=== PATIENT | female | born 1945 | race Caucasian/White ===

== ENCOUNTER 2022-05-21 15:27 | Outpatient (CLI) | payer MEDICARE, BC, SELFPAY | END 2022-05-21 15:28 | disposition home or self-care (01) | LOC: NFLDUCREF 05-24 14:15 | PROVIDERS: PCP Family Medicine; Visit Provider Registered Nurse | DX: N39.0 Urinary tract infection, site not specified (principal) | CPT/HCPCS: 87086; 87186 ==

== ENCOUNTER 2022-12-25 11:23 | Outpatient (CLI) | payer MEDICARE, BC, SELFPAY | END 2022-12-25 11:24 | disposition home or self-care (01) | LOC: NFLDUCREF 11:23 | PROVIDERS: PCP Family Medicine; Visit Provider Registered Nurse | DX: R39.15 Urgency of urination (principal) | CPT/HCPCS: 87086 ==

== ENCOUNTER 2023-01-15 08:56 | Outpatient (CLI) | payer MEDICARE, BC, SELFPAY | END 2023-01-15 08:57 | disposition home or self-care (01) | LOC: NFLDREF 01-21 10:50 | PROVIDERS: PCP Family Medicine; Referring Provider Family Medicine; Visit Provider Registered Nurse | DX: R31.9 Hematuria, unspecified (principal) | CPT/HCPCS: 87086; 87186 ==

== ENCOUNTER 2023-05-15 12:40 | Outpatient (CLI) | payer MEDICARE, BC, SELFPAY | END 2023-05-15 12:41 | disposition home or self-care (01) | LOC: NFLDREF 05-18 12:14 | PROVIDERS: PCP Family Medicine; Referring Provider Family Medicine; Visit Provider Nurse Practitioner Family | DX: N30.90 Cystitis, unspecified without hematuria (principal); B96.20 Unspecified Escherichia coli [E. coli] as the cause of diseases classified elsewhere | CPT/HCPCS: 87077; 87086; 87186 ==

== ENCOUNTER 2023-05-18 12:29 | Day surgery (SDC) | payer MEDICARE, BC, SELFPAY ==
--- OUTSIDE RECORDS SUMMARY | 2023-05-18 12:32 | XMS_ITS ---
Author Name Unknown Organization [facility] Address [address] [place] [id number] Care Team Providers Care Noodle Maker Name Role Phone Unavailable Unavailable Unavailable Surgery Details Not on file Complications Check Surgery Details section. Procedure Estimated Blood Loss Check Surgery Details section. Procedure Findings Check Surgery Details section. Procedure Specimens Taken Check Surgery Details section.
--- OUTSIDE RECORDS SUMMARY | 2023-05-18 12:32 | XMS_ITS | Referral Summary ---
Author Name Unknown Organization [facility] Address [address] [place] [id number] Care Team Providers Care Foam Fabricator Name Role Phone Elsewhere, Pcp Primary Care Provider Unavailabl e Source Comments Patient records contain information from all sites at [facility]. For routine questions regarding patient records, call [phone] during business hours, M-F 8:00 AM - 5:00 PM Central Time. Record requests for emergency care only can be directed to [phone] at any time.[facility] Encounters Date Type Department Care Team Description 05/05/2023 3:15 PM MANAGER SOCIAL WORK Comprehensive Visit Department of Ophthalmology in [place] [address] [place] [phone] Zoila Hartley O.D. Refraction Disorder (Primary Dx); Insufficiency Convergence 04/20/2023 11:30 AM MANAGER SOCIAL WORK [facility] [place], [place] [address] [place] [phone] Mumtaz Tipton APRN, Samm.N.P., M.S.N. Obstructive Sleep Apnea Adult 03/10/2023 1:00 PM MANAGER SOCIAL WORK [facility] [place], [place] [address] [place] [phone] Mumtaz Tipton APRN C.N.P., M.S.N. Obstructive Sleep Apnea Adult 02/28/2023 6:38 AM CDT - 02/28/2023 11:59 PM CDT Hospital Encounter Department of Radiology, [facility], in [place], [place] [address] [place] [address] Flaquito Pierce M.D. Lung Interstitial Disease (HCC) Discharge Disposition: Home or Self Care 02/28/2023 8:30 AM CDT Diagnostic Division of Pulmonary Medicine in [place], [place] [address] [place] [address] Flaquito Pierce M.D. Lung Interstitial Disease (HCC) 02/28/2023 10:30 AM CDT Office Visit Division of Pulmonary Medicine in [place], [place] [address] [place] [address] Lisa Soni MPAS, P.A.-C. Lung Interstitial Disease (HCC) (Primary Dx) 02/25/2023 Clinical Communication Division of Pulmonary Medicine in [place], [place] [address] [place] [address] Lisa Soni MPAS, P.A.-C. 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 May tolerate very low dose, ie 10 milligrams daily for 5 days. Medications Medication Sig Dispensed Refills Start Date End Date Status acyclovir (ZOVIRAX) 400 mg tablet Take by mouth as needed. TAKE ONE TABLET BY MOUTH THREE TIMES DAILY FOR 5 DAYS. START AT SOONEST SIGN OF HERPES FLARE 0 2 Active alendronate (FOSAMAX) 70 mg tablet Take 70 mg by mouth once a week. 0 2 Active atorvastatin (LIPITOR) 10 mg tablet Take 10 mg by mouth at bedtime. 0 3 Active cholecalciferol (VITAMIN D3) 25 mcg (1,000 Unit) capsule Take 1 capsule by mouth daily as needed. 0 6 Active ciclopirox (PENLAC) 8 % external solution Apply 1 application topically daily as needed. 0 2 Active clotrimazole (LOTRIMIN) 1 % cream Apply 1 application topically 2 (two) times a day as needed. 0 2 Active cyanocobalamin (VITAMIN B12) 1,000 mcg/mL injection Inject 1,000 mcg intramuscularly every 28 (twenty-eight) days. 0 2 Active fluticasone propionate (FLONASE) 50 mcg/actuation nasal spray Administer 1 spray into each nostril daily as needed. 0 2 Active gabapentin (NEURONTIN) 400 mg capsule Take 3 capsules by mouth at bedtime. 0 3 Active ipratropium-alb uteroL (Combivent Respimat) 20-100 mcg/actuation inhaler Inhale 1 puff every 6 (six) hours as needed. 0 2 Active Synthroid 100 mcg tablet Take 1 tablet by mouth daily. 0 3 Active loratadine (CLARITIN) 10 mg tablet Take 1 tablet by mouth daily. 0 3 Active losartan (COZAAR) 100 mg tablet Take 1 tablet by mouth daily. 0 3 Active lysine 1,000 mg tablet Take 1 tablet by mouth daily as needed. 0 2 Active montelukast (SINGULAIR) 10 mg tablet Take 1 tablet by mouth at bedtime. 0 3 Active omeprazole (PriLOSEC) [address] capsule Take 1 capsule by mouth once a week. 0 3 Active venlafaxine XR (EFFEXOR-XR) 75 mg 24 hr capsule Take 1 capsule by mouth daily. 0 2 Active VITAMIN B COMPLEX ORAL Take 1 tablet by mouth daily as needed. 0 0 Active ipratropium (ATROVENT) 21 mcg (0.03 %) nasal spray Administer 2 sprays into each nostril 2 (two) times a day. 30 mL 12 3 Active DME CPAPIndications :Obstructive Sleep Apnea Adult DME Order 1 each 0 3 Active albuterol 2.5 mg /3 mL nebulizer solution Inhale. 0 0 04/20/20 23 Discontinued albuterol 90 mcg/actuation inhaler Inhale 1-2 puffs every 4 (four) hours as needed. 0 2 04/20/20 23 Discontinued Advair Diskus 500-50 mcg/act diskus inhaler Inhale 1 puff daily. 0 2 04/20/20 Discontinued pirfenidone (ESBRIET) 267 mg tablet tablet Take by mouth. Take by mouth. Days 1-7 - one capsule by mouth 3 times daily (801 mg/day) Days 8-14 - two capsules by mouth 3 times daily (1602 mg/day) Day 15 onwards- three capsules by mouth 3 times daily (2403 mg/day) 0 2 04/20/20 23 Discontinued DME CPAPIndications :Obstructive Sleep Apnea Adult DME Order 1 each 0 3 04/20/20 Discontinued(Reo rder) Active Problems Problem Noted Date Diagnosed Date Diverticulosis 12/23/2012 Polyp Colon 05/25/2010 Overview: Colonoscopy 05/2010 polyp, Colonoscopy in 3 years. Colonoscopy 06/2013 polyp repeat in 5 years Colonoscopy 07/2018 - follow up in 5 years advised Herpesviral Infection Unspecified 04/13/2010 Hyperlipidemia Mixed 02/10/2009 Bipolar Disorder 04/19/2006 Asthma 04/19/2006 Overview: Normal PFT in 2006 - no change with bronchodilator Hypertension Essential Primary 04/19/2006 Hypothyroidism 04/19/2006 Social History Tobacco Use Types Packs/Day Years Used Date Smoking Tobacco: Former Cigarettes S tarted: 10/11/1984 Tobacco Cessation:Counseling Given: Not Answered Humiliation, Afraid, Rape, and Kick questionnair e Answer Date Recorded Within the last year, have y ou been afraid of your partner or ex-partner? No 05/17/2022 Within the last year, have y ou been humiliated or emotionally abused in other ways by your partner or ex-partner? No Within the last year, have y ou been kicked, hit, slapped, or otherwise physically hurt by your partner or ex-partner? No 05/17/2022 Within the last year, have y ou been raped or forced to have any kind of sexual activity by your partner or ex-partner? No 05/17/2022 Social Connection and Isolat ion Panel [NHANES] Answer Date Recorded In a typical week, how many times do you talk on the phone with family, friends, or neighbors? More than three times a week 05/17/2022 How often do you get togethe r with friends or relatives? More than three times a week 05/17/2022 How often do you attend chur or sikhism services? More than 4 times per year 05/17/2022 Do you belong to any clubs o r organizations such as muslim groups, unions, fraternal or athletic groups, or school groups? Yes 05/17/2022 How often do you attend meet ings of the clubs or organizations you belong to? More than 4 times per year 05/17/2022 Are you , , di vorced, , never , or living with a partner? 05/17/2022 AUDIT-C Answer Date Recorded Q1: How often do you have a drink containing alc ohol? Never 05/17/2022 Average Number of Drinks Not on file 023 Frequency of Binge Drinking Not on file 05/02 Overall Financial Resource Strain (CARDIA) Answe r Date Recorded How hard is it for you to pa y for the very basics like food, housing, medical care, and heating? Not hard at all 05/17/2022 [facility] - Occupational Stress Questionnaire Answer Date Recorded Do you feel stress - tense, restless, nervous, or anxious, or unable to sleep at night because your mind is troubled all the time - these days? Only a little 05/17/2022 Exercise Vital Sign Answer Date Recorde d On average, how many days pe r week do you engage in moderate to strenuous exercise (like a brisk walk)? 4 days 05/17/2022 On average, how many minutes do you engage in exercise at this level? 50 min 05/17/2022 Hunger Vital Sign Answer Date Recorded Within the past 12 months, y ou worried that your food would run out before you got the money to buy more. Never true 05/17/19 Within the past 12 months, t he food you bought just didn't last and you didn't have money to get more. Never true 05/17/2022 PRAPARE - Transportation Answer Date Re corded In the past 12 months, has l ack of transportation kept you from medical appointments or from getting medications? No 05/02 In the past 12 months, has l ack of transportation kept you from meetings, work, or from getting things needed for daily living? No 05/17/2022 Housing Stability Vital Sign Answer Rafa e Recorded In the last 12 months, was t here a time when you were not able to pay the mortgage or rent on time? No 05/17/2022 In the last 12 months, how many places have you lived? 1 05/17/2022 In the last 12 months, was t here a time when you did not have a steady place to sleep or slept in a custodial (including now)? No 05/17/2022 Nutrition Answer Date Recorded Nutrition: EVOO Fat Source Yes 05/17 On average, how many serving s of fruits and vegetables do you eat per day (serving size is equal to 1 cup or approximately the size of a tennis ball)? 6-7 05/17/2022 Dental Answer Date Recorded Dental: Regular Dentist Yes 05/17/19 Employment Answer Date Recorded Employment status Retired 05/17/2022 Education Answer Date Recorded What is the highest level of school you have completed or the highest degree you have received? Master's degree (e.g., MA, MS, Flavia, MEd, [employer], WILLIE) 05/17/2022 Sex and Gender Information Value Date Recorded Sex Assigned at Female 05/17/2022 2:17 PM MANAGER SOCIAL WORK Gender Identity Female 05/17/2022 2:17 PM MANAGER SOCIAL WORK Sexual Orientation Straight 05/17/2022 2: 17 PM MANAGER SOCIAL WORK Last Filed Vital Signs Vital Sign Reading Time Taken Comments Blood Pressure 127/76 02/28/2023 10:23 AM CDT Pulse 82 02/28/2023 10:23 AM CDT Temperature 36.9 ??C (98.4 ??F) 02/28/2023 10:23 AM C DT Respiratory Rate - - Oxygen Saturation 96% 02/28/2023 10:23 AM CDT Inhaled Oxygen Concentration - - Weight 84.4 kg (186 lb 1.1 oz) 02/28/2023 10:23 AM CDT Height 172.5 cm (5' 7.91) 02/28/2023 10:23 AM C DT Body Mass Index 28.36 02/28/2023 10:23 AM CDT Plan of Treatment Not on file Medical Devices Implanted Type Area Molding Plasterer Device Identifier Shelf Expiration Date Model / Serial / Lot Brenden/Screws From Broken Tibia Historical Record-06/04/2019 Implanted:06/04 by Provider, Historical (Quantity not on file) Hardware e.g. pins/screws/ rods Right: Tibia Historical Record Total Left Knee Replacement Implanted:09/30 by Provider, Historical (Quantity not on file) Knee Implant Left: Knee Procedures Procedure Name Priority Date/Time Associated Diagnosis Comments OXYGEN TITRATION Routine 02/28/2023 8:18 AM CDT Lung Interstitial Disease (HCC) PULMONARY FUNCTION TESTS Routine 02/28/2023 7:27 AM CDT Lung Interstitial Disease (HCC) CT CHEST WITHOUT IV CONTRAST RAD - Routine (most inpatients and all outpatients) 02/28/2023 6:56 AM CDT Lung Interstitial Disease (HCC) from Last 3 Months Results * Oxygen Titration (02/28/2023 8:18 AM CDT) [1] Inspired Gas (L/min) Room Air MMODAL [1] Interface N/A MMODAL [1] Speed (mph) Rest MMODAL [1] Grade (%) N/A MMODAL [1] Time (min) 10.0 MMODAL [1] SpO2 (%) 96 MMODAL [1] Heart Rate 83 MMODAL [1] Ratings of Perceived Exertion (6-20) 6 MMODAL [2] Inspired Gas (L/min) Room Air MMODAL [2] Interface N/A MMODAL [2] Speed (mph) 1.0 MMODAL [2] Grade (%) 0 MMODAL [2] Time (min) 2.0 MMODAL [2] SpO2 (%) 92 MMODAL [2] Heart Rate 98 MMODAL [2] Ratings of Perceived Exertion (6-20) 7 MMODAL [3] Inspired Gas (L/min) Room Air MMODAL [3] Interface N/A MMODAL [3] Speed (mph) 1.4 MMODAL [3] Grade (%) 0 MMODAL [3] Time (min) 2.0 MMODAL [3] SpO2 (%) 94 MMODAL [3] Heart Rate 102 MMODAL [3] Ratings of Perceived Exertion (6-20) 8 MMODAL [4] Inspired Gas (L/min) Room Air MMODAL [4] Interface N/A MMODAL [4] Speed (mph) 1.6 MMODAL [4] Grade (%) 3.0 MMODAL [4] Time (min) 2.0 MMODAL [4] SpO2 (%) 95 MMODAL [4] Heart Rate 107 MMODAL [4] Ratings of Perceived Exertion (6-20) 10 MMODAL [5] Inspired Gas (L/min) Room Air MMODAL [5] Interface N/A MMODAL [5] Speed (mph) 1.8 MMODAL [5] Grade (%) 8.0 MMODAL [5] Time (min) 2.0 MMODAL [5] SpO2 (%) 93 MMODAL [5] Heart Rate 115 MMODAL [5] Ratings of Perceived Exertion (6-20) 13 MMODAL Comment Total exercise time: 8.0 minutes. MMODAL Flaquito Pierce M.D. PFT ORDERABLES MMODAL NA * Pulmonary Function Tests (02/28/2023 7:27 AM CDT) [facility] Signature FVC 2.72 L 02/28/2023 9:23 AM CDT [facility] FEV1 2.30 L 02/28/2023 9:23 AM CDT [facility] FEV1/FVC 84.71 % 02/28/2023 9:23 AM CDT [facility] URR90-84% 2.54 L/s 02/28/2023 9:23 AM CDT [facility] PEF PRE 6.87 L/s 02/28/2023 9:23 AM CDT [facility] PIF PRE 5.29 L/s 02/28/2023 9:23 AM CDT [facility] FEF 50 % FIF 50 PRE 75.44 % 02/28/2023 9:23 AM CDT [facility] FET PRE 8.26 sec 02/28/2023 9:23 AM CDT [facility] DLCO 14.04 ml/(min*mm Hg) 02/28/2023 9:23 AM CDT [facility] VA 4.07 L 02/28/2023 9:23 AM CDT [facility] TLC 4.56 L 02/28/2023 9:23 AM CDT [facility] FRCPLETH PROVBASE 2.33 L 02/28/2023 9:23 AM CDT [facility] RV 1.84 L 02/28/2023 9:23 AM CDT [facility] RV % TLC PRE 40.41 % 02/28/2023 9:23 AM CDT [facility] 02/28/2023 7:27 AM CDT Impressions [facility] - 02/28/2023 9:23 AM CDT Abnormal. The diffusing capacity is mildly reduced consistent with a pulmonary parenchymal or vascular abnormality, or anemia. Lung volumes and spirometry including inspiratory flow volume curve are normal. Since 08/24/2022 there has been no significant change. Narrative Procedure Note Piero Herrera M.D., Ph.D. - 02/28/2023 IMPRESSION: Abnormal. The diffusing capacity is mildly reduced consistent with apulmonary parenchymal or vascular abnormality, or anemia. Lung volumes andspirometry including inspiratory flow volume curve are normal. Since08/24/2022 there has been no significant change. Flaquito Pierce M.D. PFT ORDERABLES [facility] NA * CT Chest without IV Contrast (02/28/2023 6:56 AM CDT) Anatomical Region Laterality Modality Chest, Thoracic RST LOS, Tho racic ARZ LOS, Thoracic FLA LOS N/A Computed Tomography, Compute d Tomography 02/28/2023 7:09 AM CDT Impressions 02/28/2023 7:28 AM CDT 1. 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 2. No change in small lung nodules. 3. Stable mild bronchial dilatation and moderate patchy expiratory air trapping. Narrative 02/28/2023 7:28 AM CDT EXAM: CT CHEST WITHOUT IV CONTRAST COMPARISON: 08/24/2022. FINDINGS: No interval change in the nonspecific reticular and groundglass fibrotic interstitial lung disease, which is predominantly peripheral in distribution. No definite honeycombing. No new areas of involvement. No change in mild diffuse bronchial dilatation, greatest in the lower lungs. Expiratory images (series 5) again demonstrate moderate patchy air trapping with mosaic attenuation of the lung parenchyma. No change in the 4 x 2 mm lung nodule in the right upper lobe laterally (series 3, image 226) which was noted as new on the prior exam. No change in the small groundglass/sub-solid nodule adjacent to a pulmonary vein in the left upper lobe anteriorly (3/213). Scattered areas of subsegmental bronchial mucus plugging. Stable dilated mucus-impacted bronchus in the anterior basal segment of the left lower lobe (3/419-440). No new or enlarging lung nodules. No lymphadenopathy. No pleural effusions. Mild coronary artery calcification. 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 No change in dilation of the central pulmonary arteries. The main pulmonary artery measures 34 mm. Small hiatal hernia. Cholecystectomy. Severe osteoarthritic changes of the shoulders. Healed left rib fractures. Procedure Note Shawn Ríos M.D. - 02/28/2023 EXAM: CT CHEST WITHOUT IV CONTRAST COMPARISON: 08/24/2022. FINDINGS: No interval change in the nonspecific reticular and groundglass fibroticinterstitial lung disease, which is predominantly peripheral in distribution. No definitehoneycombing. No new areas of involvement. No change in mild diffuse bronchial dilatation, greatest in the lowerlungs. Expiratory images (series 5) again demonstrate moderate patchy air trapping with mosaicattenuation of the lung parenchyma. No change in the 4 x 2 mm lung nodule in the right upper lobe laterally(series 3, image 226) which was noted as new on the prior exam. No change in the small groundglass/sub-solid nodule adjacent to apulmonary vein in the left upper lobe anteriorly (3/213). Scattered areas of subsegmental bronchial mucus plugging. Stable dilatedmucus-impacted bronchus in the anterior basal segment of the left lower lobe (3/419-440). No new orenlarging lung nodules. No lymphadenopathy. No pleural effusions. Mild coronary artery calcification. 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 No change in dilation of the central pulmonary arteries. The mainpulmonary artery measures 34 mm. Small hiatal hernia. Cholecystectomy. Severe osteoarthritic changes of the shoulders. Healed left ribfractures. IMPRESSION: 1. No change in fibrotic interstitial lung disease in a patternindeterminate for UIP. 2. No change in small lung nodules. 3. Stable mild bronchial dilatation and moderate patchy expiratory airtrapping. Flaquito Pierce M.D. IMG CT PROCEDURES from Last 3 Months Advance Directives For more information, please contact: [phone] Documents on File Type Date Recorded Patient Inside Barrel Polisher Expl anation Advance Directives 04/07/2007 12:00 AM Leg acy document. See document viewer. Care Teams Foam Fabricator Relationship Specialty Start Date End Date Elsewhere, Pcp PCP - General Internal Medicine 05/14/22
--- OUTSIDE RECORDS SUMMARY | 2023-05-18 12:32 | XMS_ITS | Clinical Summary ---
Author Name Unknown Organization [facility] Address [address] [place] [address] Care Team Providers Care Benefits Officer Name Role Phone Elsewhere, Pcp Primary Care Provider Unavailabl e Source Comments Patient records contain information from all sites at [facility]. For routine questions regarding patient records, call [phone] during business hours, M-F 8:00 AM - 5:00 PM Central Time. Record requests for emergency care only can be directed to [phone] at any time.[facility] Allergies Active Allergy Reactions Criticality Noted Date Comments Amoxicillin GI intolerance 11/28/2020 Divalproex Sodium Other (see comments) 03/28/20 07 increase WBC count Fluticasone Other (see comments) 07/14/2015 Pt reports high dose fpc caused damage to her nose (taste/smell) House [...] Inhale 1 puff daily. 0 2 04/20/20 23 Discontinued pirfenidone (ESBRIET) 267 mg tablet tablet [...] DME Order 1 each 0 3 04/20/20 23 Discontinued(Reo rder) Active Problems Problem Noted Date [...] bronchodilator Hypertension Essential Primary 04/19/2006 Hypothyroidism 04/19/2006 Encounters Date Type Department Care Team Description 05/05/2023 3:15 PM FRONT LINE LEADER Comprehensive Visit Department of Ophthalmology in [place], [place] [address] [place] [phone] Zoila Hartley O.D. Refraction Disorder (Primary Dx); Insufficiency Convergence 04/20/2023 11:30 AM FRONT LINE LEADER [facility] in [place], [place] [address] [place] [address] Mumtaz Tipton APRN, C.N.P., M.S.N. Obstructive Sleep Apnea Adult 03/10/2023 1:00 PM FRONT LINE LEADER Office Visit [facility] in [place], [place] [address] [place] [phone] Mumtaz Tipton APRN, C.N.P., M.S.N. Obstructive Sleep Apnea Adult 02/28/2023 10:30 AM CDT Office Visit Division of Pulmonary Medicine in [place], [place] [address] [place] [phone] Lisa Soni MPAS, P.A.-CKarol Lung Interstitial Disease (HCC) (Primary Dx) 02/28/2023 8:30 AM CDT Diagnostic Division of Pulmonary Medicine in [address] [phone] Flaquito Pierce M.D. Lung Interstitial Disease (HCC) 02/28/2023 6:38 AM CDT - 02/28/2023 11:59 PM CDT Hospital Encounter Department of Radiology, [facility], in [place], [place] [address] [place] [phone] Flaquito Pierce M.D. Lung Interstitial Disease (HCC) Discharge Disposition: Home or Self Care 02/25/2023 Clinical Communication Division of Pulmonary Medicine in [address] [phone] Lisa Soni MPAS, P.A.-CKarol Pre-visit Intake from Last 3 Months Family History Medical History Relation Name Comments Macular degeneration Mother Glaucoma Paternal Grandmother Relation Name Status Comments Mother Paternal Grandmother Social History Tobacco Use Types Packs/Day Years [...] How often do you attend chur or mormon services? More than 4 times per year 05/17/2022 Do you belong to any clubs o r organizations such as alevism groups, unions, fraternal or athletic groups, or [...] and heating? Not hard at all 05/17/2022 [facility] Occupat ional Health - Occupational Stress [...] place to sleep or slept in a halfway (including now)? No 05/17/2022 Nutrition Answer Date [...] Master's degree (e.g., MA, MS, Flavia, MEd, FISHING GEAR MECHANIC, WILLIE) 05/17/2022 Sex and Gender Information Value Date Recorded Sex Assigned at Female 05/17/2022 2:17 PM FRONT LINE LEADER Gender Identity Female 05/17/2022 2:17 PM FRONT LINE LEADER Sexual Orientation Straight 05/17/2022 2: 17 PM FRONT LINE LEADER Last Filed Vital Signs Vital Sign Reading [...] 02/28/2023 10:23 AM CDT Plan of Treatment Health Maintenance Due Date Last Done Comments Hepatitis C Screening 1945 Depression Screening (Annual PHQ-2) 05/02/2023 Fall Risk Screen (Annual) 05/02/2023 Creatinine Level (Kidney Function Test) 05/26/2023 05/26/2022, 05/18/2022, 07/02/2021, Additional history exists Potassium Level 05/26/2023 05/26/2022, 05/02, 07/02/2021, Additional history exists Sodium Level 05/26/2023 05/26/2022, 05/02, 07/02/2021, Additional history exists Thyroid Stimulating Hormone (TSH) test for thyroid function 12/29/2023 12/28/2022, 08/13/2022, 05/26/2022, Additional history exists DTaP,Tdap,and Td Vaccines (4 - Td or Tdap) 01/23/2024 01/22/2014, 02/10/2009, 02/27/1990 Office Visit for Blood Pressure Check / Re-check 02/29/2024 02/28/2023 Pneumococcal vaccine (65+ years) Completed 12/24/2014, 09/06/2012, 02/08/2012, Additional history exists Zoster Vaccines Completed 11/30/2018, 07/01, 11/16/2011 Influenza Vaccine Completed 01/13/2023, , 01/27/2021, Additional history exists COVID-19 Vaccine Completed 01/31/2023, , 09/02/2021, Additional history exists HPV Vaccines Aged Out No longer eligi ble based on patient's age to complete this topic Medical Devices Implanted Type Area Risk Assessor Device Identifier Shelf Expiration Date Model / [...] Total exercise time: 8.0 minutes. MMODAL Flaquito Pierec M.D. PFT ORDERABLES MMODAL NA * Pulmonary Function Tests (02/28/2023 7:27 AM CDT) FVC 2.72 L 02/28/2023 9:23 AM CDT [facility] FEV1 2.30 L 02/28/2023 9:23 AM CDT [facility] FEV1/FVC 84.71 % 02/28/2023 9:23 AM CDT [facility] ESE32-86% 2.54 L/s 02/28/2023 9:23 AM CDT [facility] PEF PRE 6.87 L/s 02/28/2023 9:23 AM CDT [facility] PIF PRE 5.29 L/s 02/28/2023 9:23 AM CDT [facility] FEF 50 % FIF 50 PRE 75.44 % 02/28/2023 9:23 AM CDT [facility] FET PRE 8.26 sec 02/28/2023 9:23 AM CDT [facility] DLCO 14.04 ml/(min*mm Hg) 02/28/2023 9:23 AM CDT [facility] VA 4.07 L 02/28/2023 9:23 AM CDT [facility] TLC 4.56 L 02/28/2023 9:23 AM CDT [facility] FRCPLETH PROVBASE 2.33 L 02/28/2023 9:23 AM CDT [facility] RV 1.84 L 02/28/2023 9:23 AM CDT [facility] RV % TLC PRE 40.41 % 02/28/2023 9:23 AM CDT [facility] 02/28/2023 7:27 AM CDT Impressions [facility] - 02/28/2023 9:23 AM CDT Abnormal. The [...] significant change. Flaquito Pierce M.D. PFT ORDERABLES [facility] NA * CT Chest without IV Contrast [...] Advance Directives For more information, please contact: [phone] Documents on File Type Date Recorded Patient Python Java Developer Expl anation Advance Directives 04/07/2007 12:00 AM Leg acy document. See document viewer. Care Teams Benefits Officer Relationship Specialty Start Date End Date Elsewhere, Pcp PCP - General Internal Medicine 05/14/22
--- OUTSIDE RECORDS SUMMARY | 2023-05-18 12:32 | XMS_ITS | Encounter Summary ---
Author Name Unknown Organization [facility] Address [address] [place] [address] Care Team Providers Care Traveling Construction Superintendent Name Role Phone Elsewhere, Pcp Primary Care Provider Unavailabl e Reason for Referral * MRI/CAT/PET Scan (Routine) - Closed Specialty Diagnoses / Procedures Referred By Averyac t Referred To Contact Radiology Diagnoses Lung Interstitial Disease (HCC) Procedures CT Chest without IV Contrast Flaquito Pierce M.D. 200 [place] [address] [facility] Referral ID Status Reason Start Date Expiration Date Visits Re quested Visits Authorized [id number] Closed 08/24/2022 08/24/2023 1 1 Reason for Visit * MRI/CAT/PET Scan (Routine) - Closed Specialty Diagnoses / Procedures Referred By Contac nghia Referred To Contact Radiology Diagnoses Lung Interstitial Disease (HCC) Procedures CT Chest without IV Contrast Flaquito Pierce M.D. 200 [place] [address] [facility] Referral ID Status Reason Start Date Expiration Date Visits Re quested Visits Authorized [id number] Closed 08/24/2022 08/24/2023 1 1 Encounter Details Date Type Department Care Team (Latest Contact Info) Description 02/28/2023 6:38 AM CDT - 02/28/2023 11:59 PM CDT Hospital Encounter Department of Radiology, [facility] in [place], [place] [address] [place] [address] Flaquito Pierce M.D. 200 [place] [address] Lung Interstitial Disease (HCC) Discharge Disposition: Home or Self Care Social History Tobacco Use Types Packs/Day Years Used Date Smoking Tobacco: Former Cigarettes S tarted: 10/11/1984 Humiliation, Afraid, Rape, and Kick questionnair e [...] How often do you attend chur or orthodoxy services? More than 4 times per year 05/17/2022 Do you belong to any clubs o r organizations such as hoahaoism groups, unions, fraternal or athletic groups, or [...] and heating? Not hard at all 05/17/2022 [facility] [place] of Occupat ional Health - Occupational Stress [...] money to buy more. Never true 05/17/19 23 Within the past 12 months, t he [...] place to sleep or slept in a fci (including now)? No 05/17/2022 Nutrition Answer Date [...] Master's degree (e.g., MA, MS, Flavia, MEd, AGRICULTURAL LENDER, WILLIE) 05/17/2022 Sex and Gender Information Value Date Recorded Sex Assigned at Female 05/17/2022 2:17 PM SOCIAL AND HUMAN SERVICES ASSISTANT Gender Identity Female 05/17/2022 2:17 PM SOCIAL AND HUMAN SERVICES ASSISTANT Sexual Orientation Straight 05/17/2022 2: 17 PM SOCIAL AND HUMAN SERVICES ASSISTANT documented as of this encounter Medications at Time of Discharge Medication Sig Dispensed Refills Start Date End Date acyclovir (ZOVIRAX) 400 mg tablet Take by mouth as needed. TAKE ONE TABLET BY MOUTH THREE TIMES DAILY FOR 5 DAYS. START AT SOONEST SIGN OF HERPES FLARE 0 12/11/2021 alendronate (FOSAMAX) 70 mg tablet Take 70 mg by mouth once a week. 0 07/02/2021 atorvastatin (LIPITOR) 10 mg tablet Take 10 mg by mouth at bedtime. 0 05/10/2022 cholecalciferol (VITAMIN D3) 25 mcg (1,000 Unit) capsule Take 1 capsule by mouth daily as needed. 0 07/14/2015 ciclopirox (PENLAC) 8 % external solution Apply 1 application topically daily as needed. 0 02/03/2022 clotrimazole (LOTRIMIN) 1 % cream Apply 1 application topically 2 (two) times a day as needed. 0 02/03/2022 cyanocobalamin (VITAMIN B12) 1,000 mcg/mL injection Inject 1,000 mcg intramuscularly every 28 (twenty-eight) days. 0 04/01/2022 fluticasone propionate (FLONASE) 50 mcg/actuation nasal spray Administer 1 spray into each nostril daily as needed. 0 04/06/2022 gabapentin (NEURONTIN) 400 mg capsule Take 3 capsules by mouth at bedtime. 0 05/10/2022 ipratropium (ATROVENT) 21 mcg (0.03 %) nasal spray Administer 2 sprays into each nostril 2 (two) times a day. 30 mL 12 05/26/2022 ipratropium-albutero L (Combivent Respimat) 20-100 mcg/actuation inhaler Inhale 1 puff every 6 (six) hours as needed. 0 08/25/2021 loratadine (CLARITIN) 10 mg tablet Take 1 tablet by mouth daily. 0 05/10/2022 losartan (COZAAR) 100 mg tablet Take 1 tablet by mouth daily. 0 05/10/2022 lysine 1,000 mg tablet Take 1 tablet by mouth daily as needed. 0 12/14/2011 montelukast (SINGULAIR) 10 mg tablet Take 1 tablet by mouth at bedtime. 0 05/10/2022 omeprazole (PriLOSEC) [address] capsule Take 1 capsule by mouth once a week. 0 05/10/2022 Synthroid 100 mcg tablet Take 1 tablet by mouth daily. 0 05/10/2022 venlafaxine XR (EFFEXOR-XR) 75 mg 24 hr capsule Take 1 capsule by mouth daily. 0 07/02/2021 VITAMIN B COMPLEX ORAL Take 1 tablet by mouth daily as needed. 0 04/13/2010 Advair Diskus 500-50 mcg/act diskus inhaler Inhale 1 puff daily. 0 04/17/2022 023 albuterol 2.5 mg /3 mL nebulizer solution Inhale. 0 08/16/2019 04/20/2023 albuterol 90 mcg/actuation inhaler Inhale 1-2 puffs every 4 (four) hours as needed. 0 08/24/2021 04/20/20 23 DME CPAPIndications:Obst ructive Sleep Apnea Adult DME Order 1 each 0 06/14/2022 03/10/2023 pirfenidone (ESBRIET) 267 mg tablet tablet Take by mouth. Take by mouth. Days 1-7 - one capsule by mouth 3 times daily (801 mg/day) Days 8-14 - two capsules by mouth 3 times daily (1602 mg/day) Day 15 onwards- three capsules by mouth 3 times daily (2403 mg/day) 0 04/14/20222022 documented as of this encounter Plan of Treatment Not on file documented as of this encounter Procedures Procedure Name Priority Date/Time Associated Diagnosis Comments CT CHEST WITHOUT IV CONTRAST RAD - Routine (most inpatients and all outpatients) 02/28/2023 6:56 AM CDT Lung Interstitial Disease (HCC) documented in this encounter Results * CT Chest without IV Contrast (02/28/2023 [...] dilatation and moderate patchy expiratory airtrapping. Flaquito MARINO CT PROCEDURES documented in this encounter Visit Diagnoses Diagnosis Lung Interstitial Disease (HCC) documented in this encounter Care Teams Traveling Construction Superintendent Relationship Specialty Start Date End Date Elsewhere, Pcp PCP - General Internal Medicine 05/14/22 documented as of this encounter
--- OUTSIDE RECORDS SUMMARY | 2023-05-18 12:32 | XMS_ITS | Encounter Summary ---
Author Name Unknown Organization [facility] Address [address] [place] [address] Care Team Providers Care Cable Armorer Name Role Phone Elsewhere, Pcp Primary Care Provider Unavailabl e Encounter Details Date Type Department Care Team ([facility] st Contact Info) Description 02/28/2023 8:30 AM CDT Diagnostic Division of Pulmonary Medicine in [place], [place] [address] [place] [phone] Flaquito Pierce M.D. [address] [place] [phone] Lung Interstitial Disease (HCC) Social History Tobacco Use Types Packs/Day Years [...] 05/17/2022 How often do you attend chur ch or baptist services? More than 4 times per year 05/17/2022 Do you belong to any clubs o r organizations such as adventism groups, unions, fraternal or athletic groups, or [...] and heating? Not hard at all 05/17/2022 [facility] of Occupat ional Health - Occupational Stress [...] place to sleep or slept in a long term (including now)? No 05/17/2022 Nutrition Answer Date [...] Master's degree (e.g., MA, MS, Flavia, MEd, CIRCULATION ANALYST, WILLIE) 05/17/2022 Sex and Gender Information Value Date Recorded Sex Assigned at Female 05/17/2022 2:17 PM SHOE PLANNER Gender Identity Female 05/17/2022 2:17 PM SHOE PLANNER Sexual Orientation Straight 05/17/2022 2: 17 PM SHOE PLANNER documented as of this encounter Plan of Treatment Not on file documented as of this encounter Procedures Procedure Name Priority Date/Time Associated Diagnosis Comments OXYGEN TITRATION Routine 02/28/2023 8:18 AM CDT Lung Interstitial Disease (HCC) documented in this encounter Results * Oxygen Titration (02/28/2023 8:18 AM [...] Flaquito Pierce M.D. PFT ORDERABLES MMODAL NA documented in this encounter Visit Diagnoses Diagnosis Lung Interstitial Disease (HCC) documented in this encounter Care Teams Cable Armorer Relationship Specialty Start Date End Date Elsewhere, Pcp PCP - General Internal Medicine 05/14/22 documented as of this encounter
--- OUTSIDE RECORDS SUMMARY | 2023-05-18 12:32 | XMS_ITS | Encounter Summary ---
Author Name Unknown Organization [facility] Address [address] [place] [address] Care Team Providers Care Commercial Decorator Name Role Phone Elsewhere, Pcp Primary Care Provider Unavailabl e Reason for Visit * Reason Comments Eye Exam * Appointment Request (Routine) - Closed Specialty Diagnoses / Procedures Referred By Contac t Referred To Contact Ophthalmology Diagnoses Eye Examination Abnormal Referral ID Status Reason Start Date Expiration Date Visits Re quested Visits Authorized [id number] Closed 04/12/2023 04/11/2024 1 1 Encounter Details Date Type Department Care Team (Latest Contact Info) Description 05/05/2023 3:15 PM EMBEDDED SOFTWARE DEVELOPER Comprehensive Visit Department of Ophthalmology in [place] [address] [place] [phone] Zoila Hartley O.D. [address] [place] [phone] Refraction Disorder (Primary Dx); Insufficiency Convergence Social History Tobacco Use Types Packs/Day Years [...] and heating? Not hard at all 05/17/2022 [facility] of Occupat ional Health - Occupational [...] place to sleep or slept in a [place] [facility] [place] (including now)? No 05/17/2022 Nutrition Answer Date [...] Master's degree (e.g., MA, MS, Flavia, MEd, ARTIST RELATIONSHIP MANAGER, WILLIE) 05/17/2022 Sex and Gender Information Value Date Recorded Sex Assigned at Female 05/17/2022 2:17 PM EMBEDDED SOFTWARE DEVELOPER Gender Identity Female 05/17/2022 2:17 PM EMBEDDED SOFTWARE DEVELOPER Sexual Orientation Straight 05/17/2022 2: 17 PM EMBEDDED SOFTWARE DEVELOPER documented as of this encounter Progress Notes * Zoila Hartley O.D. 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 Please contact us with any questions, concerns, or changes. DDED SOFTWARE DEVELOPER documented in this encounter Plan of Treatment Not on file documented as of this encounter Visit Diagnoses Diagnosis Refraction Disorder- Primary Insufficiency Convergence documented in this encounter Care Teams Commercial Decorator Relationship Specialty Start Date End Date Elsewhere, Pcp PCP - General Internal Medicine 05/14/22 documented as of this encounter
--- OUTSIDE RECORDS SUMMARY | 2023-05-18 12:32 | XMS_ITS | Encounter Summary ---
Author Name Unknown Organization [facility] Address [address] [place] [id number] Care Team Providers Care Roof Plumber Name Role Phone Elsewhere, Pcp Primary Care Provider Unavailabl e Reason for Visit * Outpatient (Routine) - Closed Specialty Diagnoses / Procedures Referred By Contac t Referred To Contact Sleep Medicine Mumatz Tipton APRN, C.N.P., M.S.N. [address] [place] [phone] [facility] Referral ID Status Reason Start Date Expiration Date Visits Re quested Visits Authorized [id number] Closed 03/10/2023 03/09/2026 1 1 Encounter Details Date Type Department Care Team ([facility] st Contact Info) Description 04/20/2023 11:30 AM [facility] Telemedicine [facility] in [place], [place] [address] [place] [phone] Mumtaz Tipton APRN, C.N.P., M.S.N. [address] [place] [phone] Obstructive Sleep Apnea Adult Social History Tobacco Use Types Packs/Day Years [...] How often do you attend chur or mosque services? More than 4 times per year 05/17/2022 Do you belong to any clubs o r organizations such as faith groups, unions, fraternal or athletic groups, or [...] and heating? Not hard at all 05/17/2022 [facility] of Occupat ional Health - Occupational Stress [...] place to sleep or slept in a fpc (including now)? No 05/17/2022 Nutrition Answer Date [...] Master's degree (e.g., MA, MS, Flavia, MEd, WINTER SPORTS MANAGER, WILLIE) 05/17/2022 Sex and Gender Information Value Date Recorded Sex Assigned at Female 05/17/2022 2:17 PM GRE TUTOR Gender Identity Female 05/17/2022 2:17 PM GRE TUTOR Sexual Orientation Straight 05/17/2022 2: 17 PM GRE TUTOR documented as of this encounter Progress Notes * Mumtaz Tipton, FURNACE COMBUSTION TESTER, C.N.P., M.S.N. - 04/20/2023 11:30 AM CST SUBJECTIVE REASON FOR VIDEO VISIT: JOY follow-up, PAP compliance HISTORY OF PRESENT ILLNESS Consult conducted via real-time audio/video technology by Mumtaz Tipton APRN, C.N.Key, M.S.N. at [facility] to the patient's home. I last met with patient on 03/10/2023 at which point we reviewed device download and also discussed mask fit. Patient's mask was too large and we did trial fitting a smaller interface cushion which worked well at time of visit. Since that time patient has been using the same small size cushion and finds that this is working well for and has not noted anybothersome leakage. Patient also felt more comfortable with the smaller cushion. Per patient's request. We change pressure setting from a set CPAP pressure of 16 cm H2O to auto PAP range of 5-12 cm H2O. She understands that there will likely be some increase in residual breakthrough sleep disordered breathing at this pressure setting. However the goal at this time as just to help her acclimate then we can readjust later. Patient will p Today, ResMed AirSense 10 AutoSet download from 03/10/2023-04/13/2023 reveals PAP pressure setting of 5-12 cm H2O. Median pressure at cm H2O with 95th percentile at 11.9 and maximum average pressure at 12 cm H2O. EPR set at 3 full- time. Median air leak at 0.1 L per minute and 95th percentile air leak at 7 point L per minute utilizing size small ResMed AirTouch F20 interface. Residual AHI at 7.5 with minimal degree of central apnea and no Mario-Mayberry respirations detected by the device. Average daily use 6 hours and 44 minutes with percentage of days used greater than 4 hours at 92%. Patient denies any out right air hunger but does feel that pressure could be a bit stronger when 1st initiating therapy. It is notable that starting pressure at only 4 cm H2O with auto ramp feature on presently. Not aware of any breakthrough snoring. New mask seems to fit her more comfortably and there is significantly less leakage now. She has gone from hating CPAP to at least tolerating it at this point. She is having trouble maintaining sleep about half the days of the week. Some nights she only gets 4 hours of sleep or so and then wakes up and has trouble reinitiating sleep while the nextnights she may sleep through the night for approximately 7-8 hours. On nights she has trouble reinit iating sleep, she typically will get up and read which she enjoys. Since she is retires she has notnecessarily bothered by this significantly. She has still not napping during the day. She does feelfatigued and sleepy however especially on days where she has not getting a full night of sleep. 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 Howard . Congratulated patient on exemplary use of PAP therapy easily meeting any insurance requirements for use. Encouraged patient to continue with all night, every night use of PAP therapy. Current auto PAP settings may be somewhat suboptimal as very often Pap is reaching maximum pressure setting. Recommend increasing pressure range from 5-12 cm H2O to 5-15 cm H2O. We will also increase PAP starting pressure to 5 cm H2O and reduced ramp time to 20 minutes. Patient was amenable to this and pressure change will be made on [employer] in updated prescription be sent to [facility] in [place], [place] per patient request. Mask fit appears to be better as evidenced by very minimal mask leakage over the last 39 days of datadownloaded from the device. Patient will plan to send me a portal message in approximately 2 weeks to let me know how she is doing with aforementioned changes. Hopefully, her sleep will improve as well. The PAP device continues to meet the patient's medical need regarding treatment of sleep-related disordered breathing. The replacement of PAP accessories is medically necessary and is essential for the effective use of PAP therapy. All questions answered to the best of my ability. Patient verbalized understanding of the plan of care and is in agreement. I personally spent over half of a total of 25 minutes face to face with the patient in counseling and discussion and/or coordination of care as described above.25 TUTOR documented in this encounter Plan of Treatment Not on file documented as of this encounter Visit Diagnoses Diagnosis Obstructive Sleep Apnea Adult documented in this encounter Care Teams Roof Plumber Relationship Specialty Start Date End Date Elsewhere, Pcp PCP - General Internal Medicine 05/14/22 documented as of this encounter
--- OUTSIDE RECORDS SUMMARY | 2023-05-18 12:32 | XMS_ITS | Encounter Summary ---
Author Name Unknown Organization [facility] Address [address] [place] [id number] Care Team Providers Care Pattern Puncher Name Role Phone Elsewhere, Pcp Primary Care Provider Unavailabl e Reason for Referral * Outpatient (Routine) - Closed Specialty Diagnoses / Procedures Referred By Contac t Referred To Contact Sleep Medicine Mumtaz Tipton APRN, C.N.P., M.S.N. [address] [place] [phone] [facility] Referral ID Status Reason Start Date Expiration Date Visits Re quested Visits Authorized [id number] Closed 03/10/2023 03/09/2026 1 1 Scheduling Instructions JOY f/u, PAP compliance. Okay to f/u with nsg if luke not available. Thank you. DENTIAL GAS HEAT TECHNICIAN Reason for Visit * Outpatient (Routine) - Closed Specialty Diagnoses / Procedures Referred By Contac t Referred To Contact Sleep Medicine Mumtaz Tipton APRN, C.NHaritha, M.S.N. [address] [place] [phone] [facility] Referral ID Status Reason Start Date Expiration Date Visits Re quested Visits Authorized [id number] Closed 06/14/2022 06/13/2025 1 1 Encounter Details Date Type Department Care Team ([facility] st Contact Info) Description 03/10/2023 1:00 PM RESIDENTIAL GAS HEAT TECHNICIAN Office Visit [facility] in [place], [place] 200 [place] [phone] Mumtaz Tipton APRN, C.N.P., M.S.N. 200 [place] [phone] Obstructive Sleep Apnea Adult Social History Tobacco [...] How often do you attend chur or yazidi services? More than 4 times per year 05/17/2022 Do you belong to any clubs o r organizations such as lutheran groups, unions, fraternal or athletic groups, or [...] and heating? Not hard at all 05/17/2022 [facility] of Occupat ional Health - Occupational [...] place to sleep or slept in a care home (including now)? No 05/17/2022 Nutrition Answer Date [...] Master's degree (e.g., MA, MS, Flavia, MEd, INVENTORY ASSOCIATE AND DRIVER, WILLIE) 05/17/2022 Sex and Gender Information Value Date Recorded Sex Assigned at Female 05/17/2022 2:17 PM RESIDENTIAL GAS HEAT TECHNICIAN Gender Identity Female 05/17/2022 2:17 PM RESIDENTIAL GAS HEAT TECHNICIAN Sexual Orientation Straight 05/17/2022 2: 17 PM RESIDENTIAL GAS HEAT TECHNICIAN documented as of this encounter Progress Notes * Mumtaz Tipton, VIJAY, C.N.P., M.S.N. - 03/10/2023 1:00 PM CST SUBJECTIVE CHIEF COMPLAINT/REASON FOR VISIT JOY follow-up, PAP compliance HISTORY OF PRESENT ILLNESS Ms. Howard is a 77 y.o. female who presents for above concern. Recall patient completed PSG 06/03/2022 which revealed overall AHI of 19.9 and RDI of 20.3 events per hour; notably the sleep apnea was most significant during REM sleep regardless of body position. [facility]2022 at which time we reviewed the PSG results. Patient voiced interest in trialing PAP therapy with setting of 16 cm H2O and also voicedinterest in trialing a hybrid interface. Today, no device download was available for review as patient has not been using the device consistently. Patient states she has struggled with interface fit as well as pressure setting feeling as though it is too high. Patient recently talked with Lisa Soni PA-C with Department of pulmonology who made some excellent recommendations to the patient regarding tips on acclimated to PAP therapy. Patient had been using a ResMed AirTouch size medium interface. She found that this was leaking significantly. She has recently been provided with a size small cushion for the same interface but has not yet tried this. She is also wondering if a pressure reduction can be considered so that she may more easily acclimate to CPAP therapy. OBJECTIVE Patient Active Problem List Diagnosis Bipolar Disorder (HCC) Asthma (HCC) Hypertension Essential Primary Hyperlipidemia Mixed Diverticulosis Hypothyroidism Polyp Colon Herpesviral Infection Unspecified VITAL SIGNS Blood Pressure: 127/76 (02/28/2023 10:23 AM) Temperature: 36.9 ??C (02/28/2023 10:23 AM) Temp Source: Temporal (02/28/2023 10:23 AM) Pulse Rate: 82 (02/28/2023 10:23 AM) BMI (Calculated): 28.4 kg/m?? (02/28/2023 10:23 AM) SpO2: 96 % (02/28/2023 10:23 AM) Height: 172.5 cm (02/28/2023 10:23 AM) Weight: 84.4 kg (02/28/2023 10:23 AM) PHYSICAL EXAMINATION General: Groomed, pleasant, in no acute distress. Psychiatric: Answers questions in a timely, logical fashion. Affect broad, mood congruent. Judgmentand insight seem to be grossly intact. Musculoskeletal: Walks with a normal, nonantalgic gait with normal zoila. Neuro: No tremor noted. Respiratory: Breathing comfortably on room air without any conversational dyspnea. 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 Howard. Nevertheless, we did talk about ways to acclimate to PAP therapy. I watched her Mehrdad the ResMed AirTouch size medium interface. This interface did appear to be much too large for her face as the inferior portion of the mask came all the way to thebottom of her chin and the superior portion came all the way to the upper bridge of the nose. We then tried the small cushion in the same interface which fit her nicely. We also ran a mask pressure test and the mask maintained a good seal throughout the testing. Patient also felt more comfortable with the smaller cushion. Per patient's request. We change pressure setting from a set CPAP pressure of 16 cm H2O to auto PAP range of 5-12 cm H2O. She understands that there will likely be some increase in residual breakthrough sleep disordered breathing at this pressure setting. However the goal atthis time as just to help her acclimate then we can readjust later. Patient will plan to contact [facility] also to see if they can marcio access to the [employer] database. That way, we can make changes to the pressure settings and other settings if necessary in the interim before follow-up visit. Patient is agreeable to a follow-up visit in approximately 1 month to review device download and PAP compliance again and troubleshoot any other issues that she may be having at nahomi t time. She understands [facility] requirements for CPAP use as well. She is comfortable continuing with auto climate control settings on the device. Also for now we will continue with EPR setting of 3 and auto ramp feature. Auto ramp starting pressure at 4 cm H2O which is quite low but while she is acclimated him we can leave it there for now. Would ultimately like to see the starting pressure at least5 cm H2O and may consider reducing EPR down to 1 or 2 once she acclimates. The PAP device continues to meet the [...] spent over half of a total of 30 minutes face to face with the patient in counseling and discussion and/or coordination of care as described above. DENTIAL GAS HEAT TECHNICIAN documented in this encounter Plan of Treatment Scheduled Referrals Name Type Priority Associated Diagnoses Orde r Schedule Sleep Medicine office visit (clinic) Outpatient Referral Routine Expected: 04/09/2023 (Approximate), Expires: 06/10/2024 documented as of this encounter Visit Diagnoses Diagnosis Obstructive Sleep Apnea Adult documented in this encounter Care Teams Pattern Puncher Relationship Specialty Start Date End Date Elsewhere, Pcp PCP - General Internal Medicine 05/14/22 documented as of this encounter
--- OUTSIDE RECORDS SUMMARY | 2023-05-18 12:33 | XMS_ITS | Encounter Summary ---
Author Name Unknown Organization [facility] Address [address] [place] [id number] Care Team Providers Care Air Commodore Name Role Phone Elsewhere, Pcp Primary Care Provider Unavailabl e Reason for Referral * Outpatient (Routine) - Authorized Specialty Diagnoses / Procedures Referred By James agrawal Referred To Contact Pulmonary Medicine Lisa Soni MPAS PMike.-CKarol [address] [place] [phone] [facility] Referral ID Status Reason Start Date Expiration Date V isits Requested Visits Authorized [id number] Authorized 02/28/2023 02/27/2026 1 1 Reason for Visit * Outpatient (Routine) - Closed Specialty Diagnoses / Procedures Referred By James agrawal Referred To Contact Pulmonary Medicine Flaquito Pierce M.D. [address] [place] [phone] Referral ID Status Reason Start Date Expiration Date Visits Re quested Visits Authorized [id number] Closed 08/24/2022 08/23/2025 1 1 Encounter Details Date Type Department Care Team ([facility] st Contact Info) Description 02/28/2023 10:30 AM CDT Office Visit Division of Pulmonary Medicine in [place], [place] [address] [place] [phone] Lias Soni MPAS P.AKarol-C. [address] [place] [phone] Lung Interstitial Disease (HCC) (Primary Dx) Social History Tobacco Use Types Packs/Day Years [...] often do you attend chur ch or temple services? More than 4 times per year 05/17/2022 Do you belong to any clubs o r organizations such as bahai groups, unions, fraternal or athletic groups, or [...] and heating? Not hard at all 05/17/2022 [facility] - Occupational Stress [...] Master's degree (e.g., MA, MS, Flavia, MEd, [employer], [employer]) 05/17/2022 Sex and Gender Information Value Date Recorded Sex Assigned at Female 05/17/2022 2:17 PM SOCIAL MEDIA SR STRATEGY MANAGER Gender Identity Female 05/17/2022 2:17 PM SOCIAL MEDIA SR STRATEGY MANAGER Sexual Orientation Straight 05/17/2022 2: 17 PM SOCIAL MEDIA SR STRATEGY MANAGER documented as of this encounter Last Filed Vital Signs Vital Sign Reading [...] Mass Index 28.36 02/28/2023 10:23 AM CDT documented in this encounter Progress Notes * Lisa Soni, MO, P.A.-C. - 02/28/2023 10:30 AM CDT Images from the original note were not included. SUBJECTIVE REASON FOR VISIT Follow up evaluation of Interstitial Lung Disease HISTORY OF PRESENT ILLNESS Jeaneth Howard is a 77 y.o. female with a past medical history significant for asthma, allergies on Singulair, HTN, hypothyroidism, HLD, B12 deficiency, and bipolar disorder. Ms. Howard was initially evaluated in the Pulmonary-Interstitial Lung Disease clinic on 05/18/[address] Pierce. Prior to this, she had been evaluated locally and was advised to initiate pirfenidone antifibrotic therapy. In 09/2020, Ms. Howard sustained a fall which resulted in rib fractures. Follow up chest imaging indicated the presence of pulmonary fibrosis. She reported worsening dyspnea overthe previous 6-12 months and an associated cough which was occasionally productive. Chest CT imaging showed peripheral reticular opacities bilaterally with a basilar predominance in a probable UIP pattern as well as a 6 mm indeterminate lower left lobe nodule. Pulmonary function tests showed normal spirometry and TLC with a mildly reduced DLCO. Hypersensitivity pneumonitis panels for mold and carla as well as autoimmune serology were negative. Overnight oximetry testing on room air was abnormalwith episodes of oscillatory desaturation suggesting sleep disordered breathing. She was recommended for a sleep consultation. Oxygen titration at rest and with exertion on room air showed no need for supplemental oxygen. 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 There was also widening of the pulmonary arteries suggesting Eisenmenger's physiology and pulmonary hypertension. An echocardiogram and nuclear medicine cardiac shunt study showed no evidence of pulmonary hypertension and a cardiac shunt that was within normal limits. She was started on ipratropium nasal spray for postnasal drip in addition to the o [id number] Flonase she was already taking. She was also started on omeprazole for reflux. Antifibrotic therapy was discussed with Ms. Howard preferring to observe. 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 She was a p revious smoker, having a 15 pack-year smoking history. At one time, she had two parakeets and a love bird. She continues to live in the same house, but has not had birds for over 15 years. On 08/24/2022, she presented with some cough and postnasal drip, but had an improvement after addingthe ipratropium nasal spray. She discontinued use of all inhalers for her asthma and reported feeling better since then. Since her last evaluation, she underwent a sleep study and was shown to have moderate sleep apnea for which she was prescribed CPAP therapy which had not been started yet. Pulmonary function testing showed normal spirometry and DLCO, improved compared to last. Chest CT imaging was stable compared to last with interpretation suggesting indeterminate for UIP pattern. The 8 mm left lower lobe nodule remained unchanged since 01/2022. A new 4 mm solid nodule was seen in the right upper lobe. Due to the stable pulmonary function tests and chest CT imaging, initiation of antifibrotic therapy was deferred with recommendation for follow up in 6 months instead. Today, she reports no shortness of breath. She had COVID in 07/2022 and was able to acquire Paxlovid therapy, resulting in no significant respiratory symptoms. She has a daily cough productive of a scant amount of sputum and notices occasional wheezing. She denies fever, chills, night sweats or symptoms of reflux. She has sleep apnea but has not been able to tolerate PAP therapy. She was scheduled to follow up in the sleep disorder clinic on 03/10/2023 for alternate treatment options. The following portions of the patient's history were reviewed and updated as appropriate: allergies, current medications, family history, medical history, social history, surgical history and problemlist. REVIEW OF SYSTEMS A full review of systems was obtained. Pertinent positives and negatives are noted in the HPI; all other review of systems were negative. MEDICAL HISTORY No past medical history on file. OBJECTIVE PHYSICAL EXAM Vitals: General: Pleasant female in no acute respiratory distress and no conversational dyspnea. The patient appears well nourished and put together. Skin: No generalized rash. Lymph: No cervical, submandibular or supraclavicular lymphadenopathy. Peripheral vessels: JVP not elevated. Lungs: Essentially clear to auscultation with a faint squeak in the left apex posteriorly on inspiratory and expiratory phases and faint end inspiratory dry crackles in bilateral bases. Heart: Regular rate and rhythm, normal S1 and S2. No rubs or gallops. Faint, grade 1/6 murmur Extremities: No clubbing or cyanosis. No asymmetry, nodules, or erythema in the upper or lower extremities. No pedal edema. Neuro: Alert and oriented to time, place and person. No obvious neurological deficits noted. Psych: Normal mood and affect. DIAGNOSTICS I have reviewed the patient's current laboratory, imaging, and other diagnostic studies. Clinicallysignificant findings are as follows: CT CHEST without IV Contrast: 0 Result Notes Details Reading Physician Reading Date Result Priority Shawn Ríos M.D. [phone] [id number] 02/28/2023 RAD - Routine (most inpatients and all outpatients) Narrative & Impression EXAM: CT CHEST WITHOUT IV CONTRAST COMPARISON: [...] of subsegmental bronchial mucus plugging. Stable dilated mucus- impacted bronchus in the anterior basal segment of [...] of the shoulders. Healed left rib fractures. IMPRESSION: 1. 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 2. No change in small lung nodules. 3. Stable mild bronchial dilatation and moderate patchy expiratory air trapping. Specimen Collected: 02/28/23 07:09 CDT Last Resulted: 02/28/23 07:28 CDT Pulmonary Functions Testing Results (pre-bronchodilator): Date FVC %pred DLCO %pred TLC %pred FEV1 %pred FEV1/FVC 02/28/2023 92% 69% uncorrected 82% 103% 84.7 08/24/2022 90% 70% uncorrected 84% 97% 81.3 05/26/2022 97% 67% 83% 105% 82.2 Oxygen Titration Status: Final result Oxygen Study More data exists Stages Speed (mph) Grade (%) Time (min) Interface Inspired Gas (L/min) SpO2 (%) Heart Rate Ratings of Perceived Exertion (6-20) 02/28/2023 Rest 1.0 1.4 1.6 1.8 N/A 0 0 3.0 8.0 10.0 2.0 2.0 2.0 2.0 N/A N/A N/A N/A N/A Room Air Room Air Room Air Room Air Room Air 96 92 94 95 93 83 98 102 107 115 6 7 8 10 13 ASSESSMENT / PLAN ASSESSMENT I have personally reviewed the patient's PFT from 02/28/[address] CHEST exams from 02/28/2023 with the patient. Medical problems are as follows: 1) Fibrotic Interstitial Lung Disease, indeterminate. Query exposure versus idiopathic 2) Abnormal chest CT imaging indeterminate for UIP pattern, small lung nodules stable 3) Pulmonary function test showing normal lung volumes, spirometry, and mildly reduced DLCO 4) GERD 5) JOY intolerant of CPAP therapy It was a pleasure meeting Ms. Howard in the Pulmonary-Interstitial Lung Disease clinic today. She reports no significant change in her breathing or exercise tolerance. She continues to have a morningcough after her coffee and reading a book. Imaging in the past suggested the possibility of mucus plugs. She may benefit from use of an Aerobika device to help with expectoration. She no longer requires inhalers and it is questionable whether she actually had a diagnosis of asthma or if the treatment therapy was provided as that was standard at that time. Her pulmonary function test and chest CT remained stable. There is no indication for antifibrotic therapy at this time. We discussed how to decrease risk of aspiration with the presence of a mild hiatal hernia on imaging. We discussed elevating the head of the bed, taking omeprazole 30-40 minutes prior to breakfast, and not eating or drinking anything besides water for 3-4 hours prior to going to bed and lying supine--this includes consumption of alcohol and caffeine products. She has been advised to update her medication list through the portal as it currently lists pirfenidone, Advair, Combivent, and albuterol--none of which are being taken. She has received her fourth COVID shot as well as vaccinations for influenza and RSV. PLAN 1. Follow up in the Pulmonary-Interstitial Lung Disease clinic in 6 months with pulmonary function testing prior to the evaluation. If there is a significant change in function at that time, considerobtaining chest CT imaging then. Otherwise plan to do chest CT imaging at 1 year follow-up. 2. Utilize Aerobika device to keep the airways open and provide chest PT for more effective sputum expectoration. PATIENT EDUCATION Ready to learn, no apparent learning barriers were identified; learning preferences include listening. Reviewed pulmonary function test and CT imaging and interpretation. Explained diagnosis and treatment plan in detail to Ms. Howard with understanding verbalized. I did my best to answer all questions prior to the end of the visit today. BILLING Total time spent: 75 minutes, which included oyxx-aw-[id number] time during the encounter as well as one or more of the following: medical record review, documenting and ordering services, phone calls, family meetings, and/or communication with other healthcare professionals. Please note that this record has been created with voice recognition software. Occasional wrong-word or '[id number]-[id number]' substitutions may have occurred due to the inherent limitations of voice recognition software. Despite best efforts at reviewing & proof-reading the note, inadvertent errors may remain documented in this encounter Plan of Treatment Scheduled Orders Name Type Priority Associated Diagnoses Orde r Schedule Pulmonary Function Tests PFT Routine Lung Interstitial Disease (HCC) Expected: 08/30/2023 (Approximate), Expires: 05/31/2024 Scheduled Referrals Name Type Priority Associated Diagnoses Orde r Schedule Pulmonary Medicine office visit (clinic) Outpatient Referral Routine Expected: 08/30/2023 (Approximate), Expires: 05/31/2024 documented as of this encounter Visit Diagnoses Diagnosis Lung Interstitial Disease (HCC)- Primary documented in this encounter Care Teams Air Commodore Relationship Specialty Start Date End Date Elsewhere, Pcp PCP - General Internal Medicine 05/14/22 documented as of this encounter
--- OUTSIDE RECORDS SUMMARY | 2023-05-18 12:33 | XMS_ITS | Encounter Summary ---
Author Name Unknown Organization [facility] Address [address] [place] [id number] Care Team Providers Care Brim And Crown Presser Name Role Phone Elsewhere, Pcp Primary Care Provider Unavailabl e Reason for Referral * Outpatient (Routine) - Closed Specialty Diagnoses / Procedures Referred By Contac t Referred To Contact Diagnoses Snoring Abnormal Oximetry Lung Interstitial Disease (HCC) Hypoxia Sleep Related Sleep Related Breathing Disorder Procedures Polysomnography (PSG): Split Night (STANDARD) Mumtaz Tipton APRN, C.NHaritha, M.S.N. [address] [place] [phone] [facility] Referral ID Status Reason Start Date Expiration Date Visits Re quested Visits Authorized [id number] Closed 05/31/2022 05/31/2023 1 1 GER [employer]CHOOL Reason for Visit * Outpatient (Routine) - Closed Specialty Diagnoses / Procedures Referred By Contac t Referred To Contact Diagnoses Snoring Abnormal Oximetry Lung Interstitial Disease (HCC) Hypoxia Sleep Related Sleep Related Breathing Disorder Procedures Polysomnography (PSG): Split Night (STANDARD) Mumtaz Tipton APRN, C.NHraitha, M.S.N. [address] [place] [phone] [facility] Referral ID Status Reason Start Date Expiration Date Visits Re quested Visits Authorized [id number] Closed 05/31/2022 05/31/2023 1 1 Encounter Details Date Type Department Care Team (Latest Contact Info) Description 06/03/2022 5:48 PM MANAGER SCHOOL - 06/06/2022 11:59 PM MANAGER SCHOOL Hospital [facility] [place], [place] [address] [place] [phone] Mumtaz Tipton APRN, C.N.P., M.S.N. [address] [place] [phone] Snoring; Abnormal Oximetry; Lung Interstitial Disease (HCC); Hypoxia Sleep Related; Sleep Related Breathing Disorder Discharge Disposition: Home or Self Care Social [...] often do you attend chur ch or evangelical services? More than 4 times per year 05/17/2022 Do you belong to any clubs o r organizations such as jainism groups, unions, fraternal or athletic groups, or [...] and heating? Not hard at all 05/17/2022 [facility] - Occupational [...] place to sleep or slept in a nursing home (including now)? No 05/17/2022 Nutrition Answer [...] Master's degree (e.g., MA, MS, Flavia, MEd, SALES PROJECT ADMINISTRATOR, WILLEI) 05/17/2022 Sex and Gender Information Value Date Recorded Sex Assigned at Female 05/17/2022 2:17 PM MANAGER SCHOOL Gender Identity Female 05/17/2022 2:17 PM MANAGER SCHOOL Sexual Orientation Straight 05/17/2022 2: 17 PM MANAGER SCHOOL documented as of this encounter Medications at [...] hours as needed. 0 08/24/2021 04/20/20 23 pirfenidone (ESBRIET) 267 mg tablet tablet Take by mouth. Take by mouth. Days 1-7 - one capsule by mouth 3 times daily (801 mg/day) Days 8-14 - two capsules by mouth 3 times daily (1602 mg/day) Day 15 onwards- three capsules by mouth 3 times daily (2403 mg/day) 0 04/14/2022 12/20/ 2023 documented as of this encounter Plan of Treatment Not on file documented as of this encounter Procedures Procedure Name Priority Date/Time Associated Diagnosis Comments POLYSOMNOGRAPHY Routine 06/04/2022 12:37 AM MANAGER SCHOOL Snoring Abnormal Oximetry Lung Interstitial Disease (HCC) Hypoxia Sleep Related Sleep Related Breathing Disorder documented in this encounter Results * Polysomnography (PSG): Split Night (STANDARD) (06/04/2022 12:37 AM MANAGER SCHOOL) Narrative ONBASE - 06/14/2022 9:43 AM MANAGER SCHOOL PROCEDURE INFORMATION SUMMARY: In the first part of the night, and off positive airway pressure, the sleep study showed an apnea-hypopnea index of 19.9 events per hour, obstructive in nature, exacerbated by REM stage. An additional 0.3 respiratory effort-related arousals per hour were identified, resulting in a total respiratory disturbance index of 20.3 events per hour. REM-supine position was reached. Average oxyhemoglobin saturation was 89.9 %, with a vilma of 66 % (T<88% 76.7 min). Periodic limb movements were noted without significant related arousals. Of 13.2 arousals per hour, 3.7 events per hour were breathing-related. Sleep architecture was significant for a prolonged initial sleep latency and wake after sleep onset. Sleep efficiency was 63.5 %. During the second part of the night, and on CPAP, best pressure was reached at 16 cm H2O, while in REM-supine sleep. Patient's residual accumulative AHI was 0 events per hour. Oxygen saturation remained stable around a mean of 94.3 % while at room air. CPAP was implemented with a small size ??F&P Simplus interface and heated humidifier. ?? 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 2- Low baseline nocturnal oxygenation (SpO2 89.9% at room air while asleep, SpO2 92.8% while awake supine) 3- CPAP was successful at 16 cm of water pressure, implemented with a small size ??F&P Simplus interface and heated humidifier. 4- Stabilization of nocturnal oxygen saturation at mean 92.5% at room air while on CPAP therapy. Mumtaz Tipton APRN C.N.P., M.S.N. [facility] ORDERABLES ONBASE NA documented in this encounter Visit Diagnoses Diagnosis Snoring Abnormal Oximetry Lung Interstitial Disease (HCC) Hypoxia Sleep Related Sleep Related Breathing Disorder documented in this encounter Care Teams Brim And Crown Presser Relationship Specialty Start Date End Date Elsewhere, Pcp PCP - General Internal Medicine 05/14/22 documented as of this encounter
--- OUTSIDE RECORDS SUMMARY | 2023-05-18 12:33 | XMS_ITS | Encounter Summary ---
Author Name Unknown Organization [facility] Address [address] [place] [address] Care Team Providers Care Business Operations Director Name Role Phone Elsewhere, Pcp Primary Care Provider Unavailabl e Reason for Referral * Outpatient (Routine) - Closed Specialty Diagnoses / Procedures Referred By Contac t Referred To Contact Pulmonary Medicine Flaquito Pierce M.D. [address] [place] [phone] [facility] Referral ID Status Reason Start Date Expiration Date Visits Re quested Visits Authorized [id number] Closed 05/26/2022 05/25/2025 1 1 F AIR TACTICAL OFFICER * MRI/CAT/PET Scan (Routine) - Closed Specialty Diagnoses / Procedures Referred By Contac t Referred To Contact Radiology Diagnoses Lung Interstitial Disease (HCC) Procedures CT Chest without IV Contrast Flaquito Pierce M.D. [address] [place] [phone] [facility] Referral ID Status Reason Start Date Expiration Date Visits Re quested Visits Authorized [id number] Closed 05/26/2022 05/26/2023 1 1 F AIR TACTICAL OFFICER Reason for Visit * Outpatient (Routine) - Closed Specialty Diagnoses / Procedures Referred By Contac t Referred To Contact Flaquito Pierce M.D. [address] [place] [phone] [facility] Referral ID Status Reason Start Date Expiration Date Visits Re quested Visits Authorized [id number] Closed 05/18/2022 05/18/2023 1 1 Encounter Details Date Type Department Care Team (Latest Contact Info) Description 05/26/2022 11:30 AM STAFF AIR TACTICAL OFFICER Virtual Visit Division of Pulmonary Medicine in [place], [place] [address] [place] [phone] Flaquito Pierce M.D. [address] [place] [phone] Lung Interstitial Disease (HCC) (Primary Dx) Social [...] often do you attend chur ch or jainism services? More than 4 times per year 05/17/2022 Do you belong to any clubs o r organizations such as uatsdin groups, unions, fraternal or athletic groups, or [...] and heating? Not hard at all 05/17/2022 [facility] [place] of Occupat ional Health - Occupational Stress [...] place to sleep or slept in a long-term (including now)? No 05/17/2022 Nutrition Answer Date [...] Master's degree (e.g., MA, MS, Flavia, MEd, [employer], WILLIE) 05/17/2022 Sex and Gender Information Value Date Recorded Sex Assigned at Female 05/17/2022 2:17 PM STAFF AIR TACTICAL OFFICER Gender Identity Female 05/17/2022 2:17 PM STAFF AIR TACTICAL OFFICER Sexual Orientation Straight 05/17/2022 2: 17 PM STAFF AIR TACTICAL OFFICER documented as of this encounter Progress Notes * Flaquito Pierce M.D. - 05/26/2022 11:30 AM CST TELEPHONE REPORT SUMMARY VISIT NOTE: ASSESSMENT / PLAN 1. 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 Posterior nasal drainage - beginning ipratropium nasal spray and continuing Flonase 4. GERD on Omeprazole 5. Abnormal overnight oximetry - possible sleep disordered breathing - sleep referral 6. Indeterminate small left lower lobe nodule I had the pleasure reviewing our findings with the patient and her daughter over the phone. Her CT scan shows a pattern of usual interstitial pneumonitis. It is relatively mild. She also has a 6 mm indeterminate left lower lobe nodule that may represent mucus plug. That will require follow-up. Pulmonary function tests showed normal spirometry and normal total lung capacity. She does have mild redu ction of the diffusing capacity. Her rest and exercise oxygen titration is entirely normal. At thispoint she has really pretty mild impairment. We reviewed the blood testing. So far both the autoimmune and hypersensitivity panels are negative.However there are still chen test results that are not yet available and will be forthcoming over the next several weeks. I think it is reasonable to get those test results before we make a final decision on treatment. We did discuss the role of antifibrotic therapy including pirfenidone and nintedanib. We did reviewthe risks and goals of the procedures and the side effects of the medications. In view of her earlydisease at this point, she has concerns about the potential side effects as well as the cost associated with these agents. After our discussion she prefers to observe. I think it is reasonable to geta follow-up evaluation in about 3 months to see whether her disease is stable or progressing. We will again discuss antifibrotic at a follow-up visit as well. Her overnight oximetry did show abnormalities suggestive of sleep disorder breathing and I will puther in for a sleep consultation. Review of her prior chest imaging shows partial anomalous pulmonary venous return. There was question of whether she had enlarged pulmonary arteries in this might be causing [id number] shunting. There was no evidence of any significant pulmonary hypertension. The right ventricular systolic pressure was 35 on ECHO. In addition there was no evidence on her shunt study of any significant shunting. This is all good news. She does have posterior nasal drainage and that is probably adding to her cough. She is taking Flonase on a daily basis. However I added an ipratropium nasal spray 0.03% 2 whiffs in each nostril twice daily and sent that through to her local pharmacy. She does have GERD and I do agree that she should start on omeprazole and take 1 omeprazole tablet 30 minutes before the evening meal each day. I also talked about the goal of having 3 hours between dining and reclining for the stomach to empty out without snacking. She should only take water during that time. All questions were answered. After thoughtful discussion she wants to defer decisions for the next several months on therapy. I will set her up for follow- up in [address] scan, pulmonary function tests, and oxygen assessment and office visit. All questions answered to the best of my ability based on present information. F AIR TACTICAL OFFICER documented in this encounter Plan of Treatment Scheduled Referrals Name Type Priority Associated Diagnoses Orde r Schedule Pulmonary Medicine office visit (clinic) Outpatient Referral Routine Expected: 08/24/2022 (Approximate), Expires: 08/25/2023 documented as of this encounter Results * Pulmonary Function Tests (08/24/2022 1:18 PM CDT) PostFVC 2.52 L 08/24/2022 5:18 PM [facility]T [facility] PostFEV1 2.15 L 08/24/2022 5:[address] [facility] FEV1/FVC POST 85.10 % 08/24/2022 5:[address] [facility] FEF 25-75 % POST 3.07 L/s 08/24/2022 5:18 PM CDT [facility] PEF POST 7.19 L/s 08/24/2022 5:18 PM CDT [facility] PIF POST 4.41 L/s 08/24/2022 5:[address] [facility] FEF 50 % FIF 50 POST 90.17 % 08/24/2022 5:[address] [facility] FET POST 7.36 sec 08/24/2022 5:[address] [facility] DLCO 15.76 ml/(min*mm Hg) 08/24/2022 5:[address] [facility] VA 4.25 L 08/24/2022 5:[address] [facility] TLC 4.67 L 08/24/2022 5:[address] [facility] FRCPLETH PROVBASE 2.46 L 08/24/2022 5:[address] [facility] RV 1.90 L 08/24/2022 5:[address] [facility] RV % TLC PRE 40.58 % 08/24/2022 5:[address] [facility] FVC 2.68 L 08/24/2022 5:18 PM CDT [facility] SU[facility] FEV1 2.18 L 08/24/2022 5:[address] [facility] FEV1/FVC 81.32 % 08/24/2022 5:18 PM CDT [facility] PXB31-34% 2.39 L/s 08/24/2022 5:18 PM CDT [facility] PEF PRE 6.95 L/s 08/24/2022 5:[address] [facility] PIF PRE 4.56 L/s 08/24/2022 5:[address] [facility] FEF 50 % FIF 50 PRE 97.22 % 08/24/2022 5:[address] [facility] FET PRE 8.97 sec 08/24/2022 5:[address] [facility] SUBSTANCE POST Albuterol 08/24/2022 5:[address] [facility] 08/24/2022 1:[address] [facility] - 08/24/2022 5:18 PM CDT Normal spirometry, lung volumes, and diffusing capacity with no immediate response to bronchodilator. Compared to 05/26/2022, there is no change. Narrative Procedure Note Shaheen Grimaldo M.D. - 08/24/2022 IMPRESSION: Normal spirometry, lung volumes, and diffusing capacity with no immediateresponse to bronchodilator. Compared to 05/26/2022, there is no change. Flaquito Pierce M.D. PFT ORDERABLES [facility] NA * Oxygen Titration (08/24/2022 1:04 PM CDT) [1] Inspired Gas (L/min) Room air MMODAL [1] Interface NA MMODAL [1] Speed (mph) Rest MMODAL [1] Grade (%) NA MMODAL [1] Time (min) 10 MMODAL [1] SpO2 (%) 98 MMODAL [1] Heart Rate 74 MMODAL [1] Ratings of Perceived Exertion (6-20) 6 MMODAL [2] Inspired Gas (L/min) Room air MMODAL [2] Interface NA MMODAL [2] Speed (mph) 1.2 MMODAL [2] Grade (%) 2.0 MMODAL [2] Time (min) 2 MMODAL [2] SpO2 (%) 95 MMODAL [2] Heart Rate 96 MMODAL [2] Ratings of Perceived Exertion (6-20) 10 MMODAL [3] Inspired Gas (L/min) Room air MMODAL [3] Interface NA MMODAL [3] Speed (mph) 1.4 MMODAL [3] Grade (%) 4.0 MMODAL [3] Time (min) 2 MMODAL [3] SpO2 (%) 94 MMODAL [3] Heart Rate 102 MMODAL [3] Ratings of Perceived Exertion (6-20) 11 MMODAL [4] Inspired Gas (L/min) Room air MMODAL [4] Interface NA MMODAL [4] Speed (mph) 1.6 MMODAL [4] Grade (%) 6.0 MMODAL [4] Time (min) 2 MMODAL [4] SpO2 (%) 94 MMODAL [4] Heart Rate 97 MMODAL [4] Ratings of Perceived Exertion (6-20) 12 MMODAL [5] Inspired Gas (L/min) Room air MMODAL [5] Interface NA MMODAL [5] Speed (mph) 1.8 MMODAL [5] Grade (%) 8.0 MMODAL [5] Time (min) 2 MMODAL [5] SpO2 (%) 94 MMODAL [5] Heart Rate 110 MMODAL [5] Ratings of Perceived Exertion (6-20) 13 MMODAL Comment Total exercise time 8 minutes. MMODAL Flaquito Pierce M.D. PFT ORDERABLES MMODAL NA * CT Chest without IV Contrast (08/24/2022 12:20 PM CDT) Anatomical Region Laterality Modality Chest, Thoracic RST LOS, Tho racic ARZ LOS, Thoracic FLA LOS N/A Computed Tomography, Compute d Tomography 08/24/2022 12:2 8 PM CDT Impressions 08/24/2022 12:39 PM CDT 1. ??Unchanged fibrotic interstitial lung disease in a pattern indeterminate for UIP. Air trapping raises the possibility of hypersensitivity pneumonitis. 2. ??New 4 mm solid right upper lobe nodule. An 8 mm left upper lobe groundglass nodule is unchanged since 02/19/2022. Follow-up recommendations provided. 3. ??Partial anomalous pulmonary venous return. Narrative 08/24/2022 12:39 PM CDT EXAM: CT CHEST WITHOUT IV CONTRAST COMPARISON: 02/19/2022 FINDINGS: Similar diffuse but slightly basilar predominant fibrotic interstitial lung disease characterized by subpleural reticulation, architectural distortion, groundglass opacity, and traction bronchiectasis/bronchiolectasis. No honeycombing. Moderate air trapping. New 4 mm right upper lobe solid nodule (3/256). Unchanged 8mm groundglass nodule left upper lobe (3/215). Mild pulmonary emphysema. Scattered peripheral mucous plugs, including a similar expansile mucus plug in the basal left lower lobe peripherally (3/417). Cholecystectomy. Colonic diverticulosis. Grade 1 anterolisthesis of C7 on T1. Mild coronary calcification. Partial anomalous pulmonary venous return with the left superior pulmonary vein draining into the left brachiocephalic vein. GUIDELINES FOR FOLLOW-UP of newly detected solid nodules incidentally detected on CT in persons 35 years or older. (2017 revision) LOW-RISK PATIENT (Minimal or absent history of smoking or of other known risk factors) For single nodule, size: <6mm ??No routine follow-up required 6-8mm CT at 6-12 months; then consider CT at 18-24 months, if no change >8mm ??Consider Pulmonary Medicine consultation for management, or follow-up with CT at 3 months For multiple nodules, size of largest nodule: <6mm ??No routine follow-up required 6mm or > CT at 3-6 months, then consider CT at 18-24 months HIGH-RISK PATIENT (History of smoking or of other known risk factors) For single nodule, size: <6mm ??Optional CT at 12 months*; If unchanged, no further follow-up required 6-8mm CT at 6-12 months; then CT at 18-24 months, if no change >8mm Consider Pulmonary Medicine consultation for management, or follow-up with CT at 3 months For multiple nodules, size of largest nodule: <6mm Optional CT at 12 months*; If unchanged, no further follow-up required 6mm or > CT at 3-6 months, then at 18-24 months (Nodule size is the average of length and width.) *Nodules <6mm do not require routine follow-up, but certain patients at high risk with suspicious nodule morphology, upper lobe location, or both may warrant 12-month follow-up. ?? Guidelines do not apply to lung cancer screening, patients with immunosuppression, or patients with a known primary cancer. RECOMMENDATIONS FOR MANAGEMENT OF SUBSOLID (includes ground glass and part- solid) PULMONARY NODULES DETECTED AT CT. SOLITARY PURE GROUND GLASS NODULES (GGNs): Single nodule size (mm) *: <6mm No routine CT follow-up required* 6mm or > CT at 6-12 months. If persistent, then CT every 2 years until stable for 5 years. ??FDG PET is not recommended. PART-SOLID NODULES Single nodule size (mm) *: <6mm No routine CT follow-up required* 6mm or > ??CT at 3-6 months to confirm persistence#. ??If unchanged and solid component remains <6mm, annual CT should be performed for 5 years. ?? MULTIPLE GROUND GLASS~ OR PART-SOLID NODULES: Largest nodule size (mm)*: <6mm ??CT at 3-6 months. ??If stable, consider CT at 2 and 4 years. 6mm or > ??CT at 3-6 months. ??Subsequent management based on the most suspicious nodule. ?? *In certain suspicious nodules <6mm, consider follow-up at 2 and 4 years. ??If there is growth or solid component develops, consider resection. ?? #Persistent part-solid nodules with solid components 6mm or > should be considered highly suspicious. ~Multiple <6mm pure ground glass nodules are usually benign, but consider follow-up at 2 and 4 years in selected patients at high risk. ?? Procedure Note Shaheen Mendez M.D. - 08/24/2022 EXAM: CT CHEST WITHOUT IV CONTRAST COMPARISON: 02/19/2022 FINDINGS: Similar diffuse but slightly basilar predominant fibrotic interstitiallung disease characterized by subpleural reticulation, architectural distortion, groundglass opacity,and traction bronchiectasis/bronchiolectasis. No honeycombing. Moderate air trapping. New 4 mm right upper lobe solid nodule (3/256). Unchanged 8mm groundglassnodule left upper lobe (3/215). Mild pulmonary emphysema. Scattered peripheral mucous plugs,including a similar expansile mucus plug in the basal left lower lobe peripherally (3/417). Cholecystectomy. Colonic diverticulosis. Grade 1 anterolisthesis of C7 onT1. Mild coronary calcification. Partial anomalous pulmonary venous return with the leftsuperior pulmonary vein draining into the left brachiocephalic vein. GUIDELINES FOR FOLLOW-UP of newly detected solid nodules incidentallydetected on CT in persons 35 years or older. (2017 revision) LOW-RISK PATIENT (Minimal or absent history of smoking or of other knownrisk factors) For single nodule, size: <6mm No routine follow-up required 6-8mm CT at 6-12 months; then consider CT at 18-24 months, if no change >8mm Consider Pulmonary Medicine consultation for management, orfollow-up with CT at 3 months For multiple nodules, size of largest nodule: <6mm No routine follow-up required 6mm or > CT at 3-6 months, then consider CT at 18-24 months HIGH-RISK PATIENT (History of smoking or of other known risk factors) For single nodule, size: <6mm Optional CT at 12 months*; If unchanged, no further follow-uprequired 6-8mm CT at 6-12 months; then CT at 18-24 months, if no change >8mm Consider Pulmonary Medicine consultation for management, or follow-upwith CT at 3 months For multiple nodules, size of largest nodule: <6mm Optional CT at 12 months*; If unchanged, no further follow-uprequired 6mm or > CT at 3-6 months, then at 18-24 months (Nodule size is the average of length and width.) *Nodules <6mm do not require routine follow-up, but certain patients athigh risk with suspicious nodule morphology, upper lobe location, or both may warrant [id number]. Guidelines do not apply to lung cancer screening, patients withimmunosuppression, or patients with a known primary cancer. RECOMMENDATIONS FOR MANAGEMENT OF SUBSOLID (includes ground glass andpart-solid) PULMONARY NODULES DETECTED AT CT. SOLITARY PURE GROUND GLASS NODULES (GGNs): Single nodule size (mm) *: <6mm No routine CT follow-up required* 6mm or > CT at 6-12 months. If persistent, then CT every 2 years untilstable for 5 years. FDG PET is not recommended. PART-SOLID NODULES Single nodule size (mm) *: <6mm No routine CT follow-up required* 6mm or > CT at 3-6 months to confirm persistence#. If unchanged andsolid component remains <6mm, annual CT should be performed for 5 years. MULTIPLE GROUND GLASS~ OR PART-SOLID NODULES: Largest nodule size (mm)*: <6mm CT at 3-6 months. If stable, consider CT at 2 and 4 years. 6mm or > CT at 3-6 months. Subsequent management based on the mostsuspicious nodule. *In certain suspicious nodules <6mm, consider follow-up at 2 and 4 years.If there is growth or solid component develops, consider resection. #Persistent part-solid nodules with solid components 6mm or > should beconsidered highly suspicious. ~Multiple <6mm pure ground glass nodules are usually benign, but considerfollow- up at 2 and 4 years in selected patients at high risk. IMPRESSION: 1. Unchanged fibrotic interstitial lung disease in a patternindeterminate for UIP. Air trapping raises the possibility of hypersensitivity pneumonitis. 2. New 4 mm solid right upper lobe nodule. An 8 mm left upper lobegroundglass nodule is unchanged since 02/19/2022. Follow-up recommendations provided. 3. Partial anomalous pulmonary venous return. Flaquito MARINO CT PROCEDURES documented in this encounter Visit Diagnoses Diagnosis Lung Interstitial Disease (HCC)- Primary Lung Interstitial Disease (HCC) documented in this encounter Care Teams Business Operations Director Relationship Specialty Start Date End Date Elsewhere, Pcp PCP - General Internal Medicine 05/14/22 documented as of this encounter
--- OUTSIDE RECORDS SUMMARY | 2023-05-18 12:33 | XMS_ITS | Encounter Summary ---
Author Name Unknown Organization [facility] Address [address] [place] [address] Care Team Providers Care Contact Representative Name Role Phone Elsewhere, Pcp Primary Care Provider Unavailabl e Reason for Referral * Outpatient (Routine) - Closed Specialty Diagnoses / Procedures Referred By Contac t Referred To Contact Sleep Medicine Mumtaz Tipton APRN, C.N.P., M.S.N. [address] [place] [phone] [facility] Referral ID Status Reason Start Date Expiration Date Visits Re quested Visits Authorized [id number] Closed 06/14/2022 06/13/2025 1 1 Scheduling Instructions Patient will contact [facility] once acquiring PAP device set up follow-up appointment approximately 6 weeks after initiating therapy. Thank you. WRITER RIBBON WINDER Reason for Visit * Outpatient (Routine) - Closed Specialty Diagnoses / Procedures Referred By Contac t Referred To Contact Sleep Medicine Mumtaz Tipton APRN, C.N.P., M.S.N. [address] [place] [phone] [facility] Referral ID Status Reason Start Date Expiration Date Visits Re quested Visits Authorized [id number] Closed 05/31/2022 05/30/2025 1 1 Encounter Details Date Type Department Care Team ([facility] st Contact Info) Description 06/14/2022 11:30 AM TYPEWRITER RIBBON WINDER Office Visit [facility] in [place], [place] [address] [place] [address] Mumtaz Tipton APRN, C.N.P., M.S.N. [address] [place] [address] Obstructive Sleep Apnea Adult (Primary Dx) Social History Tobacco Use Types [...] often do you attend chur ch or sikhism services? More than 4 times per year 05/17/2022 Do you belong to any clubs o r organizations such as baptism groups, unions, fraternal or athletic groups, or [...] and heating? Not hard at all 05/17/2022 [facility] - Occupational Stress Questionnaire Answer Date Recorded [...] place to sleep or slept in a jail (including now)? No 05/17/2022 Nutrition Answer Date [...] Master's degree (e.g., MA, MS, Flavia, MEd, ROUTE AGENT, WILLIE) 05/17/2022 Sex and Gender Information Value Date Recorded Sex Assigned at Female 05/17/2022 2:17 PM TYPEWRITER RIBBON WINDER Gender Identity Female 05/17/2022 2:17 PM TYPEWRITER RIBBON WINDER Sexual Orientation Straight 05/17/2022 2: 17 PM TYPEWRITER RIBBON WINDER documented as of this encounter Progress Notes * Mumtaz Tipton, VIJAY, C.N.P., M.S.N. - 06/14/2022 11:30 AM CST SUBJECTIVE CHIEF COMPLAINT/REASON FOR VISIT Sleep study/PSG results HISTORY OF PRESENT ILLNESS Ms. Howard is a 76 y.o. female who presents for results of PSG completed on 06/03/2022. See resultsas dictated by Dr. Bojorquez below: SUMMARY: In the first part of the night, and off positive airway pressure, the sleep study showed an apnea-hypopnea index of 19.9 events per hour, obstructive in nature, exacerbated by REM stage. An additional 0.3 respiratory effort-related arousals per hour were identified, resulting in a total respiratorydisturbance index of 20.3 events per hour. REM-supine [...] CPAP was implemented with a small size F&PSimplus interface and heated humidifier. CLINICAL INTERPRETATION: 1- Moderate obstructive sleep apnea, aggravated by REM stage. 2- Low baseline nocturnal oxygenation (SpO2 89.9% at room air while asleep, SpO2 92.8% while awake supine) 3- CPAP was successful at 16 cm of water pressure, implemented with a small size F&P Simplus interface and heated humidifier. 4- Stabilization of nocturnal oxygen saturation at mean 92.5% at room air while on CPAP therapy. OBJECTIVE Patient Active Problem List Diagnosis Bipolar Disorder (HCC) Asthma (HCC) Hypertension Essential Primary Hyperlipidemia Mixed Diverticulosis Hypothyroidism Polyp Colon Herpesviral Infection Unspecified VITAL SIGNS Blood Pressure: 148/84 (05/18/2022 9:36 AM) Temperature: (!) 35.8 ??C (05/18/2022 9:36 AM) Temp Source: Tympanic (05/18/2022 9:36 AM) Pulse Rate: 97 (05/18/2022 9:36 AM) BMI (Calculated): 27.4 kg/m?? (05/18/2022 9:36 AM) SpO2: 95 % (05/18/2022 9:36 AM) Height: 171.6 cm (05/18/2022 9:36 AM) Weight: 80.8 kg (05/18/2022 9:36 AM) PHYSICAL EXAM General: Groomed, pleasant, in no acute distress. 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 Howard. CPAP was found to be device successful during the study and patient is willing to proceed with a trial of CPAP therapy with setting of 16 cm H2O. She utilized a size small Pascal and PAS-Analytikkel Simplus interface during the study. However, she is interested in trying hybrid interface such as PlayPhone F30i or possibly Kimberlyn Riskonnectar. Made recommendation on the prescription she can discuss further with DME vendor. She wishes for copy the prescription besent to [facility] pharmacy in [place], [place]. She understands there may be a delay in acquiring PAP device due to shortages presently. Nevertheless, she will plan to follow-up within 6 weeks of initiating therapy to review device download and PAP compliance. She will contact [facility] to set up the follow-up visit when she acquires her PAP device. Patient does utilize Medicare insurance and as such will require a 31-90 day followup per CMS guidelines. We discussed usage requirements per CMS criteria in detail. We discussed some strategies to acclimate to PAP use. Patient understands the health benefits associated with PAP use. Ultimately, recommend all night every night use of PAP therapy as she can tolerate. I strongly encouraged patient to call with any questions regarding PAP use/trouble shooting as we want patient to be successful with PAP therapy. Patient may also contact local DME vendor with concerns of any PAP device trouble shooting. I provided patient with educational pamphlets on PAP use as well as general maintenance. We also discussed cleaning of the interface, tubing, humidifier chamber today. Patient should notify anesthesia/procedure providers regarding sleep apnea with any future procedures involving anesthesia or sedation. All questions answered to the best of my ability. Patient verbalized understanding of the plan of care and is in agreement. I personally spent over half of a total 25 minutes face to face with the patient in counseling and discussion and/or coordination of care as described above. WRITER RIBBON WINDER documented in this encounter Plan of Treatment Scheduled Referrals Name Type Priority Associated Diagnoses Orde r Schedule Sleep Medicine office visit (clinic) Outpatient Referral Routine Expected: 06/14/2022 (Approximate), Expires: 09/12/2023 documented as of this encounter Visit Diagnoses Diagnosis Obstructive Sleep Apnea Adult- Primary documented in this encounter Care Teams Contact Representative Relationship Specialty Start Date End Date Elsewhere, Pcp PCP - General Internal Medicine 05/14/22 documented as of this encounter
--- OUTSIDE RECORDS SUMMARY | 2023-05-18 12:33 | XMS_ITS | Encounter Summary ---
Author Name Unknown Organization [facility] Address [address] [place] [address] Care Team Providers Care Hem Inspector Name Role Phone Elsewhere, Pcp Primary Care Provider Unavailabl e Reason for Referral * Outpatient (Routine) - Closed Specialty Diagnoses / Procedures Referred By Contac t Referred To Contact Diagnoses Lung Interstitial Disease (HCC) Procedures Echo Transthoracic (TTE) Flaquito Pierce M.D. 200 [place] [address] [facility] Referral ID Status Reason Start Date Expiration Date Visits Re quested Visits Authorized [id number] Closed 05/18/2022 05/18/2023 1 1 CCO FEEDER CATCHER Reason for Visit * Outpatient (Routine) - Closed Specialty Diagnoses / Procedures Referred By Contac t Referred To Contact Diagnoses Lung Interstitial Disease (HCC) Procedures Echo Transthoracic (TTE) Flaquito Pierce M.D. 200 [place] [phone] [facility] Referral ID Status Reason Start Date Expiration Date Visits Re quested Visits Authorized [id number] Closed 05/18/2022 05/18/2023 1 1 Encounter Details Date Type Department Care Team (Latest Contact Info) Description 05/21/2022 8:38 AM TOBACCO FEEDER CATCHER - 05/21/2022 11:59 PM TOBACCO FEEDER CATCHER Hospital Encounter Department of Cardiovascular Diseases in [place], [place] [address] [place] [phone] Flaquito Pierce M.D. [address] [place] [address] Lung Interstitial Disease (HCC) Discharge Disposition: Home [...] often do you attend chur ch or sabianist services? More than 4 times per year 05/17/2022 Do you belong to any clubs o r organizations such as rastafari groups, unions, fraternal or athletic groups, or [...] and heating? Not hard at all 05/17/2022 [facility] [place] of Occupat ional Health - Occupational Stress [...] place to sleep or slept in a longterm (including now)? No 05/17/2022 Nutrition Answer Date [...] Master's degree (e.g., MA, MS, Flavia, MEd, LOCKSTITCH WAISTLINE JOINER, WILLIE) 05/17/2022 Sex and Gender Information Value Date Recorded Sex Assigned at Female 05/17/2022 2:17 PM TOBACCO FEEDER CATCHER Gender Identity Female 05/17/2022 2:17 PM TOBACCO FEEDER CATCHER Sexual Orientation Straight 05/17/2022 2: 17 PM TOBACCO FEEDER CATCHER documented as of this encounter Medications at [...] capsules by mouth at bedtime. 0 05/10/2022 ipratropium-albutero L (Combivent Respimat) 20-100 mcg/actuation inhaler [...] Procedure Name Priority Date/Time Associated Diagnosis Comments (TTE) 2D ECHO DOPPLER COLOR Routine 05/21/2022 10:02 AM TOBACCO FEEDER CATCHER Lung Interstitial Disease (HCC) documented in this encounter Results * (TTE) 2D ECHO DOPPLER COLOR (05/21/2022 10:02 AM TOBACCO FEEDER CATCHER) Ejection Fraction 66 MC CV EIMS Mid-Ascending Aorta 34 MC CV EIMS LV Mass Index 47 MC CV EIMS LV End-Diastolic Diameter 34 MC CV EIMS LV End-Systolic Diameter 21 MC CV EIMS MV E Velocity 0.50 MC CV EIMS MV A Velocity 1.10 MC CV EIMS MV E/A 0.45 MC CV EIMS MV e' Velocity Medial 0.06 MC CV EIMS MV e' Velocity Lateral 0.06 MC CV EIMS MV E/e' Medial 8.30 MC CV EIMS MV E/e' Lateral 8.30 MC CV EIMS Left ventricular stroke volume index 35 MC CV EIMS Cardiac Output 5.91 MC CV EIMS Cardiac Index 3.04 MC CV EIMS LV Interventricular Septal Wall Thickness 10 MC CV EIMS LV Posterior Wall Thickness 9 MC CV EIMS LV Relative Wall Thickness 53 MC CV EIMS Tricuspid Annular S? 0.19 MC CV EIMS TR Vmax 2.73 MC CV EIMS RA Pressure 5 MC CV EIMS RV Systolic Pressure 35 MC CV EIMS AV mean gradient 5 MC CV EIMS Aortic valve area 2.40 MC CV EIMS Aortic Valve Dimensionless Index 0.69 MC CV EIMS LA Volume Index 22 MC CV EIMS Aortic Valve Systolic Peak Velocity 1.40 MC CV EIMS Anatomical Region Laterality Modality Echocardiography 05/21/2022 8:42 AM TOBACCO FEEDER CATCHER Impressions 05/21/2022 10:09 AM TOBACCO FEEDER CATCHER LEFT VENTRICLE:Small left ventricular chamber size. Abnormal left ventricular geometry with ??concentric remodeling (increased wall thickness to cavity ratio). Calculated 2-D linear left ventricular ejection fraction 66%. Left ventricular volumetric assessment not performed because of image quality. Dynamic left ventricular outflow obstruction. Left ventricular outflow tract maximal instantaneous Doppler gradient rest 14 mm Hg; Valsalva 36 mm Hg. No regional wall motion abnormalities. Grade 1/3 left ventricular diastolic dysfunction, consistent with low to normal left ventricular filling pressure. RIGHT VENTRICLE:Normal right ventricular chamber size. Normal right ventricular systolic function. Estimated right ventricular systolic pressure 35 mmHg (right atrial pressure of 5 mmHg). ATRIA:Normal left atrial size. Left atrial volume index 22 ml/m2. Normal right atrial size. CARDIAC VALVES:Trileaflet aortic valve. Normal aortic valve. No aortic valve regurgitation. Normal mitral valve. Trivial mitral valve regurgitation. Pulmonary valve not well visualized. Trivial pulmonary valve regurgitation. Normal tricuspid valve. Trivial tricuspid valve regurgitation. OTHER ECHO FINDINGS:Normal inferior vena cava size with normal inspiratory collapse (>50%). Normal mid ascending aorta diameter of 34 mm. No abdominal aortic aneurysm. Normal abdominal aorta Doppler flow pattern. No atrial level shunt by color flow imaging. No intracardiac mass or thrombus, but the left atrial appendage cannot be visualized adequately with transthoracic echo to exclude thrombus in this location. Tiny posterior pericardial effusion. For the complete report, see the Order-Level Documents. Narrative 05/21/2022 10:09 AM TOBACCO FEEDER CATCHER For the complete report, see the Order-Level Documents. Hemodynamics Heart Rate: 87 BPM Blood Pressure: 171 / 82 mmHg ECG: Sinus rhythm Final Impressions 1. Small left ventricular chamber size, no regional wall motion abnormalities, calculated 2-D linear ejection fraction 66%. 2. Normal left ventricular wall thickness. 3. Left ventricular outflow tract maximal instantaneous Doppler gradient rest 14 mm Hg; Valsalva 36 mm Hg. 4. Abnormal left ventricular geometry with ??concentric remodeling (increased wall thickness to cavity ratio), grade 1/3 diastolic dysfunction, consistent with low to normal filling pressure. 5. Normal right ventricular chamber size, normal systolic function, estimated right ventricular systolic pressure 35 mmHg (right atrial pressure of 5 mmHg). 6. No hemodynamically significant valvular heart disease. 7. Normal inferior vena cava size with normal inspiratory collapse (>50%). 8. Tiny posterior pericardial effusion. Procedure Note Irineo Wayne M.D. - 05/21/2022 For the complete report, see the Order-Level Documents. Hemodynamics Heart Rate: 87 BPM Blood Pressure: 171 / 82 mmHg ECG: Sinus rhythm Final Impressions 1. Small left ventricular chamber size, no regional wall motionabnormalities, calculated 2-D linear ejection fraction 66%. 2. Normal left ventricular wall thickness. 3. Left ventricular outflow tract maximal instantaneous Doppler gradientrest 14 mm Hg; Valsalva 36 mm Hg. 4. Abnormal left ventricular geometry with concentric remodeling(increased wall thickness to cavity ratio), grade 1/3 diastolicdysfunction, consistent with low to normal filling pressure. 5. Normal right ventricular chamber size, normal systolic function,estimated right ventricular systolic pressure 35 mmHg (right atrialpressure of 5 mmHg). 6. No hemodynamically significant valvular heart disease. 7. Normal inferior vena cava size with normal inspiratory collapse(>50%). 8. Tiny posterior pericardial effusion. Findings LEFT VENTRICLE:Small left ventricular chamber size. Abnormal leftventricular geometry with concentric remodeling (increased wall thicknessto cavity ratio). Calculated 2-D linear left ventricular ejection %. Left ventricular volumetric assessment not performed because of imagequality. Dynamic left ventricular outflow obstruction. Left ventricularoutflow tract maximal instantaneous Doppler gradient rest 14 mm Hg;Valsalva 36 mm Hg. No regional wall motion abnormalities. Grade 1/3 leftventricular diastolic dysfunction, consistent with low to normal leftventricular filling pressure. RIGHT VENTRICLE:Normal right ventricular chamber size. Normal rightventricular systolic function. Estimated right ventricular systolicpressure 35 mmHg (right atrial pressure of 5 mmHg). ATRIA:Normal left atrial size. Left atrial volume index 22 ml/m2. Normalright atrial size. CARDIAC VALVES:Trileaflet aortic valve. Normal aortic valve. No aorticvalve regurgitation. Normal mitral valve. Trivial mitral valveregurgitation. Pulmonary valve not well visualized. Trivial pulmonaryvalve regurgitation. Normal tricuspid valve. Trivial tricuspid valveregurgitation. OTHER ECHO FINDINGS:Normal inferior vena cava size with normal inspiratorycollapse (>50%). Normal mid ascending aorta diameter of 34 mm. Noabdominal aortic aneurysm. Normal abdominal aorta Doppler flow pattern. Noatrial level shunt by color flow imaging. No intracardiac mass orthrombus, but the left atrial appendage cannot be visualized adequatelywith transthoracic echo to exclude thrombus in this location. Tinyposterior pericardial effusion. For the complete report, see the Order-Level Documents. Flaquito Pierce M.D. CV ECHO PROCEDURES documented in this encounter Visit Diagnoses Diagnosis Lung Interstitial Disease (HCC) documented in this encounter Care Teams Hem Inspector Relationship Specialty Start Date End Date Elsewhere, Pcp PCP - General Internal Medicine 05/14/22 documented as of this encounter
--- OUTSIDE RECORDS SUMMARY | 2023-05-18 12:33 | XMS_ITS | Encounter Summary ---
Author Name Unknown Organization [facility] Address [address] [place] [address] Care Team Providers Care Cup Setter Lockstitch Name Role Phone Elsewhere, Pcp Primary Care Provider Unavailabl e Reason for Referral * MRI/CAT/PET Scan (Routine) - Closed Specialty Diagnoses / Procedures Referred By Contac t Referred To Contact Radiology Diagnoses Lung Interstitial Disease (HCC) Procedures CT Chest without IV Contrast Flaquito Pierce M.D. 200 [place] [address] [facility] Referral ID Status Reason Start Date Expiration Date Visits Re quested Visits Authorized [id number] Closed 05/26/2022 05/26/2023 1 1 Reason for Visit * MRI/CAT/PET Scan (Routine) - Closed Specialty Diagnoses / Procedures Referred By Contac nghia Referred To Contact Radiology Diagnoses Lung Interstitial Disease (HCC) Procedures CT Chest without IV Contrast Flaquito Pierce M.D. 200 [place] [address] [facility] Referral ID Status Reason Start Date Expiration Date Visits Re quested Visits Authorized [id number] Closed 05/26/2022 05/26/2023 1 1 Encounter Details Date Type Department Care Team (Latest Contact Info) Description 08/24/2022 11:45 AM CDT - 08/24/2022 11:59 PM CDT Hospital Encounter Department of Radiology, [facility] in [place], [place] 200 [place] [address] Flaquito Pierce M.D. 200 [place] [address] Lung Interstitial Disease (HCC) Discharge Disposition: Home [...] any clubs o r organizations such as sabianist groups, unions, fraternal or athletic groups, or [...] and heating? Not hard at all 05/17/2022 [facility] [place] of Occupat ional Health - Occupational Stress [...] place to sleep or slept in a senior care (including now)? No 05/17/2022 Nutrition Answer Date [...] Master's degree (e.g., MA, MS, Flavia, MEd, HEAD OF ETHICS AND COMPLIANCE, WILLIE) 05/17/2022 Sex and Gender Information Value Date Recorded Sex Assigned at Female 05/17/2022 2:17 PM STRATEGIC PROCUREMENT MANAGER Gender Identity Female 05/17/2022 2:17 PM STRATEGIC PROCUREMENT MANAGER Sexual Orientation Straight 05/17/2022 2: 17 PM STRATEGIC PROCUREMENT MANAGER documented as of this encounter Medications at [...] - Routine (most inpatients and all outpatients) 08/24/2022 12:20 PM CDT Lung Interstitial Disease (HCC) documented in this encounter Results * CT Chest without IV Contrast (08/24/2022 [...] upper lobe location, or both may warrant [id number]. Guidelines do not apply to lung cancer [...] (HCC) documented in this encounter Care Teams Cup Setter Lockstitch Relationship Specialty Start Date End Date Elsewhere, Pcp PCP - General Internal Medicine 05/14/22 documented as of this encounter
--- OUTSIDE RECORDS SUMMARY | 2023-05-18 12:33 | XMS_ITS | Encounter Summary ---
Author Name Unknown Organization [facility] Address [address] [place] [address] Care Team Providers Care Digital Project Manager Name Role Phone Elsewhere, Pcp Primary Care Provider Unavailabl e Reason for Visit * Reason Onset Date Comments Pre-visit Intake 02/25/2023 Encounter Details Date Type Department Care Team (Latest Contact Info) Description 02/25/2023 Clinical Communication Division of Pulmonary Medicine in [place], [place] [address] [place] [phone] Lisa Soni, MPAS, P.A.-C. [address] [place] [phone] Pre-visit Intake Social History Tobacco Use Types Packs/Day Years [...] often do you attend chur ch or taoist services? More than 4 times per year 05/17/2022 Do you belong to any clubs o r organizations such as religious groups, unions, fraternal or athletic groups, or [...] and heating? Not hard at all 05/17/2022 [facility] Occupat ional Health - Occupational [...] Master's degree (e.g., MA, MS, Flavia, MEd, ELASTIC ASSEMBLER, WILLIE) 05/17/2022 Sex and Gender Information Value Date Recorded Sex Assigned at Female 05/17/2022 2:17 PM BUILDING ATTENDANT Gender Identity Female 05/17/2022 2:17 PM BUILDING ATTENDANT Sexual Orientation Straight 05/17/2022 2: 17 PM BUILDING ATTENDANT documented as of this encounter Plan of Treatment Not on file documented as of this encounter Visit Diagnoses Not on filedocumented in this encounter Care Teams Digital Project Manager Relationship Specialty Start Date End Date Elsewhere, Pcp PCP - General Internal Medicine 05/14/22 documented as of this encounter
--- OUTSIDE RECORDS SUMMARY | 2023-05-18 12:33 | XMS_ITS | Encounter Summary ---
Author Name Unknown Organization [facility] Address [address] [place] [address] Care Team Providers Care Prepress Manager Name Role Phone Elsewhere, Pcp Primary Care Provider Unavailabl e Reason for Referral * Outpatient (Routine) - Closed Specialty Diagnoses / Procedures Referred By James t Referred To Contact Sleep Medicine Diagnoses Snoring Flaquito Pierce M.D. [address] [place] [phone] [facility] Referral ID Status Reason Start Date Expiration Date V isits Requested Visits Authorized [id number] Closed Specialty Services Required 05/20/2022 05/20/2023 1 1 NSTITCH SEWING MACHINE OPERATOR Encounter Details Date Type Department Care Team (Late st Contact Info) Description 05/20/2022 Orders Only Division of Pulmonary Medicine in [place], [place] [address] [place] [phone] Flaquito Pierce M.D. [address] [place] [phone] Snoring (Primary Dx) Social History Tobacco Use Types [...] How often do you attend chur or congregation services? More than 4 times per year 05/17/2022 Do you belong to any clubs o r organizations such as sikh groups, unions, fraternal or athletic groups, or [...] and heating? Not hard at all 05/17/2022 [facility] [place] of Occupat ional Health - Occupational Stress [...] place to sleep or slept in a group home (including now)? No 05/17/2022 Nutrition Answer [...] Master's degree (e.g., MA, MS, Flavia, MEd, LITERACY COACH, WILLIE) 05/17/2022 Sex and Gender Information Value Date Recorded Sex Assigned at Female 05/17/2022 2:17 PM CHAINSTITCH SEWING MACHINE OPERATOR Gender Identity Female 05/17/2022 2:17 PM CHAINSTITCH SEWING MACHINE OPERATOR Sexual Orientation Straight 05/17/2022 2: 17 PM CHAINSTITCH SEWING MACHINE OPERATOR documented as of this encounter Plan of Treatment Scheduled Referrals Name Type Priority Associated Diagnoses Orde r Schedule Sleep Medicine - General consult (clinic) Outpatient Referral Routine Snoring Expected: 05/20/2022 (Approximate), Expires: 08/19/2023 documented as of this encounter Visit Diagnoses Diagnosis Snoring- Primary documented in this encounter Care Teams Prepress Manager Relationship Specialty Start Date End Date Elsewhere, Pcp PCP - General Internal Medicine 05/14/22 documented as of this encounter
--- OUTSIDE RECORDS SUMMARY | 2023-05-18 12:33 | XMS_ITS | Encounter Summary ---
Author Name Unknown Organization [facility] Address [address] [place] [address] Care Team Providers Care Director Electrical Engineering Name Role Phone Elsewhere, Pcp Primary Care Provider Unavailabl e Encounter Details Date Type Department Care Team ([facility] st Contact Info) Description 08/24/2022 12:30 PM CDT Diagnostic Division of Pulmonary Medicine in [place], [place] [address] [place] [phone] Flaquito Pierce M.D. [address] [place] [phone] Lung Interstitial Disease (HCC) Social History Tobacco [...] often do you attend chur ch or yarsanism services? More than 4 times per year 05/17/2022 Do you belong to any clubs o r organizations such as gnosticism groups, unions, fraternal or athletic groups, or [...] and heating? Not hard at all 05/17/2022 [facility] Occupat ional Health - [...] place to sleep or slept in a residential (including now)? No 05/17/2022 Nutrition Answer Date [...] Master's degree (e.g., MA, MS, Flavia, MEd, SAFETY SEALER, WILLIE) 05/17/2022 Sex and Gender Information Value Date Recorded Sex Assigned at Female 05/17/2022 2:17 PM CHORE TENDER Gender Identity Female 05/17/2022 2:17 PM CHORE TENDER Sexual Orientation Straight 05/17/2022 2: 17 PM CHORE TENDER documented as of this encounter Plan of Treatment Not on file documented as of this encounter Procedures Procedure Name Priority Date/Time Associated Diagnosis Comments OXYGEN TITRATION Routine 08/24/2022 1:04 PM CDT Lung Interstitial Disease (HCC) documented in this encounter Results * Oxygen Titration (08/24/2022 1:04 PM CDT) [...] (HCC) documented in this encounter Care Teams Director Electrical Engineering Relationship Specialty Start Date End Date Elsewhere, Pcp PCP - General Internal Medicine 05/14/22 documented as of this encounter
--- OUTSIDE RECORDS SUMMARY | 2023-05-18 12:33 | XMS_ITS | Encounter Summary ---
Author Name Unknown Organization [facility] Address [address] [place] [address] Care Team Providers Care Operater Name Role Phone Elsewhere, Pcp Primary Care Provider Unavailabl e Encounter Details Date Type Department Care Team ([facility] st Contact Info) Description 05/24/2022 Orders Only Division of Pulmonary Medicine in [place], [place] [address] [place] [phone] Flaquito Pierce M.D. [address] [place] [phone] Sleep Related Hypoxemia (Primary Dx) Social History Tobacco Use Types [...] often do you attend chur ch or samaritan services? More than 4 times per year 05/17/2022 Do you belong to any clubs o r organizations such as oriental orthodox groups, unions, fraternal or athletic groups, or [...] and heating? Not hard at all 05/17/2022 [facility] of Occupat ional Health - Occupational Stress [...] place to sleep or slept in a fdc (including now)? No 05/17/2022 Nutrition Answer Date [...] Master's degree (e.g., MA, MS, Flavia, MEd, COMMERCIAL ACCOUNT EXECUTIVE, WILLIE) 05/17/2022 Sex and Gender Information Value Date Recorded Sex Assigned at Female 05/17/2022 2:17 PM AVIATION BOATSWAIN'S MATE Gender Identity Female 05/17/2022 2:17 PM AVIATION BOATSWAIN'S MATE Sexual Orientation Straight 05/17/2022 2: 17 PM AVIATION BOATSWAIN'S MATE documented as of this encounter Plan of Treatment Not on file documented as of this encounter Visit Diagnoses Diagnosis Sleep Related Hypoxemia- Primary documented in this encounter Care Teams Operater Relationship Specialty Start Date End Date Elsewhere, Pcp PCP - General Internal Medicine 05/14/22 documented as of this encounter
--- OUTSIDE RECORDS SUMMARY | 2023-05-18 12:33 | XMS_ITS | Encounter Summary ---
Author Name Unknown Organization [facility] Address [address] [place] [address] Care Team Providers Care Dwarf Tree Grower Name Role Phone Elsewhere, Pcp Primary Care Provider Unavailabl e Reason for Referral * Outpatient (Routine) - Closed Specialty Diagnoses / Procedures Referred By Contcady t Referred To Contact Sleep Medicine Mumtaz Tipton APRN, C.N.P., M.S.N. [address] [place] [phone] [facility] Referral ID Status Reason Start Date Expiration Date Visits Re quested Visits Authorized [id number] Closed 05/31/2022 05/30/2025 1 1 Scheduling Instructions Patient will call to schedule. Okay to schedule with alternate provider if Mumtaz not available to go over results of PSG. Thank you. ON PICTURE NARRATOR * Outpatient (Routine) - Closed Specialty Diagnoses / Procedures Referred By Contac t Referred To Contact Diagnoses Snoring Abnormal Oximetry Lung Interstitial Disease (HCC) Hypoxia Sleep Related Sleep Related Breathing Disorder Procedures Polysomnography (PSG): Split Night (STANDARD) uMmtaz Tipton APRN, C.N.P., M.S.N. [address] [place] [phone] [facility] Referral ID Status Reason Start Date Expiration Date Visits Re quested Visits Authorized [id number] Closed 05/31/2022 05/31/2023 1 1 ON PICTURE NARRATOR Reason for Visit * Outpatient (Routine) - Closed Specialty Diagnoses / Procedures Referred By James agrawal Referred To Contact Sleep Medicine Diagnoses Snoring Flaquito Pierce M.D. [address] [place] [phone] [facility] Referral ID Status Reason Start Date Expiration Date V isits Requested Visits Authorized [id number] Closed Specialty Services Required 05/20/2022 05/20/2023 1 1 Encounter Details Date Type Department Care Team (Latest Contact Info) Description 05/31/2022 1:30 PM MOTION PICTURE NARRATOR Comprehensive [facility] in [place], [place] [address] [place] [phone] Mumtaz Tipton APRN, C.N.P., M.S.N. [address] [place] [phone] Sleep Related Breathing Disorder (Primary Dx); Snoring; Abnormal Oximetry; Lung Interstitial Disease (HCC); Hypoxia Sleep Related Social History Tobacco Use Types Packs/Day Years [...] any clubs o r organizations such as zoroastrianism groups, unions, fraternal or athletic groups, or [...] and heating? Not hard at all 05/17/2022 [facility] of Occupat ional Health - Occupational Stress [...] Master's degree (e.g., MA, MS, Flavia, MEd, MARSHMALLOW MAKER, WILLIE) 05/17/2022 Sex and Gender Information Value Date Recorded Sex Assigned at Female 05/17/2022 2:17 PM MOTION PICTURE NARRATOR Gender Identity Female 05/17/2022 2:17 PM MOTION PICTURE NARRATOR Sexual Orientation Straight 05/17/2022 2: 17 PM MOTION PICTURE NARRATOR documented as of this encounter Progress Notes * Mumtaz Tipton, VIJAY, C.N.P., M.S.N. - 05/31/2022 1:30 PM CST SUBJECTIVE CHIEFCOMPLAINT/REASON FOR CONSULT Abnormal overnight oximetry HISTORY OF PRESENT ILLNESS Ms. Howard is a 76 y.o. female who is seen by request of Flaquito Pierce M.D. for above concern. Past medical history significant for hypertension, hyperlipidemia, elevated BMI, bipolar disorder, interstitial lung disease, hypothyroidism on replacement therapy, history of colon polyp, history of d iverticulosis. Overnight oximetry completed on 05/18/2022 revealed adjusted index of 23.2 events per hour with basal SpO2 low at 88.8%. Time spent with SpO2 less than 89% was 293.7 minutes out of 7 hours and 52 minutes of analyzed data. Baseline oxyhemoglobin saturation was low suggesting possible gas exchange abnormality and or hypoventilation component with significant intermittent clusters of severe oxyhemoglobin desaturation suggestive of severe intermittent sleep apnea possibly associated with REM sleep and or position. Maximum single episode of time with SpO2 less than 89% was 760 seconds. Oxyhemoglobin vilma was 63%. Average heart rate was 69 beats per minute. Sleep history: -Sleep aid: Usually takes 1200 mg gabapentin q.h.s. which she has been on for years and this was originally prescribed for bipolar disorder. Has used Benadryl in the past but discontinued. -Bedtime: 9:30-10 p.m.. -Sleep onset latency: 20 minutes. -Preferred sleep position: Says she sleeps almost exclusively on the back body position as she is uncomfortable sleeping on her sides due to history of cervicalgia and is status post cervical laminectomy. -Sleep interruptions: Will usually wake up once or twice nightly to urinate but generally able to get back to sleep relatively quickly though occasionally she has trouble maintaining sleep due to thinking in bed. She feels her maintenance insomnia started intermittent 40s when she started having significant depressive symptoms and was diagnosed with bipolar disorder. -Snoring: Thinks snoring is at least moderate to loud intermittently per family report. She sleeps alone. -Witnessed apnea: No, sleeps alone. -Breathing related arousals: Has had rare snort arousals but otherwise denies any gasping, choking,coughing, or shortness of breath at night. -Arise time: 5:00 a.m.. -Alarm: No. -Refreshed: Somewhat. -Dry Mouth: Yes, daily says she breathes predominantly through mouth at night. -operation shift supervisor headaches: No. -Bed covers disheveled: No. -ESS score: 3. -Daytime somnolence: No. -Nap: No. Patient denies any history of hypnagogic hallucinations, sleep paralysis, sleep walking/eating, dream enactment, cardinal symptoms of RLS, or narcolepsy. Status post tonsillectomy. States she recollects having some bruxism around the time of getting in her 30s but none since. She does not use an oral appliance. States she has been told that she talks in her sleep by family but does not seem to have any significant recollection and otherwise denies any dream enactment type behavior. Denies any history of somnambulism. 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 Still enjoys painting in her at home are studio. , sleeps alone. Denies alcohol and drug use. Walks briskly for approximately 50 minutes 4 times weekly. Previous smoker, quitting in 1984. REVIEW OF SYSTEMS Psychiatric/Behavioral: Positive for sleep disturbance. OBJECTIVE Patient Active Problem List Diagnosis (none) - all problems resolved or deleted Past Surgical History: Procedure Laterality Date OTHER CONVERTED SHX (SEE COMMENT) N/A 04/03/2007 >C3 through superior C7 cervical laminectomy. Current Outpatient Medications: acyclovir (ZOVIRAX) 400 mg tablet, Take by mouth as needed. TAKE ONE TABLET BY MOUTH THREE TIMES DAILY FOR 5 DAYS. START AT SOONEST SIGN OF HERPES FLARE, Disp: , Rfl: Advair Diskus 500-50 mcg/act diskus inhaler, Inhale 1 puff daily., Disp: , Rfl: albuterol 2.5 mg /3 mL nebulizer solution, Inhale., Disp: , Rfl: albuterol 90 mcg/actuation inhaler, Inhale 1-2 puffs every 4 (four) hours as needed., Disp: , Rfl: alendronate (FOSAMAX) 70 mg tablet, Take 70 mg by mouth once a week., Disp: , Rfl: atorvastatin (LIPITOR) 10 mg tablet, Take 10 mg by mouth at bedtime., Disp: , Rfl: cholecalciferol (VITAMIN D3) 25 mcg (1,000 Unit) capsule, Take 1 capsule by mouth daily as needed.,Disp: , Rfl: ciclopirox (PENLAC) 8 % external solution, Apply 1 application topically daily as needed., Disp: , Rfl: clotrimazole (LOTRIMIN) 1 % cream, Apply 1 application topically 2 (two) times a day as needed., Disp: , Rfl: cyanocobalamin (VITAMIN B12) 1,000 mcg/mL injection, Inject 1,000 mcg intramuscularly every 28 (twenty-eight) days., Disp: , Rfl: fluticasone propionate (FLONASE) 50 mcg/actuation nasal spray, Administer 1 spray into each nostrildaily as needed., Disp: , Rfl: gabapentin (NEURONTIN) 400 mg capsule, Take 3 capsules by mouth at bedtime., Disp: , Rfl: ipratropium (ATROVENT) 21 mcg (0.03 %) nasal spray, Administer 2 sprays into each nostril 2 (two) times a day., Disp: 30 mL, Rfl: 12 ipratropium-albuteroL (Combivent Respimat) 20-100 mcg/actuation inhaler, Inhale 1 puff every 6 (six) hours as needed., Disp: , Rfl: loratadine (CLARITIN) 10 mg tablet, Take 1 tablet by mouth daily., Disp: , Rfl: losartan (COZAAR) 100 mg tablet, Take 1 tablet by mouth daily., Disp: , Rfl: lysine 1,000 mg tablet, Take 1 tablet by mouth daily as needed., Disp: , Rfl: montelukast (SINGULAIR) 10 mg tablet, Take 1 tablet by mouth at bedtime., Disp: , Rfl: omeprazole (PriLOSEC) [address] capsule, Take 1 capsule by mouth once a week., Disp: , Rfl: pirfenidone (ESBRIET) 267 mg tablet tablet, Take by mouth. Take by mouth. Days 1-7 - one capsule bymouth 3 times daily (801 mg/day) Days 8-14 - two capsules by mouth 3 times daily (1602 mg/day) Day 15 onwards- three capsules by mouth 3 times daily (2403 mg/day), Disp: , Rfl: Synthroid 100 mcg tablet, Take 1 tablet by mouth daily., Disp: , Rfl: venlafaxine XR (EFFEXOR-XR) 75 mg 24 hr capsule, Take 1 capsule by mouth daily., Disp: , Rfl: VITAMIN B COMPLEX ORAL, Take 1 tablet by mouth daily as needed., Disp: , Rfl: Lab Results Component Value Date NA 142 05/18/2022 CREATININE 0.74 05/18/2022 EGFR 83 05/18/2022 GLUCOSE 100 05/18/2022 CALCIUM 9.8 05/18/2022 CHOL 243 (H) 07/02/2021 HDL 86 07/02/2021 TRIG 110 07/02/2021 TTLCHOLHDLRT 2.83 07/02/2021 TSH 0.43 07/02/2021 AST 24 05/18/2022 ALT 20 05/18/2022 ALKPHOS 97 05/18/2022 NTPROBNP 86 05/18/2022 BUN 16 05/18/2022 Lab Results Component Value Date WBC 5.2 05/18/2022 HGB 14.4 05/18/2022 HCT 45.4 (H) 05/18/2022 MCV 93.6 05/18/2022 PLT 262 05/18/2022 Pulmonary function test 05/26/2022: Abnormal: Diffusion capacity is mildly reduced and consistent with a pulmonary parenchymal and/or vascular disorder. Normal spirometry and low normal total lung capacity. Echocardiogram 05/21/2022: Hemodynamics Heart Rate: 87 BPM Blood Pressure: 171 / 82 mmHg ECG: Sinus rhythm Final Impressions 1. Small left ventricular chamber size, no regional wall motion abnormalities, calculated 2-D linear ejection fraction 66%. 2. Normal left ventricular wall thickness. 3. Left ventricular outflow tract maximal instantaneous Doppler gradient rest 14 mm Hg; Valsalva 36mm Hg. 4. Abnormal left ventricular geometry with concentric remodeling (increased wall thickness to cavity ratio), grade 1/3 diastolic dysfunction, consistent with low to normal filling pressure. 5. Normal right ventricular chamber size, normal systolic function, estimated right ventricular systolic pressure 35 mmHg (right atrial pressure of 5 mmHg). 6. No hemodynamically significant valvular heart disease. 7. Normal inferior vena cava size with normal inspiratory collapse (>50%). 8. Tiny posterior pericardial effusion. Findings LEFT VENTRICLE:Small left ventricular chamber size. Abnormal left ventricular geometry with concentric remodeling (increased wall thickness to cavity ratio). [...] in this location. Tiny posterior pericardial effusion. ECG 05/18/2022: Normal sinus rhythm Low voltage QRS Low anterior forces Nonspecific ST abnormality When compared with ECG of 28-MAR-2007 08:51, No significant change was found. DX Chest AP or PA and Lateral 2 Views Narrative EXAM: DX CHEST AP OR PA AND LATERAL 2 VIEWS Impression No change since the outside exam from 01/06/2022. Stable mild interstitial prominence/fibrosis in the lung periphery which was better demonstrated on the outside chest CT from 02/19/2022. Mild cardiomegaly. Calcified aorta. Surgical clips RUQ. Osteoarthritic changes of the shoulders. Chest otherwise negative. VITAL SIGNS There were no vitals filed for this visit. BP Readings from Last 3 Encounters: 05/18/22 148/84 Wt Readings from Last 3 Encounters: 05/18/22 80.8 kg Estimated body mass index is 27.44 kg/m?? as calculated from the following: Height as of 05/18/22: 171.6 cm. Weight as of 05/18/22: 80.8 kg. PHYSICAL EXAM General: Well groomed, pleasant, and in no acute distress. Head: Head normocephalic, atraumatic. Eyes: Eyes PERRL. ENT: Both nares patent. Dentition in good repair and no significant malocclusion and minimal overjet; gums normal. Oropharynx pink and moist with no lesions or exudates; ample AP and lateral diameters. Rojas grade III-IV. Neck: Neck circumference 37 cm. Lungs: Breathing comfortably on room air without any conversational dyspnea. Patient states she generally does not have significant activity intolerance and does not use any supplemental oxygen despite history of asthma/interstitial lung disease. Neuro: No tremor. Psychiatric: Answers questions in a timely, logical fashion. Cooperative with exam and follows instructions without difficulty. Makes good eye contact during exam. Speech normal rate and tone. Affectis broad and mood does not appear depressed. Patient is not fidgety or restless and does not appearanxious. Stays on topic with conversation, no flight of ideas. Judgment and insight seem to be grossly intact. Musculoskeletal: Ambulates independently with normal gait and zoila. No abnormal movements observed. 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 Howard. Based on these findings, we talked about polysomnogram in detail utilizing diagram. She would not be a good candidate for homesleep study due to sleep associated hypoxia which may require a more complex titration study and possibly supplemental oxygen along with PAP therapy. We also talked about the pathophysiology of sleepapnea utilizing diagram. Also, discussed negative health consequences associated with untreated moderate to severe sleep apnea. Ultimately, patient decided on going ahead with polysomnogram. We talked about CPAP being the gold standard for treatment today. Patient verbalized understanding of this and is willing to trial PAP therapy if necessary (like will need some form of fullface interface as she tends to breathe more so out her mouth). Further discussed that polysomnogram will be completed in a split night fashion. We discussed the potential need for sleep aid and patient plans to bring with her her normal medications which includes gabapentin that she normally takes for sleep and mood. Will plan to follow up with patient following the study. Patient will [facility] contact [facility] when she is able to review her calendar as she was not certain what day would work best to complete the study. Sleep hygiene recommendations: --Consistent bed and wake times (week and weekends) --Bedroom should be cool, dark and quiet --Regular mealtimes/snacks --Limit liquids and avoid heavy foods close to bedtime --Use bed only for sleep and sex --Don???t take problems to bed, schedule worry time earlier --Avoid napping --Avoid clock watching --Limit caffeine --Exercise regularly and finish at least 3-4 hours before bed --Avoid alcohol, tobacco & other substances that interfere with sleep --Work towards goal of at least 7 hours of sleep per night. Regarding sleep maintenance insomnia, we talked about sleep hygiene and CBTI techniques. I have advised that she get up from bed, if she is unable to fall back to sleep within 20 minutes, and go to another quiet room in the home with somewhat dim lighting and engage in minimally stimulating activities such as reading, puzzle. Once she becomes drowsy, she should try to go back to bed. If she is unable to sleep within 20 minutes she should repeat the process aforementioned until she is able to sleep in bed. Avoid watching television in bed altogether if possible. Advise avoidance of looking at phone or other electronic devices at night as the blue light/bright light in general can have an affect on melatonin release. Avoid watching the clock. Regarding stress, she may wish to set aside sometime each day to try journaling or creating lists that help her decompress stressful thoughts at night. Also, will send link via portal for the [facility] online self-directed CBTI program. If she continues to have problems with insomnia, I would advise that she consider more formal CBTI. All questions answered to the best of my ability. Provided patient with my card which includes [facility] contact information. Encourage patient to call or portal message with any questions. Patient verbalized understanding of the plan of care and is in agreement. I personally spent over half of a total 45 minutes face to face with the patient in counseling and discussion and/or coordination of care as described above. ON PICTURE NARRATOR documented in this encounter Plan of Treatment Scheduled Referrals Name Type Priority Associated Diagnoses Orde r Schedule Sleep Medicine office visit (clinic) Outpatient Referral Routine Expected: 05/31/2022 (Approximate), Expires: 08/30/2023 documented as of this encounter Results * Polysomnography (PSG): Split Night (STANDARD) (06/04/2022 12:37 AM MOTION PICTURE NARRATOR) Narrative ONBASE - 06/14/2022 9:43 AM MOTION PICTURE NARRATOR PROCEDURE INFORMATION SUMMARY: In the first part [...] documented in this encounter Visit Diagnoses Diagnosis Sleep Related Breathing Disorder- Primary Snoring Abnormal Oximetry Lung Interstitial Disease (HCC) Hypoxia Sleep Related Snoring Abnormal Oximetry Lung Interstitial Disease (HCC) Hypoxia Sleep Related Sleep Related Breathing Disorder documented in this encounter Care Teams Dwarf Tree Grower Relationship Specialty Start Date End Date Elsewhere, Pcp PCP - General Internal Medicine 05/14/22 documented as of this encounter
--- OUTSIDE RECORDS SUMMARY | 2023-05-18 12:33 | XMS_ITS | Encounter Summary ---
Author Name Unknown Organization [facility] Address [address] [place] [address] Care Team Providers Care Tools Developer Name Role Phone Elsewhere, Pcp Primary Care Provider Unavailabl e Reason for Referral * Outpatient (Routine) - Closed Specialty Diagnoses / Procedures Referred By James agrawal Referred To Contact Pulmonary Medicine Flaquito Pierce M.D. [address] [place] [phone] Referral ID Status Reason Start Date Expiration Date Visits Re quested Visits Authorized [id number] Closed 08/24/2022 08/23/2025 1 1 Scheduling Instructions In ILD clinic with staff or PA. Patient prefers not to see Dr Rivers. * MRI/CAT/PET Scan (Routine) - Closed Specialty Diagnoses / Procedures Referred By James agrawal Referred To Contact Radiology Diagnoses Lung Interstitial Disease (HCC) Procedures CT Chest without IV Contrast Flaquito Pierce M.D. [address] [place] [phone] [facility] Referral ID Status Reason Start Date Expiration Date Visits Re quested Visits Authorized [id number] Closed 08/24/2022 08/24/2023 1 1 Reason for Visit * Outpatient (Routine) - Closed Specialty Diagnoses / Procedures Referred By James agrawal Referred To Contact Pulmonary Medicine Flaquito Pierce M.D. [address] [place] [address] [facility] Referral ID Status Reason Start Date Expiration Date Visits Re quested Visits Authorized [id number] Closed 05/26/2022 05/25/2025 1 1 Encounter Details Date Type Department Care Team (Late st Contact Info) Description 08/24/2022 3:30 PM CDT Office Visit Division of Pulmonary Medicine in [place], [place] [address] [place] [address] Flaquito Pierce M.D. [address] [place] [phone] Lung Interstitial Disease (HCC) (Primary Dx) Social [...] week 05/17/2022 How often do you attend [facility] or religion services? More than 4 times per year 05/17/2022 Do you belong to any clubs o r organizations such as nondenominational groups, unions, fraternal or athletic groups, or [...] and heating? Not hard at all 05/17/2022 [facility] of Occupat ional Health - Occupational Stress [...] place to sleep or slept in a prison (including now)? No 05/17/2022 Nutrition Answer Date [...] Master's degree (e.g., MA, MS, Flavia, MEd, HOSPICE LIAISON, WILLIE) 05/17/2022 Sex and Gender Information Value Date Recorded Sex Assigned at Female 05/17/2022 2:17 PM CAD ADMINISTRATOR Gender Identity Female 05/17/2022 2:17 PM CAD ADMINISTRATOR Sexual Orientation Straight 05/17/2022 2: 17 PM CAD ADMINISTRATOR documented as of this encounter Last Filed Vital Signs Vital Sign Reading Time Taken Comments Blood Pressure 138/73 08/24/2022 3:18 PM CDT Pulse 83 08/24/2022 3:18 PM CDT Temperature 36.4 ??C (97.6 ??F) 08/24/2022 3:18 PM CD T Respiratory Rate - - Oxygen Saturation 95% 08/24/2022 3:18 PM CDT Inhaled Oxygen Concentration - - Weight 82.3 kg (181 lb 7 oz) 08/24/2022 3:18 PM CDT Height 172.5 cm (5' 7.91) 08/24/2022 3:18 PM CD T Body Mass Index 27.66 08/24/2022 3:18 PM CDT documented in this encounter Progress Notes * Flaquito Pierce M.D. - 08/24/2022 3:30 PM CDT SUBJECTIVE CHIEF COMPLAINT / REASON FOR VISIT Jeaneth Howard is a 76 y.o. female who presents for evaluation of No chief complaint on file.. HISTORY OF PRESENT ILLNESS I had the pleasure to see the patient back in clinic today. Please see my note of May 2022 withfull consultation note history and other findings. She had a interstitial lung disease in an indeterminate pattern. The pattern looks indeterminate for UIP type of pattern. She has been symptomatically very stable and overall is doing quite well without therapy. She had stopped all her inhalers which were being prescribed for what was thought to be asthma and actually feels better since she stopped the inhalers. That is good news. She continues to have some cough with the mucus and some posterior nasal drainage. However, she hasgotten some overall benefit from the Atrovent and Flonase nasal sprays. That is good news and we will continue them. At her last visit she had an abnormal overnight oximetry. We had referred her to the sleep center. She did have sleep testing which was consistent with moderate sleep apnea. She was prescribed CPAP. She has not yet started the CPAP treatment. However after I discussion today, she has agreed to givethe CPAP a trial. ASSESSMENT / PLAN 1. 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 Posterior nasal drainage - treated with ipratropium nasal spray and continuing Flonase 4. GERD on Omeprazole 5. Sleep apnea-has not yet begun CPAP 6. Left lower lobe 8 mm nodule-unchanged since January 2022-requires follow-up CT scan in 6 months 7. New 4 mm solid right upper lobe fylfyd-evhphhbqfunmk-oiulxhvh follow-up CT scan in 6 months I had the pleasure of reviewing today's date. Her oxygen titration shows excellent saturations at rest and exercise. She did have a follow-up pulmonary function testing. This shows normal spirometry.Her diffusing capacity has increased slightly in his now normal on today's testing. That is good news. There is no evidence of decline at all at this time. We did a follow-up CT scan. Reviewing the CT today is no evidence of honeycombing. The CT scan is read as indeterminate for usual interstitial pneumonitis pattern. Is certainly stable from the last reading. She did have a stable 8 mm left lower lobe nodule that is unchanged since January 2022. On scan today we do have a new indeterminate 4 mm solid right upper lobe nodule. These will require repeat CT scan in about 6 months. I went back and reviewed all of her serological testing all the rheumatologic and hypersensitivity serologies are all negative. Of note on the CT reviewed today the radiologist did think she had some element of airtrapping which might suggest a hypersensitivity type of pattern. However, as noted above all of ourobjective testing for hypersensitivity panels were all negative. We had a discussion. At this time with essentially normal pulmonary function tests and stable CT scans, as well as a pattern on the CT that is indeterminate for UIP, I do not feel compelled at this time to start antifibrotic agents at this juncture. I would instead suggest that she returns for follow-up CT scan in testing in about 6 months that will allow us to look at the fibrosis pattern, the pulmonary function testing and oxygenation, and also keep an eye on the 2 pulmonary nodules in the left lower lobe in the right upper lobe to see whether they are stable. We discussed this in detail and she is in agreement with that plan. Of course she can reach out to us in the meantime at any time if she has concerns. She does have sleep disorder breathing/sleep apnea and has been prescribed CPAP she has not startedthat yet. She had a little technical issues with getting the CPAP set up. That has been resolved. We talked about the benefits of treating sleep disorder breathing and she has agreed to give the CPAPa try. I will set her up for a follow-up in the interstitial Lung Disease Clinic with CT scan, pulmonary function testing, oxygen titration, and visit in the ILD clinic for 6 months. All questions answered to the best of my ability. documented in this encounter Plan of Treatment Scheduled Referrals Name Type Priority Associated Diagnoses Orde r Schedule Pulmonary Medicine office visit (clinic) Outpatient Referral Routine Expected: 02/23/2023 (Approximate), Expires: 11/24/2023 documented as of this encounter Results * Oxygen Titration (02/28/2023 [...] Pulmonary Function Tests (02/28/2023 7:27 AM CDT) [facility] FVC 2.72 L 02/28/2023 9:23 AM CDT [facility] FEV1 2.30 L 02/28/2023 9:23 AM CDT [facility] FEV1/FVC 84.71 % 02/28/2023 9:23 AM CDT [facility] SRV23-10% 2.54 L/s 02/28/2023 9:23 AM CDT [facility] PEF PRE 6.87 L/s 02/28/2023 9:23 AM CDT [facility] PIF PRE 5.29 L/s 02/28/2023 9:23 AM CDT [facility] FEF 50 % FIF 50 PRE 75.44 % 02/28/2023 9:23 AM CDT [facility] FET PRE 8.26 sec 02/28/2023 9:23 AM CDT [facility] DLCO 14.04 ml/(min*mm Hg) 02/28/2023 9:23 AM CDT [facility] VA 4.07 L 02/28/2023 9:23 AM CDT [facility] TLC 4.56 L 02/28/2023 9:23 AM CDT [facility] FRCPLETH PROVBASE 2.33 L 02/28/2023 9:23 AM CDT [facility] RV 1.84 L 02/28/2023 9:23 AM CDT [facility] RV % TLC PRE 40.41 % 02/28/2023 9:23 AM CDT [facility] 02/28/2023 7:27 AM CDT Impressions [facility] - 02/28/2023 9:23 AM CDT Abnormal. [...] significant change. Flaquito Pierce M.D. PFT ORDERABLES [place] SENT [address] * CT Chest without IV Contrast [...] moderate patchy expiratory airtrapping. Flaquito Pierce M.D. Matt CT PROCEDURES documented in this encounter Visit Diagnoses Diagnosis Lung Interstitial Disease (HCC)- Primary Lung Interstitial Disease (HCC) documented in this encounter Care Teams Tools Developer Relationship Specialty Start Date End Date Elsewhere, Pcp PCP - General Internal Medicine 05/14/22 documented as of this encounter
--- OUTSIDE RECORDS SUMMARY | 2023-05-18 12:34 | XMS_ITS | Encounter Summary ---
Author Name Unknown Organization [facility] Address [address] [place] [address] Care Team Providers Care Fish Warden Name Role Phone Elsewhere, Pcp Primary Care Provider Unavailabl e Reason for Referral * Outpatient (Routine) - Authorized Specialty Diagnoses / Procedures Referred By Averyac t Referred To Contact Diagnoses Lung Interstitial Disease (HCC) Procedures NM Cardiac Shunt Evaluation Flaquito Pierce M.D. [address] [place] [address] [facility] Referral ID Status Reason Start Date Expiration Date V isits Requested Visits Authorized [id number] Authorized 05/18/2022 05/18/2023 6 6 ELAIN BUILDUP ASSISTANT Reason for Visit * Outpatient (Routine) - Authorized Specialty Diagnoses / Procedures Referred By James agrawal Referred To Contact Diagnoses Lung Interstitial Disease (HCC) Procedures NM Cardiac Shunt Evaluation Flaquito Pierce M.D. [address] [place] [phone] [facility] Referral ID Status Reason Start Date Expiration Date V isits Requested Visits Authorized [id number] Authorized 05/18/2022 05/18/2023 6 6 Encounter Details Date Type Department Care Team (Latest Contact Info) Description 05/18/2022 1:02 PM PORCELAIN BUILDUP ASSISTANT - 05/18/2022 11:59 PM PORCELAIN BUILDUP ASSISTANT Hospital Encounter Department of Radiology, [facility], in [place], [place] [address] [place] [phone] Flaquito Pierce M.D. [address] [place] [address] Lung Interstitial Disease (HCC) Discharge Disposition: Home [...] often do you attend chur ch or mosque services? More than 4 times per year 05/17/2022 Do you belong to any clubs o r organizations such as adventist groups, unions, fraternal or athletic groups, or [...] and heating? Not hard at all 05/17/2022 [facility] of Occupat ional Health - [...] Master's degree (e.g., MA, MS, Flavia, MEd, FAMILY COUNSELOR, WILLIE) 05/17/2022 Sex and Gender Information Value Date Recorded Sex Assigned at Female 05/17/2022 2:17 PM PORCELAIN BUILDUP ASSISTANT Gender Identity Female 05/17/2022 2:17 PM PORCELAIN BUILDUP ASSISTANT Sexual Orientation Straight 05/17/2022 2: 17 PM PORCELAIN BUILDUP ASSISTANT documented as of this encounter Medications [...] Procedure Name Priority Date/Time Associated Diagnosis Comments NM CARDIAC SHUNT EVALUATION RAD - Routine (most inpatients and all outpatients) 05/18/2022 1:43 PM PORCELAIN BUILDUP ASSISTANT Lung Interstitial Disease (HCC) documented in this encounter Results * NM Cardiac Shunt Evaluation (05/18/2022 1:43 PM PORCELAIN BUILDUP ASSISTANT) Anatomical Region Laterality Modality Cardiac, Nuclear Medicine Ca rdiac RST LOS, Nuclear Medicine ARZ LOS, Nuclear Medicine FLA LOS, Nuclear Medicine N/A Nuclear Medicine 05/18/2022 1:50 PM PORCELAIN BUILDUP ASSISTANT Impressions 05/18/2022 2:06 PM PORCELAIN BUILDUP ASSISTANT The cardiac shunt index measures 1.8% which is within normal limits (normal value <5%). Narrative 05/18/2022 2:06 PM PORCELAIN BUILDUP ASSISTANT EXAM: ??NM CARDIAC SHUNT EVALUATION RADIOPHARMACEUTICAL/MEDS: Route: intravenous technetium Tc 99m albumin aggregated injection (Tc-99m MAA),2.2 millicurie TECHNIQUE: Anterior and posterior planar images of the lungs along with right and left lateral images of the head were obtained 0.1 hours after tracer injection. Right to left shunt index was calculated using geometric mean quantification of activity in the lungs and brain. ?? COMPARISON: ??Outside CT chest 02/19/2022 INDICATION: ??Partial anomalous pulmonary venous return Procedure Note Tom Sexton M.D. - 05/18/2022 EXAM: NM CARDIAC SHUNT EVALUATION RADIOPHARMACEUTICAL/MEDS: Route: intravenous technetium Tc 99m albumin aggregated injection (Tc-99m MAA),2.2millicurie TECHNIQUE: Anterior and posterior planar images of the lungs along withright and left lateral images of the head were obtained 0.1 hours after tracer injection. Rightto left shunt index was calculated using geometric mean quantification of activity in the lungsand brain. COMPARISON: Outside CT chest 02/19/2022 INDICATION: Partial anomalous pulmonary venous return IMPRESSION: The cardiac shunt index measures 1.8% which is within normal limits(normal value <5%). Flaquito Pierce M.D. [facility] PROCEDURES documented in this encounter Visit Diagnoses Diagnosis Lung Interstitial Disease (HCC) documented in this encounter Administered Medications Inactive Administered Medications - up to 3 most recent administrations Medication Order MAR Action Action Date Dose Rate Site technetium Tc 99m albumin aggregated injection (Tc-99m MAA) 1.8-2.2 millicurie, intravenous, Once, On Tue05/18/22 at 1330, For 1 dose, Imaging Protocol Orders Given 05/18/2022 1:21 PM PORCELAIN BUILDUP ASSISTANT 2.2 millicuries Right Antecubital documented in this encounter Care Teams Fish Warden Relationship Specialty Start Date End Date Elsewhere, Pcp PCP - General Internal Medicine 05/14/22 documented as of this encounter
--- OUTSIDE RECORDS SUMMARY | 2023-05-18 12:34 | XMS_ITS | Encounter Summary ---
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 [address] [place] [phone] [facility] Referral ID Status Reason Start Date Expiration Date Visits Re quested Visits Authorized [id number] Closed 05/18/2022 05/18/2023 1 1 GRATED CIRCUIT LAYOUT DESIGNER * Outpatient (Routine) - Closed Specialty Diagnoses / Procedures Referred By Contac t Referred To Contact Diagnoses Lung Interstitial Disease (HCC) Procedures ECG 12 Lead Flaquito Pierce M.D. [address] [place] [phone] [facility] Referral ID Status Reason Start Date Expiration Date Visits Re quested Visits Authorized [id number] Closed 05/18/2022 05/18/2023 1 1 GRATED CIRCUIT LAYOUT DESIGNER * Outpatient (Routine) - Closed Specialty Diagnoses / Procedures Referred By Contac t Referred To Contact Diagnoses Lung Interstitial Disease (HCC) Procedures Echo Transthoracic (TTE) Flaquito Pierce M.D. [address] [place] [phone] [facility] Referral ID Status Reason Start Date Expiration Date Visits Re quested Visits Authorized [id number] Closed 05/18/2022 05/18/2023 1 1 GRATED CIRCUIT LAYOUT DESIGNER * Outpatient (Routine) - Authorized Specialty Diagnoses / Procedures Referred By Contac t Referred To Contact Diagnoses Lung Interstitial Disease (HCC) Procedures NM Cardiac Shunt Evaluation Flaquito Pierce M.D. 200 [place] [address] [facility] Referral ID Status Reason Start Date Expiration Date V isits Requested Visits Authorized [id number] Authorized 05/18/2022 05/18/2023 6 6 GRATED CIRCUIT LAYOUT DESIGNER * Outpatient (Routine) - Closed Specialty Diagnoses / Procedures Referred By Contac t Referred To Contact Diagnoses Lung Interstitial Disease (HCC) Procedures DX Chest AP or PA and Lateral 2 Views Flaquito Pierce M.D. 200 [place] [phone] [facility] Referral ID Status Reason Start Date Expiration Date Visits Re quested Visits Authorized [id number] Closed 05/18/2022 05/18/2023 1 1 GRATED CIRCUIT LAYOUT DESIGNER Reason for Visit * Appointment Request (Routine) - Closed Specialty Diagnoses / Procedures Referred By Contac t Referred To Contact Pulmonary Medicine Diagnoses Fibrosis Pulmonary Interstitial (HCC) Referral ID Status Reason Start Date Expiration Date Visits Re quested Visits Authorized [id number] Closed 04/15/2022 04/15/2023 1 1 Encounter Details Date Type Department Care Team (Latest Contact Info) Description 05/18/2022 10:00 AM INTEGRATED CIRCUIT LAYOUT DESIGNER Comprehensive Visit Division of Pulmonary Medicine in [place], [place] [address] [place] [address] Flaquito Pierce M.D. [address] [place] [phone] Lung Interstitial Disease (HCC) (Primary Dx); Dyspnea Multifactorial Social History Tobacco Use Types Packs/Day Years [...] often do you attend chur ch or restoration services? More than 4 times per year [...] and heating? Not hard at all 05/17/2022 [facility] - [...] place to sleep or slept in a detention (including now)? No 05/17/2022 Nutrition Answer Date [...] Master's degree (e.g., MA, MS, Flavia, MEd, PLATFORM BEATER, WILLIE) 05/17/2022 Sex and Gender Information Value Date Recorded Sex Assigned at Female 05/17/2022 2:17 PM INTEGRATED CIRCUIT LAYOUT DESIGNER Gender Identity Female 05/17/2022 2:17 PM INTEGRATED CIRCUIT LAYOUT DESIGNER Sexual Orientation Straight 05/17/2022 2: 17 PM INTEGRATED CIRCUIT LAYOUT DESIGNER documented as of this encounter Last Filed Vital Signs Vital Sign Reading Time Taken Comments Blood Pressure 148/84 05/18/2022 9:36 AM INTEGRATED CIRCUIT LAYOUT DESIGNER Pulse 97 05/18/2022 9:36 AM INTEGRATED CIRCUIT LAYOUT DESIGNER Temperature 35.8 ??C (96.5 ??F) 05/18/2022 9:36 AM CS T Respiratory Rate - - Oxygen Saturation 95% 05/18/2022 9:36 AM INTEGRATED CIRCUIT LAYOUT DESIGNER Inhaled Oxygen Concentration - - Weight 80.8 kg (178 lb 2.1 oz) 05/18/2022 9:36 A M INTEGRATED CIRCUIT LAYOUT DESIGNER Height 171.6 cm (5' 7.56) 05/18/2022 9:36 AM CS T Body Mass Index 27.44 05/18/2022 9:36 AM INTEGRATED CIRCUIT LAYOUT DESIGNER documented in this encounter Consult Notes * Flaquito Pierce M.D. - 05/18/2022 10:00 AM CST SUBJECTIVE REASON FOR CONSULT Interstitial Lung Disease Referred by: Self-referred HISTORY OF PRESENT ILLNESS Jeaneth Howard is a 76 y.o. year old female who presents for the evaluation and treatment of Interstitial Lung Disease with fibrosis. 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 She had a variety of work exposures related to kilns, stains and dyes, metals and other things. She is a former 14 or 15 pack year smoker and quit in 1984. Interestingly she had a past diagnosis of asthma for over20 years. Her specialist in the [facility] did not believe that she had asthma. She rarely used albuterol inhaler. She had previously been on Advair but this has been discontinued without any issues. She is had significantly worse dyspnea on exertion for 6-12 months.. She had sustained a fall in September of 2020 and had broken ribs. A follow-up chest x-ray and CT scan indicated she had some elementsof lung fibrosis. She describes shortness of breath with walking. She does have some associated cough which is productive of sputum in the morning and then dry through the rest of the day. She denieshemoptysis and she denies fever chills and sweats. He does not have any exertional chest pain. However, she does feel some tightness in the chest with deep breathing when exercising. Exposures. Former 15 pack-year smoker. She is had pet dog at present. Interestingly she had pet birds of 2 parakeets in a love bird however that was 15 years ago. She still resides in the same house.No exposures to chemotherapy or radiation therapy. Exposures to art products as noted above. No exposures to spots or hot tubs no exposure to nitrofurantoin or amiodarone or other fibrotic agents. REVIEW OF SYSTEMS She does have sinus drainage and posterior nasal drainage. She uses Singulair Mucinex and Claritin no topical sprays. She has GERD treated with omeprazole. She does note some dry eyes and dry mouth. She eats at about 5:00 to 7:00 and goes to bed about 9 o'clock. We talked about the benefits of having 3 hours between dining and reclining to allow the stomach to empty out. During that time she should only take water. No family history of fibrosis. OBJECTIVE VITAL SIGNS BP 148/84 (BP Location: Right arm, Patient Position: Sitting, Cuff Size: Regular) Pulse 97 Temp(!) 35.8 ??C (Tympanic) Ht 171.6 cm Wt 80.8 kg SpO2 95% BMI 27.44 kg/m?? PHYSICAL EXAM General: Pleasant female who is not dyspneic or coughing on examination Neck: No jugular venous distention and trachea is midline no adenopathy. Lungs: Few fine end inspiratory crackles in the distal bases bilaterally. Otherwise lung zones are really quite clear with good air movement Heart: Regular rate rhythm without murmur rub or gallop Extremities: No clubbing no cyanosis no edema, some onychomycosis of the toes DIAGNOSTIC REVIEW I have reviewed the patient's current laboratory, imaging, and other diagnostic studies. Clinicallysignificant abnormal findings are as follows: PFT Results None SpO2 Readings from Last 3 Encounters: 05/18/22 95% Six Minute Walk: No data recorded Pulmonary Diagnostics: SpO2: 95 % ASSESSMENT / PLAN 1. Interstitial lung disease with fibrosis-indeterminate 2. 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 Posterior nasal drainage 4. GERD on Omeprazole 5. Dry eyes and dry mouth I reviewed the CT scan from home from January. This does show a fibrotic pattern that is probable on in a usual interstitial pattern in the bases. It is fairly mild. She also has partial anomalous pulmonary venous return from the left upper lobe. This is by nature a glns-vs-kdikd shunt. However there some widening of the pulmonary arteries which may suggest an Eisenmenger's physiology and pulmonary hypertension. Clearly this will need to be evaluated as well as the interstitial disease For the interstitial disease, I will check a chest x-ray, we will get complete rheumatologic serologies for her symptoms of dry eye and dry mouth in ILD as well as will be including MyoMarker 3 panelas well as hypersensitivity serologies to include bird and fungi. In addition, I will check rest and exercise oxygen titration and overnight oximetry. For the cardiac and pulmonary venous drainage abnormality I think we should start with an echocardiogram, an NT proBNP, and a nuclear medicine cardiac shunt study. Following those tests I will decidewhether she needs to also refer to cardiology consultation. She will probably benefit from some topical treatment of the posterior nasal drainage and review ofthe GERD treatment. Follow-up I will follow up with her by telephone after the above testing and study are complete. At that point will decide additional steps for investigation and therapy. Flaquito Pierce M.D. Answers submitted by the patient for this visit: General Review of Symptoms (Submitted on 05/17/2022) No general issues: Yes Visual problems: Yes Sinus congestion: Yes Swelling in the legs or feet: Yes Coughing up mucus (phlegm): Yes Dry cough: Yes Abdominal (belly) pain or cramping: Yes Diarrhea: Yes Muscle pain/stiffness: Yes Pain or stiffness in the joints: Yes No skin issues: Yes Weakness in arms and/or legs: Yes Feeling nervous, anxious or on edge: Yes No blood/lymph issues: Yes Difficulty urinating: Yes Incontinence (urine leakage): Yes GRATED CIRCUIT LAYOUT DESIGNER documented in this encounter Plan of Treatment Scheduled Referrals Name Type Priority Associated Diagnoses Orde r Schedule NonF2F phone visit Outpatient Referral Routine Expected: 05/18/2022 (Approximate), Expires: 08/17/2023 documented as of this encounter Results * Pulmonary Function Tests (05/26/2022 7:08 AM INTEGRATED CIRCUIT LAYOUT DESIGNER) VC MAX PRE 2.83 L 05/26/2022 1:57 PM INTEGRATED CIRCUIT LAYOUT DESIGNER [facility] SUITE FVC 2.83 L 05/26/2022 1:57 PM INTEGRATED CIRCUIT LAYOUT DESIGNER [facility] SUITE FEV1 2.32 L 05/26/2022 1:57 PM INTEGRATED CIRCUIT LAYOUT DESIGNER [facility] SUITE FEV1/FVC 82.23 % 05/26/2022 1:57 PM INTEGRATED CIRCUIT LAYOUT DESIGNER [facility] SUITE NJH80-07% 2.94 L/s 05/26/2022 1:57 PM INTEGRATED CIRCUIT LAYOUT DESIGNER [facility] SU[address] PEF PRE 6.61 L/s 05/26/2022 1:57 PM INTEGRATED CIRCUIT LAYOUT DESIGNER [facility] SUITE FET PRE 11.34 sec 05/26/2022 1:57 PM INTEGRATED CIRCUIT LAYOUT DESIGNER [facility] SUITE DLCO 13.83 ml/(min*mm Hg) 05/26/2022 1:57 PM INTEGRATED CIRCUIT LAYOUT DESIGNER [facility] SUITE DLCOc 13.43 ml/(min*mm Hg) 05/26/2022 1:57 PM INTEGRATED CIRCUIT LAYOUT DESIGNER [facility] SUITE HB 14.40 g(Hb)/dL 05/26/2022 1:57 PM INTEGRATED CIRCUIT LAYOUT DESIGNER [facility] SUITE VA 3.88 L 05/26/2022 1:57 PM INTEGRATED CIRCUIT LAYOUT DESIGNER [facility] SUITE TLC 4.53 L 05/26/2022 1:57 PM INTEGRATED CIRCUIT LAYOUT DESIGNER [facility] SUITE VC PRE 2.82 L 05/26/2022 1:57 PM INTEGRATED CIRCUIT LAYOUT DESIGNER [facility] SUITE FRCPLETH PROVBASE 2.24 L 05/26/2022 1:57 PM INTEGRATED CIRCUIT LAYOUT DESIGNER [facility] SUITE RV 1.71 L 05/26/2022 1:57 PM INTEGRATED CIRCUIT LAYOUT DESIGNER [facility] SUITE RV % TLC PRE 37.79 % 05/26/2022 1:57 PM INTEGRATED CIRCUIT LAYOUT DESIGNER [facility] SU[address] TLC% 83 % % 05/26/2022 1:57 PM INTEGRATED CIRCUIT LAYOUT DESIGNER [facility] SUITE % PRED RV 72 % % 05/26/2022 1:57 PM INTEGRATED CIRCUIT LAYOUT DESIGNER [facility] SUITE % PRED VC MAX 97 % % 05/26/2022 1:57 PM INTEGRATED CIRCUIT LAYOUT DESIGNER [facility] SU[address] FVC% 97 % % 05/26/2022 1:57 PM INTEGRATED CIRCUIT LAYOUT DESIGNER [facility] SU[address] FEV1% 105 % % 05/26/2022 1:57 PM INTEGRATED CIRCUIT LAYOUT DESIGNER [facility] SUITE % PRED FEV1/FVC 107 % % 1:57 PM INTEGRATED CIRCUIT LAYOUT DESIGNER [facility] SUITE % PRED FEF 25-75% 170 % % 05/26/2022 1:57 PM INTEGRATED CIRCUIT LAYOUT DESIGNER [facility] SUITE % PRED PEF 116 % % 05/26/2022 1:57 PM INTEGRATED CIRCUIT LAYOUT DESIGNER [facility] SUITE DLCO% 69 % % 05/26/2022 1:57 PM INTEGRATED CIRCUIT LAYOUT DESIGNER [facility] SUITE DLCOc% 67 % % 05/26/2022 1:57 PM INTEGRATED CIRCUIT LAYOUT DESIGNER [facility] SU[address] PRED TLC 5.45 05/26/2022 1:57 PM INTEGRATED CIRCUIT LAYOUT DESIGNER [facility] SU[address] PRED RV 2.38 05/26/2022 1:57 PM INTEGRATED CIRCUIT LAYOUT DESIGNER [facility] SU[address] PRED VC MAX 2.92 05/26/2022 1:57 PM INTEGRATED CIRCUIT LAYOUT DESIGNER [facility] SU[address] PRED FVC 2.92 05/26/2022 1:57 PM INTEGRATED CIRCUIT LAYOUT DESIGNER [facility] SU[address] PRED FEV 1 2.21 05/26/2022 1:57 PM [facility] SENTRY SUITE PRED FEV1/FVC 76.8 05/26/2022 1:57 PM INTEGRATED CIRCUIT LAYOUT DESIGNER [facility] SU[address] PRED FEF 25-75% 1.74 1:57 PM INTEGRATED CIRCUIT LAYOUT DESIGNER [facility] SU[address] PRED PEF 5.7 05/26/2022 1:57 PM [facility] PRED DLCO 20.0 05/26/2022 1:57 PM INTEGRATED CIRCUIT LAYOUT DESIGNER [facility] SUITE PRED DLCOc 20.0 05/26/2022 1:57 PM [facility] 05/26/2022 7:08 AM INTEGRATED CIRCUIT LAYOUT DESIGNER Impressions [facility] - 05/26/2022 1:57 PM INTEGRATED CIRCUIT LAYOUT DESIGNER Abnormal: Diffusion capacity is mildly reduced and consistent with a pulmonary parenchymal and/or vascular disorder. Normal spirometry and low normal total lung capacity. Narrative Procedure Note Cory Parra M.D., Ph.D. - 05/26/2022 IMPRESSION: Abnormal: Diffusion capacity is mildly reduced and consistent with apulmonary parenchymal and/or vascular disorder. Normal spirometry and lownormal total lung capacity. Flaquito Pierce M.D. PFT ORDERABLES [facility] SUITE NA * (TTE) 2D ECHO DOPPLER COLOR (05/21/2022 10:02 AM INTEGRATED CIRCUIT LAYOUT DESIGNER) Ejection Fraction 66 MC CV EIMS Mid-Ascending [...] Region Laterality Modality Echocardiography 05/21/2022 8:42 AM INTEGRATED CIRCUIT LAYOUT DESIGNER Impressions 05/21/2022 10:09 AM INTEGRATED CIRCUIT LAYOUT DESIGNER LEFT VENTRICLE:Small left ventricular chamber size. Abnormal [...] the Order-Level Documents. Narrative 05/21/2022 10:09 AM INTEGRATED CIRCUIT LAYOUT DESIGNER For the complete report, see the Order-Level [...] ratio). Calculated 2-D linear left ventricular ejection [id number] Left ventricular volumetric assessment not performed because [...] the complete report, see the Order-Level Documents. Flaquiot Pierce M.D. CV ECHO PROCEDURES * Oxygen Titration (05/18/2022 3:18 PM INTEGRATED CIRCUIT LAYOUT DESIGNER) [1] Inspired Gas (L/min) Room Air MMODAL [1] Interface N/A MMODAL [1] Speed (mph) Rest MMODAL [1] Grade (%) N/A MMODAL [1] Time (min) 20 MMODAL [1] SpO2 (%) 96 MMODAL [1] Heart Rate 96 MMODAL [1] Ratings of Perceived Exertion (6-20) 8 MMODAL [2] Inspired Gas (L/min) Room Air MMODAL [2] Interface N/A MMODAL [2] Speed (mph) 1.5 MMODAL [2] Grade (%) 0.0 MMODAL [2] Time (min) 3 MMODAL [2] SpO2 (%) 92 MMODAL [2] Heart Rate 115 MMODAL [2] Ratings of Perceived Exertion (6-20) 11 MMODAL [3] Inspired Gas (L/min) Room Air MMODAL [3] Interface N/A MMODAL [3] Speed (mph) 1.8 MMODAL [3] Grade (%) 2.0 MMODAL [3] Time (min) 3 MMODAL [3] SpO2 (%) 93 MMODAL [3] Heart Rate 114 MMODAL [3] Ratings of Perceived Exertion (6-20) 11 MMODAL [4] Inspired Gas (L/min) Room Air MMODAL [4] Interface N/A MMODAL [4] Speed (mph) 2.1 MMODAL [4] Grade (%) 4.0 MMODAL [4] Time (min) 5 MMODAL [4] SpO2 (%) 93 MMODAL [4] Heart Rate 125 MMODAL [4] Ratings of Perceived Exertion (6-20) 14 MMODAL [5] Inspired Gas (L/min) Room Air MMODAL [5] Interface N/A MMODAL [5] Speed (mph) 2.1 MMODAL [5] Grade (%) 6.0 MMODAL [5] Time (min) 3 MMODAL [5] SpO2 (%) 93 MMODAL [5] Heart Rate 127 MMODAL [5] Ratings of Perceived Exertion (6-20) 15 MMODAL Comment Total exercise time: 14 minutes. Additional time spent on education. All questions answered. MMODAL Flaquito Pierce M.D. PFT ORDERABLES MMODAL NA * NM Cardiac Shunt Evaluation (05/18/2022 1:43 PM INTEGRATED CIRCUIT LAYOUT DESIGNER) Anatomical Region Laterality Modality Cardiac, Nuclear Medicine Ca rdiac RST LOS, Nuclear Medicine ARZ LOS, Nuclear Medicine FLA LOS, Nuclear Medicine N/A Nuclear Medicine 05/18/2022 1:50 PM INTEGRATED CIRCUIT LAYOUT DESIGNER Impressions 05/18/2022 2:06 PM INTEGRATED CIRCUIT LAYOUT DESIGNER The cardiac shunt index measures 1.8% which is within normal limits (normal value <5%). Narrative 05/18/2022 2:06 PM INTEGRATED CIRCUIT LAYOUT DESIGNER EXAM: ??NM CARDIAC SHUNT EVALUATION RADIOPHARMACEUTICAL/MEDS: Route: [...] normal limits(normal value <5%). Flaquito Pierce M.D. [facility] PROCEDURES * ECG 12 Lead (05/18/2022 12:47 PM INTEGRATED CIRCUIT LAYOUT DESIGNER) Ventricular Rate ECG/Min 85 BPM MUSE NH Interval 164 ms MUSE QRSD Interval 80 ms MUSE QT Interval 370 ms MUSE QTC Interval 440 ms MUSE P [place] 26 degrees MUSE R [place] 49 degrees MUSE T Wave [place] 42 degrees MUSE 05/18/2022 12:4 7 PM INTEGRATED CIRCUIT LAYOUT DESIGNER 05/18/2022 12:55 PM INTEGRATED CIRCUIT LAYOUT DESIGNER Impressions MUSE - 05/18/2022 12:55 PM INTEGRATED CIRCUIT LAYOUT DESIGNER Normal sinus rhythm Low voltage QRS Low anterior forces Nonspecific ST abnormality When compared with ECG of 28-MAR-2007 08:51, No significant change was found Reviewed by GERRY Conklin Narrative Procedure Note Jose Roberto Nj M.D. - 05/18/2022 IMPRESSION: Normal sinus rhythm Low voltage QRS Low anterior forces Nonspecific ST abnormality When compared with ECG of 28-MAR-2007 08:51, No significant change was found Reviewed by GERRY Conklin Flaquito Pierce M.D. ECG ORDERABLES MUSE NA * DX Chest AP or PA and Lateral 2 Views (05/18/2022 11:25 AM INTEGRATED CIRCUIT LAYOUT DESIGNER) Anatomical Region Laterality Modality Chest, Thoracic RST LOS, Tho racic ARZ LOS, Thoracic FLA LOS N/A Digital Radiography 05/18/2022 11:2 8 AM INTEGRATED CIRCUIT LAYOUT DESIGNER Impressions 05/18/2022 11:30 AM INTEGRATED CIRCUIT LAYOUT DESIGNER No change since the outside exam from 01/06/2022. Stable mild interstitial prominence/fibrosis in the lung periphery which was better demonstrated on the outside chest CT from 02/19/2022. Mild cardiomegaly. Calcified aorta. Surgical clips RUQ. Osteoarthritic changes of the shoulders. Chest otherwise negative. Narrative 05/18/2022 11:30 AM INTEGRATED CIRCUIT LAYOUT DESIGNER EXAM: ??DX CHEST AP OR PA AND LATERAL 2 VIEWS Procedure Note Shawn Ríos M.D. - 05/18/2022 EXAM: DX CHEST AP OR PA AND LATERAL 2 VIEWS IMPRESSION: No change since the outside exam from 01/06/2022. Stable mildinterstitial prominence/fibrosis in the lung periphery which was better demonstrated onthe outside chest CT from 02/19/2022. Mild cardiomegaly. Calcified aorta. Surgical clips RUQ.Osteoarthritic changes of the shoulders. Chest otherwise negative. Flaquito Pierce M.D. IMG DIAGNOSTIC IMAG ING PROCEDURES * NT-Pro B-Type Natriuretic Peptide (BNP) (05/18/2022 11:09 AM INTEGRATED CIRCUIT LAYOUT DESIGNER) NT-Pro BNP 86 <=540 pg/mL 05/18/2022 12:24 PM INTEGRATED CIRCUIT LAYOUT DESIGNER DTL Comment: NT-proBNP values less than 300 pg/mL have a 99% negative predictive value for excluding acute congestive heart failure. A cutoff of 1200 pg/mL for patients with an eGFR<60 yields a diagnostic sensitivity and specificity of 89% and 72% for acute congestive heart failure. A diagnostic NT-proBNP cutoff of 1800 pg/mL has been suggested in adults over 75 years of age in the absence of renal failure. Blood (Blood, Venous) 05/18/2022 11:09 AM INTEGRATED CIRCUIT LAYOUT DESIGNER 05/18/2022 11:48 AM INTEGRATED CIRCUIT LAYOUT DESIGNER Flaquito Pierce M.D. LAB BLOOD ADD-ON [place] [address] [place] [address], [facility] [address] * Hypersensitivity Pneumonitis Panel - Sent Out Lab (05/18/2022 11:09 AM INTEGRATED CIRCUIT LAYOUT DESIGNER) Pathologist [facility] Alternaria tenuis/alternata, IgG 2.2 <12.0 mcg/mL 05/20/2022 10:43 AM INTEGRATED CIRCUIT LAYOUT DESIGNER [facility] Aspergillus fumigatus IgG 21.6 <46.0 mcg/mL 05/20/2022 10:43 AM INTEGRATED CIRCUIT LAYOUT DESIGNER [facility] Aureobasidium pullulans, IgG 2.6 <18.0 mcg/mL 05/20/2022 10:43 AM INTEGRATED CIRCUIT LAYOUT DESIGNER [facility] Laceyella sacchari IgG 5.1 <25.0 mcg/mL 05/20/2022 10:43 AM INTEGRATED CIRCUIT LAYOUT DESIGNER [facility] Micropolyspora faeni, IgG <2.0 <5.0 mcg/mL 05/20/2022 10:43 AM INTEGRATED CIRCUIT LAYOUT DESIGNER [facility] Penicillium Chrysogenum, IgG 17.5 <22.0 mcg/mL 05/20/2022 10:43 AM INTEGRATED CIRCUIT LAYOUT DESIGNER [facility] Phoma betae, IgG <2.0 <8.0 mcg/mL 05/20/2022 10:43 AM INTEGRATED CIRCUIT LAYOUT DESIGNER [facility] Trichoderma viride, IgG <2.0 <10.0 mcg/mL 05/20/2022 10:43 AM INTEGRATED CIRCUIT LAYOUT DESIGNER [facility] Comment: Antibody levels greater than the reference range indicate that the patient has been immunologically sensitized to the antigen. The significance of elevated IgG depends on the nature of the antigen and the patient's clinical history. The test method was the [employer] ImmunoCAP. *This test was developed and its performance characteristics determined by [employer]. It has not been cleared or approved by the U.S. Food and Drug Administration. Blood (Blood, Venous) 05/18/2022 11:09 AM INTEGRATED CIRCUIT LAYOUT DESIGNER 05/18/2022 2:11 PM INTEGRATED CIRCUIT LAYOUT DESIGNER Flaquito Pierce M.D. LAB BLOOD NON ADD-O N Performing Organization Address [facility] de Phone Number [employer], INTERFACE [address] [place] [address], [facility] [employer] [place] [address] [place] [address] * Hypersensitivity Pneumonitis Renato Panel - Sent Out Lab (05/18/2022 11:09 AM INTEGRATED CIRCUIT LAYOUT DESIGNER) [facility] Signature [place] Sera Negative 06/03/2022 9:24 AM INTEGRATED CIRCUIT LAYOUT DESIGNER [facility] [place] DE Negative 06/03/2022 9:24 AM INTEGRATED CIRCUIT LAYOUT DESIGNER [facility] Cockatiel Negative 06/03/2022 9:24 AM INTEGRATED CIRCUIT LAYOUT DESIGNER [facility] Parakeet Negative 06/03/2022 9:24 AM INTEGRATED CIRCUIT LAYOUT DESIGNER [facility] Parrot Negative 06/03/2022 9:24 AM INTEGRATED CIRCUIT LAYOUT DESIGNER [facility] Comment: ----ADDITIONAL INFORMATION---- This result must be correlated with patients clinical response and should not solely be considered in the diagnosis. Blood (Blood, Venous) 05/18/2022 11:09 AM INTEGRATED CIRCUIT LAYOUT DESIGNER 05/18/2022 2:10 PM INTEGRATED CIRCUIT LAYOUT DESIGNER Flaquito Pierce M.D. LAB BLOOD ADD-ON [facility] [address] [place] [address] [id number] [place] [address], [address] [place] [address] * MyoMarker 3 Plus Profile-Sent Out Lab (05/18/2022 11:09 AM INTEGRATED CIRCUIT LAYOUT DESIGNER) Anti-Lise-1 Ab <20 <20 Units 06/01/2022 7:07 PM INTEGRATED CIRCUIT LAYOUT DESIGNER [facility] Anti-PL-7 Ab Negative Negative 06/01/2022 7:07 PM INTEGRATED CIRCUIT LAYOUT DESIGNER [facility] Comment: This test was developed and its performance characteristics determined by [facility]. It has not been cleared or approved by the Food and Drug Administration. Anti-PL-12 Ab Negative Negative 06/01/2022 7:07 PM INTEGRATED CIRCUIT LAYOUT DESIGNER [facility] Comment: This test was developed and its performance characteristics determined by [facility]. It has not been cleared or approved by the Food and Drug Administration. Anti-EJ Ab Negative Negative 06/01/2022 7:07 PM INTEGRATED CIRCUIT LAYOUT DESIGNER ENDI Comment: This test was developed and its performance characteristics determined by [facility]. It has not been cleared or approved by the Food and Drug Administration. Anti-OJ Ab Negative Negative 06/01/2022 7:07 PM INTEGRATED CIRCUIT LAYOUT DESIGNER ENDI Comment: This test was developed and its performance characteristics determined by [facility]. It has not been cleared or approved by the Food and Drug Administration. Anti-SRP Ab Negative Negative 06/01/2022 7:07 PM INTEGRATED CIRCUIT LAYOUT DESIGNER ENDI Comment: This test was developed and its performance characteristics determined by [facility]. It has not been cleared or approved by the Food and Drug Administration. Rzha-Mt-9-Ab Negative Negative 06/01/2022 7:07 PM INTEGRATED CIRCUIT LAYOUT DESIGNER ENDI Comment: This test was developed and its performance characteristics determined by [facility]. It has not been cleared or approved by the Food and Drug Administration. Pale-[id number]-[id number] Ab <20 <20 Units 2022 7:07 PM INTEGRATED CIRCUIT LAYOUT DESIGNER ENDI Comment: This test was developed and its performance characteristics determined by [facility]. It has not been cleared or approved by the Food and Drug Administration. Anti-MDA-5 Ab (CADM-140) <20 <20 Units 06/01/2022 7:07 PM INTEGRATED CIRCUIT LAYOUT DESIGNER ENDI Comment: This test was developed and its performance characteristics determined by [facility]. It has not been cleared or approved by the Food and Drug Administration. Anti-NXP-2 (P140) Ab <20 <20 Units 06/01/2022 7:07 PM INTEGRATED CIRCUIT LAYOUT DESIGNER ENDI Comment: This test was developed and its performance characteristics determined by [facility]. It has not been cleared or approved by the Food and Drug Administration. Anti-SAE1 Ab, IgG <20 <20 Units 023 7:07 PM INTEGRATED CIRCUIT LAYOUT DESIGNER ENDI Comment: This test was developed and its performance characteristics determined by [facility]. It has not been cleared or approved by the Food and Drug Administration. Anti-PM/Scl-100 Ab <20 <20 Units 2022 7:07 PM INTEGRATED CIRCUIT LAYOUT DESIGNER ENDI Comment: This test was developed and its performance characteristics determined by [facility]. It has not been cleared or approved by the Food and Drug Administration. Anti-Ku Ab Negative Negative 06/01/2022 7:07 PM INTEGRATED CIRCUIT LAYOUT DESIGNER ENDI Comment: This test was developed and its performance characteristics determined by [facility]. It has not been cleared or approved by the Food and Drug Administration. Anti-SS-A 52kD Ab, IgG <20 <20 Units 06/01/2022 7:07 PM INTEGRATED CIRCUIT LAYOUT DESIGNER ENDI Comment: This test was developed and its performance characteristics determined by [facility]. It has not been cleared or approved by the Food and Drug Administration. Anti-U1 MILIEU MANAGER Ab <20 <20 Units 06/01/2022 7:07 PM INTEGRATED CIRCUIT LAYOUT DESIGNER ENDI Anti-U2 MILIEU MANAGER Ab Negative Negative 06/01/2022 7:07 PM INTEGRATED CIRCUIT LAYOUT DESIGNER ENDI Comment: This test was developed and its performance characteristics determined by [facility]. It has not been cleared or approved by the Food and Drug Administration. Anti-U3 MILIEU MANAGER (Fibrillarin) Negative Negative 06/01/2022 7:07 PM INTEGRATED CIRCUIT LAYOUT DESIGNER ENDI Comment: This test was developed and its performance characteristics determined by [facility]. It has not been cleared or approved by the Food and Drug Administration. ?Interpretation for Anti-Lise-1, [id number], ?Anti-MDA-5, Anti-NXP-2, Anti-SAE1, Anti-PM/Scl-100, ?Anti-SS-A 52 kD, Anti-U1 MILIEU MANAGER: ?Negative: ?<20 ?Weak Positive: ? 20 - 39 ?Moderate Positive: ? 40 - 80 ?Strong Positive: ? >80 ?. Blood (Blood, Venous) 05/18/2022 11:09 AM INTEGRATED CIRCUIT LAYOUT DESIGNER 05/18/2022 3:18 PM INTEGRATED CIRCUIT LAYOUT DESIGNER Flaquito Pierce M.D. LAB BLOOD NON ADD-O N Performing Organization Address City/[facility] de Phone Number [facility] [address] [place] [address], [facility] ENDI [facility] [address] [place] [address] * Aldolase (05/18/2022 11:09 AM INTEGRATED CIRCUIT LAYOUT DESIGNER) Aldolase, S 4.2 <7.7 U/L 05/18/2022 1: 19 PM INTEGRATED CIRCUIT LAYOUT DESIGNER DTL Blood (Blood, Venous) 05/18/2022 11:09 AM INTEGRATED CIRCUIT LAYOUT DESIGNER 05/18/2022 12:37 PM INTEGRATED CIRCUIT LAYOUT DESIGNER Flaquito Pierce M.D. LAB BLOOD NON ADD-O N [facility] [address] [place] [address], [facility] DTL [facility] [address] [place] [address] * CK (Creatine Kinase) (05/18/2022 11:09 AM INTEGRATED CIRCUIT LAYOUT DESIGNER) Creatine Kinase (CK), S 62 26 - 192 U/L 05/18/2022 12:24 PM INTEGRATED CIRCUIT LAYOUT DESIGNER [facility] Blood (Blood, Venous) 05/18/2022 11:09 AM INTEGRATED CIRCUIT LAYOUT DESIGNER 05/18/2022 11:48 AM INTEGRATED CIRCUIT LAYOUT DESIGNER Flaquito Pierce M.D. LAB BLOOD ADD-ON Performing Organization Address City/[facility]/ZIP Co de Phone Number [facility] [address] [place] [address], [facility]3] [address] [place] [address] * Cyclic Citrullinated Peptide Antibodies, IgG (05/18/2022 11:09 AM INTEGRATED CIRCUIT LAYOUT DESIGNER) Pathologist [facility] Cyclic Citrullinated Peptide Ab, S <15.6 <20.0 (Negative) U 05/18/2022 9:58 PM INTEGRATED CIRCUIT LAYOUT DESIGNER [facility] Blood (Blood, Venous) 05/18/2022 11:09 AM INTEGRATED CIRCUIT LAYOUT DESIGNER 05/18/2022 2:21 PM INTEGRATED CIRCUIT LAYOUT DESIGNER Flaquito Pierce M.D. LAB BLOOD ADD-ON [facility] [address] [place] [address] [facility] [address] [place] [address] * Antibody to Extractable Nuclear Antigen Evaluation (05/18/2022 11:09 AM INTEGRATED CIRCUIT LAYOUT DESIGNER) SS-A/Ro Ab, IgG, S <0.2 <1.0 (Negative) U 05/18/2022 3:07 PM INTEGRATED CIRCUIT LAYOUT DESIGNER [facility] SS-B/La Ab, IgG, S <0.2 <1.0 (Negative) U 05/18/2022 3:07 PM INTEGRATED CIRCUIT LAYOUT DESIGNER [facility] Sm Ab, IgG, S <0.2 <1.0 (Negative) U 05/18/2022 3:07 PM INTEGRATED CIRCUIT LAYOUT DESIGNER [facility] MILIEU MANAGER Ab, IgG, S <0.2 <1.0 (Negative) U 05/18/2022 3:07 PM INTEGRATED CIRCUIT LAYOUT DESIGNER [facility] Scl 70 Ab, IgG, S 0.6 <1.0 (Negative) U 05/18/2022 3:07 PM INTEGRATED CIRCUIT LAYOUT DESIGNER [facility] Lise 1 Ab, IgG, S <0.2 <1.0 (Negative) U 05/18/2022 3:07 PM INTEGRATED CIRCUIT LAYOUT DESIGNER [facility] Blood (Blood, Venous) 05/18/2022 11:09 AM INTEGRATED CIRCUIT LAYOUT DESIGNER 05/18/2022 2:21 PM INTEGRATED CIRCUIT LAYOUT DESIGNER Flaquito Pierce M.D. LAB BLOOD ADD-ON Performing Organization Address [facility] Co de Phone Number [facility] [address] [place] [phone] [facility] [address] [place] [address] * CINDY (Antinuclear Antibodies) (05/18/2022 11:09 AM INTEGRATED CIRCUIT LAYOUT DESIGNER) Pathologist [facility] Antinuclear Ab, S 0.2 <=1.0 (Negative) U 05/18/2022 8:37 PM INTEGRATED CIRCUIT LAYOUT DESIGNER [facility] Comment: ----ADDITIONAL INFORMATION---- Method: Enzyme-linked immunoassay using HEp-2 nuclear extract supplemented with purified antigens. Blood (Blood, Venous) 05/18/2022 11:09 AM INTEGRATED CIRCUIT LAYOUT DESIGNER 05/18/2022 2:21 PM INTEGRATED CIRCUIT LAYOUT DESIGNER Flaquito Pierce M.D. LAB BLOOD ADD-ON Performing Organization Address [facility] Co de Phone Number [facility] [address] [place] [phone] [facility] [address] [place] [phone] * (ABNORMAL) CBC with Differential, Blood (05/18/2022 11:09 AM INTEGRATED CIRCUIT LAYOUT DESIGNER) Pathologist [facility] Hemoglobin 14.4 11.6 - 15.0 g/dL 05/18/2022 11:52 AM INTEGRATED CIRCUIT LAYOUT DESIGNER DTL Hematocrit 45.4(H) 35.5 - 44.9 % 05/18/2022 11:52 AM INTEGRATED CIRCUIT LAYOUT DESIGNER DTL Erythrocytes 4.85 3.92 - 5.13 x10(12)/L 05/18/2022 11:52 AM INTEGRATED CIRCUIT LAYOUT DESIGNER DTL MCV 93.6 78.2 - 97.9 fL 05/18/2022 11:52 AM INTEGRATED CIRCUIT LAYOUT DESIGNER DTL RBC Distrib Width 13.4 12.2 - 16.1 % 05/18/2022 11:52 AM INTEGRATED CIRCUIT LAYOUT DESIGNER DTL Platelet Count 262 157 - 371 x10(9)/L 05/18/2022 11:52 AM INTEGRATED CIRCUIT LAYOUT DESIGNER DTL Leukocytes 5.2 3.4 - 9.6 x10(9)/L 05/18/2022 11:52 AM INTEGRATED CIRCUIT LAYOUT DESIGNER DTL Neutrophils 3.10 1.56 - 6.45 x10(9)/L 05/18/2022 11:52 AM INTEGRATED CIRCUIT LAYOUT DESIGNER DTL Lymphocytes 1.43 0.95 - 3.07 x10(9)/L 05/18/2022 11:52 AM INTEGRATED CIRCUIT LAYOUT DESIGNER DTL Monocytes 0.43 0.26 - 0.81 x10(9)/L 05/18/2022 11:52 AM INTEGRATED CIRCUIT LAYOUT DESIGNER DTL Eosinophils 0.14 0.03 - 0.48 x10(9)/L 05/18/2022 11:52 AM INTEGRATED CIRCUIT LAYOUT DESIGNER DTL Basophils 0.05 0.01 - 0.08 x10(9)/L 05/18/2022 11:52 AM INTEGRATED CIRCUIT LAYOUT DESIGNER DTL Blood (Blood, Venous) 05/18/2022 11:09 AM INTEGRATED CIRCUIT LAYOUT DESIGNER 05/18/2022 11:38 AM INTEGRATED CIRCUIT LAYOUT DESIGNER Flaquito Pierce M.D. LAB BLOOD ADD-ON [facility] [address] [place] [address], [facility] [address] [place] [address] * CRP (C-Reactive Protein) (05/18/2022 11:08 AM INTEGRATED CIRCUIT LAYOUT DESIGNER) C-Reactive Protein (CRP), S <3.0 <=8.0 mg/L 05/18/2022 12:09 PM INTEGRATED CIRCUIT LAYOUT DESIGNER DTL Blood (Blood, Venous) 05/18/2022 11:08 AM INTEGRATED CIRCUIT LAYOUT DESIGNER 05/18/2022 11:47 AM INTEGRATED CIRCUIT LAYOUT DESIGNER Flaquito Pierce M.D. LAB BLOOD ADD-ON [facility] [address] [place] [address], [facility] DTL [facility] [address] [place] [address] * Comprehensive Metabolic Panel (05/18/2022 11:08 AM INTEGRATED CIRCUIT LAYOUT DESIGNER) [facility] Potassium, S 5.1 3.6 - 5.2 mmol/L 05/18/2022 12:09 PM INTEGRATED CIRCUIT LAYOUT DESIGNER DTL Sodium, S 142 135 - 145 mmol/L 05/18/2022 12:09 PM INTEGRATED CIRCUIT LAYOUT DESIGNER DTL Chloride, S 105 98 - 107 mmol/L 05/18/2022 12:09 PM INTEGRATED CIRCUIT LAYOUT DESIGNER DTL Bicarbonate, S 28 22 - 29 mmol/L 05/18/2022 12:09 PM INTEGRATED CIRCUIT LAYOUT DESIGNER DTL Anion Gap 9 7 - 15 05/18/2022 12:09 PM INTEGRATED CIRCUIT LAYOUT DESIGNER DTL BUN (Blood Urea Nitrogen), S 16 6 - 21 mg/dL 05/18/2022 12:09 PM INTEGRATED CIRCUIT LAYOUT DESIGNER DTL Creatinine 0.74 0.59 - 1.04 mg/dL 05/18/2022 12:09 PM INTEGRATED CIRCUIT LAYOUT DESIGNER DTL Estimated GFR (eGFR) 83 >=60 mL/min/BS A 05/18/2022 12:09 PM INTEGRATED CIRCUIT LAYOUT DESIGNER DTL Comment: Estimated GFR calculated using the 2020 CKD_EPI creatinine equation. Calcium, Total, S 9.8 8.8 - 10.2 mg/dL 05/18/2022 12:09 PM INTEGRATED CIRCUIT LAYOUT DESIGNER DTL Glucose, S 100 70 - 140 mg/dL 05/18/2022 12:09 PM INTEGRATED CIRCUIT LAYOUT DESIGNER DTL Protein, Total, S 6.7 6.3 - 7.9 g/dL 05/18/2022 12:09 PM INTEGRATED CIRCUIT LAYOUT DESIGNER DTL Albumin, S 4.5 3.5 - 5.0 g/dL 05/18/2022 12:09 PM INTEGRATED CIRCUIT LAYOUT DESIGNER DTL Aspartate Aminotransferase (AST), S 24 8 - 43 U/L 05/18/2022 12:09 PM INTEGRATED CIRCUIT LAYOUT DESIGNER DTL Alkaline Phosphatase, S 97 35 - 104 U/L 05/18/2022 12:09 PM INTEGRATED CIRCUIT LAYOUT DESIGNER DTL Alanine Aminotransferase (ALT), S 20 7 - 45 U/L 05/18/2022 12:09 PM INTEGRATED CIRCUIT LAYOUT DESIGNER DTL Bilirubin, Total, S 0.6 <=1.2 mg/dL 05/18/2022 12:09 PM INTEGRATED CIRCUIT LAYOUT DESIGNER DTL Blood (Blood, Venous) 05/18/2022 11:08 AM INTEGRATED CIRCUIT LAYOUT DESIGNER 05/18/2022 11:47 AM INTEGRATED CIRCUIT LAYOUT DESIGNER Flaquito Pierce M.D. LAB BLOOD ADD-ON [facility] [address] [place] [address], [place] DTL [facility] [address] [place] [address] * Home Overnight Oximetry (05/18/2022) 05/18/2022 Impressions CASTANA NVISION EAP - 05/20/2022 8:41 AM INTEGRATED CIRCUIT LAYOUT DESIGNER Overnight oximetry was performed on room air. ??The patient denied alcohol but did consume sedative medication on the night of the study, and stated quality of sleep the same as usual. ??Wheaton Sleepiness Scale was 3. ??Baseline oxygen saturation was 93%, with mean overnight saturation ranging between 87 and 92%. ??There were multiple episodes of oscillatory desaturation consistent with sleep disordered breathing. ??Given the variation in mean oxygen saturation, a superimposed mild positional gas exchange abnormality cannot be excluded. ??Please note that oxygen saturation was less than 80% for 293.7 minutes overnight. Impression: ??Abnormal. ??Episodes of oscillatory desaturation consistent with sleep disordered breathing. ??A superimposed mild positional gas exchange abnormality cannot be excluded. Physician: Shaheen Grimaldo M.D. [id number] Narrative Procedure Note Shaheen Grimaldo M.D. - 05/20/2022 IMPRESSION: Overnight oximetry was performed on room air. The patient denied alcoholbut did consume sedative medication on the night of the study, and statedquality of sleep the same as usual. Wheaton Sleepiness Scale was 3.Baseline oxygen saturation was 93%, with mean overnight saturation ranging between 87 and 92%. Therewere multiple episodes of oscillatory desaturation consistent with sleepdisordered breathing. Given the variation in mean oxygen saturation, asuperimposed mild positional gas exchange abnormality cannot be excluded. Please note that oxygensaturation was less than 80% for 293.7 minutes overnight. Impression: Abnormal. Episodes of oscillatory desaturation consistentwith sleep disordered breathing. A superimposed mild positional gasexchange abnormality cannot be excluded. Physician: Shaheen Grimaldo M.D. [id number] Flaquito Pierce M.D. PFT ORDERABLES CASTANA NVISION EAP documented in this encounter Visit Diagnoses Diagnosis Lung Interstitial Disease (HCC)- Primary Dyspnea Multifactorial Lung Interstitial Disease (HCC) Lung Interstitial Disease (HCC) Lung Interstitial Disease (HCC) Lung Interstitial Disease (HCC) documented in this encounter Care Teams Maintenance Mechanic Engine Relationship Specialty Start Date End Date Elsewhere, Pcp PCP - General Internal Medicine 05/14/22 documented as of this encounter
--- OUTSIDE RECORDS SUMMARY | 2023-05-18 12:34 | XMS_ITS | Encounter Summary ---
Author Name Unknown Organization [facility] Address [address] [place] [address] Care Team Providers Care Per Diem Interpreter Name Role Phone Elsewhere, Pcp Primary Care Provider Unavailabl e Encounter Details Date Type Department Care Team (Latest Contact Info) Description 05/18/2022 10:51 AM [facility] - 05/18/2022 11:13 AM [facility] Hospital Encounter Department of Laboratory Medicine and Pathology, [facility] in [place], [place] [address] [place] [phone] Flaquito Pierce M.D. [address] [place] [phone] Lung Interstitial Disease (HCC); Dyspnea Multifactorial Discharge Disposition: Home or Self Care Social [...] often do you attend chur ch or anabaptism services? More than 4 times per year 05/17/2022 Do you belong to any clubs o r organizations such as advent groups, unions, fraternal or athletic groups, or [...] and heating? Not hard at all 05/17/2022 [facility] of Occupat ional Health - Occupational Stress [...] place to sleep or slept in a intermediate (including now)? No 05/17/2022 Nutrition Answer Date [...] Master's degree (e.g., MA, MS, Flavia, MEd, PUMP OPERATOR, WILLIE) 05/17/2022 Sex and Gender Information Value Date Recorded Sex Assigned at Female 05/17/2022 2:17 PM POSITION CLASSIFICATION SPECIALIST Gender Identity Female 05/17/2022 2:17 PM POSITION CLASSIFICATION SPECIALIST Sexual Orientation Straight 05/17/2022 2: 17 PM POSITION CLASSIFICATION SPECIALIST documented as of this encounter Medications at [...] (four) hours as needed. 0 08/24/2021 04/20/20 pirfenidone (ESBRIET) 267 mg tablet tablet Take [...] Procedure Name Priority Date/Time Associated Diagnosis Comments HYPERSENSITIVITY PNEUMONITIS PANEL Routine 05/18/2022 11:09 AM POSITION CLASSIFICATION SPECIALIST Lung Interstitial Disease (HCC) MYOMARKER 3 PLUS PROFILE Routine 05/18/2022 11:09 AM POSITION CLASSIFICATION SPECIALIST Lung Interstitial Disease (HCC) TX REF IMMUNODIFFUSION QUAL EA AB/AG Routine 05/18/2022 11:09 AM POSITION CLASSIFICATION SPECIALIST Lung Interstitial Disease (HCC) AB TO EXTRACTABLE NUCLEAR AG EVAL, S Routine 05/18/2022 11:09 AM POSITION CLASSIFICATION SPECIALIST Lung Interstitial Disease (HCC) NT-PRO B-TYPE NATRIURETIC PEPTIDE (BNP), S Routine 05/18/2022 11:09 AM POSITION CLASSIFICATION SPECIALIST Dyspnea Multifactorial CYCLIC CITRULLINATED PEPTIDE ABS, IGG, S Routine 05/18/2022 11:09 AM POSITION CLASSIFICATION SPECIALIST Lung Interstitial Disease (HCC) ALDOLASE, S Routine 05/18/2022 11:09 AM POSITION CLASSIFICATION SPECIALIST Lung Interstitial Disease (HCC) CBC WITH DIFFERENTIAL, B Routine 05/18/2022 11:09 AM POSITION CLASSIFICATION SPECIALIST Lung Interstitial Disease (HCC) ANTINUCLEAR ABS (CINDY), S Routine 05/18/2022 11:09 AM POSITION CLASSIFICATION SPECIALIST Lung Interstitial Disease (HCC) CREATINE KINASE (CK), S Routine 05/18/19 11:09 AM POSITION CLASSIFICATION SPECIALIST Lung Interstitial Disease (HCC) C-REACTIVE PROTEIN (CRP), S/P Routine 05/18/2022 11:08 AM POSITION CLASSIFICATION SPECIALIST Lung Interstitial Disease (HCC) COMPREHENSIVE METABOLIC PANEL, S/P Routine 05/18/2022 11:08 AM POSITION CLASSIFICATION SPECIALIST Lung Interstitial Disease (HCC) documented in this encounter Results * NT-Pro B-Type Natriuretic Peptide (BNP) (05/18/2022 11:09 AM POSITION CLASSIFICATION SPECIALIST) NT-Pro BNP 86 <=540 pg/mL 05/18/2022 12:24 PM POSITION CLASSIFICATION SPECIALIST DTL Comment: NT-proBNP values less than 300 [...] failure. Blood (Blood, Venous) 05/18/2022 11:09 AM POSITION CLASSIFICATION SPECIALIST 05/18/2022 11:48 AM POSITION CLASSIFICATION SPECIALIST Flaquito Pierce M.D. LAB BLOOD ADD-ON [facility] [address] [place] [address], [facility] [address] [place] [address] * Hypersensitivity Pneumonitis Panel - Sent Out Lab (05/18/2022 11:09 AM POSITION CLASSIFICATION SPECIALIST) Alternaria tenuis/alternata, IgG 2.2 <12.0 mcg/mL 05/20/2022 10:43 AM POSITION CLASSIFICATION SPECIALIST I[facility]I Aspergillus fumigatus IgG 21.6 <46.0 mcg/mL 05/20/2022 10:43 AM POSITION CLASSIFICATION SPECIALIST [facility] Aureobasidium pullulans, IgG 2.6 <18.0 mcg/mL 05/20/2022 10:43 AM POSITION CLASSIFICATION SPECIALIST [facility] Laceyella sacchari IgG 5.1 <25.0 mcg/mL 05/20/2022 10:43 AM POSITION CLASSIFICATION SPECIALIST [facility] Micropolyspora faeni, IgG <2.0 <5.0 mcg/mL 05/20/2022 10:43 AM POSITION CLASSIFICATION SPECIALIST [facility] Penicillium Chrysogenum, IgG 17.5 <22.0 mcg/mL 05/20/2022 10:43 AM POSITION CLASSIFICATION SPECIALIST [facility] Phoma betae, IgG <2.0 <8.0 mcg/mL 05/20/2022 10:43 AM POSITION CLASSIFICATION SPECIALIST [facility] Trichoderma viride, IgG <2.0 <10.0 mcg/mL 05/20/2022 10:43 AM POSITION CLASSIFICATION SPECIALIST [facility]I Comment: Antibody levels greater than the reference range indicate that the patient has been immunologically sensitized to the antigen. The significance of elevated IgG depends on the nature of the antigen and the patient's clinical history. The test method was the [employer] ImmunoCAP. *This test was developed and its performance characteristics determined by [facility]. It has not been cleared or approved by the U.S. Food and Drug Administration. Blood (Blood, Venous) 05/18/2022 11:09 AM POSITION CLASSIFICATION SPECIALIST 05/18/2022 2:11 PM POSITION CLASSIFICATION SPECIALIST Flaquito Pierce M.D. LAB BLOOD NON ADD-O N Performing Organization Address City/State/[facility] Co de Phone Number [employer], INTERFACE [address] [place] [address], [facility] IBTI [employer] [address] [place] [address] * Hypersensitivity Pneumonitis Renato Panel - Sent Out Lab (05/18/2022 11:09 AM POSITION CLASSIFICATION SPECIALIST) [place] Sera Negative 06/03/2022 9:24 AM POSITION CLASSIFICATION SPECIALIST [facility] [place] Negative 06/03/2022 9:24 AM POSITION CLASSIFICATION SPECIALIST [facility] Cockatiel Negative 06/03/2022 9:24 AM POSITION CLASSIFICATION SPECIALIST [facility] Parakeet Negative 06/03/2022 9:24 AM POSITION CLASSIFICATION SPECIALIST [facility] Parrot Negative 06/03/2022 9:24 AM POSITION CLASSIFICATION SPECIALIST [facility] Comment: ----ADDITIONAL INFORMATION---- This result must be correlated with patients clinical response and should not solely be considered in the diagnosis. Blood (Blood, Venous) 05/18/2022 11:09 AM POSITION CLASSIFICATION SPECIALIST 05/18/2022 2:10 PM POSITION CLASSIFICATION SPECIALIST Flaquito Pierce M.D. LAB BLOOD ADD-ON [facility] [address] [place] [address] [id number] [place] [address], [place] [address] * MyoMarker 3 Plus Profile-Sent Out Lab (05/18/2022 11:09 AM POSITION CLASSIFICATION SPECIALIST) Anti-Lise-1 Ab <20 <20 Units 06/01/2022 7:07 PM POSITION CLASSIFICATION SPECIALIST ENDI Anti-PL-7 Ab Negative Negative 06/01/2022 7:07 PM POSITION CLASSIFICATION SPECIALIST ENDI Comment: This test was developed and its performance characteristics determined by [facility]. It has not been cleared or approved by the Food and Drug Administration. Anti-PL-12 Ab Negative Negative 06/01/2022 7:07 PM POSITION CLASSIFICATION SPECIALIST ENDI Comment: This test was developed and its performance characteristics determined by [facility]. It has not been cleared or approved by the Food and Drug Administration. Anti-EJ Ab Negative Negative 06/01/2022 7:07 PM POSITION CLASSIFICATION SPECIALIST ENDI Comment: This test was developed and its performance characteristics determined by [facility]. It has not been cleared or approved by the Food and Drug Administration. Anti-OJ Ab Negative Negative 06/01/2022 7:07 PM POSITION CLASSIFICATION SPECIALIST ENDI Comment: This test was developed and its performance characteristics determined by [facility]. It has not been cleared or approved by the Food and Drug Administration. Anti-SRP Ab Negative Negative 06/01/2022 7:07 PM POSITION CLASSIFICATION SPECIALIST ENDI Comment: This test was developed and its performance characteristics determined by [facility]. It has not been cleared or approved by the Food and Drug Administration. Qjjc-Cl-9-Ab Negative Negative 06/01/2022 7:07 PM POSITION CLASSIFICATION SPECIALIST ENDI Comment: This test was developed and its performance characteristics determined by [facility]. It has not been cleared or approved by the Food and Drug Administration. Inzp-[id number] Ab <20 <20 Units 2022 7:07 PM POSITION CLASSIFICATION SPECIALIST ENDI Comment: This test was developed and its performance characteristics determined by [facility]. It has not been cleared or approved by the Food and Drug Administration. Anti-MDA-5 Ab (CADM-140) <20 <20 Units 06/01/2022 7:07 PM POSITION CLASSIFICATION SPECIALIST ENDI Comment: This test was developed and its performance characteristics determined by [facility]. It has not been cleared or approved by the Food and Drug Administration. Anti-NXP-2 (P140) Ab <20 <20 Units 06/01/2022 7:07 PM POSITION CLASSIFICATION SPECIALIST ENDI Comment: This test was developed and its performance characteristics determined by [facility]. It has not been cleared or approved by the Food and Drug Administration. Anti-SAE1 Ab, IgG <20 <20 Units 023 7:07 PM POSITION CLASSIFICATION SPECIALIST ENDI Comment: This test was developed and its performance characteristics determined by [facility]. It has not been cleared or approved by the Food and Drug Administration. Anti-PM/Scl-100 Ab <20 <20 Units 2022 7:07 PM POSITION CLASSIFICATION SPECIALIST ENDI Comment: This test was developed and its performance characteristics determined by [facility]. It has not been cleared or approved by the Food and Drug Administration. Anti-Ku Ab Negative Negative 06/01/2022 7:07 PM POSITION CLASSIFICATION SPECIALIST ENDI Comment: This test was developed and its performance characteristics determined by [facility]. It has not been cleared or approved by the Food and Drug Administration. Anti-SS-A 52kD Ab, IgG <20 <20 Units 06/01/2022 7:07 PM POSITION CLASSIFICATION SPECIALIST ENDI Comment: This test was developed and its performance characteristics determined by [facility]. It has not been cleared or approved by the Food and Drug Administration. Anti-U1 SENIOR GAME DEVELOPER Ab <20 <20 Units 06/01/2022 7:07 PM POSITION CLASSIFICATION SPECIALIST ENDI Anti-U2 SENIOR GAME DEVELOPER Ab Negative Negative 06/01/2022 7:07 PM POSITION CLASSIFICATION SPECIALIST ENDI Comment: This test was developed and its performance characteristics determined by [facility]. It has not been cleared or approved by the Food and Drug Administration. Anti-U3 SENIOR GAME DEVELOPER (Fibrillarin) Negative Negative 06/01/2022 7:07 PM POSITION CLASSIFICATION SPECIALIST ENDI Comment: This test was developed and its performance characteristics determined by [facility]. It has not been cleared or approved by the Food and Drug Administration. ?Interpretation for Anti-Lise-1, [id number], ?Anti-MDA-5, Anti-NXP-2, Anti-SAE1, Anti-PM/Scl-100, ?Anti-SS-A 52 kD, Anti-U1 SENIOR GAME DEVELOPER: ?Negative: ?<20 ?Weak Positive: ? 20 - 39 ?Moderate Positive: ? 40 - 80 ?Strong Positive: ? >80 ?. Blood (Blood, Venous) 05/18/2022 11:09 AM POSITION CLASSIFICATION SPECIALIST 05/18/2022 3:18 PM POSITION CLASSIFICATION SPECIALIST Flaquito Pierce M.D. LAB BLOOD NON ADD-O N Performing Organization Address City/State/[facility] Co de Phone Number [facility] [address] [place] [address], [facility] ENDI [facility] [address] [place] [address] * Aldolase (05/18/2022 11:09 AM POSITION CLASSIFICATION SPECIALIST) Aldolase, S 4.2 <7.7 U/L 05/18/2022 1: 19 PM POSITION CLASSIFICATION SPECIALIST DTL Blood (Blood, Venous) 05/18/2022 11:09 AM POSITION CLASSIFICATION SPECIALIST 05/18/2022 12:37 PM POSITION CLASSIFICATION SPECIALIST Flaquito Pierce M.D. LAB BLOOD NON ADD-O N Performing Organization Address City/[facility]/ZIP Co de Phone Number [facility] [address] [place] [address] * CK (Creatine Kinase) (05/18/2022 11:09 AM POSITION CLASSIFICATION SPECIALIST) Creatine Kinase (CK), S 62 26 - 192 U/L 05/18/2022 12:24 PM POSITION CLASSIFICATION SPECIALIST [facility] Blood (Blood, Venous) 05/18/2022 11:09 AM POSITION CLASSIFICATION SPECIALIST 05/18/2022 11:48 AM POSITION CLASSIFICATION SPECIALIST Flaquito Pierce M.D. LAB BLOOD ADD-ON Performing Organization Address [facility] Co de Phone Number [facility] [address] [address] * Cyclic Citrullinated Peptide Antibodies, IgG (05/18/2022 11:09 AM POSITION CLASSIFICATION SPECIALIST) Cyclic Citrullinated Peptide Ab, S <15.6 <20.0 (Negative) U 05/18/2022 9:58 PM POSITION CLASSIFICATION SPECIALIST [facility] Blood (Blood, Venous) 05/18/2022 11:09 AM POSITION CLASSIFICATION SPECIALIST 05/18/2022 2:21 PM POSITION CLASSIFICATION SPECIALIST Flaquito Pierce M.D. LAB BLOOD ADD-ON Performing Organization Address City/[facility]/ZIP Co de Phone Number [facility] [address] [place] [address] [facility] [address] [place] [address] * Antibody to Extractable Nuclear Antigen Evaluation (05/18/2022 11:09 AM POSITION CLASSIFICATION SPECIALIST) SS-A/Ro Ab, IgG, S <0.2 <1.0 (Negative) U 05/18/2022 3:07 PM POSITION CLASSIFICATION SPECIALIST [facility] SS-B/La Ab, IgG, S <0.2 <1.0 (Negative) U 05/18/2022 3:07 PM POSITION CLASSIFICATION SPECIALIST SDSC Sm Ab, IgG, S <0.2 <1.0 (Negative) U 05/18/2022 3:07 PM POSITION CLASSIFICATION SPECIALIST [facility]SC SENIOR GAME DEVELOPER Ab, IgG, S <0.2 <1.0 (Negative) U 05/18/2022 3:07 PM POSITION CLASSIFICATION SPECIALIST [facility] Scl 70 Ab, IgG, S 0.6 <1.0 (Negative) U 05/18/2022 3:07 PM POSITION CLASSIFICATION SPECIALIST [facility]SC Lise 1 Ab, IgG, S <0.2 <1.0 (Negative) U 05/18/2022 3:07 PM POSITION CLASSIFICATION SPECIALIST [facility] Blood (Blood, Venous) 05/18/2022 11:09 AM POSITION CLASSIFICATION SPECIALIST 05/18/2022 2:21 PM POSITION CLASSIFICATION SPECIALIST Flaquito Pierce M.D. LAB BLOOD ADD-ON Performing Organization Address [facility] Co de Phone Number [facility] [address] [place] [address] [facility] [address] [place] [address] [place] [address] * CINDY (Antinuclear Antibodies) (05/18/2022 11:09 AM POSITION CLASSIFICATION SPECIALIST) Pathologist [facility] Antinuclear Ab, S 0.2 <=1.0 (Negative) U 05/18/2022 8:37 PM POSITION CLASSIFICATION SPECIALIST [facility] Comment: ----ADDITIONAL INFORMATION---- Method: Enzyme-linked immunoassay using HEp-2 nuclear extract supplemented with purified antigens. Blood (Blood, Venous) 05/18/2022 11:09 AM POSITION CLASSIFICATION SPECIALIST 05/18/2022 2:21 PM POSITION CLASSIFICATION SPECIALIST Flaquito Pierce M.D. LAB BLOOD ADD-ON Performing Organization Address City/[facility]/ZIP Co de Phone Number [facility] [address] [place] [address] [facility] [address] [place] [address] * (ABNORMAL) CBC with Differential, Blood (05/18/2022 11:09 AM POSITION CLASSIFICATION SPECIALIST) Hemoglobin 14.4 11.6 - 15.0 g/dL 05/18/2022 11:52 AM POSITION CLASSIFICATION SPECIALIST DTL Hematocrit 45.4(H) 35.5 - 44.9 % 05/18/2022 11:52 AM POSITION CLASSIFICATION SPECIALIST DTL Erythrocytes 4.85 3.92 - 5.13 x10(12)/L 05/18/2022 11:52 AM POSITION CLASSIFICATION SPECIALIST DTL MCV 93.6 78.2 - 97.9 fL 05/18/2022 11:52 AM POSITION CLASSIFICATION SPECIALIST DTL RBC Distrib Width 13.4 12.2 - 16.1 % 05/18/2022 11:52 AM POSITION CLASSIFICATION SPECIALIST DTL Platelet Count 262 157 - 371 x10(9)/L 05/18/2022 11:52 AM POSITION CLASSIFICATION SPECIALIST DTL Leukocytes 5.2 3.4 - 9.6 x10(9)/L 05/18/2022 11:52 AM POSITION CLASSIFICATION SPECIALIST DTL Neutrophils 3.10 1.56 - 6.45 x10(9)/L 05/18/2022 11:52 AM POSITION CLASSIFICATION SPECIALIST DTL Lymphocytes 1.43 0.95 - 3.07 x10(9)/L 05/18/2022 11:52 AM POSITION CLASSIFICATION SPECIALIST DTL Monocytes 0.43 0.26 - 0.81 x10(9)/L 05/18/2022 11:52 AM POSITION CLASSIFICATION SPECIALIST DTL Eosinophils 0.14 0.03 - 0.48 x10(9)/L 05/18/2022 11:52 AM POSITION CLASSIFICATION SPECIALIST DTL Basophils 0.05 0.01 - 0.08 x10(9)/L 05/18/2022 11:52 AM POSITION CLASSIFICATION SPECIALIST DTL Blood (Blood, Venous) 05/18/2022 11:09 AM POSITION CLASSIFICATION SPECIALIST 05/18/2022 11:38 AM POSITION CLASSIFICATION SPECIALIST Flaquito Pierce M.D. LAB BLOOD ADD-ON [facility] [address] [place] [address], [facility] [address] [place] [address] * CRP (C-Reactive Protein) (05/18/2022 11:08 AM POSITION CLASSIFICATION SPECIALIST) [facility] C-Reactive Protein (CRP), S <3.0 <=8.0 mg/L 05/18/2022 12:09 PM POSITION CLASSIFICATION SPECIALIST DTL Blood (Blood, Venous) 05/18/2022 11:08 AM POSITION CLASSIFICATION SPECIALIST 05/18/2022 11:47 AM POSITION CLASSIFICATION SPECIALIST Flaquito Pierce M.D. LAB BLOOD ADD-ON [facility] [address] [place] [address], [facility] DTL [facility] [address] [place] [address] * Comprehensive Metabolic Panel (05/18/2022 11:08 AM POSITION CLASSIFICATION SPECIALIST) Pathologist [facility] Potassium, S 5.1 3.6 - 5.2 mmol/L 05/18/2022 12:09 PM POSITION CLASSIFICATION SPECIALIST DTL Sodium, S 142 135 - 145 mmol/L 05/18/2022 12:09 PM POSITION CLASSIFICATION SPECIALIST DTL Chloride, S 105 98 - 107 mmol/L 05/18/2022 12:09 PM POSITION CLASSIFICATION SPECIALIST DTL Bicarbonate, S 28 22 - 29 mmol/L 05/18/2022 12:09 PM POSITION CLASSIFICATION SPECIALIST DTL Anion Gap 9 7 - 15 05/18/2022 12:09 PM POSITION CLASSIFICATION SPECIALIST DTL BUN (Blood Urea Nitrogen), S 16 6 - 21 mg/dL 05/18/2022 12:09 PM POSITION CLASSIFICATION SPECIALIST DTL Creatinine 0.74 0.59 - 1.04 mg/dL 05/18/2022 12:09 PM POSITION CLASSIFICATION SPECIALIST DTL Estimated GFR (eGFR) 83 >=60 mL/min/BS A 05/18/2022 12:09 PM POSITION CLASSIFICATION SPECIALIST DTL Comment: Estimated GFR calculated using the 2020 CKD_EPI creatinine equation. Calcium, Total, S 9.8 8.8 - 10.2 mg/dL 05/18/2022 12:09 PM POSITION CLASSIFICATION SPECIALIST DTL Glucose, S 100 70 - 140 mg/dL 05/18/2022 12:09 PM POSITION CLASSIFICATION SPECIALIST DTL Protein, Total, S 6.7 6.3 - 7.9 g/dL 05/18/2022 12:09 PM POSITION CLASSIFICATION SPECIALIST DTL Albumin, S 4.5 3.5 - 5.0 g/dL 05/18/2022 12:09 PM POSITION CLASSIFICATION SPECIALIST DTL Aspartate Aminotransferase (AST), S 24 8 - 43 U/L 05/18/2022 12:09 PM POSITION CLASSIFICATION SPECIALIST DTL Alkaline Phosphatase, S 97 35 - 104 U/L 05/18/2022 12:09 PM POSITION CLASSIFICATION SPECIALIST DTL Alanine Aminotransferase (ALT), S 20 7 - 45 U/L 05/18/2022 12:09 PM POSITION CLASSIFICATION SPECIALIST DTL Bilirubin, Total, S 0.6 <=1.2 mg/dL 05/18/2022 12:09 PM POSITION CLASSIFICATION SPECIALIST DTL Blood (Blood, Venous) 05/18/2022 11:08 AM POSITION CLASSIFICATION SPECIALIST 05/18/2022 11:47 AM POSITION CLASSIFICATION SPECIALIST Flaquito Pierce M.D. LAB BLOOD ADD-ON [address] [address], [facility] DTL [facility] [address] [place] [address] documented in this encounter Visit Diagnoses Diagnosis Lung Interstitial Disease (HCC) Dyspnea Multifactorial documented in this encounter Care Teams Per Diem Interpreter Relationship Specialty Start Date End Date Elsewhere, Pcp PCP - General Internal Medicine 05/14/22 documented as of this encounter
--- OUTSIDE RECORDS SUMMARY | 2023-05-18 12:34 | XMS_ITS | Encounter Summary ---
Author Name Unknown Organization [facility] Address [address] [place] [address] Care Team Providers Care Brake [address] Freight Name Role Phone Elsewhere, Pcp Primary Care Provider Unavailabl e Reason for Referral * Outpatient (Routine) - Closed Specialty Diagnoses / Procedures Referred By Contac t Referred To Contact Diagnoses Lung Interstitial Disease (HCC) Procedures DX Chest AP or PA and Lateral 2 Views Flaquito Pierce M.D. [address] [place] [phone] [facility] Referral ID Status Reason Start Date Expiration Date Visits Re quested Visits Authorized [id number] Closed 05/18/2022 05/18/2023 1 1 T FINISHER Reason for Visit * Outpatient (Routine) - Closed Specialty Diagnoses / Procedures Referred By Contac t Referred To Contact Diagnoses Lung Interstitial Disease (HCC) Procedures DX Chest AP or PA and Lateral 2 Views Flaquito Pierce M.D. [address] [place] [phone] [facility] Referral ID Status Reason Start Date Expiration Date Visits Re quested Visits Authorized [id number] Closed 05/18/2022 05/18/2023 1 1 Encounter Details Date Type Department Care Team (Latest Contact Info) Description 05/18/2022 11:14 AM SHEET FINISHER - 05/18/2022 1:01 PM SHEET FINISHER Hospital Encounter Department of Radiology, [facility], in [place], [place] [address] [place] [phone] Flaquito Pierce M.D. [address] [place] [address] Lung Interstitial Disease (HCC) Discharge Disposition: Home [...] How often do you attend chur or gnosticist services? More than 4 times per year 05/17/2022 Do you belong to any clubs o r organizations such as yazdanism groups, unions, fraternal or athletic groups, or [...] and heating? Not hard at all 05/17/2022 [facility] [place] of Occupat ional Health - Occupational Stress [...] Master's degree (e.g., MA, MS, Flavia, MEd, REHAB SPEC, WILLIE) 05/17/2022 Sex and Gender Information Value Date Recorded Sex Assigned at Female 05/17/2022 2:17 PM SHEET FINISHER Gender Identity Female 05/17/2022 2:17 PM SHEET FINISHER Sexual Orientation Straight 05/17/2022 2: 17 PM SHEET FINISHER documented as of this encounter Medications at [...] Procedure Name Priority Date/Time Associated Diagnosis Comments DX CHEST AP OR PA AND LATERAL 2 VIEWS RAD - Routine (most inpatients and all outpatients) 05/18/2022 11:25 AM SHEET FINISHER Lung Interstitial Disease (HCC) documented in this encounter Results * DX Chest AP or PA and Lateral 2 Views (05/18/2022 11:25 AM SHEET FINISHER) Anatomical Region Laterality Modality Chest, Thoracic RST LOS, Tho racic ARZ LOS, Thoracic FLA LOS N/A Digital Radiography 05/18/2022 11:2 8 AM SHEET FINISHER Impressions 05/18/2022 11:30 AM SHEET FINISHER No change since the outside exam from 01/06/2022. Stable mild interstitial prominence/fibrosis in the lung periphery which was better demonstrated on the outside chest CT from 02/19/2022. Mild cardiomegaly. Calcified aorta. Surgical clips RUQ. Osteoarthritic changes of the shoulders. Chest otherwise negative. Narrative 05/18/2022 11:30 AM SHEET FINISHER EXAM: ??DX CHEST AP OR PA AND [...] of the shoulders. Chest otherwise negative. Flaquito MARINO DIAGNOSTIC IMAG ING PROCEDURES documented in this encounter Visit Diagnoses Diagnosis Lung Interstitial Disease (HCC) documented in this encounter Care Teams [address] Freight Relationship Specialty Start Date End Date Elsewhere, Pcp PCP - General Internal Medicine 05/14/22 documented as of this encounter
--- OUTSIDE RECORDS SUMMARY | 2023-05-18 12:34 | XMS_ITS | Encounter Summary ---
Author Name Unknown Organization [facility] Address [address] [place] [address] Care Team Providers Care Automobile Carpets Molder Name Role Phone Elsewhere, Pcp Primary Care Provider Unavailabl e Encounter Details Date Type Department Care Team ([facility] st Contact Info) Description 05/18/2022 1:30 PM SUPERANNUATION FUNDS MANAGER Diagnostic Division of Pulmonary Medicine in [place], [place] [address] [place] [phone] Flaquito Pierce M.D. [address] [place] [phone] Lung Interstitial Disease (HCC) Social History Tobacco [...] often do you attend chur ch or episcopal services? More than 4 times per year 05/17/2022 Do you belong to any clubs o r organizations such as confucianism groups, unions, fraternal or athletic groups, or [...] and heating? Not hard at all 05/17/2022 [facility] - [...] place to sleep or slept in a correction (including now)? No 05/17/2022 Nutrition Answer Date [...] Master's degree (e.g., MA, MS, Flavia, MEd, TAVERN OPERATOR, WILLIE) 05/17/2022 Sex and Gender Information Value Date Recorded Sex Assigned at Female 05/17/2022 2:17 PM SUPERANNUATION FUNDS MANAGER Gender Identity Female 05/17/2022 2:17 PM SUPERANNUATION FUNDS MANAGER Sexual Orientation Straight 05/17/2022 2: 17 PM SUPERANNUATION FUNDS MANAGER documented as of this encounter Plan of Treatment Not on file documented as of this encounter Procedures Procedure Name Priority Date/Time Associated Diagnosis Comments PUL HOME OVERNIGHT OXIMETRY Routine 05/18/2022 Lung Interstitial Disease (HCC) documented in this encounter Results * Home Overnight Oximetry (05/18/2022) 05/18/2022 Moizs YULIYA BRIAN - 05/20/2022 8:41 AM SUPERANNUATION FUNDS MANAGER Overnight oximetry was performed on room air. ??The patient denied alcohol but did consume sedative medication on the night of the study, and stated quality of sleep the same as usual. ??[place] Sleepiness Scale was 3. ??Baseline oxygen saturation [...] cannot be excluded. Physician: Shaheen Grimaldo M.D. [id number] Narrative Procedure Note Shaheen Grimaldo M.D. - 05/20/2022 IMPRESSION: Overnight oximetry was performed on room air. The patient denied alcoholbut did consume sedative medication on the night of the study, and statedquality of sleep the same as usual. [place] Sleepiness Scale was 3.Baseline oxygen saturation was [...] cannot be excluded. Physician: Shaheen Grimaldo M.D. [id number] Flaquito Pierce M.D. PFT ORDERABLES Performing Organization Address City/State/[facility] Co de Phone Number SCIO NVISION EAP documented in this encounter Visit Diagnoses Diagnosis Lung Interstitial Disease (HCC) documented in this encounter Care Teams Automobile Carpets Molder Relationship Specialty Start Date End Date Elsewhere, Pcp PCP - General Internal Medicine 05/14/22 documented as of this encounter
--- OUTSIDE RECORDS SUMMARY | 2023-05-18 12:34 | XMS_ITS | Clinical Summary ---
Author Name Unknown Organization [facility] Address [place], [place] [address] Care Team Providers Care Dock Manager Name Role Phone Jacklyn Campbell DO Primary Care Provider [phone] Allergies Active Allergy Reactions Criticality Noted Date Comments Amoxicillin GI Upset 11/28/2020 Divalproex Sodium Other - Describe In Comment Field 03/28/2007 increase WBC count House Dust 04/19/2006 Fluticasone Taste, Changes 07/14/2015 Mold Extracts 04/19/2006 Prednisone Behavioral Disturbances 12/14/2011 Has significant Psychiatry side effects, feels out of it. May tolerate very low dose, ie 10 milligrams daily for 5 days. Medications Medication Sig Dispensed Refills Start Date End Date Status PHOTOTHERAPY LIGHT BOXIndications:Bip olar disorder, unspecified (HC) For home use 1 0 9 Active cholecalciferol (VITAMIN D3) 1,000 unit capsule Take 1 capsule by mouth once daily. 0 6 Active Blood Pressure MonitorIndications :HTN (hypertension) Check blood pressure several times a week 1 Device 0 8 Active ciclopirox solution (Penlac) 8 % solutionIndication s:Dermatophytosis of nail Apply topically to affected area(s) at bedtime. Remove build up once weekly. 6.6 mL 2 2 Active clotrimazole (LOTRIMIN) 1 % creamIndications:T inea pedis of both feet Apply topically to affected area(s) two times daily. 45 g 0 2 Active ammonium lactate 12% topical (LACHYDRIN) 12 % lotionIndications: Dry skin Apply topically to affected area(s) two times daily. 396 g 5 2 Active alendronate (FOSAMAX) 70 mg tabletIndications: Osteoporosis, unspecified osteoporosis type, unspecified pathological fracture presence Take 1 Tablet (70 mg) by mouth once a week in the morning. Take on empty stomach with full glass of water, stay upright 30 minutes after taking 13 Tablet 3 3 Active atorvastatin (LIPITOR) 10 mg tabletIndications: Mixed hyperlipidemia Take 1 Tablet (10 mg) by mouth at bedtime. 90 Tablet 3 3 Active loratadine (CLARITIN) 10 mg tabletIndications: Environmental allergies Take 1 Tablet (10 mg) by mouth once daily. 90 Tablet 3 3 Active losartan (COZAAR) 100 mg tabletIndications: HTN (hypertension) Take 1 Tablet (100 mg) by mouth once daily. 90 Tablet 3 3 Active venlafaxine (EFFEXOR XR) 75 mg cp24 Extended-Release capsuleIndications :Bipolar 1 disorder (HC) Take 1 Capsule (75 mg) by mouth once daily with a meal. 90 Capsule 3 3 Active CPAP DME Order 0 3 Active gabapentin (NEURONTIN) 400 mg capsuleIndications :Bipolar 1 disorder (HC) Take 4 Capsules (1,600 mg) by mouth at bedtime. 360 Capsule 3 3 Active acyclovir (ZOVIRAX) 400 mg tabletIndications: Herpes TAKE ONE TABLET BY MOUTH THREE TIMES DAILY FOR 5 DAYS. START AT SOONEST SIGN OF HERPES FLARE 15 Tablet 2 3 Active omeprazole (PRILOSEC) 20 mg Delayed-Release capsuleIndications :Hiatal hernia,Allergic rhinitis due to pollen, unspecified seasonality TAKE 1 CAPSULE (20 MG) BY MOUTH ONCE DAILY BEFORE A MEAL. 90 Capsule 6 3 Active estradioL (ESTRACE) 0.01% (0.1 mg/g) vaginal creamIndications:R ecurrent UTI,Mixed stress and urge urinary incontinence Use 2 g in the vagina nightly for 2 weeks and then use 2 g in the vagina twice weekly 42.5 g 3 3 Active Synthroid 88 mcg tabletIndications: Hypothyroidism, unspecified type TAKE 1 TABLET (88 MCG) BY MOUTH BEFORE BREAKFAST. 90 Tablet 1 4 Active fluticasone (50 mcg per actuation) nasal solution (FLONASE)Indicatio ns:Allergic rhinitis due to pollen, unspecified seasonality Inhale 1 [place] into affected nostril(s) once daily. 16 g 6 4 Active ipratropium (ATROVENT NASAL) 21 mcg (0.03 %) nasal sprayIndications:A llergic rhinitis due to pollen, unspecified seasonality Inhale 2 Sprays into affected nostril(s) two times daily. 30 mL 3 4 Active fluticasone (50 mcg per actuation) nasal solution (FLONASE)Indicatio ns:Allergic rhinitis due to pollen, unspecified seasonality Inhale 1 [place] into affected nostril(s) once daily. 16 g 6 2 05/06/19 24 Discontinued(Reo rder (E-cancel not sent)) ipratropium (ATROVENT NASAL) 21 mcg (0.03 %) nasal spray Inhale 2 Sprays into affected nostril(s). 0 3 05/06/19 24 Discontinued(Reo rder (E-cancel not sent)) Synthroid 88 mcg tabletIndications: Hypothyroidism, unspecified type Take 1 Tablet (88 mcg) by mouth before breakfast. 90 Tablet 0 3 05/06/19 24 Discontinued cefadroxil (DURICEF) 1 gram tabletIndications: Acute cystitis without hematuria Take 1 g by mouth two times daily for 7 days. 14 Tablet 0 4 05/13/19 24 Hospital, Clinic, or Other Facility Administered Medication Ordered Dose Route Frequency Start Date End Date Status cyanocobalamin (VITAMIN B12) 1,000 mcg/mL injection 1,000 mcgIndications:B12 deficiency 1000 mcg IM Q 4 WEEKS (28 DAYS) 04/01/2022 Active Active Problems Problem Noted Date Diagnosed Date IPF (idiopathic pulmonary fibrosis) 03/08/2023 Obstructive sleep apnea 12/28/2022 Arthritis of right glenohumeral joint 08/07/2022 Overview: July 2022: ultrasound guided right Shoulder cortisone injection. Osteoporosis 05/30/2022 Pulmonary fibrosis 05/30/2022 Overview: Arroyo: interstitial lung disease in an indeterminate pattern. The pattern looks indeterminate for UIP type of pattern. She has been symptomatically very stable and overall is doing quite well without therapy. She had stopped all her inhalers which were being prescribed for what was thought to be asthma and actually feels better since she stopped the inhalers. Environmental allergies 05/30/2022 HTN (hypertension) 05/30/2022 Primary osteoarthritis of left knee 03/28/2019 Overview: Mar 2019: Did cortisone injection left knee by Dr. Bravo . Significant pain relief down to 05/11. August [address] Mario Garcia did cortisone injection to left knee, worked great. Jan 2020: Repeat cortisone injection by Dr. Bravo for left knee. B12 deficiency 03/14/2019 Overview: Elevated MMA see neuroconsult 03/2016 Diverticulosis 12/23/2012 Colon polyp 05/25/2010 Overview: Colonoscopy 05/2010 polyp, Colonoscopy in 3 years. 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 Unspecified essential hypertension 04/19/2006 Unspecified hypothyroidism 04/19/2006 Unspecified asthma(493.90) 04/19/2006 Overview: Normal PFT in 2006 - no change with bronchodilator Bipolar disorder, unspecified 04/19/2006 Resolved Problems Problem Noted Date Diagnosed Date Resolved Date Skin lesion 04/13/2010 09/06/2012 Vitamin D deficiency 02/10/2009 013 Encounters Date Type Department Care Team Description 05/17/2023 Lab Requisition [facility] [phone] Unknown, Doctor 05/14/2023 Nurse Triage [facility] [address] [place] [address] Jacklyn Campbell Shamika, DO Cough 05/06/2023 7:00 AM VP ANALYTICS Preop Visit [facility] [address] [place] [address] Snow Edwards PA Preoperative Exam (05/18/23/Upper Eyelid Blepharoplasty/[facility]/ ) 05/06/2023 Travel 05/04/2023 Refill [facility] [address] [place] [phone] Saumya Whitehead MD Refill Request (Gabapentin) 05/04/2023 Refill [facility] [address] [place] [phone] Shaqra Jacklyn Shamika, DO Refill Request (Synthroid) 04/28/2023 Refill [facility] [address] [facility] [address] [place] [phone] Ranjitqra Jacklyn Shamika, DO Refill Request (Fluticasone (50 Mcg Per Actuation) Nasal) 04/22/2023 2:45 PM VP ANALYTICS Nurse/Clinic Staff Only [facility] [address] [place] [phone] 04/22/2023 Travel 04/19/2023 Telephone [facility] [address] [place] [address] Shannan Jacklyn Shamika, DO Follow Up; Urinary Problem 04/14/2023 Refill [facility] [address] [facility] [address] [place] [phone] Althea Sampson MBBS Refill Request (Fluticasone (50 Mcg Per Actuation) Nasal) 03/21/2023 11:15 AM VP ANALYTICS Nurse/Clinic Staff Only [facility] [address] [place] [address] Immunization/Injecti on (VITAMIN B-12 INJECTION ) 03/21/2023 Travel 03/07/2023 12:55 PM VP ANALYTICS Office Visit [facility] [address] [place] [address] Shannan Jacklyn Shamika, DO Urinary Problem (2 UTI's in the last month - was evaluated in urgent care ); Follow Up (No progression with interstitial lung disease, nodules have not increased in size); Allergies (Pt reports having phlegm that she coughs up, started using Montelukast and feels this is beneficial - along with mucinex - should she use nasal spray daily? ) 03/07/2023 Travel 02/21/2023 12:45 PM CDT Nurse/Clinic Staff Only [facility] [address] [place] [address] Immunization/Injecti on (VITAMIN B-12 INJECTION ) 02/21/2023 Travel from Last 3 Months Immunizations Name Administration Dates Next Due COVID-19 vaccine ([employer] NTech 30mcg/0.3mL) 12YO+ YUDI-SUCROSE PF, MDV 09/02/2021 COVID-19 vaccine ([employer] NTech 30mcg/0.3mL) PF, MDV 01/27/2021,07/08/2020,06/17/2020 DT (Age < 7 years) 02/27/1990 Influenza A (H1N1), Inactiva neelam (Age >=3 Years) 05/19/2009 Influenza, High-dose Inactivated 01/27/2018,01/01 Influenza, High-dose Quadriv alent Inactivated 01/21/2022 Influenza, IIV3 (Age >=3 years) 04/08/2008,02/10,02/01/2006 Influenza, IIV4 01/23/2014 Influenza, Inactivated AIIV4 (Age 65+ Years) Preserv Free 01/13/2023,01/27/2021,12/24/2019 Influenza, Inactivated IIV3 (Age 65+ Years) Preserv Free 01/16/2019,01/24/2017 Pneumococcal Poly,23-Valent (Pneumovax) 09/07/19 13,02/08/2012,02/07/2004 Pneumococcal conj 13-Valent (Prevnar 13) 015 Td (Age >=7 Years) 05/02/1998 Tdap 01/22/2014,02/10/2009 Zoster (Shingrix-RZV, recombinant) 11/30/2018, Zoster (Zostavax-ZVL, live) 11/16/2011 Family History Medical History Relation Name Comments Good Health Brother Hypertension Brother Hyperlipidemia Father Hypertension Father Other Father cataracts Psychiatric illness Father antidepr essant, antianxiety med Other Mother macular degener ation Cancer-breast No Family History Cancer-colon No Family History Cancer-ovarian No Family History Relation Name Status Comments Brother Alive Father Alive Mother Social History Tobacco Use Types Packs/Day Years Used Date Smoking Tobacco: Former Cigarettes 0.8 25 0 05/02/1959 - 05/02/1984 Smokeless Tobacco: Never Tobacco Cessation:Counseling Given: Yes Alcohol Use Standard Drinks/Week Comments Not Currently 0 (1 standard drink = 0.6 oz pur e alcohol) PHQ-2 Answer Date Recorded PHQ-2 TOTAL SCORE 0 12/28/2022 Social Connections Answer Date Recorded Frequency of Communication with Friends and Fami ly 0 07/29/2022 Financial Resource Strain Answer Date R ecorded Difficulty of Paying Living Expenses 3 07/29/2022 Difficulty of Paying Living Expenses Not on file 07/29/2022 Food Insecurity Answer Date Recorded Worried About Running Out of Food in the Last Ye ar 1 07/29/2022 Transportation Needs Answer Date Record ed Lack of Transportation (Medical) 1 07/29/2022 Housing Stability Answer Date Recorded Unable to Pay for Housing in the Last Year 1 07/29/2022 Sex and Gender Information Value Date Recorded Sex Assigned at Not on file Gender Identity Not on file Sexual Orientation Not on file Obstetrics History Para Term AB IAB SAB Ectopic Multiple Livin g Live Births 3 3 3 3 Date Outcome GA Total Labor Labor/2nd/3rd Weight Sex Delivery Anes PTL Shamika A1 A5 Name Cl in 01/30 Term 4h 00m 3.01 kg (6 lb 10 oz) F VAGINAL FORC Jeaneth 03/01 Term 4h 00m 3.46 kg (7 lb 10 oz) M Vag Livan 01/17 Term 2h 00m 3.63 kg (8 lb) M Vag Huey Last Filed Vital Signs Vital Sign Reading Time Taken Comments Blood Pressure 133/81 05/06/2023 7:04 AM VP ANALYTICS Pulse 75 05/06/2023 7:04 AM VP ANALYTICS Temperature 36.6 ??C (97.9 ??F) 05/06/2023 7:04 AM CS T Respiratory Rate 18 05/06/2023 7:04 AM VP ANALYTICS Oxygen Saturation 98% 05/06/2023 7:04 AM VP ANALYTICS Inhaled Oxygen Concentration - - Weight 83.5 kg (184 lb) 05/06/2023 7:04 AM VP ANALYTICS Height 170.1 cm (5' 6.97) 05/06/2023 7:04 AM CS T Body Mass Index 28.85 05/06/2023 7:04 AM VP ANALYTICS Plan of Treatment Health Maintenance Due Date Last Done Comments Hepatitis C screening for ag e 18-79 1963 Medicare Wellness for age 65+ 12/28/2023, 07/02/2021, 10/17/2019, Additional history exists Depression screening for age 12+ 12/29/2023 12/28/2022, 11/30/2022, 11/26/2022, Additional history exists Tetanus booster 01/23/2024 01/22/2014, 01/30, 05/02/1998 BMI (ht and wt on same day) for age 18+ 05/06/2024 05/06/2023, 12/28/2022, 11/26/2022, Additional history exists Tdap Completed 01/22/2014, 02/10/2009 Pneumococcal series for age 65+ Completed 12/24/2014, 09/06/2012, 02/08/2012, Additional history exists Zoster (shingles) series for age 50+ Completed 11/30/2018, 07/21/2018, 11/16/2011 DEXA/DXA scan for age 65+ Completed 2022, 01/23/2020, 04/16/2010 Influenza for age 65+ Completed 01/13/2023 , 01/21/2022, 01/27/2021, Additional history exists COVID-19 vaccine series Completed 02/01/20, 01/21/2022, 09/02/2021, Additional history exists Procedures Procedure Name Priority Date/Time Associated Diagnosis Comments REFERRAL SUSCEPTIBILITY Routine 05/15/2023 12:00 PM VP ANALYTICS URINALYSIS MICROSCOPIC Routine 7:49 AM VP ANALYTICS Dysuria URINE CULTURE Routine 05/06/2023 7:49 AM VP ANALYTICS Dysuria UA W/ SEDIMENT EXAM REFLEXED PER CRITERIA Routine 05/06/2023 7:49 AM VP ANALYTICS Dysuria POTASSIUM,ISTAT Routine 05/06/2023 7:48 AM VP ANALYTICS Preop examination from Last 3 Months Results * (ABNORMAL) URINALYSIS MICROSCOPIC (05/06/2023 7:49 AM VP ANALYTICS) RBC 6-10(A) 0-2, None Seen /HPF 05/06/2023 8:05 AM VP ANALYTICS [facility] WBC 26-50(A) 0-2, 3-5, None Seen /HPF 05/06/2023 8:05 AM VP ANALYTICS [facility] BACTERIA Moderate(A ) None Seen, Rare, Few Bacteria/ HPF 05/06/2023 8:05 AM VP ANALYTICS [facility] EPITHELIAL CELLS Few None Seen, Few Epi/HPF 05/06/2023 8:05 AM VP ANALYTICS [facility] WHITE CELL CLUMPS Present(A) (none) 05/06/2023 8:05 AM VP ANALYTICS [facility] Urine URINE SPECIMEN / Unknown Non-Blood / Unknown 05/06/2023 7:49 AM VP ANALYTICS 05/06/2023 7:49 AM VP ANALYTICS Snow DILLARD URINE Performing Organization Address [facility]/State/[facility] Co de Phone Number [facility] [address] [place] [address], * (ABNORMAL) URINE CULTURE (05/06/2023 7:49 AM VP ANALYTICS) CULTURE RESULT(A) 05/08/2023 6:50 AM VP ANALYTICS [facility] CULTURE 50,000-100,000 CFU/mL Escherichia coli 05/08/2023 6:50 AM VP ANALYTICS [facility] Urine URINE SPECIMEN / Unknown Non-Blood / Unknown 05/06/2023 7:49 AM VP ANALYTICS 05/06/2023 7:49 AM VP ANALYTICS Narrative Organism Antibiotic Method Susceptibility Escherichia coli TRIMETHOPRIM/SULF <=05/20: S Escherichia coli AMPICILLIN <=2: S Escherichia coli CEFAZOLIN-UC <=4: S Comment:Cefazolin-UC interpretations are for therapy of uncomplicated UTIs due to E.coli, K.pneumoniae, or P.mirablis. Cefazolin breakpoint is used as a surrogate to predict results for the oral agents - cefdinir, cefuroxime, and cephalexin, when used for therapy of uncomplicated UTIs due to E coli, K, pneumoniae, and P. mirabilis. The FDA recommends cefadroxil susceptibility can be deduced from cefazolin. Escherichia coli GENTAMICIN <=1: S Escherichia coli CEFTRIAXONE <=1: S Escherichia coli CEFTAZIDIME <=1: S Escherichia coli LEVOFLOXACIN <=0.12: S Escherichia coli CIPROFLOXACIN <=0.25: S Escherichia coli PIPERACILLIN/TAZO <=4: S Escherichia coli AMPICILLIN/SULBACTAM <=2: S Escherichia coli CEFEPIME <=1: S Escherichia coli TOBRAMYCIN <=1: S Escherichia coli MEROPENEM <=0.25: S Escherichia coli NITROFURANTOIN <=16: S Snow DILLARD MICROBIOLOGY [facility] [address] [place] [id number], * (ABNORMAL) UA W/ SEDIMENT EXAM REFLEXED PER CRITERIA (05/06/2023 7:49 AM VP ANALYTICS) COLOR Yellow Yellow Color 05/06/2023 8:05 AM VP ANALYTICS [facility] CLARITY Clear Clear Clarity 05/06/2023 8:05 AM VP ANALYTICS [facility] SPECIFIC GRAVITY,URINE 1.025 1.010, 1.015, 1.020, 1.025 05/06/2023 8:05 AM [facility] PH,URINE 6.0 6.0, 7.0, 8.0, 5.5, 6.5, 7.5, 8.5 05/06/2023 8:05 AM VP ANALYTICS [facility] UROBILINOGEN, QUALITATIVE Normal Normal EU/dl 05/06/2023 8:05 AM [facility] PROTEIN, URINE Negative Negative mg/dL 05/06/2023 8:05 AM VP ANALYTICS [facility] GLUCOSE, URINE Negative Negative mg/dL 05/06/2023 8:05 AM VP ANALYTICS [facility] KETONES,URINE Negative Negative mg/dL 05/06/2023 8:05 AM VP ANALYTICS [facility] BILIRUBIN,URI NE Negative Negative 05/06/2023 8:05 AM VP ANALYTICS [facility] OCCULT BLOOD,URINE Negative Negative 05/06/2023 8:05 AM VP ANALYTICS [facility] NITRITE Negative Negative 05/06/2023 8:05 AM VP ANALYTICS [facility] LEUKOCYTE ESTERASE Moderate(A) Negative 05/06/2023 8:05 AM VP ANALYTICS [facility] Urine URINE SPECIMEN / Unknown Non-Blood / Unknown 05/06/2023 7:49 AM VP ANALYTICS 05/06/2023 7:49 AM VP ANALYTICS Snow DILLARD URINE Performing Organization Address City/[facility]/ZIP Co de Phone Number [facility] [address] [place] [address], [place] [phone] * POTASSIUM,ISTAT (05/06/2023 7:48 AM VP ANALYTICS) Pathologist [facility] POTASSIUM, POCT 4.5 3.5 - 5.0 mmol/L 05/06/2023 7:51 AM VP ANALYTICS [facility] Blood BLOOD SPECIMEN / Unknown 05/06/2023 7:48 AM VP ANALYTICS 05/06/2023 7:51 AM VP ANALYTICS Snow DILLARD CHEMISTRY Performing Organization Address City/[facility]/ZIP Co de Phone Number [facility] [address] [place] [address], [place] [phone] from Last 3 Months Additional Health Concerns Infection Onset Date Last Indicated Rule-Out C.diff 01/16/2019 01/16/2019 Advance Directives Documents on File Type Date Recorded Patient Genetic Physician Expl anation Healthcare Directive 08/18/2020 021 Care Teams Dock Manager Relationship Specialty Start Date End Date Jacklyn Campbell DO [address] [place] [address] PCP - General Family Practice 05/06/23
[2023-05-18] MEDS: LACTATED RINGERS 1000 ML 1,000 ML 100 ML IV (12:40)
[2023-05-18 12:47] VITALS: BMI 29.7
[2023-05-18 12:50] VITALS: BP 155/81; PULSE 79; RESP 20; TEMP 35.9; O2SAT 96
[2023-05-18] MEDS: SODIUM CHLORIDE 0.9 % (FLUSH) 10 ML SYRINGE IVF (13:07)
--- NOTE | 2023-05-18 13:55 | W.ANESCHARGE ---
Anesthesia Charges Start Date/Time Anesthesia Start Date: 05/18/23 Anesthesia Start Time: 14:06 Stop Date/Time Anesthesia Stop Date: 05/18/23 Anesthesia Stop Time: 15:16 Summary Extremes of Age - Over 70 or under 1: LATHE OPERATOR CONTACT LENS
[2023-05-18] MEDS: BUPIVACAINE 0.5 %/EPI 1:200K 30 ML INJECTION (14:09)
--- NOTE | 2023-05-18 15:13 | P.OPTPRC_ITS ---
Procedure Note Date of procedure: 05/18/23 Will [facility] bill your pro fee for this procedure?: Yes Procedure Description: SURGEON: Marichuy Pavon MD PREOPERATIVE DIAGNOSIS: Dermatochalasis, bilateral upper eyelids. POSTOPERATIVE DIAGNOSIS: Dermatochalasis, bilateral upper eyelids. NAME OF OPERATION: Bilateral upper eyelid blepharoplasty. ANESTHESIA: Local monitored anesthesia care. ESTIMATED BLOOD LOSS: Less than 2 cc. COMPLICATIONS: None. IMPLANTS: None. INDICATIONS: The patient is seen today for bilateral upper eyelid blepharoplasty. The patient complains of upper eyelids interfering with vision. I reviewed the visual garrett and facial photographs. Surgery was indicated for functional improvement of vision. The risks, benefits and alternatives were discussed pre-operatively. The risks included pain, infection, bleeding, poor cosmetic result, scarring, asymmetry, need for further treatment including surgery, inability to close lids, dry eyes, decreased vision, loss of vision and loss of eye. The benefits included improvement of symptoms. The alternative was observation and no surgery. All questions were answered to the patient's satisfaction, and the patient elected to proceed with the bilateral upper eyelid blepharoplasty. Informed consent was obtained. PROCEDURE: In a sitting position, the upper eyelid crease was marked with a marking pen, and the pinch technique was used to determine the amount of upper eyelid skin to be excised. A calipers was used to measure for symmetry and to confirm an appropriate amount of remaining skin. The patient was taken to the operating room. 4 cc of anesthetic was injected subcutaneously along the full extent of each upper eyelid. This anesthetic was made with 1:1 of 2% lidocaine with epinephrine and 0.5% bupivacaine. Both eyes were prepped and draped in the usual sterile ophthalmic fashion. The following was performed on both the right and left upper eyelid: A #15 blade was used to incise the skin. Bishops and Eliz scissors were used to excise the skin and orbicularis muscle. Handheld cautery was used to achieve hemostasis. The eyelids were examined for symmetry. The skin was closed with a running 6-0 nylon suture. Erythromycin ointment was applied to the wounds. The patient tolerated the procedure well. DISPOSITION: The patient was sent to the recovery room and discharged to home in stable condition. The patient was given my postoperative instructions handout. The patient was told to ice as directed. The patient will apply erythromycin ophthalmic ointment to the eyelids three times a day until the sutures are removed, then for another three days. The patient will follow up in one week for suture removal or sooner as needed. The patient was instructed to call me or go to the emergency department with any sudden change, including dramatic loss of vision, excessive bleeding, redness or discharge from the incisions, or severe pain in the eye.
[2023-05-18 15:16] VITALS: BP 124/85; PULSE 68; RESP 16; TEMP 37.1; O2SAT 96
[2023-05-18 15:30] VITALS: BP 136/74; PULSE 72; RESP 16; O2SAT 96
--- NOTE | 2023-05-18 16:05 | W.ANESCHARGE ---
Anesthesia Charges Start Date/Time Anesthesia Start Date: 05/18/23 Anesthesia Start Time: 14:06 Stop Date/Time Anesthesia Stop Date: 05/18/23 Anesthesia Stop Time: 15:16 Summary Extremes of Age - Over 70 or under 1: MDA
== END 2023-05-18 16:10 | disposition home or self-care (01) ==
LOC: OR 12:30
PROVIDERS: PCP Family Medicine; Visit Provider Ophthalmology
PROC: (CPT 15823; principal; 2023-05-18 12:30)
DX: H02.831 Dermatochalasis of right upper eyelid (principal); H02.834 Dermatochalasis of left upper eyelid; H53.8 Other visual disturbances
CPT/HCPCS: 15823; 00103; 99100; J2704; J3490; J7120

== ENCOUNTER 2023-07-09 11:15 | Outpatient (CLI) | payer MEDICARE, BC, SELFPAY | END 2023-07-09 11:16 | disposition home or self-care (01) | LOC: NFLDREF 07-11 05:53 | PROVIDERS: PCP Family Medicine; Referring Provider Family Medicine; Visit Provider Nurse Practitioner Family | DX: N30.00 Acute cystitis without hematuria (principal) | CPT/HCPCS: 87086; 87186 ==

== ENCOUNTER 2023-07-30 11:29 | Outpatient (CLI) | payer MEDICARE, BC, SELFPAY | END 2023-07-30 11:30 | disposition home or self-care (01) | LOC: NFLDREF 08-01 10:40 | PROVIDERS: PCP Family Medicine; Referring Provider Family Medicine; Visit Provider Physician Assistant | DX: N39.0 Urinary tract infection, site not specified (principal); B96.20 Unspecified Escherichia coli [E. coli] as the cause of diseases classified elsewhere | CPT/HCPCS: 87086; 87186 ==

== ENCOUNTER 2023-08-18 16:24 | Outpatient (CLI) | payer MEDICARE, BC, SELFPAY ==
--- OUTSIDE RECORDS SUMMARY | 2023-08-19 07:02 | XMS_ITS | Encounter Summary ---
Author Name Unknown Organization [facility] Address [address] [place] [address] Care Team Providers Care Manager Of Care Name Role Phone Alexa Álvarez M.D. Primary Care Provider [phone]- [phone] Reason for Referral * Outpatient (Routine) - Authorized Specialty Diagnoses / Procedures Referred By James agrawal Referred To Contact Diagnoses Abnormal Ultrasound Endometrium Procedures Hysteroscopy diagnostic Lauren Leon APRN, C.N.P. [address] [place] [phone] [facility] Region Referral ID Status Reason Start Date Expiration Date V isits Requested Visits Authorized [id number] Authorized 08/10/2023 08/09/2024 1 1 Reason for Visit * Reason Comments Consult Encounter Details Date Type Department Care Team (Latest Contact Info) Description 08/10/2023 10:30 AM CDT Comprehensive Visit Department of Obstetrics and Gynecology in [address] [phone] Lauren Leon APRN, C.N.P. [address] [place] [phone] Incontinence Urinary Stress And Urge (Primary Dx); Cystitis Recurrent; Incontinence Fecal; Abnormal Ultrasound Endometrium Discharge Disposition: Home or Self Care Social History Tobacco Use Types Packs/Day Years Used Date Smoking Tobacco: Former Cigarettes 1 - 02/09/1985 Smokeless Tobacco: Never Alcohol Use Standard Drinks/Week Comments Not Currently 0 (1 standard drink = 0.6 oz pur e alcohol) [facility] Utilities Answer Date Recorded In the past 12 months has e electric, gas, oil, or water company threatened to shut off services in your home? No 06/09/2023 Humiliation, Afraid, Rape, and Kick questionnair e [...] How often do you attend chur or spiritism services? More than 4 times per year 05/17/2022 Do you belong to any clubs o r organizations such as shinto groups, unions, fraternal or athletic groups, or [...] and heating? Not hard at all 05/17/2022 PHQ-2 Answer Date Recorded PHQ-2 Score 0 06/09/2023 [facility] of Occupat ional [facility] - Occupational Stress Questionnaire Answer Date [...] to strenuous exercise (like a brisk walk)? 2 days 06/09/2023 On average, how many minutes do you engage in exercise at this level? 30 min 06/09/2023 Hunger Vital Sign Answer Date Recorded Within the past 12 months, y ou worried that your food would run out before you got the money to buy more. Never true 06/09/19 24 Within the past 12 months, t he food you bought just didn't last and you didn't have money to get more. Never true 06/09/2023 PRAPARE - Transportation Answer Date Re corded In the past 12 months, has l ack of transportation kept you from medical appointments or from getting medications? No 12/2023 In the past 12 months, has l ack of transportation kept you from meetings, work, or from getting things needed for daily living? No 06/09/2023 Nutrition Answer Date Recorded Nutrition: EVOO Fat Source Yes 06/09 On average, how many serving s of fruits and vegetables do you eat per day (serving size is equal to 1 cup or approximately the size of a tennis ball)? 3-5 06/09/2023 Dental Answer Date Recorded Dental: Regular Dentist Yes 05/17/19 23 Employment Answer Date Recorded Employment status Retired 06/09/2023 Housing Stability Answer Date Recorded What is your living situation today? I have a [facility] place to live 06/09/2023 Education Answer Date Recorded What is the highest level of school you have completed or the highest degree you have received? 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 Gender Identity Female 05/17/2022 2:17 PM HOUSE CLEANER SUPERVISOR Sexual Orientation Straight 05/17/2022 2: 17 PM HOUSE CLEANER SUPERVISOR documented as of this encounter Last Filed Vital Signs Vital Sign Reading Time Taken Comments Blood Pressure 120/74 08/10/2023 10:15 AM CDT Pulse 86 08/10/2023 10:15 AM CDT Temperature - - Respiratory Rate - - Oxygen Saturation - - Inhaled Oxygen Concentration - - Weight 83.6 kg (184 lb 4.9 oz) 08/10/2023 10:15 AM CDT Height - - Body Mass Index 28.26 07/01/2023 11:24 AM HOUSE CLEANER SUPERVISOR documented in this encounter Progress Notes * Lauren Leon APRN, C.N.P. - 08/10/2023 10:30 AM CDT SUBJECTIVE Chief Complaint Patient presents with Consult HISTORY OF PRESENT ILLNESS Jeaneth is a 77 y.o. (Vdx3) female who became menopausal around the age of 46. No LMP recorded. Patient is postmenopausal. She does have history of tubal ligation for permanent sterilization.She did utilize Premarin for 10 years between ages [age]. She does not recall using any progestin for endometrial protection. She denies any postmenopausal bleeding. She presents with concerns surrounding Consult. She does have multiple concerns. She has been working with Urology at the [facility] in [place] for concerns surrounding recurrent urinary tract infections, hematuria, and urinary incontinence. She notes that historically she has gotten 1-2 urinary tract infections per year, but since May, she has experienced a nonstop infection that does not seem to be responding to treatment. Reyes had positive urine cultures which grew E coli each time, on 07/01/2023, 06/13/2023, and 06/03/2023. She underwent a cystoscopy on 07/04/2023 which came back normal. She also completed a CT urogram on 07/04/2023 which noted findings negative for upper urinary tract problems , and diffuse wall thi ckening of the urinary bladder with mild mucosal enhancement in the bladder base which likely favorinflammatory change. Lab work completed 07/01/2023 indicated a normal creatinine and estimated GFR. She also admits to concerns surrounding urinary incontinence. She does admit to the presence of leak with cough that is quite problematic. She does wear a pad every day and has done so for a few years now. She was diagnosed with COVID recently and notes that her cough has been much worse since thisdiagnosis. She also has history of fibrosis and interstitial lung disease. 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 She does feel as if her stress incontinence has gradually worsened over time. She also admits to urinary urgency and urge incontinence. She has implemented timed voiding every 2 hours and has found that helpful. She has noticed that triggers for her urgency and urge incontinence include writing in the car, drinking coffee, drinking tea, and standing up. She does feel she empties her bladder adequately. She was given a prescription for trospium and instructed to take it twice daily with meals. She notes that she took it 1 time and did not note improvement so she stopped. We reviewed recommendations surrounding trospium, and discuss the fact that she will need to take it for several weeks before she notices significant improvement. She is agreeable to do so. She does have history of bowel dysfunction and fecal incontinence. She saw Gastroenterology last week at [facility]. She was diagnosed with fecal incontinence with decreased resting tone. She hasimplemented Metamucil on a daily basis and has found that has significantly improved her fecal incon tinence. She is also implemented behavioral modification suggestions with deep breathing exercises and taking her time on the toilet, which she has found to be helpful as well. Plan is to proceed with colonoscopy and anal rectal manometry to further assess her pelvic floor function. Finally, there were some abnormal gynecological findings on her CT scan which prompted ultrasound to be performed. Her pelvic ultrasound noted fluid within endometrial canal, which accounted for the apparent thickening on the comparison CT. At the distal aspect of the fluid there is a more hypoechoic region measuring up to 0.7 cm, which is nonspecific but could represent debris versus a small polyp. She was instructed to follow up with Gynecology to complete workup for these findings. We discussed options for further evaluating her considering the ultrasound findings. She was most interested in proceeding with in office hysteroscopic evaluation, rather than endometrial biopsy in clinic today, or operative hysteroscopic evaluation. We did review risks, benefits and expectations with procedure. REVIEW OF SYSTEMS Respiratory: Positive for dry cough. Gastrointestinal: Positive for diarrhea. Genitourinary: Positive for incontinence, urgency and frequent urination. The following systems were negative: Constitutional, Skin, Eyes, ENT, Cardiovascular, Hematologic, Musculoskeletal, Neurological, Psychiatric The patient's allergies, current medications, problem list, social history and family history were reviewed and updated as appropriate. OBJECTIVE BP 120/74 Pulse 86 Wt 83.6 kg BMI 28.26 kg/m?? PREVENTATIVE HEALTH Last Pap Result Date: Patient denies any history of any abnormal Pap smears. Pap smear recommendations were reviewed with patient and she is comfortable ceasing pap smears at this time. PHYSICAL EXAM General: She is a well-appearing female, in no acute distress. ASSESSMENT / PLAN #1 Incontinence Urinary Stress And Urge Overview: For Urge Incontinence: Timed voiding every 2 hours during the day. Initiate vaginal estrogen cream 0.5 g 3 nights per week. Trospium (Sanctura) 20 mg twice daily. Also discussed treatment options for Stress Incontinence and will proceed with estrogen cream for now, until she has completed her GI and MANAGER TALENT MANAGEMENT work-up. #2 Cystitis Recurrent Overview: She does have recent history of culture proven recurrent urinary tract infections caused by E coli.She has been working with Milena Huffman APRN, CNP in urology in [place] and has undergone a thorough work-up for hematuria. She had a negative cystoscopy 07/04/2023. CT Urogram on 07/04/2023 indicatednegative upper urinary tracts and diffuse wall thickening of the urinary bladder with mild mucosal enhancement in the urinary bladder base (inflammatory change). She is interested in preventative treatment. We discussed proceeding with Hiprex with Vitamin C or possibly proceeding with gentamicin instillations. I did send a message to her urology provider to get her opinion on these recommendations. When I hear back from her, I will send Jeaneth a portal message with our cumulative recommendations. #3 Incontinence Fecal Overview: She is noting significant improvement in her fecal incontinence with implementation of Metamucil. She is also implemented relaxed bowel movements and breathing techniques to be sure that she completely eliminates her stool with bowel movements. Currently this is going well for her. She is scheduledfor colonoscopy and anorectal manometry common plans to complete her workup. #4 Abnormal Ultrasound Endometrium Overview: Pelvic US indicates fluid within endometrial canal. At the distal aspect of the fluid there is a more hypoechoic region measuring up to 0.7 cm, which is nonspecific but could represent debris versus a small polyp. Discussed with Dr. Ortega and he is agreeable to proceeding with diagnostic hysteroscopy. Message sent to Catarina is scheduling and she will contact patient to get this scheduled. Orders: - Hysteroscopy diagnostic; Future; Expected date: 08/10/2023 All questions have been answered and those present are in agreement with this plan. Lauren Leon APRN, C.N.P. Patient Education Ready to learn, no apparent learning barriers were identified; learning preferences include listening. Explained diagnosis and treatment plan; patient expressed understanding of the content. Billin minutes of time was spent with patient today. documented in this encounter Plan of Treatment Upcoming Encounters Date Type Department Care Team (Latest Contact Info) Description 08/26/2023 9:30 AM CDT Procedure visit Department of Obstetrics and Gynecology in [place], [place] [address] [place] [phone] Milena Huffman APRN, C.N.P. [address] [place] [phone] Snow Cox APRN, C.N.P. [address] [place] [phone] Rajni Hooker M.D. [address] [place] [phone] Discharge Disposition: Home or Self Care 10/07/2023 7:30 AM CDT Clinical Communication Virtual Review in [place], [place] [address] [place] [phone] 10/11/2023 8:40 AM CDT Comprehensive Visit Division of Gastroenterology in [address] [place] [address] [phone] Iker Bruce M.D. [address] [place] [phone] 10/26/2023 8:30 AM CDT Clinical Communication Virtual Review in [place], [place] [address] [place] [address] 10/26/2023 10:30 AM CDT Appointment Department of Radiology, [facility], in [place], [place] [address] [place] [phone] Lisa Soni MPAS P.A.-CKarol [address] [place] [phone] 10/27/2023 12:30 PM CDT Diagnostic Division of Pulmonary Medicine in [address] [place] [address] [phone] Lisa Soni MPAS, P.A.-CKarol [address] [place] [phone] 10/27/2023 1:30 PM CDT Office Visit Division of Pulmonary Medicine in [address] [place] [address] [phone] Lisa Soni MPAS P.A.-CKarol [address] [place] [phone] Scheduled Orders Name Type Priority Associated Diagnoses Orde r Schedule Hysteroscopy diagnostic OB Routine Abnormal Ultrasound Endometrium Expected: 08/10/2023, Expires: 11/08/2024 documented as of this encounter Visit Diagnoses Diagnosis Incontinence Urinary Stress And Urge- Primary Cystitis Recurrent Incontinence Fecal Abnormal Ultrasound Endometrium documented in this encounter Care Teams Manager Of Care Relationship Specialty Start Date End Date Alexa Álvarez M.D. [id number] [place] [phone] PCP - General Family Medicine 06/02/23 documented as of this encounter
--- OUTSIDE RECORDS SUMMARY | 2023-08-19 07:02 | XMS_ITS | Encounter Summary ---
Author Name Unknown Organization [facility] Address [address] [place] [address] Care Team Providers Care Oncology Radiation Physician Name Role Phone Alexa Álvarez M.D. Primary Care Provider [phone]- [phone] Encounter Details Date Type Department Care Team (Latest Contact Info) Description 08/03/2023 11:00 AM CDT Education Division of Gastroenterology in [place], [place] [address] [place] [phone] Edis Gupta M.B.B.S. [address] [place] [phone] Jeaneth Walls, RRenae [address] [place] [phone] Education Need (Primary Dx); Incontinence Fecal Social History Tobacco Use Types Packs/Day Years Used Date Smoking Tobacco: Former Cigarettes 1 - 02/09/1985 Smokeless Tobacco: Never Alcohol Use Standard Drinks/Week Comments Not Currently 0 (1 standard drink = 0.6 oz pur e alcohol) [facility] Utilities Answer Date Recorded In the past 12 months has e electric, gas, oil, or water [employer] threatened to shut off services in your [...] often do you attend chur ch or orthodox services? More than 4 times per year 05/17/2022 Do you belong to any clubs o r organizations such as mosque groups, unions, fraternal or athletic groups, or [...] Answer Date Recorded PHQ-2 Score 0 06/09/2023 [facility] Occupat ional Health - Occupational Stress [...] your living situation today? I have a [facility] place to live 06/09/2023 Education Answer Date Recorded What is the highest level of school you have completed or the highest degree you have received? Master's degree (e.g., MA, MS, Flavia, MEd, POULTRY HELPER, WILLIE) 05/17/2022 Sex and Gender Information Value Date Recorded Sex Assigned at Female 05/17/2022 2:17 PM FREELANCE DATA ENTRY Gender Identity Female 05/17/2022 2:17 PM FREELANCE DATA ENTRY Sexual Orientation Straight 05/17/2022 2: 17 PM FREELANCE DATA ENTRY documented as of this encounter Progress Notes * Jeaneth Walls, R.N. - 08/03/2023 11:00 AM CDT REQUESTING PROVIDER Doroteo Varner. CHIEF COMPLAINT/REASON FOR VISIT The patient is referred for education regarding management of fecal incontinence. SUBJECTIVE Jeaneth is a 77-year-old female seen per Dr. Gupta for fecal incontinence. She is scheduled for X-ray this morning and will be scheduled for ARM study and colonoscopy in future per communication withthe DOS. We discussed recommendations for use of psyllium fiber supplement to modify stool consistency. Discussed a gradual upward titration and rationale for same. Discussed appropriate adjustments. Discussed use of the bowel diary to document patterns prior to and after initiating the fiber supplement. Denies any skin breakdown with fecal incontinence. In discussing her pattern of passive loss of stool without awareness of same, she acknowledged losswhich can occur shortly after passing what she considered a satisfying BM. We discussed toileting strategies which may be of benefit to improve her emptying. Reinforced a relaxed sitting position, use of diaphragmatic breathing. Briefly introduced the latter as she is admittedly not accustomed to this pattern of breathing. Questions answered. ASSESSMENT / PLAN Patient able to teach back management using fiber supplement for stool consistency modification andstrategies to consider during toileting which may improve emptying. She was provided with contact information and is agreeable to communicate with us if questions arise. documented in this encounter Plan of Treatment Upcoming Encounters Date Type Department Care Team (Latest Contact Info) Description 08/26/2023 9:30 AM CDT Procedure visit Department of Obstetrics and Gynecology in [place], [place] [address] [place] [phone] Milena Huffman APRN, C.N.P. [address] [place] [phone] Snow Cox APRN, C.N.P. [address] [place] [phone] Rajni Hooker M.D. [address] [place] [phone] Discharge Disposition: Home or Self Care 10/07/2023 7:30 AM CDT Clinical Communication Virtual Review in [place], [place] 200 [place] [phone] 10/11/2023 8:40 AM CDT Comprehensive Visit Division of Gastroenterology in [place], [place] [address] [place] [phone] Iker Bruce M.D. [address] [place] [phone] 10/26/2023 8:30 AM CDT Clinical Communication Virtual Review in [address] [phone] 10/26/2023 10:30 AM CDT Appointment Department of Radiology, [facility], in [address] [phone] Lisa Soni MPAS, P.A.-C. [address] [place] [phone] 10/27/2023 12:30 PM CDT Diagnostic Division of Pulmonary Medicine in [place], [place] [address] [place] [phone] Lisa Soni MPAS, P.A.-C. [address] [place] [phone] 10/27/2023 1:30 PM CDT Office Visit Division of Pulmonary Medicine in [address] [phone] Lisa Soni MPAS, P.A.-C. [address] [place] [phone] documented as of this encounter Visit Diagnoses Diagnosis Education Need- Primary Incontinence Fecal documented in this encounter Care Teams Oncology Radiation Physician Relationship Specialty Start Date End Date Alexa Álvarez M.D. [address] [place] [phone] PCP - General Family Medicine 06/02/23 documented as of this encounter
--- OUTSIDE RECORDS SUMMARY | 2023-08-19 07:02 | XMS_ITS ---
Author Name Unknown Organization [facility] Address [address] [place] [address] Care Team Providers Care Piano Bench Assembler Name Role Phone Unavailable Unavailable Unavailable Surgery Details Not on file Complications Check Surgery Details section. Procedure Estimated Blood Loss Check Surgery Details section. Procedure Findings Check Surgery Details section. Procedure Specimens Taken Check Surgery Details section.
--- OUTSIDE RECORDS SUMMARY | 2023-08-19 07:02 | XMS_ITS | Encounter Summary ---
Author Name Unknown Organization [facility] Address [address] [place] [address] Care Team Providers Care Software Configuration Manager Name Role Phone Alexa Álvarez M.D. Primary Care Provider +1- [phone] Reason for Referral * Outpatient (Routine) - Closed Specialty Diagnoses / Procedures Referred By James agrawal Referred To Contact Diagnoses Polyp Colon Adenomatous Personal History Procedures Colonoscopy restricted Edis Gupta M.B.B.S. 200 [place] [address] [facility] Referral ID Status Reason Start Date Expiration Date Visits Re quested Visits Authorized [id number] Closed 08/03/2023 08/02/2024 1 1 Reason for Visit * Outpatient (Routine) - Closed Specialty Diagnoses / Procedures Referred By James agrawal Referred To Contact Diagnoses Polyp Colon Adenomatous Personal History Procedures Colonoscopy restricted Edis Gupta M.B.B.S. [address] [place] [phone] [facility] Referral ID Status Reason Start Date Expiration Date Visits Re quested Visits Authorized [id number] Closed 08/03/2023 08/02/2024 1 1 Encounter Details Date Type Department Care Team (Latest Contact Info) Description 08/17/2023 1:37 PM CDT - 08/17/2023 11:59 PM CDT Hospital Encounter Division of Gastroenterology in [place], [place] [address] [place] [address] Edis Gupta M.B.B.S. [address] [place] [address] Polyp Colon Adenomatous Personal History Discharge Disposition: Home or Self Care Social History Tobacco Use Types Packs/Day Years Used Date Smoking Tobacco: Former Cigarettes 1 - 02/09/1985 Smokeless Tobacco: Never Tobacco Cessation:Counseling Given: Not Answered Alcohol Use Standard Drinks/Week Comments Not Currently 0 (1 standard drink = 0.6 oz pur e alcohol) [facility] [employer] Answer Date Recorded In the past 12 months has e [employer], gas, oil, or water [employer] threatened to shut off services in your [...] often do you attend chur ch or caodaism services? More than 4 times per year 05/17/2022 Do you belong to any clubs o r organizations such as scientology groups, unions, fraternal or athletic groups, or [...] Answer Date Recorded PHQ-2 Score 0 06/09/2023 [facility] of Occupat ional Health - Occupational Stress [...] Master's degree (e.g., MA, MS, Flavia, MEd, MANAGER [employer], WILLIE) 05/17/2022 Sex and Gender Information Value Date Recorded Sex Assigned at Female 05/17/2022 2:17 PM BARREL HANDLER Gender Identity Female 05/17/2022 2:17 PM BARREL HANDLER Sexual Orientation Straight 05/17/2022 2: 17 PM BARREL HANDLER documented as of this encounter Last Filed Vital Signs Vital Sign Reading Time Taken Comments Blood Pressure 134/69 08/17/2023 4:00 PM CDT Pulse 79 08/17/2023 4:00 PM CDT Temperature 36.4 ??C (97.5 ??F) 08/17/2023 3:39 PM CD T Respiratory Rate 22 08/17/2023 4:00 PM CDT Oxygen Saturation 88% 08/17/2023 4:00 PM CDT Inhaled Oxygen Concentration - - Weight 82.6 kg (182 lb) 08/17/2023 2:02 PM CDT Height 170.2 cm (5' 7) 08/17/2023 2:02 PM CDT Body Mass Index 28.51 08/17/2023 2:02 PM CDT documented in this encounter Medications at Time of Discharge Medication Sig Dispensed Refills Start Date End Date alendronate (FOSAMAX) 70 mg tablet Take 70 mg by mouth once a week. 07/02/2021 atorvastatin (LIPITOR) 10 mg tablet Take 10 mg by mouth at bedtime. 05/10/2022 cyanocobalamin (VITAMIN B12) 1,000 mcg/mL injection Inject 1,000 mcg intramuscularly every 28 (twenty-eight) days. 04/01/2022 DME CPAPIndications:Obs tructive Sleep Apnea Adult DME Order 1 each 04/20/2023 fluticasone propionate (FLONASE) 50 mcg/actuation nasal spray Administer 1 spray into each nostril daily as needed. 04/06/2022 gabapentin (NEURONTIN) 400 mg capsule Take 4 capsules by mouth at bedtime. 05/10/2022 ipratropium (ATROVENT) 21 mcg (0.03 %) nasal spray Administer 2 sprays into each nostril 2 (two) times a day. 30 mL 12 05/26/2022 ipratropium-albuter oL (Combivent Respimat) 20-100 mcg/actuation inhaler Inhale 1 puff every 6 (six) hours as needed. 08/25/2021 loratadine (CLARITIN) 10 mg tablet Take 1 tablet by mouth daily. 05/10/2022 losartan (COZAAR) 100 mg tablet Take 1 tablet by mouth daily. 05/10/2022 lysine 1,000 mg tablet Take 1 tablet by mouth daily as needed. 12/14/2011 methenamine (HIPREX) 1 gram tablet Take 1 tablet (1 g total) by mouth 2 (two) times a day. Take with 1000 mg Vitamin C 180 tablet 3 08/11/2023 08/10/2024 montelukast (SINGULAIR) 10 mg tablet Take 1 tablet by mouth at bedtime. 05/10/2022 omeprazole (PriLOSEC) [address] capsule Take 1 capsule by mouth as needed. 05/10/2022 Synthroid 100 mcg tablet Take 1 tablet by mouth daily. 05/10/2022 trospium (SANCTURA) 20 mg tablet Take 1 tablet (20 mg total) by mouth 2 (two) times a day before breakfast and dinner. 60 tablet 11 06/20/2023 06/19/2024 valACYclovir (VALTREX) 500 mg tablet Take 1 tab (500 mg) by mouth 2 times a day for 3 days. 6 tablet 5 07/01/2023 venlafaxine XR (EFFEXOR-XR) 75 mg 24 hr capsule Take 1 capsule by mouth daily. 07/02/2021 VITAMIN B COMPLEX ORAL Take 1 tablet by mouth daily as needed. 04/13/2010 documented as of this encounter H&P Notes * Oc Hansen M.D. - 08/17/2023 2:45 PM CDT ASSESSMENT / PLAN Patient Name: Jeaneth Howard Colonoscopy Procedure Department : DIVISION OF GASTROENTEROLOGY IN [place], [place] SUBJECTIVE Past Medical History: Diagnosis Date Cataract Chronic Obstructive Pulmonary Disease (HCC) Depressive Disorder Fibrosis Pulmonary (HCC) Gallbladder Disorder Hyperlipidemia Hypertension NOS Hypothyroidism Migraine Headache Osteoporosis Other Injury Of Unspecified Body Region Pneumonia Polyp Colon Skin Cancer (Primary) NOS Sleep Apnea Stone Kidney 06/13/2023 Past Surgical History: Procedure Laterality Date CATARACT EXTRACTION Bilateral 2020 GALLBLADDER SURGERY JOINT REPLACEMENT OTHER CONVERTED SHX (SEE COMMENT) N/A 04/03/2007 >C3 through superior C7 cervical laminectomy. SPINE SURGERY TONSILLECTOMY TUBAL LIGATION Social History Socioeconomic History Marital status: Single Highest education level: Master's degree (e.g., MA, MS, Flavia, MEd, MANAGER LIFE, WILLIE) Tobacco Use Smoking status: Former Current packs/day: 0.00 Types: Cigarettes Start date: 02/09/1967 Quit date: 02/09/1985 Years since quittin.5 Smokeless tobacco: Never Vaping Use Vaping status: never used Substance and Sexual Activity Alcohol use: Not Currently Drug use: Never Sexual activity: Not Currently Partners: Male control/protection: Condom, Pill, Spermicide, Tubal ligation (tubes tied) Social History Narrative She is single (). She has 3 children, 2 sons and one daughter. 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 Smoked cigarettes in the distant past. OBJECTIVE Weight: 82.6 kg Pain Score: 0 - No pain Consents Obtained: written The benefits, risks and alternatives of sedation or anesthesia, as well as the names, roles, and responsibilities of the healthcare team members, were discussed with the patient and/or decision maker: yes Procedure / Reason for visit: Surveillance colonoscopy diarrhea biopsies (verified with the patientand/or decision maker) The following portions of the patient's history were reviewed and updated as appropriate: allergies, current medications, family history, medical history, surgical history, social history and problemlist. yes Review of systems: pertinent ROS negative Mallampati: II - soft palate, uvula, fauces visible Heart: normal Lung: normal General / Constitutional: normal ASA physical exam: Class 2 - patient with mild systemic disease Patient seen, evaluated and approved for sedation Sedation plan: moderate sedation Baseline Behavior: Psychosocial (WDL): Within Defined Limits Abdominal Exam: Abdomen Inspection: Soft, Nondistended documented in this encounter Plan of Treatment Upcoming Encounters Date Type Department Care Team (Latest Contact Info) Description 08/26/2023 9:30 AM CDT Procedure visit Department of Obstetrics and Gynecology in [place], [place] [address] [place] [phone] Milena Huffman APRN, C.N.P. [address] [place] [phone] Snow Cox APRN, C.N.P. [address] [place] [phone] Rajni Hooker M.D. [address] [place] [phone] Discharge Disposition: Home or Self Care 10/07/2023 7:30 AM CDT Clinical Communication Virtual Review in [address] [phone] 10/11/2023 8:40 AM CDT Comprehensive Visit Division of Gastroenterology in [place], [place] [address] [place] [phone] Iker Bruce M.D. [address] [place] [phone] 10/26/2023 8:30 AM CDT Clinical Communication Virtual Review in [address] [phone] 10/26/2023 10:30 AM CDT Appointment Department of Radiology, [facility], in [place], [place] [address] [place] [phone] Lisa Soni, MPAS, P.A.-C. [address] [place] [phone] 10/27/2023 12:30 PM CDT Diagnostic Division of Pulmonary Medicine in [place], [place] [address] [place] [address] Lisa Soni MPAS, P.A.-CKarol [address] [place] [phone] 10/27/2023 1:30 PM CDT Office Visit Division of Pulmonary Medicine in [place], [place] [address] [place] [phone] Lisa Soni MPAS, P.A.-C. [address] [place] [phone] documented as of this encounter Procedures Procedure Name Priority Date/Time Associated Diagnosis Comments SURGICAL PATHOLOGY Routine 08/17/2023 3: 12 PM CDT COLONOSCOPY RESTRICTED Routine 08/17/2023 2:18 PM CDT Polyp Colon Adenomatous Personal History COLONOSCOPY Routine 08/17/2023 2:18 PM CDT Polyp Colon Adenomatous Personal History documented in this encounter Results * Surgical Pathology (08/17/2023 3:12 PM CDT) 08/18/2023 1:22 PM CDT DTL Report electronically signed by Francisco Turcios M.D. I verify that I have examined all relevant slides/material s for the specimen(s) and rendered or confirmed the diagnosis. 08/18/2023 1:22 PM CDT DTL Gross Description A: Received in formalin labeled with the patient's name, medical record number, and colon, ascending colon are four pale vail-pinkirregul ar soft tissues admixed with a moderate amount of probable debris, the tissues ranging from 0.3-0.9 cm in greatest dimension. Thespecimens are trisected and submitted entirely in cassettes A1-A2. Grossed by IVANIA. B: Received in formalin labeled with the patient's name, medical record number, and colon, random sites (colon) are nine pale vail-pinkirregul ar soft tissues, 0.2-0.7 cm in greatest dimension. Specimens are submitted en toto in cassette B1. ??Grossed by IVANIA. 08/18/2023 1:22 PM CDT DTL Interpretation FINAL DIAGNOSIS A. Colon, Ascending, polyps, endoscopic biopsy: Fragments of tubular adenoma, low-grade dysplasia. B. Colon, Random Sites, endoscopic biopsy: Colonic mucosa without diagnostic abnormality. No evidence of collagenous or lymphocytic colitis. Digital imaging was used in the diagnostic assessment of this case. 08/18/2023 1:22 PM CDT DTL Polyp (Colon) 08/17/2023 3:1 2 PM CDT Biopsy (Colon) 08/17/2023 3: 18 PM CDT Oc Hansen M.D. LAB SURG P ATH ORDERABLES [facility] [address] [place] [address], [facility] DTL [address] [place] [address] * Colonoscopy (08/17/2023 2:18 PM CDT) 08/17/2023 2:18 PM CDT Impressions [facility] - 08/17/2023 3:40 PM CDT Post-op Diagnoses: ? - Two 4 to 6 mm polyps in the ascending colon and in the cecum, removed ? with a cold snare. Resected and retrieved. ? - Diverticulosis in the sigmoid colon, in the descending colon and in ? the transverse colon. ? - The examination was otherwise normal on direct and retroflexion views. ? - Biopsies were taken with a cold forceps from the entire colon for ? evaluation of microscopic colitis. Narrative [facility] - 08/17/2023 3:40 PM CDT Gonda 9 GI GI Patient Name: Jeaneth Howard Date of : 1945 Age: 77 Procedure Date: 08/17/2023 Procedure: ? Colonoscopy Providers: ? Oc Hansen MD, Nahum Copeland MD ? (Fellow) Referring Provider: ?Edis Gupta MD Pre-op Diagnoses: ?Chronic diarrhea Recommendation: ? - Discharge patient to home (ambulatory). ? - Await pathology results. ? - Return to referring physician at the next available appointment. ? - Follow up recommendations for patients with polyps identified during ? colonoscopy are impacted by several factors including polyp ? characteristics (size, number and histology), adequacy of colonic ? preparation and pertinent family history. For [facility] providers, ? detailed recommendations are available as an AskMayoExpert Care Process ? Model: <[email or web address] ? There may be some circumstances, specifically those patients with a ? personal or family history of significant colorectal neoplasms where ? these guidelines may not apply. Consider consultation in ? Gastroenterology for all other polyp findings or for patients who are ? not at average risk. Findings: ? The perianal and digital rectal examinations were normal. ? Two sessile polyps were found in the ascending colon and cecum. The ? polyps were 4 to 6 mm in size. These polyps were removed with a cold ? snare. Resection and retrieval were complete. Estimated blood loss was ? minimal. ? Many small-mouthed diverticula were found in the sigmoid colon, ? descending colon and transverse colon. ? Biopsies for histology were taken with a cold forceps from the entire ? colon for evaluation of microscopic colitis. Estimated blood loss was ? minimal. ? The exam was otherwise without abnormality on direct and retroflexion ? views. Procedural Details: ? The patient was seen, evaluated, history reviewed, airway and heart-lung ? exams were performed by licensed provider and were satisfactory for ? planned level of sedation care. ? The risks, benefits and alternatives for the procedure and sedation were ? discussed and informed consent was obtained. A procedural pause was ? conducted in the presence of assisting personnel to verify the correct ? patient identity and procedure to be performed. Throughout the ? procedure, the patient's blood pressure, pulse, and oxygen saturations ? were monitored continuously. The Pediatric Colonoscope was introduced ? under direct vision through the anus and advanced to the cecum, ? identified by appendiceal orifice and ileocecal valve. The colonoscopy ? was technically difficult and complex due to a redundant colon. ? Successful completion of the procedure was aided by changing the patient ? to a supine position and applying abdominal pressure. The patient ? tolerated the procedure well. The quality of the bowel preparation was ? evaluated using the BBPS ([place] Bowel Preparation Scale) with scores ? of: Right Colon = 3, Transverse Colon = 3 and Left Colon = 3 (entire ? mucosa seen well with no residual staining, small fragments of stool or ? opaque liquid). The total BBPS score equals 9. The ileocecal valve, ? appendiceal orifice, and rectum were photographed. Estimated Blood Loss: ?Estimated blood loss was minimal. Complications: ? No immediate complications. Sedation: ? Moderate (conscious) sedation was administered by the nurse and ? supervised by the endoscopist. The following parameters were monitored: ? oxygen saturation, heart rate, blood pressure, and response to care. ? Total physician intraservice time was 41 minutes. Attending Participation: I was present and participated during the entire ? procedure, including non-chen portions. Oc Hansen MD 08/17/2023 3:40:11 PM This report has been signed electronically. Number of Addenda: 0 Edis Rao GI PROCEDURE OR DERABLES Performing Organization Address City/State/[facility] Co de Phone Number YULIYA VELEZ documented in this encounter Visit Diagnoses Diagnosis Polyp Colon Adenomatous Personal History documented in this encounter Administered Medications Inactive Administered Medications - up to 3 most recent administrations Medication Order MAR Action Action Date Dose Rate Site fentaNYL injection (SUBLIMAZE) intravenous, As needed, Starting on Tue08/17/23 at 1448, Intra-Op Given 08/17/2023 2:48 PM CDT 50 mcg fentaNYL injection (SUBLIMAZE) intravenous, As needed, Starting on Tue08/17/23 at 1456, Intra-Op Given 08/17/2023 2:56 PM CDT 25 mcg Lactated Ringer's Continuous Infusion: Per Instructions PRN, Starting on Tue08/17/23 at 1440, Intra-Op New Bag 08/17/2023 2:40 PM CDT 50 mL/hr 5 0 mL/hr midazolam (PF) injection (VERSED) As needed, Starting on Tue08/17/23 at 1448, Intra-Op Given 08/17/2023 2:48 PM CDT 2 mg midazolam (PF) injection (VERSED) As needed, Starting on Tue08/17/23 at 1456, Intra-Op Given 08/17/2023 2:56 PM CDT 1 mg sodium chloride 0.9 % injection As needed, Starting on Tue08/17/23 at 1448, Intra-Op Given 08/17/2023 2:48 PM CDT 3 mL sodium chloride 0.9 % injection As needed, Starting on Tue08/17/23 at 1456, Intra-Op Given 08/17/2023 2:56 PM CDT 3 mL documented in this encounter Care Teams Software Configuration Manager Relationship Specialty Start Date End Date Alexa Álvarez M.D. [address] [place] [phone] PCP - General Family Medicine 06/02/23 documented as of this encounter
--- OUTSIDE RECORDS SUMMARY | 2023-08-19 07:02 | XMS_ITS | Encounter Summary ---
Author Name Unknown Organization [facility] Address [address] [place] [address] Care Team Providers Care Acid Wash Operator Name Role Phone Alexa Álvarez M.D. Primary Care Provider +1- [phone] Reason for Referral * Outpatient (Routine) - Closed Specialty Diagnoses / Procedures Referred By James agrawal Referred To Contact Diagnoses Incontinence Fecal Procedures Anorectal Manometry Edis Gupta M.B.B.S. [address] [place] [phone] [facility] Referral ID Status Reason Start Date Expiration Date Visits Re quested Visits Authorized [id number] Closed 08/03/2023 08/02/2024 1 1 Reason for Visit * Outpatient (Routine) - Closed Specialty Diagnoses / Procedures Referred By James agrawal Referred To Contact Diagnoses Incontinence Fecal Procedures Anorectal Manometry Edis Gupta M.B.B.S. [address] [place] [phone] [facility] Referral ID Status Reason Start Date Expiration Date Visits Re quested Visits Authorized [id number] Closed 08/03/2023 08/02/2024 1 1 Encounter Details Date Type Department Care Team (Latest Contact Info) Description 08/17/2023 12:28 PM CDT - 08/17/2023 1:36 PM CDT Hospital Encounter Division of Gastroenterology in [place], [place] [address] [place] [address] Edis Gupta M.B.B.S. [address] [place] [address] Incontinence Fecal Discharge Disposition: Home or Self Care Social History Tobacco Use Types Packs/Day Years Used Date Smoking Tobacco: Former Cigarettes 1 - 02/09/1985 Smokeless Tobacco: Never Alcohol Use Standard Drinks/Week Comments Not Currently 0 (1 standard drink = 0.6 oz pur e alcohol) [facility] Utilities Answer Date Recorded In the past 12 months has e [employer], gas, oil, or water company threatened to [...] Answer Date Recorded PHQ-2 Score 0 06/09/2023 [facility] of Occupat ional Health - Occupational [...] Answer Date Recorded Dental: Regular Dentist Yes 01/16/20 23 Employment Answer Date Recorded Employment status Retired 06/09/2023 Housing Stability Answer Date Recorded What is your living situation today? I have a [facility] place to live 06/09/2023 Education Answer Date Recorded What is the highest level of school you have completed or the highest degree you have received? Master's degree (e.g., MA, MS, Flavia, MEd, [employer], [employer]IE) 05/17/2022 Sex and Gender Information Value Date Recorded Sex Assigned at Female 05/17/2022 2:17 PM KENNEL HAND Gender Identity Female 05/17/2022 2:17 PM KENNEL HAND Sexual Orientation Straight 05/17/2022 2: 17 PM KENNEL HAND documented as of this encounter Medications at [...] needed. 04/13/2010 documented as of this encounter Plan of Treatment Upcoming Encounters Date Type Department Care Team (Latest Contact Info) Description 08/26/2023 9:30 AM CDT Procedure visit Department of Obstetrics and Gynecology in [place], [place] [address] [place] [phone] Milena Huffman APRN, C.N.P. [address] [place] [phone] Snow Cox APRN, C.N.P. [address] [place] [phone] Rajni Hooker M.D. [address] [place] [phone] Discharge Disposition: Home or Self Care 10/07/2023 7:30 AM CDT Clinical Communication Virtual Review in [place], [place] [address] [place] [phone] 10/11/2023 8:40 AM CDT Comprehensive Visit Division of Gastroenterology in [place], [place] [address] [place] [phone] Iker Bruce M.D. [address] [place] [phone] 10/26/2023 8:30 AM CDT Clinical Communication Virtual Review in [place], [place] [address] [place] [phone] 10/26/2023 10:30 AM CDT Appointment Department of Radiology, [facility], in [place], [place] [address] [place] [phone] Lisa Soni MPAS, P.A.-C. [address] [place] [phone] 10/27/2023 12:30 PM CDT Diagnostic Division of Pulmonary Medicine in [place], [place] [address] [place] [phone] Lisa Soni MPAS, P.A.-C. [address] [place] [phone] 10/27/2023 1:30 PM CDT Office Visit Division of Pulmonary Medicine in [place], [place] [address] [place] [phone] Lisa Soni MPAS, P.A.-C. [address] [place] [phone] documented as of this encounter Procedures Procedure Name Priority Date/Time Associated Diagnosis Comments ANORECTAL MANOMETRY Routine 08/17/2023 5:06 PM CD T Incontinence Fecal documented in this encounter Results * Anorectal Manometry (08/17/2023 5:06 PM CDT) Edis Rao GI PROCEDURE OR DERABLES MMODAL NA documented in this encounter Visit Diagnoses Diagnosis Incontinence Fecal documented in this encounter Care Teams Acid Wash Operator Relationship Specialty Start Date End Date Alexa Álvarez M.D. [address] [phone] PCP - General Family Medicine 06/02/23 documented as of this encounter
--- OUTSIDE RECORDS SUMMARY | 2023-08-19 07:02 | XMS_ITS | Clinical Summary ---
Author Name Unknown Organization [facility] Address [address] [place] [id number] Care Team Providers Care Medical Orderly Name Role Phone Alexa Álvarez M.D. Primary Care Provider [phone] Source Comments Patient records contain information from all sites at [facility]. For routine questions regarding patient records, call [phone] during business hours, M-F 8:00 AM - 5:00 PM Central Time. 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 May tolerate very low dose, ie 10 milligrams daily for 5 days. Medications Medication Sig Dispensed Refills Start Date End Date Status alendronate (FOSAMAX) 70 mg tablet Take 70 mg by mouth once a week. 07/02/2021 Active atorvastatin (LIPITOR) 10 mg tablet Take 10 mg by mouth at bedtime. 05/10/2022 Active cyanocobalamin (VITAMIN B12) 1,000 mcg/mL injection Inject 1,000 mcg intramuscularly every 28 (twenty-eight) days. 04/01/2022 Active fluticasone propionate (FLONASE) 50 mcg/actuation nasal spray Administer 1 spray into each nostril daily as needed. 04/06/2022 Active gabapentin (NEURONTIN) 400 mg capsule Take 4 capsules by mouth at bedtime. 05/10/2022 Active ipratropium-alb uteroL (Combivent Respimat) 20-100 mcg/actuation inhaler Inhale 1 puff every 6 (six) hours as needed. 08/25/2021 Active Synthroid 100 mcg tablet Take 1 tablet by mouth daily. 05/10/2022 Active loratadine (CLARITIN) 10 mg tablet Take 1 tablet by mouth daily. 05/10/2022 Active losartan (COZAAR) 100 mg tablet Take 1 tablet by mouth daily. 05/10/2022 Active lysine 1,000 mg tablet Take 1 tablet by mouth daily as needed. 12/14/2011 Active montelukast (SINGULAIR) 10 mg tablet Take 1 tablet by mouth at bedtime. 05/10/2022 Active omeprazole (PriLOSEC) [address] capsule Take 1 capsule by mouth as needed. 05/10/2022 Active venlafaxine XR (EFFEXOR-XR) 75 mg 24 hr capsule Take 1 capsule by mouth daily. 07/02/2021 Active VITAMIN B COMPLEX ORAL Take 1 tablet by mouth daily as needed. 04/13/2010 Active ipratropium (ATROVENT) 21 mcg (0.03 %) nasal spray Administer 2 sprays into each nostril 2 (two) times a day. 30 mL 12 05/26/2022 Active DME CPAPIndications :Obstructive Sleep Apnea Adult DME Order 1 each 04/20/2023 Active Additional Information Patient not taking.Reported on 08/10/2023 trospium (SANCTURA) 20 mg tablet Take 1 tablet (20 mg total) by mouth 2 (two) times a day before breakfast and dinner. 60 tablet 11 06/20/2023 5 Active valACYclovir (VALTREX) 500 mg tablet Take 1 tab (500 mg) by mouth 2 times a day for 3 days. 6 tablet 5 07/01/2023 Active methenamine (HIPREX) 1 gram tablet Take 1 tablet (1 g total) by mouth 2 (two) times a day. Take with 1000 mg Vitamin C 180 tablet 3 08/11/2023 5 Active cephalexin (KEFLEX) 500 mg capsule Take 1 capsule (500 mg total) by mouth 2 (two) times a day. 14 capsule 07/01/2023 4 Discontinu ed(Therapy completed) doxycycline hyclate (VIBRA-TABS) 100 mg tablet Take 1 tablet by mouth 2 (two) times a day. 07/09/2023 4 Discontinu ed(Therapy completed) polyethylene glycol-electrol ytes (GoLYTELY) 236-22.74-6.74 -5.86 gram solution Drink 1st portion of prep at 6 PM the evening before. 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 She has been working with Milena Huffman APRN, CNP in urology in [place] and has undergone a thorough work-up for hematuria. She had a negative cystoscopy 07/04/2023. CT Urogram on 07/04/2023 indicated negative upper urinary tracts and diffuse wall thickening [...] a portal message with our cumulative recommendations. Incontinence Fecal 08/10/2023 Overview: She is noting significant improvement in her fecal incontinence with implementation of Metamucil. She is also implemented relaxed bowel movements and breathing techniques to be sure that she completely eliminates her stool with bowel movements. Currently this is going well for her. She is scheduled for colonoscopy and anorectal manometry common plans to complete her workup. Abnormal Ultrasound Endometrium 08/10/2023 Overview: Pelvic US indicates fluid within endometrial [...] will contact patient to get this scheduled. 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 Initiate vaginal estrogen cream 0.5 g 3 nights per week. Trospium (Sanctura) 20 mg twice daily. Also discussed treatment options for Stress Incontinence and will proceed with estrogen cream for now, until she has completed her GI and OPENSTACK CLOUD CONSULTING ARCHITECT work-up. Murmur Systolic 06/13/2023 Overview: Echocardiogram 05/2022 did not show significant valvular disease. Fibrosis Idiopathic Pulmonary 03/08/2023 Apnea Sleep Obstructive 12/28/2022 Osteoporosis 05/30/2022 Diverticulosis 12/23/2012 Polyp Colon Personal History 05/25/2010 Overview: Colonoscopy 05/2010 polyp, Colonoscopy in 3 years. Colonoscopy 06/2013 polyp repeat in 5 years Colonoscopy 07/2018 - follow up in 5 years advised Herpes Simplex Labialis 04/13/2010 Hyperlipidemia Mixed 02/10/2009 Bipolar Disorder 04/19/2006 Hypertension Essential Primary 04/19/2006 Hypothyroidism 04/19/2006 Resolved Problems Problem Noted Date Diagnosed Date Resolved Date Stone Kidney 06/13/2023 06/13/2023 Encounters Date Type Department Care Team Description 08/17/2023 2:20 PM CDT Ancillary Procedure Department of Gastroenterology Arrived 08/17/2023 1:37 PM CDT - 08/17/2023 11:59 PM CDT Hospital Encounter Division of Gastroenterology in [place], [place] [address] [place] [phone] Edis Gupta M.B.B.S. Polyp Colon Adenomatous Personal History Discharge Disposition: Home or Self Care 08/17/2023 12:28 PM CDT - 08/17/2023 1:36 PM CDT Hospital Encounter Division of Gastroenterology in [place], [place] [address] [place] [address] Edis Gupta M.B.B.S. Incontinence Fecal Discharge Disposition: Home or Self Care 08/16/2023 10:51 AM CDT - 08/16/2023 11:59 PM CDT Hospital Encounter Department of Laboratory Medicine in [address] [phone] Alexa Álvarez M.D. Monitoring For Therapeutic Drug Therapy Discharge Disposition: Home or Self Care 08/10/2023 10:30 AM CDT Comprehensive Visit Department of Obstetrics and Gynecology in [address] [phone] Lauren Leon APRN, C.N.P. Incontinence Urinary Stress And Urge (Primary Dx); Cystitis Recurrent; Incontinence Fecal; Abnormal Ultrasound Endometrium Discharge Disposition: Home or Self Care 08/03/2023 11:00 AM CDT Education Division of Gastroenterology in [place], [place] [address] [place] [phone] Edis Gupta M.B.B.S. Jeaneth Walls, RKarolN. Education Need (Primary Dx); Incontinence Fecal 08/03/2023 10:07 AM CDT - 08/03/2023 11:59 PM CDT Hospital Encounter Department of Radiology, [facility], in [place], [place] [address] [place] [address] Edis Gupta M.B.B.S. Incontinence Fecal Discharge Disposition: Home or Self Care 08/03/2023 8:00 AM CDT Comprehensive Visit Division of Gastroenterology in [place], [place] [address] [place] [address] Milena Huffman APRN, C.N.PEdis Subramanian M.B.B.S. Polyp Colon Adenomatous Personal History (Primary Dx); Incontinence Fecal 08/02/2023 Orders Only [facility] Alexa Álvarez M.D. Monitoring For Therapeutic Drug Therapy 07/28/2023 10:30 AM CDT Office Visit Division of Pulmonary Medicine in [place], [place] [address] [place] [phone] Lisa Soni MPAS, P.A.-C. Lung Interstitial Disease (HCC) (Primary Dx) 07/27/2023 1:00 PM CDT Clinical Communication Virtual Review in [place], [place] [address] [place] [address] Pre-visit Intake 07/14/2023 11:30 AM CDT Comprehensive Visit Department of Obstetrics and Gynecology in [address] [phone] Snow Malik APRN, C.N.P. Incontinence Urinary (Primary Dx); Infection Urinary Tract Personal History Discharge Disposition: Home or Self Care 07/12/2023 3:13 PM CDT - 07/12/2023 11:59 PM CDT Hospital Encounter Department of Radiology, [place], [place] [address] [place] [phone] Milena Huffman APRN, C.N.P. Hyperplasia Simple Endometrial Without Atypia Discharge Disposition: Home or Self Care 07/11/2023 11:00 AM CDT Office Visit Department of Urology in [address] [phone] Milena Huffman APRN, C.N.P. Lesion Appendix (Primary Dx); Hematuria; Hyperplasia Simple Endometrial Without Atypia 07/04/2023 1:00 PM TUCKING MACHINE OPERATOR Procedure visit Department of Urology in [place], [place] [address] [place] [phone] Milena Huffman APRN, C.N.P. Ben Barbour M.B., B.Ch. Hematuria 07/04/2023 11:30 AM TUCKING MACHINE OPERATOR - 07/04/2023 11:59 PM TUCKING MACHINE OPERATOR Hospital Encounter Department of Laboratory Medicine and Pathology, [facility] in [place], [place] [address] [place] [phone] Iker Pimentel M.D. Clinical Research Exam Discharge Disposition: Home or Self Care 07/04/2023 11:30 AM TUCKING MACHINE OPERATOR Clinical Support - [facility] Division of Gastroenterology in [place], [place] [address] [place] [address] Kelly Baker 07/04/2023 7:10 AM TUCKING MACHINE OPERATOR - 07/04/2023 11:29 AM TUCKING MACHINE OPERATOR Hospital Encounter Department of Radiology, [facility], in [place], [place] [address] [place] [address] Milena Huffman APRN, C.N.P. Hematuria Discharge Disposition: Home or Self Care 07/04/2023 Orders Only Division of Gastroenterology in [place], [place] [address] [place] [address] Kelly Baker Clinical Research Exam (Primary Dx) 07/01/2023 12:00 PM TUCKING MACHINE OPERATOR Office Visit Department of Family Medicine, [facility], in [address] [phone] Alexa Álvarez M.D. Matthies, Rebekah M, R.NKarol Annual Medicare Examination Return (Primary Dx) Discharge Disposition: Home or Self Care 07/01/2023 11:30 AM TUCKING MACHINE OPERATOR Comprehensive Visit Department of Family Medicine, [facility], in [address] [phone] Alexa Álvarez M.D. Annual Medicare Examination Return (Primary Dx); Acute Cystitis Without Hematuria; Chronic Cough; Bipolar Disorder (HCC); Herpes Simplex Genital Recurrent Discharge Disposition: Home or Self Care 07/01/2023 9:50 AM TUCKING MACHINE OPERATOR - 07/01/2023 11:59 PM TUCKING MACHINE OPERATOR Hospital Encounter Department of Laboratory Medicine in [address] [phone] Alexa Álvarez M.D. Dysuria Discharge Disposition: Home or Self Care 07/01/2023 9:45 AM TUCKING MACHINE OPERATOR - 07/01/2023 9:49 AM TUCKING MACHINE OPERATOR Hospital Encounter Department of Laboratory Medicine in [address] [phone] Milena Huffman APRN, C.N.P. Hematuria Discharge Disposition: Home or Self Care 06/30/2023 Orders Only Department of Family Medicine, [facility], in [address] [phone] Jerilyn Britton, RRenae 06/20/2023 8:45 AM TUCKING MACHINE OPERATOR Comprehensive Visit Department of Urology in [address] [phone] Milena Huffman APRN, C.N.P. Hematuria (Primary Dx); Cystitis Recurrent; Incontinence Urinary; Incontinence Fecal 06/17/2023 3:30 PM TUCKING MACHINE OPERATOR Procedure visit Department of Urology in [address] [phone] Alexa Álvarez M.D. O Brien, Beth A Incontinence Urinary Stress And Urge 06/13/2023 10:30 AM TUCKING MACHINE OPERATOR Office Visit Department of [facility] Medicine, [facility], [address] [phone] Alexa Álvarez M.D. Infection Urinary Tract Personal History (Primary Dx); Incontinence Urinary Stress And Urge; Personal History Of Infectious And Parasitic Disease (COVID-19); Lung Interstitial Disease (HCC); Fibrosis Idiopathic Pulmonary (HCC); Murmur Systolic Discharge Disposition: Home or Self Care 06/13/2023 9:55 AM TUCKING MACHINE OPERATOR - 06/13/2023 11:59 PM TUCKING MACHINE OPERATOR Hospital Encounter Department of Laboratory Medicine in [address] [phone] Jeaneth Sofia APRN, C.N.P. Hematuria (Primary Dx); Infection Escherichia Coli; Cystitis Unspecified With Hematuria Discharge Disposition: Home or Self Care 06/06/2023 Clinical Communication Department of [facility], [facility], in [address] [phone] Jeaneth Sofia APRN, C.N.P. Results 06/03/2023 3:59 PM TUCKING MACHINE OPERATOR - 06/03/2023 11:59 PM TUCKING MACHINE OPERATOR Hospital Encounter Department of Laboratory Medicine in [place] [address] [facility] [address] Jeaneth Sofia APRN, C.NHaritha Dysuria Discharge Disposition: Home or Self Care 06/02/2023 3:00 PM TUCKING MACHINE OPERATOR Office Visit Department of Family Medicine, [facility], in [address] [phone] Jeaneth Sofia APRN, C.N.PKarol Dysuria (Primary Dx) Discharge Disposition: Home or Self Care 06/02/2023 Nurse Triage Department of [facility], [facility], [address] [phone] Alix Plascencia R.N. Urinary Problem from Last 3 Months Immunizations Name Administration Dates Next Due DT, Pediatric 02/27/1990 H1N1 All Forms 05/19/2009 H1N1 Inj 05/19/2009 HZV (ZOSTAVAX) 11/16/2011 Influenza (IM) Preservative Free 01/19/2010 Influenza TIV (IM) 01/16/2019, 7,04/08/2008,2006,02/01/2006 Influenza high dose QV(65 ye ars or older) (PF) 01/21/2022,12/24/2019 Influenza, Quadrivalent, Adj uvanted, Preservative Free 01/13/2023,01/27/2021,12/24/2019 Influenza, Seasonal, Injectable 01/26/20 11,04/08/2008,02/10/2007,2004,02/07/2004,02/27/2003 PCV13 12/24/2014 PPSV23(Discontinued) 09/06/2012,02/08/2012,02/06 RSV: respiratory syncytial v irus (AREXVY) recombinant vaccine 01/31/2023 RZV (SHINGRIX) 11/30/2018,07/21/2018 Tdap 01/22/2014,02/10/2009 influenza high dose (65 year s or older) (PF) 02/13/2018,01/27/2018,01/29/2016,2014,02/08/2012 influenza vaccine quad (FLUZONE/FLUARIX) (6 months and older)(PF) 01/13/2023,01/27/2021,01/16/2019,2017,01/27/2018,01/24/2017,01/29/2016,1 ,01/22/2014,02/08/2012, 011,01/19/2010,05/19/2009,04/08/2008,,02/17/2005,02/07/2004,02/28/20 03 Family History Medical History Relation Name Comments Colon polyps Brother Iker Sunshine Rectal cancer Brother Iker Sunshine Thyroid disease Brother Iker Sunshine Clotting disorder Father Piero Sunshine Depression Father Piero Sunshine Hyperlipidemia Father Piero Sunshine Hypertension Father Piero Sunshine Kidney disease Father Piero Sunshine Skin cancer Father Piero Sunshine Arthritis Mother Sofia Jong Depression Mother Sofia Jong Macular degeneration Mother Sofia Jong Osteoporosis Mother Sofia Jong Glaucoma Paternal Grandmother Depression Son 3 Huey Oiseth Depression Son 4 Livan Howard Anxiety and dep ression Relation Name Status Comments Brother Iker Sunshine Daughter Alive Father Piero Sunshine Mother Sofia Jong Paternal Grandmother Son 1 Alive Son 2 Alive Son 3 Huey Oiseth Son 4 Livan Lee Social History Tobacco Use Types Packs/Day Years Used Date Smoking Tobacco: Former Cigarettes 1 - 02/09/1985 Smokeless Tobacco: Never Tobacco Cessation:Counseling Given: Not Answered Alcohol Use Standard Drinks/Week Comments Not Currently 0 (1 standard drink = 0.6 oz pur e alcohol) [facility] Utilities Answer Date Recorded In the past 12 months has e [employer], gas, oil, or water [employer] threatened to shut off services in your [...] How often do you attend chur or protestant services? More than 4 times per year [...] Answer Date Recorded PHQ-2 Score 0 06/09/2023 [facility] of Occupat ional Health - Occupational Stress [...] your living situation today? [facility] 06/09/2023 Education Answer Date Recorded What is the highest level of school you have completed or the highest degree you have received? 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, WILLIE) 05/17/2022 Sex and Gender Information Value Date Recorded Sex Assigned at Female 05/17/2022 2:17 PM TUCKING MACHINE OPERATOR Gender Identity Female 05/17/2022 2:17 PM TUCKING MACHINE OPERATOR Sexual Orientation Straight 05/17/2022 2: 17 PM TUCKING MACHINE OPERATOR Last Filed Vital Signs Vital Sign Reading [...] Mass Index 28.51 08/17/2023 2:02 PM CDT Plan of Treatment Upcoming Encounters Date Type Department Care Team (Latest Contact Info) Description 08/26/2023 9:30 AM CDT Procedure visit Department of Obstetrics and Gynecology in [place], [place] [address] [place] [phone] Milena Huffman APRN, C.N.P. [address] [place] [phone] Snow Cox APRN, C.N.P. [address] [place] [phone] Rajni Hooker M.D. [address] [place] [phone] Discharge Disposition: Home or Self Care 10/07/2023 7:30 AM CDT Clinical Communication Virtual Review in [place], [place] [address] [place] [address] 10/11/2023 8:40 AM CDT Comprehensive Visit Division of Gastroenterology in [place], [place] [address] [place] [phone] Iker Bruce M.D. [address] [place] [phone] 10/26/2023 8:30 AM CDT Clinical Communication Virtual Review in [place], [place] [address] [place] [address] 10/26/2023 10:30 AM CDT Appointment Department of Radiology, [facility], in [place], [place] [address] [place] [phone] [place], [place] Joseph P.A.-CKarol [address] [place] [phone] 10/27/2023 12:30 PM CDT Diagnostic Division of Pulmonary Medicine in [place], [place] [address] [place] [phone] Lisa Soni MPAS, P.A.-CKarol [address] [place] [phone] 10/27/2023 1:30 PM CDT Office Visit Division of Pulmonary Medicine in [place], [place] [address] [place] [phone] Lisa Soni MPAS, P.A.-C. [address] [place] [phone] Health Maintenance Due Date Last Done Comments Hepatitis C Screening 1945 Visit: Chronic Disease, age 18+ 1945 COVID-19 Vaccine (2022- season) 2023 01/31/2023, 01/21/2022, 09/02/2021, Additional history exists Thyroid Stimulating Hormone (TSH) test for thyroid function 12/29/2023 12/28/2022, 08/13/2022, 05/26/2022, Additional history exists DTaP,Tdap,and Td Vaccines (4 - Td or Tdap) 01/23/2024 01/22/2014, 02/10/2009, 02/27/1990 Visit: Medicare Annual Wellness 07/01/2024 07/01/2023, 07/01/2023 Office Visit for Blood Pressure Check / Re-check 08/09/2024 08/10/2023 Creatinine Level (Kidney Function Test) 08/15/2024 08/16/2023, 07/01/2023, 05/26/2022, Additional history exists Potassium Level 08/15/2024 08/16/2023, 08/2023, 05/26/2022, Additional history exists Sodium Level 08/15/2024 08/16/2023, 05/03, 05/18/2022, Additional history exists Pneumococcal vaccine (65+ years) Completed 12/24/2014, 09/06/2012, 02/08/2012, Additional history exists Zoster Vaccines Completed 11/30/2018, 07/01, 11/16/2011 Influenza Vaccine Completed 01/13/2023, , 01/21/2022, Additional history exists RSV vaccine - (32-36 weeks) or 60+ years Completed 01/31/2023 Depression Screening (Annual PHQ-2) Completed 06/13/2023, 06/09/2023 Fall Risk Screen (Annual) Completed 08/17/2023 HPV Vaccines Aged Out No longer eligi ble based on patient's age to complete this topic Medical Devices Implanted Type Area Podiatric Foot And Ankle Specialist Device Identifier Shelf Expiration Date Model / Serial / Lot Brenden/Screws From [employer] Historical Record-06/04/2019 Implanted:06/04 by Provider, Historical (Quantity not on file) Hardware e.g. pins/screws/ rods Right: Tibia Historical Record Total Left Knee Replacement Implanted:09/30 by Provider, Historical (Quantity not on file) Knee Implant Left: Knee Procedures Procedure Name Priority Date/Time Associated Diagnosis Comments ANORECTAL MANOMETRY Routine 08/17/2023 5:06 PM CDT Incontinence Fecal SURGICAL PATHOLOGY Routine 08/17/2023 3:12 PM CDT GASTROENTEROLOGY IMAGE EXAM Routine 08/17/2023 2:20 PM CDT COLONOSCOPY Routine 08/17/2023 2:18 PM CDT Polyp Colon Adenomatous Personal History COLONOSCOPY RESTRICTED Routine 2:18 PM CDT Polyp Colon Adenomatous Personal History BASIC METABOLIC PANEL, S/P Routine 08/16/2023 10:56 AM CDT Monitoring For Therapeutic Drug Therapy DX ABDOMEN 1 VIEW RAD - Routine (most inpatients and all outpatients) 08/03/2023 10:28 AM CDT Incontinence Fecal PULMONARY FUNCTION TESTS Routine 07/28/2023 9:40 AM CDT Lung Interstitial Disease (HCC) US PELVIS TRANSVAGINAL AND TRANSABDOMINAL RAD - Routine (most inpatients and all outpatients) 07/12/2023 4:03 PM CDT Hyperplasia Simple Endometrial Without Atypia RI CYSTOURETHROSCOPY Routine 07/04/2023 1:00 PM TUCKING MACHINE OPERATOR Hematuria MISC RESEARCH ORDER, B Routine 12:06 PM TUCKING MACHINE OPERATOR Clinical Research Exam CT UROGRAM WITHOUT AND WITH IV CONTRAST RAD - Routine (most inpatients and all outpatients) 07/04/2023 8:21 AM TUCKING MACHINE OPERATOR Hematuria HC URINALYSIS AUTO W MICRO Routine 07/01/2023 10:28 AM TUCKING MACHINE OPERATOR URINALYSIS WITH MICROSCOPIC IF INDICATED, U Routine 07/01/2023 10:28 AM TUCKING MACHINE OPERATOR Dysuria BACTERIAL CULTURE, AEROBIC + SUSC, URINE Routine 07/01/2023 10:28 AM TUCKING MACHINE OPERATOR Dysuria CREATININE WITH EGFR, S/P Routine 07/01/2023 10:20 AM TUCKING MACHINE OPERATOR Hematuria BACTERIAL CULTURE, AEROBIC + SUSC, URINE Routine 06/13/2023 11:41 AM TUCKING MACHINE OPERATOR Infection Escherichia Coli Cystitis Unspecified With Hematuria HC URINALYSIS AUTO W MICRO Routine 06/13/2023 11:37 AM TUCKING MACHINE OPERATOR URINALYSIS WITH MICROSCOPIC IF INDICATED, U Routine 06/13/2023 11:37 AM TUCKING MACHINE OPERATOR Infection Escherichia Coli BACTERIAL CULTURE, AEROBIC + SUSC, URINE Routine 06/03/2023 4:03 PM TUCKING MACHINE OPERATOR Dysuria HC URINALYSIS AUTO W MICRO Routine 06/02/2023 3:45 PM TUCKING MACHINE OPERATOR URINALYSIS WITH MICROSCOPIC IF INDICATED, U Routine 06/02/2023 3:45 PM TUCKING MACHINE OPERATOR Dysuria EXTI THYROID-STIMULATING HORMONE-SENSITIVE (S-TSH), S Routine 12/28/2022 11:09 AM CDT from Last 3 Months or Most Recently Relevant to Health Maintenance Results * Anorectal Manometry (08/17/2023 5:06 PM CDT) Edis Rao GI PROCEDURE OR DERABLES MMODAL NA * Surgical Pathology (08/17/2023 3:12 PM CDT) [...] Hansen M.D. LAB SURG P ATH ORDERABLES Performing Organization Address City/[facility] Co de Phone Number [facility] [address] [place] [address], [facility] [address] [place] [address] * Colon, Transverse colon Colonoscopy-Gastroenterology Image Exam (08/17/2023 2:20 PM CDT) 08/17/2023 2:18 PM CDT Narrative [facility] - 08/17/2023 3:51 PM CDT This order has been created and auto-finalized to support the import of images acquired without order. The clinical documentation to support these images can be found on the encounter that produced images. Provider Not In System IMG NON RAD IMAGI NG PROCEDURES Performing Organization Address [facility] de Phone Number [facility] NA * Colonoscopy (08/17/2023 2:18 PM CDT) 08/17/2023 2:18 PM CDT Impressions [facility] - 08/17/2023 3:40 PM CDT Post-op Diagnoses: [...] for ? evaluation of microscopic colitis. Narrative [facility] - 08/17/2023 3:40 PM CDT Gonda 9 [...] ? preparation and pertinent family history. For [facility] providers, ? detailed recommendations are available as an AskMayoExpert Care Process ? Model: <[email or web address] ? There may be some circumstances, specifically [...] preparation was ? evaluated using the BBPS ([place] Bowel Preparation Scale) with scores ? of: [...] been signed electronically. Number of Addenda: 0 Edsi Rao GI PROCEDURE OR DERABLES Performing Organization Address City/State/[facility] Co pa Phone Number YULIYA POND NA * Basic Metabolic Panel (08/16/2023 10:56 AM CDT) Potassium, P 4.4 3.6 - 5.2 mmol/L 08/16/2023 11:29 AM CDT CNFL Sodium, P 140 135 - 145 mmol/L 08/16/2023 11:29 AM CDT CNFL Chloride, P 103 98 - 107 mmol/L 08/16/2023 11:29 AM CDT CNFL Bicarbonate, P 25 22 - 29 mmol/L 08/16/2023 11:29 AM CDT CNFL Anion Gap, P 12 7 - 15 08/16/2023 11:29 AM CDT CNFL BUN (Blood Urea Nitrogen), P 15 6 - 21 mg/dL 08/16/2023 11:29 AM CDT CNFL Creatinine 0.66 0.59 - 1.04 mg/dL 08/16/2023 11:29 AM CDT CNFL Estimated GFR (eGFR) 90 >=60 mL/min/BSA 08/16/2023 11:29 AM CDT CNFL Comment: Estimated GFR calculated using the 2020 CKD_EPI creatinine equation. Calcium, Total, P 9.5 8.8 - 10.2 mg/dL 08/16/2023 11:29 AM CDT CNFL Glucose, P 92 70 - 140 mg/dL 08/16/2023 11:29 AM CDT CNFL Blood (Blood, Venous) 08/16/2023 10:56 AM CDT 08/16/2023 10:57 AM CDT Alexa Álvarez M.D. LAB BLOOD ADD-ON [facility] [address] [place] [id number], [facility] CNFL [facility] in [address] [address] * DX Abdomen 1 View (08/03/2023 10:28 AM CDT) Anatomical Region Laterality Modality Abdomen, Abdominal RST LOS, Abdominal ARZ LOS, Abdominal FLA LOS N/A Computed Tomography Impressions 08/03/2023 10:31 AM CDT Nonobstructed bowel gas pattern. Moderate colonic stool burden. Surgical clips RUQ. Patchy pulmonary opacities. Narrative 08/03/2023 10:31 AM CDT EXAM: ??DX ABDOMEN 1 VIEW Procedure Note Joey Green M.D. - 08/03/2023 EXAM: DX ABDOMEN 1 VIEW IMPRESSION: Nonobstructed bowel gas pattern. Moderate colonic stool burden. Surgicalclips RUQ. Patchy pulmonary opacities. Edis Rao Matt DIAGNOSTIC IMAGING PROCEDURES * Pulmonary Function Tests (07/28/2023 9:40 AM CDT) FVC 2.62 L 07/28/2023 9:27 PM CDT [facility] FEV1 2.11 L 07/28/2023 9:27 PM CDT [facility] FEV1/FVC 80.36 % 07/28/2023 9:27 PM CDT [facility] SYG22-73% 2.88 L/s 07/28/2023 9:27 PM CDT [facility] PEF PRE 7.43 L/s 07/28/2023 9:27 PM CDT [facility] PIF PRE 5.38 L/s 07/28/2023 9:27 PM CDT [facility] FEF 50 % FIF 50 PRE 92.29 % 07/28/2023 9:27 PM CDT [facility] FET PRE 11.39 sec 07/28/2023 9:27 PM CDT [facility] DLCO 12.34 ml/(min*mm Hg) 07/28/2023 9:27 PM CDT [facility] VA 3.72 L 07/28/2023 9:27 PM CDT [facility] PulseRest 81.00 1/min 07/28/2023 9:27 PM CDT [facility] O8BooCjol 94.00 % 07/28/2023 9:27 PM CDT [facility] PulseExer 107.00 1/min 07/28/2023 9:27 PM CDT [facility] EXER TIME 3.00 min 07/28/2023 9:27 PM CDT [facility] STEP HEIGHT PRE 9.00 Inch 07/28/2023 9:27 PM CDT [facility] TLC 4.20 L 07/28/2023 9:27 PM CDT [facility] FRCPLETH PROVBASE 2.43 L 07/28/2023 9:27 PM CDT [facility] RV 1.57 L 07/28/2023 9:27 PM CDT [facility] RV % TLC PRE 37.40 % 07/28/2023 9:27 PM CDT [facility] 07/28/2023 9:40 AM CDT Impressions [facility] - 07/28/2023 9:27 PM CDT Abnormal study. Mild restriction. Diffusing capacity (unadjusted for hemoglobin) is moderately reduced consistent with a pulmonary parenchymal, vascular process and/or anemia. Oxygen saturation is normal at rest and with exercise. Compared to 02/28/2023, TLC is reduced. Narrative Procedure Note Shaheen Grimaldo M.D. - 07/28/2023 IMPRESSION: Abnormal study. Mild restriction. Diffusing capacity (unadjusted forhemoglobin) is moderately reduced consistent with a pulmonary parenchymal,vascular process and/or anemia. Oxygen saturation is normal at rest andwith exercise. Compared to 02/28/2023, TLC is reduced. Lisa HASSAN, P.A.-C. PFT ORDERA BLES [facility] NA * US Pelvis Transvaginal and Transabdominal (07/12/2023 4:03 PM CDT) Anatomical Region Laterality Modality Pelvis, Ultrasound RST LOS, Ultrasound ARZ LOS, Ultrasound FLA LOS N/A Ultrasound Impressions 07/12/2023 4:17 PM CDT Fluid within endometrial canal, which accounts for the apparent thickening on the comparison CT. At the distal aspect of the fluid there is a more hypoechoic region measuring up to 0.7 cm, which is nonspecific but could represent debris versus a small polyp. Consider gynecologic referral. Narrative 07/12/2023 4:17 PM CDT EXAM: US PELVIS TRANSVAGINAL AND TRANSABDOMINAL COMPARISON: CT urogram 07/04/2023. TECHNIQUE: Transabdominal and transvaginal. Transvaginal exam performed to better visualize the uterus and/or adnexal regions. FINDINGS: Uterus: 2.3 cm x 2.4 cm x 4.2 cm. Myometrium: Normal. Endometrium: Normal thickness of the endometrium, measuring approximately 3 mm. There is fluid within the endometrium, greatest at the fundus, which accounts for the thickened appearance on the comparison CT. Closer to the mid uterine level of the endometrial canal at the distal aspect of the fluid there is a more hypoechoic region measuring up to approximately 0.7 cm, without definite vascularity. Right ovary: Normal. ??Ovarian volume: Less than 1 mL. Left ovary: Not seen, likely due to small size and avoid bowel gas. Intraperitoneal Fluid: None. Procedure Note Hector Ochoa M.D. - 07/12/2023 EXAM: US PELVIS TRANSVAGINAL AND TRANSABDOMINAL COMPARISON: CT urogram 07/04/2023. TECHNIQUE: Transabdominal and transvaginal. Transvaginal exam performed tobetter visualize the uterus and/or adnexal regions. FINDINGS: Uterus: 2.3 cm x 2.4 cm x 4.2 cm. Myometrium: Normal. Endometrium: Normal thickness of the endometrium, measuring approximately3 mm. There is fluid within the endometrium, greatest at the fundus, whichaccounts for the thickened appearance on the comparison CT. Closer to themid uterine level of the endometrial canal at the distal aspect of the fluid there is a morehypoechoic region measuring up to approximately 0.7 cm, without definitevascularity. Right ovary: Normal. Ovarian volume: Less than 1 mL. Left ovary: Not seen, likely due to small size and avoid bowel gas.Intraperitoneal Fluid: None. IMPRESSION: Fluid within endometrial canal, which accounts for the apparent thickeningon the comparison CT. At the distal aspect of the fluid there is a morehypoechoic region measuring up to 0.7 cm, which is nonspecific but couldrepresent debris versus a small polyp. Consider gynecologic referral. Samm Ledezma APRN.N.PKarol [facility] US PRO CEDURES * RI CYSTOURETHROSCOPY (07/04/2023 1:00 PM TUCKING MACHINE OPERATOR) Narrative Ben Barbour M.B., B.Ch. - 07/04/2023 1:00 PM TUCKING MACHINE OPERATOR Ben Barbour M.B., B.Ch. ? 07/04/2023 ??1:15 PM URO Cystoscopy (general) Performed by: Ben Barbour M.B., B.Tristin. Authorized by: Milena Huffman APRN, C.N.P. ?? IMPRESSION negative cystoscopy and chronic cystitis Additional procedures performed: cystoscopy ?? PROCEDURE DETAILS: Urethra (female): ??Normal: yes ?Diverticulum present: no ?? Sphincter: ??Characteristic: coapting ?? Trigone: ??Normal: yes Ureters: ??Characteristics: ??Effluxing clear urine ??Effluxing clear urine - side: ??Bilateral Bladder: ??Normal: yes ?Capacity: ??Moderate ??Quality of urine: ??Clear ??Residual upon entry: ??Moderate Retroflex view: ??Normal: yes ?? A flexible cystoscope was inserted through the urethra into the bladder. Cystoscope was removed at the end of procedure. Diagnosis: persistent microscopic hematuria: 3-10 RBC in 06/13/2023; 11-20 RBCs in 06/02/2023 in the setting of recurrent UTIs. CTU negative for upper tract malignancy/filling defects. Diffuse bladder wall thickening with mild mucosal enhancement in the urinary bladder base. The risks, benefits, and alternatives of the procedure were described, including the risks of bleeding, infection, retention, pain, inability to complete the procedure successfully, and possible need for further therapy. After verification of patient identity and antibiotic administration, the flexible cystoscope was introduced. Normal meatus. Normal urethra. Bilateral ureteral orificies were visualized and in their orthotopic location. There were no trabeculations, cellules, or diverticula. The bladder mucosa demonstrated generalized erythema consistent with patient's history of recurrent UTI suggesting chronic cystitis. Bladder tumors were not present. ??On retroflexion, there was a normal bladder neck. The cystoscope was withdrawn. Patient tolerated the procedure well. Impression: ??Negative cystoscopy Plan: Follow up with Milena Huffman on 07/11/2023. CONSENT Consent obtained: verbal Consent given by: patient The benefits, risks and alternatives to the procedure and the potential need for sedation or anesthesia as well as the names, roles, and responsibilities of healthcare team members performing significant interventional tasks were discussed with the patient and/or decision maker. UNIVERSAL PROTOCOL All relevant documentation and testing were reviewed and available. All required blood products, implants, devices and or special equipment were made available as applicable. Pre-procedure verification was conducted and the correct site was marked if required. A fire risk assessment was done as applicable. The procedural time-out to verify correct patient, correct side/site, and procedure was conducted prior to performing the procedure and confirmed in a procedural pause. PRE-PROCEDURE DETAILS Procedure purpose: ??Diagnostic Appropriate hand hygiene, gown, cap, mask, protective eyewear, sterile gloves, skin preparation, sterile drape, and strict aseptic technique were utilized as applicable for the procedure.: yes ?? Site preparation: ??Chlorhexidine SEDATION / ANESTHESIA Anesthesia method: none POST-PROCEDURE DETAILS Procedure completed successfully: yes ?? Complications: no apparent complications ?? Milena Emanuel Huffman VIJAY, C.N.P. UROLOGY OR DERABLES * [facility] Research, Blood (07/04/2023 12:06 PM TUCKING MACHINE OPERATOR) Number of Specimens 6 07/04/2023 12:06 PM TUCKING MACHINE OPERATOR HSS Blood (Blood, Venous) 07/04/2023 12:06 PM TUCKING MACHINE OPERATOR 07/04/2023 12:06 PM TUCKING MACHINE OPERATOR Iker Pimentel M.D. LAB RESEARCH NO RESU LT ROUTING [facility] [address] [place] [address], [facility] HSS [facility] [address] [place] [address] * CT Urogram without and with IV Contrast (07/04/2023 8:21 AM TUCKING MACHINE OPERATOR) Anatomical Region Laterality Modality Abdomen, Pelvis, Abdominal R ST LOS, Abdominal ARZ LOS, Abdominal FLA LOS N/A Computed Tomograp hy, Computed Tomography 07/04/2023 8:07 AM TUCKING MACHINE OPERATOR Impressions 07/04/2023 8:51 AM TUCKING MACHINE OPERATOR 1. Negative upper urinary tracts. 2. Diffuse wall thickening of the urinary bladder with mild mucosal enhancement in the urinary bladder base. Findings are favored to represent inflammatory change but correlation with the upcoming cystoscopy is recommended. 3. Abnormally thickened uterine endometrium, raising concern for endometrial malignancy. Correlation with dedicated pelvic ultrasound is suggested. 4. Wall thickening of the appendix with mildly distended appendiceal tip, which have progressed since 11/20/2018. Findings are favored chronic inflammatory change but appendiceal neoplasm cannot be entirely excluded. ?? * Screen captures provided. Narrative 07/04/2023 8:51 AM TUCKING MACHINE OPERATOR EXAM: ??CT UROGRAM WITHOUT AND WITH IV CONTRAST COMPARISON: ??CT dated 11/20/2018, and other previous studies FINDINGS: : No urinary calculi. No worrisome renal mass. Tiny renal cysts. Symmetric nephrogram. No wall thickening, mural hyperenhancement or filling defects in bilateral renal collecting systems or ureters. Diffuse wall thickening of the urinary bladder. Mild mucosal enhancement in the urinary bladder base (series 13 image 113). No worrisome mass in the urinary bladder.. Non-: Abnormally thickened uterine endometrium measuring 14 mm (series 13 image 106). Mild wall thickening of the appendix measuring 7 mm (series 9 image 85) with slightly distended appendix tip. Findings have progressed from the prior CT dated 11/20/2018, when there was a tiny fecalith in the appendix. No worrisome hepatic mass. Cholecystectomy. Fatty infiltration of the pancreas. The spleen, and adrenal glands are normal in appearance. Normal caliber small and large bowel. Colonic diverticulosis. No lymphadenopathy in the abdomen or pelvis. No ascites. Small esophageal hiatal hernia. Mild cardiomegaly. Partially visualized fibrotic interstitial lung disease in the lung bases. Partially visualized pulmonary nodules, better appreciated on this chest CT dated 02/28/2023. Atherosclerotic calcification. No worrisome osseous lesion. Musculoskeletal degenerative change. Old rib fractures. Procedure Note Javi Xiong M.D., Ph.D. - 07/04/2023 EXAM: CT UROGRAM WITHOUT AND WITH IV CONTRAST COMPARISON: CT dated 11/20/2018, and other previous studies FINDINGS: : No urinary calculi. No worrisome renal mass. Tiny renal cysts.Symmetric nephrogram. No wall thickening, mural hyperenhancement orfilling defects in bilateral renal collecting systems or ureters. Diffusewall thickening of the urinary bladder. Mild mucosal enhancement in the urinary bladder base (series 13 image 113). Noworrisome mass in the urinary bladder.. Non-: Abnormally thickened uterine endometrium measuring 14 mm ( image 106). Mild wall thickening of the appendix measuring 7 mm (series 9 image 85)with slightly distended appendix tip. Findings have progressed from theprior CT dated 11/20/2018, when there was a tiny fecalith in theappendix. No worrisome hepatic mass. Cholecystectomy. Fatty infiltration of thepancreas. The spleen, and adrenal glands are normal in appearance. Normalcaliber small and large bowel. Colonic diverticulosis. No lymphadenopathyin the abdomen or pelvis. No ascites. Small esophageal hiatal hernia. Mild cardiomegaly. Partially visualized fibrotic interstitial lung diseasein the lung bases. Partially visualized pulmonary nodules, betterappreciated on this chest CT dated 02/28/2023. Atherosclerotic calcification. No worrisome osseous lesion.Musculoskeletal degenerative change. Old rib fractures. IMPRESSION: 1. Negative upper urinary tracts. 2. Diffuse wall thickening of the urinary bladder with mild mucosalenhancement in the urinary bladder base. Findings are favored to representinflammatory change but correlation with the upcoming cystoscopy isrecommended. 3. Abnormally thickened uterine endometrium, raising concern forendometrial malignancy. Correlation with dedicated pelvic ultrasound issuggested. 4. Wall thickening of the appendix with mildly distended appendiceal tip,which have progressed since 11/20/2018. Findings are favored chronicinflammatory change but appendiceal neoplasm cannot be entirely excluded. * Screen captures provided. Milena Huffman APRN, C.N.P. [facility] CT PRO CEDURES * (ABNORMAL) Urinalysis with Microscopic if Indicated (07/01/2023 10:28 AM TUCKING MACHINE OPERATOR) Only the most recent of3 resultswithin the time period is included. Source Urine, Urine, Midstream 07/01/2023 10:28 AM TUCKING MACHINE OPERATOR CNFL Clarity Clear Clear 07/01/2023 10:33 AM TUCKING MACHINE OPERATOR CNFL Color Yellow 07/01/2023 10:33 AM TUCKING MACHINE OPERATOR CNFL Comment: ----REFERENCE VALUE---- Colorless Yellow Elizabeth Blood Negative Negative 07/01/2023 10:33 AM TUCKING MACHINE OPERATOR CNFL Nitrite Positive(A) Negative 07/01/2023 10:33 AM TUCKING MACHINE OPERATOR CNFL Leukocyte Esterase Large(A) Negative 07/01/2023 10:33 AM TUCKING MACHINE OPERATOR CNFL Protein Negative mg/dL 07/01/2023 10:33 AM TUCKING MACHINE OPERATOR CNFL Comment: ----REFERENCE VALUE---- Negative Trace Glucose Negative Negative mg/dL 07/01/2023 10:33 AM TUCKING MACHINE OPERATOR CNFL Ketones, QI(U) Negative Negative mg/dL 07/01/2023 10:33 AM TUCKING MACHINE OPERATOR CNFL Bilirubin Negative Negative 07/01/2023 10:33 AM TUCKING MACHINE OPERATOR CNFL pH 6.0 5.0 - 8.0 07/01/2023 10:33 AM TUCKING MACHINE OPERATOR CNFL Specific [place] 1.015 1.001 - 1.035 07/01/2023 10:33 AM TUCKING MACHINE OPERATOR CNFL Urobilinogen 0.2 0.2 - 1.0 mg/dL 07/01/2023 10:33 AM TUCKING MACHINE OPERATOR CNFL Urine (Urine, Midstream) 07/01/2023 10:28 AM TUCKING MACHINE OPERATOR 07/01/2023 10:28 AM TUCKING MACHINE OPERATOR Alexa Álvarez M.D. LAB URINE ORDERABL ES [facility] [address] [place] [id number], [facility] CNFL [facility] in [address] [address] * (ABNORMAL) Microscopic Manual (07/01/2023 10:28 AM TUCKING MACHINE OPERATOR) Only the most recent of3 resultswithin the time period is included. White Blood Cells 51-100(A) /hpf 07/01/2023 11:00 AM TUCKING MACHINE OPERATOR CNFL Comment: ----REFERENCE VALUE---- Males: 0-3 Females: 0-10 Unknown: 0-10 Red Blood Cells None Seen 0 - 2 /hpf 07/01/2023 11:00 AM TUCKING MACHINE OPERATOR CNFL Squamous Cells 4-10 /hpf 07/01/2023 11:00 AM TUCKING MACHINE OPERATOR CNFL Bacteria Present(A) None Seen 07/01/2023 11:00 AM TUCKING MACHINE OPERATOR CNFL Urine 07/01/2023 10:2 8 AM TUCKING MACHINE OPERATOR 07/01/2023 10:28 AM TUCKING MACHINE OPERATOR Alexa Álvarez M.D. LAB URINE ORDERABL ES [facility] [address] [place] [address], [facility] CNFL [facility] [place] [address] * (ABNORMAL) Bacterial Culture, Aerobic + Susceptibility, Urine (07/01/2023 10:28 AM TUCKING MACHINE OPERATOR) Only the most recent of3 resultswithin the time period is included. Urine Culture ESCHERICHIA COLI >100,000 cfu/mL (A) 07/03/2023 8:50 AM TUCKING MACHINE OPERATOR ECLR Urine (Urine, Midstream) 07/01/2023 10:28 AM TUCKING MACHINE OPERATOR 07/01/2023 3:01 PM TUCKING MACHINE OPERATOR Comment:Specimen Source Site : Urine Narrative Organism Antibiotic Method Susceptibility Escherichia coli Ampicillin SUSCEPTIBILITY, OSNAL (MCG/ML) <=2 mcg/mL: Susceptible Escherichia coli Piperacillin + Tazobactam SUSCE PTIBILITY, SONAL (MCG/ML) <=4 mcg/mL: Susceptible Escherichia coli Cefazolin SUSCEPTIBILITY, SONAL (MCG/ML) <=4 mcg/mL: Susceptible Comment: The interpretation applies to uncomplicated urinary tract infections only. It also applies to these oral cephalosporins: cefuroxime, cephalexin, and cefprozil. Escherichia coli Ceftazidime SUSCEPTIBILITY, SONAL (MCG/ML) <=1 mcg/mL: Susceptible Escherichia coli Ceftriaxone SUSCEPTIBILITY, SONAL (MCG/ML) <=1 mcg/mL: Susceptible Escherichia coli Cefepime SUSCEPTIBILITY, SONAL (MCG/ML) <=1 mcg/mL: Susceptible Escherichia coli Aztreonam SUSCEPTIBILITY, SONAL (MCG/ML) <=1 mcg/mL: Susceptible Escherichia coli Ertapenem SUSCEPTIBILITY, SONAL (MCG/ML) <=0.5 mcg/mL: Susceptible Escherichia coli Meropenem SUSCEPTIBILITY, SONAL (MCG/ML) <=0.25 mcg/mL: Susceptible Escherichia coli Gentamicin SUSCEPTIBILITY, SONAL (MCG/ML) <=1 mcg/mL: Susceptible Escherichia coli Tobramycin SUSCEPTIBILITY, SONAL (MCG/ML) <=1 mcg/mL: Susceptible Escherichia coli Levofloxacin SUSCEPTIBILITY, SONAL (MCG/ML) <=0.12 mcg/mL: Susceptible Escherichia coli Nitrofurantoin SUSCEPTIBILITY, SONAL (MCG/ML) <=16 mcg/mL: Susceptible Escherichia coli Trimethoprim + Sulfamethoxazole SUSCEPTIBILITY, SONAL (MCG/ML) <=20 mcg/mL: Susceptible Alexa Álvarez M.D. LAB MICROBIOLOGY - GENERAL ORDERABLES Performing Organization Address [facility]/[place] de Phone Number [facility]NOTE 3] LAB [address] [place] [address], [facility] ECLR [facility] [place] [address] * Creatinine with Estimated GFR (07/01/2023 10:20 AM TUCKING MACHINE OPERATOR) [facility] Signature Creatinine 0.67 0.59 - 1.04 mg/dL 07/01/2023 10:50 AM TUCKING MACHINE OPERATOR CNFL Estimated GFR (eGFR) 89 >=60 mL/min/BSA 07/01/2023 10:50 AM TUCKING MACHINE OPERATOR CNFL Comment: Estimated GFR calculated using the 2020 CKD_EPI creatinine equation. Blood (Blood, Venous) 07/01/2023 10:20 AM TUCKING MACHINE OPERATOR 07/01/2023 10:22 AM TUCKING MACHINE OPERATOR Milena Huffman APRN, C.N.P. LAB BLOOD ADD-ON Performing Organization Address City/[facility] Co de Phone Number [address] [address], 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 See document viewer. Care Teams Medical Orderly Relationship Specialty Start Date End Date Alexa Álvarez M.D. NPJenn: [phone] [address] [place] [address] TREAN Grady [id number] PCP - General Family Medicine 06/02/23
--- OUTSIDE RECORDS SUMMARY | 2023-08-19 07:02 | XMS_ITS | Encounter Summary ---
Author Name Unknown Organization [facility] Address [address] [place] [address] Care Team Providers Care General Engineer Name Role Phone Alexa Álvarez M.D. Primary Care Provider [phone] Encounter Details Date Type Department Care Team (Latest Contact Info) Description 08/17/2023 2:20 PM CDT Ancillary Procedure Department of Gastroenterology Arrived Social History Tobacco Use Types Packs/Day Years Used Date Smoking Tobacco: Former Cigarettes 1 - 02/09/1985 Smokeless Tobacco: Never Alcohol Use Standard Drinks/Week Comments Not Currently 0 (1 standard drink = 0.6 oz pur e alcohol) [facility] Utilities Answer Date Recorded In the past 12 months has e [employer], gas, oil, or water [employer] threatened to shut off services in your [...] often do you attend chur ch or denominational services? More than 4 times per year [...] Answer Date Recorded PHQ-2 Score 0 06/09/2023 [facility] of Occupat ional [...] your living situation today? I have a [facility] place to live 06/09/2023 Education Answer Date Recorded What is the highest level of school you have completed or the highest degree you have received? 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 [address] [place] [phone] Snow Cox APRN, C.N.P. [address] [place] [phone] Rajni Hooker M.D. [address] [place] [phone] Discharge Disposition: Home or Self Care 10/07/2023 7:30 AM CDT Clinical Communication Virtual Review in [place], [place] [address] [place] [phone] 10/11/2023 8:40 AM CDT Comprehensive Visit Division of Gastroenterology in [place], [place] [address] [place] [phone] Iker Bruce M.D. [address] [place] [phone] 10/26/2023 8:30 AM CDT Clinical Communication Virtual Review in [place], [place] [address] [place] [phone] 10/26/2023 10:30 AM CDT Appointment Department of Radiology, [facility], in [place], [place] [address] [place] [phone] Lisa Soni MPAS, P.A.-CKarol [address] [place] [phone] 10/27/2023 12:30 PM CDT Diagnostic Division of Pulmonary Medicine in [place], [place] [address] [place] [phone] Lisa Soni MPAS, P.A.-C. [address] [place] [phone] 10/27/2023 1:30 PM CDT Office Visit Division of Pulmonary Medicine in [place], [place] [address] [place] [phone] Lisa Soni MPAS, P.A.-CKarol [address] [place] [phone] documented as of this encounter Procedures Procedure Name Priority Date/Time Associated Diagnosis Comments GASTROENTEROLOGY IMAGE EXAM Routine 08/17/2023 2:20 PM CDT documented in this encounter Results * Colon, Transverse colon Colonoscopy-Gastroenterology Image Exam [...] System IMG NON RAD IMAGI NG PROCEDURES IIMS NA documented in this encounter Visit Diagnoses Not on filedocumented in this encounter Care Teams General Engineer Relationship Specialty Start Date End Date Alexa Álvarez M.D. [address] [place] [phone] PCP - General Family Medicine 06/02/23 documented as of this encounter
--- OUTSIDE RECORDS SUMMARY | 2023-08-19 07:02 | XMS_ITS | Referral Summary ---
Author Name Unknown Organization [facility] Address [address] [place] [address] Care Team Providers Care Reports Analysis Manager Name Role Phone Alexa Álvarez M.D. Primary Care Provider [phone] Source Comments Patient records contain information from all sites at [facility]. For routine questions regarding patient records, call [phone] during business hours, M-F 8:00 AM - 5:00 PM Central Time. Record requests for emergency care only can be directed to [phone] at any time.[facility] Encounters Date Type Department Care Team Description 08/17/2023 2:20 PM CDT Ancillary Procedure Department of Gastroenterology Arrived 08/17/2023 1:37 PM CDT - 08/17/2023 11:59 PM CDT Hospital Encounter Division of Gastroenterology in [place], [place] [address] [place] [phone] Edis Gupta M.B.B.S. Polyp Colon Adenomatous Personal History Discharge Disposition: Home or Self Care 08/17/2023 12:28 PM CDT - 08/17/2023 1:36 PM CDT Hospital Encounter Division of Gastroenterology in [place], [place] [address] [place] [phone] Edis Gupta M.B.B.S. Incontinence Fecal Discharge Disposition: Home or Self Care 08/16/2023 10:51 AM CDT - 08/16/2023 11:59 PM CDT Hospital Encounter Department of Laboratory Medicine in [address] [phone] Alexa Álvarez M.D. Monitoring For Therapeutic Drug Therapy Discharge Disposition: Home or Self Care 08/10/2023 10:30 AM CDT Comprehensive Visit Department of Obstetrics and Gynecology in [address] [phone] Lauren Leon APRN, C.NKarolPKarol Incontinence Urinary Stress And Urge (Primary Dx); Cystitis Recurrent; Incontinence Fecal; Abnormal Ultrasound Endometrium Discharge Disposition: Home or Self Care 08/03/2023 11:00 AM CDT Education Division of Gastroenterology in [address] [address] Edis Gupta M.B.B.S. Jeaneth Walls, RJonny. Education Need (Primary Dx); Incontinence Fecal 08/03/2023 10:07 AM CDT - 08/03/2023 11:59 PM CDT Hospital Encounter Department of Radiology, [facility], in [address] [address] Edis Gupta M.B.B.S. Incontinence Fecal Discharge Disposition: Home or Self Care 08/03/2023 8:00 AM CDT Comprehensive Visit Division of Gastroenterology in [address] [phone] Milena Huffman APRN, C.N.PEdis Subramanian M.B.B.S. Polyp Colon Adenomatous Personal History (Primary Dx); Incontinence Fecal 08/02/2023 Orders Only [facility] Alexa Álvarez M.D. Monitoring For Therapeutic Drug Therapy 07/28/2023 10:30 AM CDT Office Visit Division of Pulmonary Medicine in [address] [address] Lisa Soni, MILOS, P.A.-C. Lung Interstitial Disease (HCC) (Primary Dx) 07/27/2023 1:00 PM CDT Clinical Communication Virtual Review in [address] [phone] Pre-visit Intake 07/14/2023 11:30 AM CDT Comprehensive Visit Department of Obstetrics and Gynecology in [address] [phone] Snow Malik APRN, C.N.PKarol Incontinence Urinary (Primary Dx); Infection Urinary Tract Personal History Discharge Disposition: Home or Self Care 07/12/2023 3:13 PM CDT - 07/12/2023 11:59 PM CDT Hospital Encounter Department of Radiology, [facility] in [address] [phone] Milena Huffman APRN, C.N.P. 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 Clinical Research Exam Discharge Disposition: Home or Self Care 07/04/2023 Orders Only Division of Gastroenterology in [address] [phone] Kelly Baker Clinical Research Exam (Primary Dx) 07/04/2023 11:30 AM DOUGH MIXER Clinical Support - [facility] Division of Gastroenterology in [address] [phone] Kelly Baker 07/04/2023 1:00 PM DOUGH MIXER Procedure visit Department of Urology in [address] [phone] Milena Huffman APRN, C.N.Ben Baker M.B., B.Ch. Hematuria 07/04/2023 7:10 AM DOUGH MIXER - 07/04/2023 11:29 AM DOUGH MIXER Hospital Encounter Department of Radiology, [facility], in [place], [place] [address] [place] [address] Milena Huffman APRN, C.NHaritha Hematuria Discharge Disposition: Home or Self Care 07/01/2023 9:50 AM DOUGH MIXER - 07/01/2023 11:59 PM DOUGH MIXER Hospital Encounter Department of Laboratory Medicine in [address] [address] Alexa Álvarez M.D. Dysuria Discharge Disposition: Home or Self Care 07/01/2023 12:00 PM DOUGH MIXER Office Visit Department of Family Medicine, [facility], in [address] [address] Alexa Álvarez M.D. Matthies, Rebekah M R.NKarol Annual Medicare Examination Return (Primary Dx) Discharge Disposition: Home or Self Care 07/01/2023 9:45 AM DOUGH MIXER - 07/01/2023 9:49 AM DOUGH MIXER Hospital Encounter Department of Laboratory Medicine in [address] [address] Milena Huffman APRN, C.NHaritha Hematuria Discharge Disposition: Home or Self Care 07/01/2023 11:30 AM DOUGH MIXER Comprehensive Visit Department of Family Medicine, [facility], in [address] [phone] Alexa Álvarez M.D. Annual Medicare Examination Return (Primary Dx); Acute Cystitis Without Hematuria; Chronic Cough; Bipolar Disorder (HCC); Herpes Simplex Genital Recurrent Discharge Disposition: Home or Self Care 06/30/2023 Orders Only Department of Family Medicine, [facility], in [address] [phone] Jerilyn Britton R.N. 06/20/2023 8:45 AM DOUGH MIXER Comprehensive Visit Department of Urology in [place], [place] [address] [place] [address] Milena Huffman APRN, C.N.P. Hematuria (Primary Dx); Cystitis Recurrent; Incontinence Urinary; Incontinence Fecal 06/17/2023 3:30 PM DOUGH MIXER Procedure visit Department of Urology in [place], [place] [address] [place] [address] Alexa Álvarez M.D. O Brien, Beth A Incontinence Urinary Stress And Urge 06/13/2023 10:30 AM DOUGH MIXER Office Visit Department of Family Medicine, [facility], in [address] [phone] Alexa Álvarez M.D. Infection Urinary Tract Personal History (Primary Dx); Incontinence Urinary Stress And Urge; Personal History Of Infectious And Parasitic Disease (COVID-19); Lung Interstitial Disease (HCC); Fibrosis Idiopathic Pulmonary (HCC); Murmur Systolic Discharge Disposition: Home or Self Care 06/13/2023 9:55 AM DOUGH MIXER - 06/13/2023 11:59 PM DOUGH MIXER Hospital Encounter Department of Laboratory Medicine in [address] [phone] Jeaneth Sofia APRN, C.N.P. Hematuria (Primary Dx); Infection Escherichia Coli; Cystitis Unspecified With Hematuria Discharge Disposition: Home or Self Care 06/06/2023 Clinical Communication Department of Family Medicine, [facility], in [address] [phone] Jeaneth Sofia APRN, C.N.P. Results 06/03/2023 3:59 PM DOUGH MIXER - 06/03/2023 11:59 PM DOUGH MIXER Hospital Encounter Department of Laboratory Medicine in [address] [phone] Jeaneth Sofia APRN, C.N.P. Dysuria Discharge Disposition: Home or Self Care 06/02/2023 3:00 PM DOUGH MIXER Office Visit Department of Family Medicine, [facility], in [address] [address] Jeaneth Sofia APRN, C.NHaritha Dysuria (Primary Dx) Discharge Disposition: Home or Self Care 06/02/2023 Nurse Triage Department of [facility], [facility], in [address] [address] Alix Plascencia R.N. Urinary Problem from Last 3 Months Allergies Active Allergy Reactions Criticality Noted Date Comments Amoxicillin GI intolerance 11/28/2020 Divalproex Sodium Other (see comments) 03/28/20 07 increase WBC count Fluticasone Other (see comments) 07/14/2015 Pt reports high dose long term care social worker caused damage to her nose (taste/smell) House [...] Milena Huffman APRN, CNP in urology in [place] and has undergone a thorough work-up for [...] until she has completed her GI and DIRECTOR FIELD SERVICES work-up. Murmur Systolic 06/13/2023 Overview: Echocardiogram 05/2022 [...] Date Resolved Date Stone Kidney 06/13/2023 06/13/2023 Immunizations Name Administration Dates Next Due DT, [...] months and older)(PF) 01/13/2023,01/27/2021,01/16/2019,2017,01/27/2018,01/24/2017,01/29/2016,1 ,01/22/2014,02/08/2012, 011,01/19/2010,05/19/2009,04/08/2008,,02/17/2005,02/07/2004,02/28/20 03 Social History Tobacco Use Types Packs/Day Years Used Date Smoking Tobacco: Former Cigarettes 1 - 02/09/1985 Smokeless Tobacco: Never Tobacco Cessation:Counseling Given: Not Answered Alcohol Use Standard Drinks/Week Comments Not Currently 0 (1 standard drink = 0.6 oz pur e alcohol) [facility] Code Rebel Answer Date Recorded In the past 12 months has [employer], gas, oil, or water [employer] threatened to shut off services in your [...] often do you attend chur ch or gnosticist services? More than 4 times per year 05/17/2022 Do you belong to any clubs o r organizations such as catholic groups, unions, fraternal or athletic groups, or [...] Answer Date Recorded PHQ-2 Score 0 06/09/2023 [facility] - Occupational [...] your living situation today? I have a [facility] place to live 06/09/2023 Education Answer Date Recorded What is the highest level of school you have completed or the highest degree you have received? Master's degree (e.g., MA, MS, Flavia, MEd, ENERGY RATER, WILLIE) 05/17/2022 Sex and Gender Information Value Date Recorded Sex Assigned at Female 05/17/2022 2:17 PM DOUGH MIXER Gender Identity Female 05/17/2022 2:17 PM DOUGH MIXER Sexual Orientation Straight 05/17/2022 2: 17 PM DOUGH MIXER Last Filed Vital Signs Vital Sign Reading [...] visit Department of Obstetrics and Gynecology in [place], [place] [address] [place] [address] Milena Huffman, MOVIE STUNT PERFORMER, C.N.P. [address] [place] [address] Snow Cox APRN, CKarolNKarolP. [address] [place] [phone] Rajni Hooker M.D. [address] [place] [phone] Discharge Disposition: Home or Self Care 10/07/2023 7:30 AM CDT Clinical Communication Virtual Review in [place], [place] 200 [place] [address] 10/11/2023 8:40 AM CDT Comprehensive Visit Division of Gastroenterology in [place], [place] [address] [place] [phone] Iker Bruce M.D. [address] [place] [phone] 10/26/2023 8:30 AM CDT Clinical Communication Virtual Review in [address] [phone] 10/26/2023 10:30 AM CDT Appointment Department of Radiology, [facility], in [place], [place] [address] [place] [phone] Lisa Soni MPAS, P.A.-C. [address] [place] [phone] 10/27/2023 12:30 PM CDT Diagnostic Division of Pulmonary Medicine in [place], [place] [address] [place] [phone] Lisa Soni MPAS, P.A.-C. [address] [place] [phone] 10/27/2023 1:30 PM CDT Office Visit Division of Pulmonary Medicine in [place], [place] [address] [place] [address] [place] [address] Lisa Soni MPAS, P.A.-C. 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 MT CYSTOURETHROSCOPY Routine 07/04/2023 1:00 PM DOUGH MIXER Hematuria MISC RESEARCH ORDER, B Routine 12:06 PM DOUGH MIXER Clinical Research Exam CT UROGRAM WITHOUT AND WITH IV CONTRAST RAD - Routine (most inpatients and all outpatients) 07/04/2023 8:21 AM DOUGH MIXER Hematuria HC URINALYSIS AUTO W MICRO Routine 07/01/2023 10:28 AM DOUGH MIXER URINALYSIS WITH MICROSCOPIC IF INDICATED, U Routine 07/01/2023 10:28 AM DOUGH MIXER Dysuria BACTERIAL CULTURE, AEROBIC + SUSC, URINE Routine 07/01/2023 10:28 AM DOUGH MIXER Dysuria CREATININE WITH EGFR, S/P Routine 07/01/2023 10:20 AM DOUGH MIXER Hematuria BACTERIAL CULTURE, AEROBIC + SUSC, URINE Routine 06/13/2023 11:41 AM DOUGH MIXER Infection Escherichia Coli Cystitis Unspecified With Hematuria HC URINALYSIS AUTO W MICRO Routine 06/13/2023 11:37 AM DOUGH MIXER URINALYSIS WITH MICROSCOPIC IF INDICATED, U Routine 06/13/2023 11:37 AM DOUGH MIXER Infection Escherichia Coli BACTERIAL CULTURE, AEROBIC + SUSC, URINE Routine 06/03/2023 4:03 PM DOUGH MIXER Dysuria HC URINALYSIS AUTO W MICRO Routine 06/02/2023 3:45 PM DOUGH MIXER URINALYSIS WITH MICROSCOPIC IF INDICATED, U Routine 06/02/2023 3:45 PM DOUGH MIXER Dysuria EXTI THYROID-STIMULATING HORMONE-SENSITIVE (S-TSH), S Routine 12/28/2022 11:09 AM CDT from Last 3 Months or Most Recently Relevant to Health Maintenance Results * Anorectal Manometry (08/17/2023 5:06 PM CDT) Edis MosherS. GI PROCEDURE OR DERABLES MMODAL NA * [...] Hansen M.D. LAB SURG P ATH ORDERABLES [facility] [address] [place] [address], [facility] DTL [address] [place] [address] * Colon, Transverse colon Colonoscopy-Gastroenterology Image Exam (08/17/2023 2:20 PM CDT) 08/17/2023 2:18 PM CDT Narrative [facility] - 08/17/2023 3:51 PM CDT This order has been created and auto-finalized to support the import of images acquired without order. The clinical documentation to support these images can be found on the encounter that produced images. Provider Not In System IMG NON RAD IMAGI NG PROCEDURES [facility] NA * Colonoscopy (08/17/2023 2:18 PM CDT) 08/17/2023 2:18 PM CDT Impressions [facility] - 08/17/2023 3:40 PM CDT Post-op Diagnoses: [...] for ? evaluation of microscopic colitis. Narrative [facility] - 08/17/2023 3:40 PM CDT Gonda 9 [...] ? preparation and pertinent family history. For [facility] providers, ? detailed recommendations are available as an AskMayoExpert Care Process ? Model: <[email or web address] ? There may be some circumstances, specifically [...] preparation was ? evaluated using the BBPS (P[place]dam Bowel Preparation Scale) with scores ? of: [...] 0 Edis Rao GI PROCEDURE OR DERABLES [facility] NA * Basic Metabolic Panel (08/16/2023 10:56 [...] CDT Alexa Álvarez M.D. LAB BLOOD ADD-ON [facility] [address] [place] [address], [facility] CNFL [facility] in [address] [address] * DX Abdomen 1 View (08/03/2023 10:28 [...] [employer] RUQ. Patchy pulmonary opacities. Edis Rao IMMatt DIAGNOSTIC IMAGING PROCEDURES * Pulmonary Function Tests (07/28/2023 9:40 AM CDT) FVC 2.62 L 07/28/2023 9:27 PM CDT [facility] FEV1 2.11 L 07/28/2023 9:27 PM CDT [facility] FEV1/FVC 80.36 % 07/28/2023 9:27 PM CDT [facility] ZQM18-65% 2.88 L/s 07/28/2023 9:27 PM CDT [facility] PEF PRE 7.43 L/s 07/28/2023 9:27 PM CDT [facility] PIF PRE 5.38 L/s 07/28/2023 9:27 PM CDT [facility] FEF 50 % FIF 50 PRE 92.29 % 07/28/2023 9:27 PM CDT [facility] FET PRE 11.39 sec 07/28/2023 9:27 PM CDT [facility] DLCO 12.34 ml/(min*mm Hg) 07/28/2023 9:27 PM CDT [facility] VA 3.72 L 07/28/2023 9:27 PM CDT [facility] PulseRest 81.00 1/min 07/28/2023 9:27 PM CDT [facility] O5AlnThcp 94.00 % 07/28/2023 9:27 PM CDT [facility] PulseExer 107.00 1/min 07/28/2023 9:27 PM CDT [facility] EXER TIME 3.00 min 07/28/2023 9:27 PM CDT [facility] STEP HEIGHT PRE 9.00 Inch 07/28/2023 9:27 PM CDT [facility] TLC 4.20 L 07/28/2023 9:27 PM CDT [facility] FRCPLETH PROVBASE 2.43 L 07/28/2023 9:27 PM CDT [facility] RV 1.57 L 07/28/2023 9:27 PM CDT [facility] RV % TLC PRE 37.40 % 07/28/2023 9:27 PM CDT [facility] 07/28/2023 9:40 AM CDT Impressions [facility] - 07/28/2023 9:27 PM CDT Abnormal study. [...] to 02/28/2023, TLC is reduced. Lisa HASSAN, P.A.CarmelaC. PFT ORDERA BLES [facility] NA * US Pelvis Transvaginal and Transabdominal [...] versus a small polyp. Consider gynecologic referral. Milena Huffman APRN, C.N.P. IMG US PRO CEDURES * MT CYSTOURETHROSCOPY (07/04/2023 1:00 PM DOUGH MIXER) Narrative Ben Barbour M.B., B.Ch. - 07/04/2023 1:00 PM DOUGH MIXER Ben Barbour M.B., B.Ch. ? 07/04/2023 ??1:15 PM URO Cystoscopy (general) Performed by: Ben Barbour M.B., B.Ch. Authorized by: Milena Huffman APRN C.N.PKarol ?? IMPRESSION negative cystoscopy and chronic cystitis [...] ?? Complications: no apparent complications ?? Milena Huffman APRN C.N.P. UROLOGY OR DERABLES * [facility] [place] Research, Blood (07/04/2023 12:06 PM DOUGH MIXER) Number of Specimens 6 07/04/2023 12:06 PM DOUGH MIXER HSS Blood (Blood, Venous) 07/04/2023 12:06 PM DOUGH MIXER 07/04/2023 12:06 PM DOUGH MIXER Iker Pimentel M.D. LAB RESEARCH NO RESU LT ROUTING [facility] [address] [place] [address], [facility] [address] [place] [address] * CT Urogram without and with IV Contrast (07/04/2023 8:21 AM DOUGH MIXER) Anatomical Region Laterality Modality Abdomen, Pelvis, Abdominal R ST LOS, Abdominal ARZ LOS, Abdominal FLA LOS N/A Computed Tomograp hy, Computed Tomography 07/04/2023 8:07 AM DOUGH MIXER Impressions 07/04/2023 8:51 AM DOUGH MIXER 1. Negative upper urinary tracts. 2. Diffuse [...] Screen captures provided. Narrative 07/04/2023 8:51 AM DOUGH MIXER EXAM: ??CT UROGRAM WITHOUT AND WITH IV [...] Abnormally thickened uterine endometrium measuring 14 mm ([id number] image [id number]). Mild wall thickening of the [...] Screen captures provided. Milena Huffman APRN, C.N.P. IMG CT PRO CEDURES * (ABNORMAL) Urinalysis with Microscopic if Indicated (07/01/2023 10:28 AM DOUGH MIXER) Only the most recent of3 resultswithin the time period is included. Source Urine, Urine, Midstream 07/01/2023 10:28 AM DOUGH MIXER CNFL Clarity Clear Clear 07/01/2023 10:33 AM DOUGH MIXER CNFL Color Yellow 07/01/2023 10:33 AM DOUGH MIXER CNFL Comment: ----REFERENCE VALUE---- Colorless Yellow Elizabeth Blood Negative Negative 07/01/2023 10:33 AM DOUGH MIXER CNFL Nitrite Positive(A) Negative 07/01/2023 10:33 AM DOUGH MIXER CNFL Leukocyte Esterase Large(A) Negative 07/01/2023 10:33 AM DOUGH MIXER CNFL Protein Negative mg/dL 07/01/2023 10:33 AM DOUGH MIXER CNFL Comment: ----REFERENCE VALUE---- Negative Trace Glucose Negative Negative mg/dL 07/01/2023 10:33 AM DOUGH MIXER CNFL Ketones, QI(U) Negative Negative mg/dL 07/01/2023 10:33 AM DOUGH MIXER CNFL Bilirubin Negative Negative 07/01/2023 10:33 AM DOUGH MIXER CNFL pH 6.0 5.0 - 8.0 07/01/2023 10:33 AM DOUGH MIXER CNFL Specific [place] 1.015 1.001 - 1.035 07/01/2023 10:33 AM DOUGH MIXER CNFL Urobilinogen 0.2 0.2 - 1.0 mg/dL 07/01/2023 10:33 AM DOUGH MIXER CNFL Urine (Urine, Midstream) 07/01/2023 10:28 AM DOUGH MIXER 07/01/2023 10:28 AM DOUGH MIXER Alexa Álvarez M.D. LAB URINE ORDERABL ES [facility] [address] [place] [address], [facility] CNFL [facility] [place] [address] * (ABNORMAL) Microscopic Manual (07/01/2023 10:28 AM DOUGH MIXER) Only the most recent of3 resultswithin the time period is included. White Blood Cells 51-100(A) /hpf 07/01/2023 11:00 AM DOUGH MIXER CNFL Comment: ----REFERENCE VALUE---- Males: 0-3 Females: 0-10 Unknown: 0-10 Red Blood Cells None Seen 0 - 2 /hpf 07/01/2023 11:00 AM DOUGH MIXER CNFL Squamous Cells 4-10 /hpf 07/01/2023 11:00 AM DOUGH MIXER CNFL Bacteria Present(A) None Seen 07/01/2023 11:00 AM DOUGH MIXER CNFL Urine 07/01/2023 10:2 8 AM DOUGH MIXER 07/01/2023 10:28 AM DOUGH MIXER Alexa Álvarez M.D. LAB URINE ORDERABL ES [facility] [address] [place] [address], [facility] CN[facility] in [address] [address] * (ABNORMAL) Bacterial Culture, Aerobic + Susceptibility, Urine (07/01/2023 10:28 AM DOUGH MIXER) Only the most recent of3 resultswithin the time period is included. Urine Culture ESCHERICHIA COLI >100,000 cfu/mL (A) 07/03/2023 8:50 AM DOUGH MIXER ECLR Urine (Urine, Midstream) 07/01/2023 10:28 AM DOUGH MIXER 07/01/2023 3:01 PM DOUGH MIXER Comment:Specimen Source Site : Urine Narrative Organism Antibiotic Method Susceptibility Escherichia coli Ampicillin SUSCEPTIBILITY, SONAL (MCG/ML) <=2 mcg/mL: Susceptible Escherichia coli Piperacillin [...] MICROBIOLOGY - GENERAL ORDERABLES Performing Organization Address City/[facility] Co de Phone Number [facility] [address] [place] [address], [facility] ECLR [facility] [place] [address] * Creatinine with Estimated GFR (07/01/2023 10:20 AM DOUGH MIXER) Creatinine 0.67 0.59 - 1.04 mg/dL 07/01/2023 10:50 AM DOUGH MIXER CNFL Estimated GFR (eGFR) 89 >=60 mL/min/BSA 07/01/2023 10:50 AM DOUGH MIXER CNFL Comment: Estimated GFR calculated using the 2020 CKD_EPI creatinine equation. Blood (Blood, Venous) 07/01/2023 10:20 AM DOUGH MIXER 07/01/2023 10:22 AM DOUGH MIXER Montez Ledezma APRNNKarolPKarol LAB BLOOD ADD-ON Performing Organization Address City/[facility]/ZIP Co de Phone Number [facility] [address] [place] [phone], [facility] CNFL [facility] in [address] [address] from Last 3 Months or Most Recently Relevant to Health Maintenance Advance Directives For more information, please contact: [phone] Documents on File Type Date Recorded Patient Security Technician Expl anation Advance Directives 04/07/2007 12:00 AM Leg acy document. See document viewer. Care Teams Reports Analysis Manager Relationship Specialty Start Date End Date Alexa Álvarez M.D. [address] [place] [phone] PCP - General Family Medicine 06/02/23
--- OUTSIDE RECORDS SUMMARY | 2023-08-19 07:02 | XMS_ITS | Encounter Summary ---
Author Name Unknown Organization [facility] Address [address] [place] [address] Care Team Providers Care Nfl Player Name Role Phone Alexa Álvarez M.D. Primary Care Provider +1- [phone] Encounter Details Date Type Department Care Team (Latest Contact Info) Description 08/16/2023 10:51 AM CDT - 08/16/2023 11:59 PM CDT Hospital Encounter Department of Laboratory Medicine in [address] [phone] Alexa Álvarez M.D. [address] [place] [phone] Monitoring For Therapeutic Drug Therapy Discharge Disposition: Home or Self Care Social History Tobacco Use Types Packs/Day Years Used Date Smoking Tobacco: Former Cigarettes 1 - 02/09/1985 Smokeless Tobacco: Never Alcohol Use Standard Drinks/Week Comments Not Currently 0 (1 standard drink = 0.6 oz pur e alcohol) [facility] Utilities Answer Date Recorded In the past 12 months has [employer] electric, gas, oil, or water 1,2,3 [employer] threatened to shut off services in your [...] How often do you attend chur or taoism services? More than 4 times per year 05/17/2022 Do you belong to any clubs o r organizations such as pentecostal groups, unions, fraternal or athletic groups, or [...] Answer Date Recorded PHQ-2 Score 0 06/09/2023 [facility] [place] of Occupat ional Health - Occupational Stress [...] your living situation today? I have a [facility] place to live 06/09/2023 Education Answer Date Recorded What is the highest level of school you have completed or the highest degree you have received? Master's degree (e.g., MA, MS, Flavia, MEd, CORE BLOWER OPERATOR, WILLIE) 05/17/2022 Sex and Gender Information Value Date Recorded Sex Assigned at Female 05/17/2022 2:17 PM UNDERTAKER HELPER Gender Identity Female 05/17/2022 2:17 PM UNDERTAKER HELPER Sexual Orientation Straight 05/17/2022 2: 17 PM UNDERTAKER HELPER documented as of this encounter Medications at [...] tablet by mouth daily as needed. 04/13/2010 polyethylene glycol-electrolytes (GoLYTELY) 236-22.74-6.74 -5.86 gram solution Drink 1st portion of prep at 6 PM the evening before. 2nd portion must be started 3 hours before and finished 2 hours prior to report time 4000 mL 08/03/2023 08/17/2023 documented as of this encounter Plan of Treatment Upcoming Encounters Date Type Department Care Team (Latest Contact Info) Description 08/26/2023 9:30 AM CDT Procedure visit Department of Obstetrics and Gynecology in [place], [place] [address] [place] [address] Milena Huffman APRN, C.N.P. [address] [place] [phone] Snow Cox APRN, C.N.P. [address] [place] [phone] Rajni Hooker M.D. [address] [place] [phone] Discharge Disposition: Home or Self Care 10/07/2023 7:30 AM CDT Clinical Communication Virtual Review in [address] [phone] 10/11/2023 8:40 AM CDT Comprehensive Visit Division of Gastroenterology in [place], [place] [address] [place] [phone] Iker Bruce M.D. [address] [place] [phone] 10/26/2023 8:30 AM CDT Clinical Communication Virtual Review in [address] [phone] 10/26/2023 10:30 AM CDT Appointment Department of Radiology, [facility], in [place], [place] [address] [place] [phone] Lisa Soni, MPAS, P.A.-C. [address] [place] [phone] 10/27/2023 12:30 PM CDT Diagnostic Division of Pulmonary Medicine in [place], [place] [address] [place] [address] Lisa Soni, MILOS, P.A.-C. [address] [place] [phone] 10/27/2023 1:30 PM CDT Office Visit Division of Pulmonary Medicine in [place], [place] [address] [place] [phone] Lisa Soni, MILOS, P.A.-C. [address] [place] [phone] documented as of this encounter Procedures Procedure Name Priority Date/Time Associated Diagnosis Comments BASIC METABOLIC PANEL, S/P Routine 08/16/2023 10:56 AM CDT Monitoring For Therapeutic Drug Therapy documented in this encounter Results * Basic Metabolic Panel (08/16/2023 10:56 AM [...] M.D. LAB BLOOD ADD-ON [facility] [address] [place] [phone], [facility] CN[facility] in [address] [address] documented in this encounter Visit Diagnoses Diagnosis Monitoring For Therapeutic Drug Therapy documented in this encounter Care Teams Nfl Player Relationship Specialty Start Date End Date Alexa Álvarez M.D. [address] [place] [phone] PCP - General Family Medicine 06/02/23 documented as of this encounter
--- OUTSIDE RECORDS SUMMARY | 2023-08-19 07:03 | XMS_ITS | Encounter Summary ---
Author Name Unknown Organization [facility] Address [address] [place] [address] Care Team Providers Care Radioisotope Technician Name Role Phone Alexa Álvarez M.D. Primary Care Provider +1- [phone] Encounter Details Date Type Department Care Team ([facility] st Contact Info) Description 08/02/2023 Orders Only [facility] PCP [facility] Alexa Álvarez M.D. [address] [place] [phone] Monitoring For Therapeutic Drug Therapy Social History Tobacco Use Types Packs/Day Years Used Date Smoking Tobacco: Former Cigarettes 1 - 02/09/1985 Smokeless Tobacco: Never Alcohol Use Standard Drinks/Week Comments Not Currently 0 (1 standard drink = 0.6 oz pur e alcohol) [facility] Utilities Answer Date Recorded In the past 12 months has [facility] [employer], gas, oil, or water [employer] threatened to shut off services in your [...] often do you attend chur ch or jew services? More than 4 times per year 05/17/2022 Do you belong to any clubs o r organizations such as roman catholic groups, unions, fraternal or athletic groups, [...] Answer Date Recorded PHQ-2 Score 0 06/09/2023 [employer] of Occupat ional Health - Occupational Stress [...] your living situation today? I have a [facility] place to live 06/09/2023 Education Answer Date Recorded What is the highest level of school you have completed or the highest degree you have received? Master's degree (e.g., MA, MS, lFavia, MEd, MANAGER APPLIED, WILLIE) 05/17/2022 Sex and Gender Information Value Date Recorded Sex Assigned at Female 05/17/2022 2:17 PM HARDBOARD PRESS OPERATOR Gender Identity Female 05/17/2022 2:17 PM HARDBOARD PRESS OPERATOR Sexual Orientation Straight 05/17/2022 2: 17 PM HARDBOARD PRESS OPERATOR documented as of this encounter Plan of Treatment Upcoming Encounters Date Type Department Care Team (Latest Contact Info) Description 08/26/2023 9:30 AM CDT Procedure visit Department of Obstetrics and Gynecology in [place], [place] [address] [place] [phone] Milena Huffman APRN, C.N.P. [address] [place] [phone] Snow Cox APRN, C.N.P. [address] [place] [phone] Rajni Hooker M.D. [address] [place] [phone] Discharge Disposition: Home or Self Care 10/07/2023 7:30 AM CDT Clinical Communication Virtual Review in [address] [phone] 10/11/2023 8:40 AM CDT Comprehensive Visit Division of Gastroenterology in [place], [place] [address] [place] [phone] Iker Bruce M.D. [address] [place] [phone] 10/26/2023 8:30 AM CDT Clinical Communication Virtual Review in [address] [phone] 10/26/2023 10:30 AM CDT Appointment Department of Radiology, [facility], in [place], [place] [address] [place] [phone] Lisa Soni, [place], P.A.-C. [address] [place] [phone] 10/27/2023 12:30 PM CDT Diagnostic Division of Pulmonary Medicine in [address] [phone] Lisa Soni MPAS, P.A.-C. [address] [place] [phone] 10/27/2023 1:30 PM CDT Office Visit Division of Pulmonary Medicine in [address] [phone] Lisa Soni MPAS, P.A.-C. [address] [place] [phone] documented as of this encounter Results * Basic Metabolic Panel [...] CDT Alexa Álvarez M.D. LAB BLOOD ADD-ON [facility] [address] [place] [phone], [facility] CNFL [facility] in [address] [address] documented in this encounter Visit Diagnoses Diagnosis Monitoring For Therapeutic Drug Therapy documented in this encounter Care Teams Radioisotope Technician Relationship Specialty Start Date End Date Alexa Álvarez M.D. [address] [place] [phone] PCP - General Family Medicine 06/02/23 documented as of this encounter
--- OUTSIDE RECORDS SUMMARY | 2023-08-19 07:03 | XMS_ITS | Encounter Summary ---
Author Name Unknown Organization [facility] Address [address] [place] [address] Care Team Providers Care Office Workforce Planner Name Role Phone Alexa Álvarez M.D. Primary Care Provider +1- [phone] Reason for Referral * Outpatient (Routine) - Closed Specialty Diagnoses / Procedures Referred By James agrawal Referred To Contact Diagnoses Incontinence Fecal Procedures DX Abdomen 1 View Edis Gupta M.B.B.S. [address] [place] [phone] [facility] Referral ID Status Reason Start Date Expiration Date Visits Re quested Visits Authorized [id number] Closed 08/03/2023 08/02/2024 1 1 Reason for Visit * Outpatient (Routine) - Closed Specialty Diagnoses / Procedures Referred By James agrawal Referred To Contact Diagnoses Incontinence Fecal Procedures DX Abdomen 1 View Edis Gupta M.B.B.S. [address] [place] [phone] [facility] Referral ID Status Reason Start Date Expiration Date Visits Re quested Visits Authorized [id number] Closed 08/03/2023 08/02/2024 1 1 Encounter Details Date Type Department Care Team (Latest Contact Info) Description 08/03/2023 10:07 AM CDT - 08/03/2023 11:59 PM CDT Hospital Encounter Department of Radiology, [facility] in [place], [place] [address] [place] [address] Edis Gupta M.B.B.S. [address] [place] [phone] Incontinence Fecal Discharge Disposition: Home or Self Care Social History Tobacco Use Types Packs/Day Years Used Date Smoking Tobacco: Former Cigarettes 1 - 02/09/1985 Smokeless Tobacco: Never Alcohol Use Standard Drinks/Week Comments Not Currently 0 (1 standard drink = 0.6 oz pur e alcohol) [facility] Utilities Answer Date Recorded In the past 12 months has e [employer], gas, oil, or water [employer] threatened to shut off services in your [...] any clubs o r organizations such as congregational groups, unions, fraternal or athletic groups, or [...] Answer Date Recorded PHQ-2 Score 0 06/09/2023 [facility] of Occupat ional Health - Occupational Stress [...] your living situation today? I have a [facility] place to live 06/09/2023 Education Answer Date Recorded What is the highest level of school you have completed or the highest degree you have received? Master's degree (e.g., MA, MS, Flavia, MEd, EXCELSIOR MACHINE TENDER, WILLIE) 05/17/2022 Sex and Gender Information Value Date Recorded Sex Assigned at Female 05/17/2022 2:17 PM INTERPRETIVE PROGRAM COORDINATOR Gender Identity Female 05/17/2022 2:17 PM INTERPRETIVE PROGRAM COORDINATOR Sexual Orientation Straight 05/17/2022 2: 17 PM INTERPRETIVE PROGRAM COORDINATOR documented as of this encounter Medications at [...] tablet by mouth daily as needed. 12/14/2011 montelukast (SINGULAIR) 10 mg tablet Take [...] visit Department of Obstetrics and Gynecology in [place], [place] [address] [place] [phone] Milena Huffman APRN, C.N.P. [address] [place] [phone] Snow Cox APRN, C.N.P. [address] [place] [phone] Rajni Hooker M.D. [address] [place] [phone] Discharge Disposition: Home or Self Care 10/07/2023 7:30 AM CDT Clinical Communication Virtual Review in [place], [place] 200 [place] [phone] 10/11/2023 8:40 AM CDT Comprehensive Visit Division of Gastroenterology in [place], [place] [address] [place] [phone] Iker Bruce M.D. [address] [place] [phone] 10/26/2023 8:30 AM CDT Clinical Communication Virtual Review in [place], [place] 200 [place] [address] 10/26/2023 10:30 AM CDT Appointment Department of Radiology, [facility], in [place], [place] [address] [place] [phone] Lisa Soni MPAS, P.A.-C. [address] [place] [phone] 10/27/2023 12:30 PM CDT Diagnostic Division of Pulmonary Medicine in [place], [place] [address] [place] [phone] Lisa Soni MPAS, P.A.-C. [address] [place] [phone] 10/27/2023 1:30 PM CDT Office Visit Division of Pulmonary Medicine in [place], [place] [address] [place] [phone] Lisa Soni MPAS, P.A.-C. [address] [place] [phone] documented as of this encounter Procedures Procedure Name Priority Date/Time Associated Diagnosis Comments DX ABDOMEN 1 VIEW RAD - Routine (most inpatients and all outpatients) 08/03/2023 10:28 AM CDT Incontinence Fecal documented in this encounter Results * DX Abdomen 1 View (08/03/2023 10:28 [...] opacities. Edis Rao IMMatt DIAGNOSTIC IMAGING PROCEDURES documented in this encounter Visit Diagnoses Diagnosis Incontinence Fecal documented in this encounter Care Teams Office Workforce Planner Relationship Specialty Start Date End Date Alexa Álvarez M.D. [address] [place] [phone] PCP - General Family Medicine 06/02/23 documented as of this encounter
--- OUTSIDE RECORDS SUMMARY | 2023-08-19 07:03 | XMS_ITS | Encounter Summary ---
Author Name Unknown Organization [facility] Address [address] [place] [address] Care Team Providers Care Field Enumerator Name Role Phone Alexa Álvarez M.D. Primary Care Provider +1- [phone] Encounter Details Date Type Department Care Team ([facility] st Contact Info) Description 07/04/2023 Orders Only Division of Gastroenterology in [place], [place] [address] [place] [phone] Kelly Baker Clinical Research Exam (Primary Dx) Social History Tobacco Use Types Packs/Day Years Used Date Smoking Tobacco: Former Cigarettes S tarted: 10/11/1984 [facility] Utilities Answer Date Recorded In the past 12 months has e electric, gas, oil, or water [employer] threatened to shut off services in your [...] often do you attend chur ch or protestant services? More than 4 times per year 05/17/2022 Do you belong to any clubs o r organizations such as confucianist groups, unions, fraternal or athletic groups, or [...] Answer Date Recorded PHQ-2 Score 0 06/09/2023 [facility] - Occupational Stress Questionnaire Answer [...] your living situation today? I have a [facility] place to live 06/09/2023 Education Answer Date Recorded What is the highest level of school you have completed or the highest degree you have received? Master's degree (e.g., MA, MS, Flavia, MEd, CURTAIN ROLLER ASSEMBLER, WILLIE) 05/17/2022 Sex and Gender Information Value Date Recorded Sex Assigned at Female 05/17/2022 2:17 PM EMC STORAGE ARCHITECT Gender Identity Female 05/17/2022 2:17 PM EMC STORAGE ARCHITECT Sexual Orientation Straight 05/17/2022 2: 17 PM EMC STORAGE ARCHITECT documented as of this encounter Plan of Treatment Upcoming Encounters Date Type Department Care Team (Latest Contact Info) Description 08/26/2023 9:30 AM CDT Procedure visit Department of Obstetrics and Gynecology in [place], [place] [address] [place] [address] Milena Huffman APRN, C.N.P. [address] [place] [phone] Snow Cox APRN, C.N.P. [address] [place] [phone] Rajni Hooker M.D. [address] [place] [phone] Discharge Disposition: Home or Self Care 10/07/2023 7:30 AM CDT Clinical Communication Virtual Review in [place], [place] 200 [place] [phone] 10/11/2023 8:40 AM CDT Comprehensive Visit Division of Gastroenterology in [place], [place] [address] [place] [phone] Iker Bruce M.D. [address] [place] [phone] 10/26/2023 8:30 AM CDT Clinical Communication Virtual Review in [address] [phone] 10/26/2023 10:30 AM CDT Appointment Department of Radiology, [facility], in [place], [place] [address] [place] [phone] Lisa Soni MPAS, P.A.-C. [address] [place] [phone] 10/27/2023 12:30 PM CDT Diagnostic Division of Pulmonary Medicine in [address] [phone] Lisa Soni MPAS, P.A.-C. [address] [place] [phone] 10/27/2023 1:30 PM CDT Office Visit Division of Pulmonary Medicine in [address] [phone] Lisa Soni MPAS, P.A.-C. [address] [place] [phone] documented as of this encounter Results * [facility] Research, Blood (07/04/2023 12:06 PM EMC STORAGE ARCHITECT) Number of Specimens 6 07/04/2023 12:06 PM EMC STORAGE ARCHITECT HSS Blood (Blood, Venous) 07/04/2023 12:06 PM EMC STORAGE ARCHITECT 07/04/2023 12:06 PM EMC STORAGE ARCHITECT Iker Pimentel M.D. LAB RESEARCH NO RESU LT [facility] [address] [place] [address], [facility] HSS [facility] [address] [place] [address] documented in this encounter Visit Diagnoses Diagnosis Clinical Research Exam- Primary documented in this encounter Care Teams Field Enumerator Relationship Specialty Start Date End Date Alexa Álvarez M.D. [address] [place] [phone] PCP - General Family Medicine 06/02/23 documented as of this encounter
--- OUTSIDE RECORDS SUMMARY | 2023-08-19 07:03 | XMS_ITS | Encounter Summary ---
Author Name Unknown Organization [facility] Address [address] [place] [address] Care Team Providers Care Insurance Account Executive Name Role Phone Alexa Álvarez M.D. Primary Care Provider +1- [phone] Encounter Details Date Type Department Care Team (Latest Contact Info) Description 07/04/2023 11:30 AM SLIPCOVER CUTTER - 07/04/2023 11:59 PM [facility] Hospital Encounter Department of Laboratory Medicine and Pathology, [facility] in [place], [place] [address] [place] [phone] Iker Pimentel M.D. [address] [place] [phone] Clinical Research Exam Discharge Disposition: Home or Self Care Social History Tobacco Use Types Packs/Day Years Used Date Smoking Tobacco: Former Cigarettes S tarted: 10/11/1984 [facility] Utilities Answer Date Recorded In the past 12 months has [facility] [employer], gas, oil, or water [employer] threatened to shut off services in your [...] often do you attend chur ch or quaker services? More than 4 times per year 05/17/2022 Do you belong to any clubs o r organizations such as yarsanism groups, unions, fraternal or athletic groups, or [...] Answer Date Recorded PHQ-2 Score 0 06/09/2023 [facility] of Occupat ional Health - Occupational [...] your living situation today? I have a [facility] place to live 06/09/2023 Education Answer Date Recorded What is the highest level of school you have completed or the highest degree you have received? Master's degree (e.g., MA, MS, Flavia, MEd, WEAVER AXMINSTER, WILLIE) 05/17/2022 Sex and Gender Information Value Date Recorded Sex Assigned at Female 05/17/2022 2:17 PM SLIPCOVER CUTTER Gender Identity Female 05/17/2022 2:17 PM SLIPCOVER CUTTER Sexual Orientation Straight 05/17/2022 2: 17 PM SLIPCOVER CUTTER documented as of this encounter Medications at [...] tablet by mouth daily as needed. 04/13/2010 cephalexin (KEFLEX) 500 mg capsule Take 1 capsule (500 mg total) by mouth 2 (two) times a day. 14 capsule 07/01/2023 07/27/2023 documented as of this encounter Plan of Treatment Upcoming Encounters Date Type Department Care Team (Latest Contact Info) Description 08/26/2023 9:30 AM CDT Procedure visit Department of Obstetrics and Gynecology in [place] [address] [place] [address] Milena Huffman APRN, C.N.P. [address] [place] [phone] Snow Cox APRN, C.N.P. [address] [place] [phone] Rajni Hooker M.D. [address] [place] [phone] Discharge Disposition: Home or Self Care 10/07/2023 7:30 AM CDT Clinical Communication Virtual Review in [address] [phone] 10/11/2023 8:40 AM CDT Comprehensive Visit Division of Gastroenterology in [address] [phone] Iker Bruce M.D. [address] [place] [phone] 10/26/2023 8:30 AM CDT Clinical Communication Virtual Review in [address] [phone] 10/26/2023 10:30 AM CDT Appointment Department of Radiology, [facility], in [address] [phone] Lisa Soni MPAS, P.A.-C. [address] [place] [phone] 10/27/2023 12:30 PM CDT Diagnostic Division of Pulmonary Medicine in [address] [phone] Lisa Soni MPAS, P.A.-C. [address] [place] [phone] 10/27/2023 1:30 PM CDT Office Visit Division of Pulmonary Medicine in [place], [place] [address] [place] [address] Lisa Soni, [facility], P.A.-C. [address] [place] [phone] documented as of this encounter Procedures Procedure Name Priority Date/Time Associated Diagnosis Comments [facility] RESEARCH ORDER, B Routine 07/04/2023 12:06 PM SLIPCOVER CUTTER Clinical Research Exam documented in this encounter Results * [facility] Research, Blood (07/04/2023 12:06 PM SLIPCOVER CUTTER) Number of Specimens 6 07/04/2023 12:06 PM SLIPCOVER CUTTER HSS Blood (Blood, Venous) 07/04/2023 12:06 PM SLIPCOVER CUTTER 07/04/2023 12:06 PM SLIPCOVER CUTTER Iker Pimentel M.D. LAB RESEARCH NO RESU LT [facility] 200 [place] [address], [facility] 200 [place] [address] documented in this encounter Visit Diagnoses Diagnosis Clinical Research Exam documented in this encounter Care Teams Insurance Account Executive Relationship Specialty Start Date End Date Alexa Álvarez M.D. [address] [place] [phone] PCP - General Family Medicine 06/02/23 documented as of this encounter
--- OUTSIDE RECORDS SUMMARY | 2023-08-19 07:03 | XMS_ITS | Encounter Summary ---
Author Name Unknown Organization [facility] Address [address] [place] [address] Care Team Providers Care Lace Inspector Name Role Phone Alexa Álvarez M.D. Primary Care Provider +1- [phone] Reason for Referral * Outpatient (Routine) - Closed Specialty Diagnoses / Procedures Referred By Contac t Referred To Contact Diagnoses Incontinence Fecal Procedures DX Abdomen 1 View Edis Gupta M.B.B.S. [address] [place] [phone] [facility] Referral ID Status Reason Start Date Expiration Date Visits Re quested Visits Authorized [id number] Closed 08/03/2023 08/02/2024 1 1 * Outpatient (Routine) - Closed Specialty Diagnoses / Procedures Referred By Contac t Referred To Contact Diagnoses Incontinence Fecal Procedures Anorectal Manometry Edis Gupta M.B.B.S. [address] [place] [phone] [facility] Referral ID Status Reason Start Date Expiration Date Visits Re quested Visits Authorized [id number] Closed 08/03/2023 08/02/2024 1 1 * Outpatient (Routine) - Closed Specialty Diagnoses / Procedures Referred By Contac t Referred To Contact Diagnoses Polyp Colon Adenomatous Personal History Procedures Colonoscopy restricted Edis Gupta M.B.B.S. [address] [place] [phone] [facility] Referral ID Status Reason Start Date Expiration Date Visits Re quested Visits Authorized [id number] Closed 08/03/2023 08/02/2024 1 1 Reason for Visit * Outpatient (Routine) - Closed Specialty Diagnoses / Procedures Referred By Contact Referred To Contact Gastroenterology and Hepatology Diagnoses Incontinence Fecal Milena Huffman APRN, C.N.P. [address] [place] [phone] [facility] Referral ID Status Reason Start Date Expiration Date Visits Re quested Visits Authorized [id number] Closed 06/20/2023 12/19/2024 1 1 Encounter Details Date Type Department Care Team (Latest Contact Info) Description 08/03/2023 8:00 AM CDT Comprehensive Visit Division of Gastroenterology in [place], [place] [address] [place] [phone] Milena Huffman APRN, C.N.P. [address] [place] [phone] Edis Gupta M.B.B.S. [address] [place] [phone] Polyp Colon Adenomatous Personal History (Primary Dx); Incontinence Fecal Social History Tobacco Use Types Packs/Day Years Used Date Smoking Tobacco: Former Cigarettes 1 - 02/09/1985 Smokeless Tobacco: Never Alcohol Use Standard Drinks/Week Comments Not Currently 0 (1 standard drink = 0.6 oz pur e alcohol) [facility] Utilities Answer Date Recorded In the past 12 months has [employer], gas, oil, or water company threatened to [...] week 05/17/2022 How often do you attend [facility] or jainism services? More than 4 times [...] Answer Date Recorded PHQ-2 Score 0 06/09/2023 [facility] of Occupat ional Health - Occupational Stress [...] your living situation today? I have a [facility] place to live 06/09/2023 Education Answer Date Recorded What is the highest level of school you have completed or the highest degree you have received? 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 - 08/03/2023 8:00 AM CDT SUBJECTIVE REFERRAL SOURCE Milena Huffman APRN, C.N.P. REASON FOR CONSULT Fecal incontinence HISTORY OF PRESENT ILLNESS Ms. Howard is a 77 y.o. female from [facility] who comes for evaluation of fecal incontinence. Jeaneth complains of episodes of fecal incontinence, which occur typically once a week and often without her knowledge. She denies any nocturnal incontinence. On most occasions, she finds soft or poorlyformed stool in a pad. Her typical bowel pattern was [place] 3-4 stool daily without the need for straining or incomplete evacuation. In May, she was diagnosed with urinary tract infection and since then has had multiple courses of antibiotics such as Macrobid. Prior to this, she was diagnosed with COVID in April 2023. Over the past 3 months, she has had changes in her bowel pattern especially when she is taking antibiotics she tends to have diarrhea with multiple [place] 5-7 stools a day. However, her stool form returns to a somewhat normal consistency after she stops the antibiotics.This has not affected her episodes of incontinence and she continues to have these once a week. Shehas not been previously as bothered with incontinence, however, there is concern now given that sheis having recurrent episodes of UTI with E. coli. She also feels it is hard to wipe the stool aftera bowel movement. She has a history of hemorrhoids which can bleed when they are irritated. She has3 meals a day and typically has coffee along with pastry and fruit for breakfast. If lunch is light, she typically will have yogurt with crackers and cheese or, if she has lunch as her main meal, shewill have been a protein such as chicken or salmon along with mashed potatoes, carrots, or other vegetables. She used to consume significant amount salad, however, she decreased her salad intake 2-3 years back and noticed that this helped with her bowel movements. Her primary symptom at this time is these episodes of incontinence which come without a warning, and she is often unaware of the episode of incontinence. She does feel that these likely happen on days when she has a sensation of incomplete evacuation. She is 3, para 3, L3 and all were normal vaginal births. The patient's information was obtained from interview, and supplemented by review of the patient's electronic/scanned medical records and Care Everywhere. Care Everywhere yielded no Gastroenterology notes and limited GI test results. This is the patient's first consult in the Division of Gastroenterology and Hepatology [facility]. MEDICAL HISTORY Past Medical History: Diagnosis Date Asthma NOS Cataract Chronic Obstructive Pulmonary Disease (HCC) Depressive Disorder Gallbladder Disorder Hyperlipidemia Hypertension NOS Hypothyroidism Migraine Headache Osteoporosis Other Injury Of Unspecified Body Region Pneumonia Polyp Colon Skin Cancer (Primary) NOS Sleep Apnea Stone Kidney 06/13/2023 SURGICAL HISTORY Past Surgical History: Procedure Laterality Date CATARACT EXTRACTION Bilateral 2020 GALLBLADDER SURGERY JOINT REPLACEMENT OTHER CONVERTED SHX (SEE COMMENT) N/A 04/03/2007 >C3 through superior C7 cervical laminectomy. SPINE SURGERY TONSILLECTOMY TUBAL LIGATION CURRENT MEDICATIONS Current Outpatient Medications: alendronate (FOSAMAX) 70 mg tablet, Take 70 mg by mouth once a week., Disp: , Rfl: atorvastatin (LIPITOR) 10 mg tablet, Take 10 mg by mouth at bedtime., Disp: , Rfl: cyanocobalamin (VITAMIN B12) 1,000 mcg/mL injection, Inject 1,000 mcg intramuscularly every 28 (twenty-eight) days., Disp: , Rfl: DME CPAP, DME Order, Disp: 1 each, Rfl: 0 fluticasone propionate (FLONASE) 50 mcg/actuation nasal spray, Administer 1 spray into each nostrildaily as needed., Disp: , Rfl: gabapentin (NEURONTIN) 400 mg capsule, Take 4 capsules by mouth at bedtime., Disp: , [...] DR capsule, Take 1 capsule by mouth as needed., Disp: , Rfl: polyethylene glycol-electrolytes (GoLYTELY) 236-22.74-6.74 -5.86 gram solution, Drink 1st portion of prep at 6 PM the evening before. 2nd portion must be started 3 hours before and finished 2 hours prior to report time, Disp: 4000 mL, Rfl: 0 Synthroid 100 mcg tablet, Take 1 tablet by mouth daily., Disp: , Rfl: trospium (SANCTURA) 20 mg tablet, Take 1 tablet (20 mg total) by mouth 2 (two) times a day before breakfast and dinner. (Patient not taking: Reported on 07/27/2023), Disp: 60 tablet, Rfl: 11 valACYclovir (VALTREX) 500 mg tablet, Take 1 tab (500 mg) by mouth 2 times a day for 3 days., Disp:6 tablet, Rfl: 5 venlafaxine XR (EFFEXOR-XR) 75 mg 24 hr capsule, Take 1 capsule by mouth daily., Disp: , Rfl: VITAMIN B COMPLEX ORAL, Take 1 tablet by mouth daily as needed., Disp: , Rfl: ALLERGIES/CONTRAINDICATIONS Allergies Allergen Reactions Amoxicillin GI intolerance Divalproex Sodium Other (see comments) increase WBC count Fluticasone Other (see comments) Pt reports high dose senior living caused damage to her nose (taste/smell) House Dust Other (see comments) Mold Extracts Other (see comments) Prednisone Other (see comments) Has significant Psychiatry side effects, feels out of it. May tolerate very low dose, ie 10 milligrams daily for 5 days. SOCIAL HISTORY Social History Tobacco Use Smoking status: Former Types: Cigarettes Start date: 02/09/1967 Quit date: 02/09/1985 Years since quittin.5 Smokeless tobacco: Never Vaping Use Vaping Use: never used Substance Use Topics Alcohol use: Not Currently Drug use: Never FAMILY HISTORY Family History Problem Relation Age of Onset Macular degeneration Mother Osteoporosis Mother Arthritis Mother Depression Mother Glaucoma Paternal Grandmother Skin cancer Father Hypertension Father Hyperlipidemia Father Kidney disease Father Depression Father Clotting disorder Father Rectal cancer Brother Thyroid disease Brother Colon polyps Brother Depression Son Depression Son Anxiety and depression REVIEW OF SYSTEMS Pertinent items are noted in HPI; all other review of systems was negative. OBJECTIVE VITAL SIGNS BP Readings from Last 1 Encounters: 07/28/23 132/87 Pulse Readings from Last 1 Encounters: 07/28/23 82 Weight: 84 kg (07/01/2023 11:24 AM) Height: 172 cm (07/01/2023 11:24 AM) PHYSICAL EXAMINATION General: Healthy-appearing, well-groomed, no acute distress. Head: Normocephalic, atraumatic. Skin: Nonjaundiced. Eyes: Sclerae non-icteric. Pupils equally reactive to light. Lymph nodes: Normal. Abdomen: Non-distended. Active bowel sounds. No abdominal bruits. No hepatosplenomegaly by percussion or palpation. Non-tender. Rectum: Normal visual exam externally. Normal superficial sensation bilaterally. Sphincter tone at rest is low normal. Sphincter augments with squeeze. Digital rectal exam revealed no scarring, narrowing, or masses in the anal canal or rectum. With simulated defecation, there was appropriate generation of intrarectal pressure, but minimal descent of the pelvic floor, or relaxation of the sphincter muscles. Gait: Normal. Mental: Normal. ASSESSMENT / PLAN #1 Fecal incontinence with decreased resting tone Ms. Howard presents with fecal incontinence for the past few years which happen around once a week and are often unpredictable and happen without her knowledge. She denies any episodes of nocturnal incontinence. On most days, she reports having a [place] 3-4 stool without straining or a sensation of incomplete evacuation. With the recent antibiotic use, she has had days when she has had multiple bowel movements which can be Pittsburgh 5-7. Her exam is suggestive of decreased resting anal tone hence decreased squeeze, as well as incomplete perineal descent on bear down. I have suggested an initial course of conservative management, during which time, I would like to get anorectal manometry to further assess her pelvic floor function. I have suggested starting with a fiber supplement such as Benefiber or psyllium husk or Citrucel, unsweetened and non-flavored, starting with 1 spoon a day for 7-10 days following which she can increase it to 2 spoons a day as long as she is tolerating it well. We should see a change in the stool form once she is at 3-4 spoons a day. At that point, we would consider adding a laxative such as MiraLAX to this regimen starting with 1 capful a day. If she does feel like she is not completely evacuated, she could consider using a small volume tap water enema or a glycerin suppository to help with evacuation. She drinks at least 60 ounces of water a day and has a healthy breakfast along with caffeinated drink. These should help facilitate a bowel movement the morning. The goal is to ensure thatshe has a formed stool as well as complete evacuation, as this should help reduce the episodes of incontinence. We will proceed with an anorectal manometry during this time to evaluate her pelvic floor function and then, if these conservative strategies fail, we would consider pelvic floor physicaltherapy before considering medications or surgical options. #2 Colorectal cancer surveillance Ms. Howard had polyps on her last colonoscopy 5 years back, and I think it would be reasonable to proceed with a surveillance colonoscopy at this time. We will try to schedule both her anorectal manometry and colonoscopy on the same day. I have sent a prep to her pharmacy. Ms. Howard will keep us posted about her symptoms and, if there is no improvement, she will reach out to us and we can make further recommendations. Ms. Howard is agreeable to this plan. We will alsoask her to meet with our motility nurse to reiterate the regimen and help answer additional questions she may have. DIAGNOSTICS LIST OF ORDERED TESTS/LABS: Orders Placed This Encounter Procedures DX Abdomen 1 View Colonoscopy restricted Anorectal Manometry Ordered/scheduled test results will be communicated at completion of testing via Portal messaging or during the return visit, if applicable. If a test result is time-sensitive and/or will result in change in management (e.g. therapy or tests), this will be communicated to you via Portal messaging before completion of testing. Due to the consultative nature of my practice, the patient is advised to continue to maintain and receive care through local providers. After testing conclusion, diagnosis and recommendations will beprovided for the patient to share with local providers for long-term management. Counseling was provided [id number] at bedside regarding the plan of care as stated above. I personally spent over half of a total 80 minutes in counseling and coordination of care as documented above. Jayy Rocha.B.S. documented in this encounter Plan of Treatment Upcoming Encounters Date Type Department Care Team (Latest Contact Info) Description 08/26/2023 9:30 AM CDT Procedure visit Department of Obstetrics and Gynecology in [place], [place] [address] [place] [phone] Milena Huffman APRN, C.N.P. [address] [place] [phone] Snow Cox APRN, C.N.P. [address] [place] [phone] Rajni Hooker M.D. [address] [place] [phone] Discharge Disposition: Home or Self Care 10/07/2023 7:30 AM CDT Clinical Communication Virtual Review in [place], [place] 200 [place] [phone] 10/11/2023 8:40 AM CDT Comprehensive Visit Division of Gastroenterology in [place], [place] [address] [place] [phone] Iker Bruce M.D. [address] [place] [phone] 10/26/2023 8:30 AM CDT Clinical Communication Virtual Review in [place], [place] 200 [place] [phone] 10/26/2023 10:30 AM CDT Appointment Department of Radiology, [facility], in [place], [place] [address] [place] [phone] Lisa Soni, MPAS, P.A.-C. [address] [place] [phone] 10/27/2023 12:30 PM CDT Diagnostic Division of Pulmonary Medicine in [place], [place] [address] [place] [phone] Lisa Soni MPAS, P.A.-C. [address] [place] [phone] 10/27/2023 1:30 PM CDT Office Visit Division of Pulmonary Medicine in [place], [place] [address] [place] [phone] Lisa Soni MPAS, P.A.-C. [address] [place] [phone] documented as of this encounter Results * Anorectal Manometry (08/17/2023 5:06 PM CDT) Edis Hope.B.S. GI PROCEDURE OR DERABLES MMODAL NA * DX Abdomen 1 View (08/03/2023 10:28 [...] burden. Surgicalclips RUQ. Patchy pulmonary opacities. Edis Castellanos.B.B.S. IMG DIAGNOSTIC IMAGING PROCEDURES documented in this encounter Visit Diagnoses Diagnosis Polyp Colon Adenomatous Personal History- Primary Incontinence Fecal Incontinence Fecal documented in this encounter Care Teams Lace Inspector Relationship Specialty Start Date End Date Alexa Álvarez M.D. [address] [phone] PCP - General Family Medicine 06/02/23 documented as of this encounter
--- OUTSIDE RECORDS SUMMARY | 2023-08-19 07:03 | XMS_ITS | Encounter Summary ---
Author Name Unknown Organization [facility] Address [address] [place] [address] Care Team Providers Care Reweaver Name Role Phone Alexa Álvarez M.D. 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 [address] [place] [phone] [facility] Referral ID Status Reason Start Date Expiration Date Visits Re quested Visits Authorized [id number] Closed 07/11/2023 07/10/2024 1 1 Encounter Details Date Type Department Care Team (Latest Contact Info) Description 07/12/2023 3:13 PM CDT - 07/12/2023 11:59 PM CDT Hospital Encounter Department of Radiology, [facility], in [place], [place] 200 [place] [phone] Milena Huffman, VIJAY, C.N.P. 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 More than 4 times per year 05/17/2022 Do you belong to any clubs o r organizations such as presybeterian groups, unions, fraternal or athletic groups, or [...] Answer Date Recorded PHQ-2 Score 0 06/09/2023 [facility] of Occupat ional Health - Occupational Stress [...] your living situation today? I have a [facility] place to live 06/09/2023 Education Answer Date Recorded What is the highest level of school you have completed or the highest degree you have received? 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 14 capsule 07/01/2023 07/27/2023 doxycycline hyclate (VIBRA-TABS) 100 mg tablet Take 1 tablet by mouth 2 (two) times a day. 07/09/2023 07/27/2023 documented as of this encounter Plan of Treatment Upcoming Encounters Date Type Department Care Team (Latest Contact Info) Description 08/26/2023 9:30 AM CDT Procedure visit Department of Obstetrics and Gynecology in [place], [place] [address] [place] [phone] Milena Huffman APRN, C.N.P. [address] [place] [phone] Snow Cox APRN, C.N.P. [address] [place] [phone] Rajni Hooker M.D. [address] [place] [phone] Discharge Disposition: Home or Self Care 10/07/2023 7:30 AM CDT Clinical Communication Virtual Review in [place], [place] 200 [place] [phone] 10/11/2023 8:40 AM CDT Comprehensive Visit Division of Gastroenterology in [place], [place] [address] [place] [phone] Iker Bruce M.D. [address] [place] [phone] 10/26/2023 8:30 AM CDT Clinical Communication Virtual Review in [place], [place] 200 [place] [address] 10/26/2023 10:30 AM CDT Appointment Department of Radiology, [facility], in [place], [place] [address] [place] [phone] Lisa Soni MPAS, P.A.-C. [address] [place] [phone] 10/27/2023 12:30 PM CDT Diagnostic Division of Pulmonary Medicine in [place], [place] [address] [place] [phone] Lisa Soni MPAS, P.A.-C. [address] [place] [phone] 10/27/2023 1:30 PM CDT Office Visit Division of Pulmonary Medicine in [place], [place] [address] [place] [phone] Lisa Soni MPAS, P.A.-C. 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 Consider gynecologic referral. 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 [address] [place] [phone] PCP - General Family Medicine 06/02/23 documented as of this encounter
--- OUTSIDE RECORDS SUMMARY | 2023-08-19 07:03 | XMS_ITS | Encounter Summary ---
Author Name Unknown Organization [facility] Address [address] [place] [address] Care Team Providers Care Feather Separator Name Role Phone Alexa Álvarez M.D. Primary Care Provider +1- [phone] Reason for Referral * Outpatient (Routine) - Authorized Specialty Diagnoses / Procedures Referred By James t Referred To Contact Obstetrics and Gynecology Diagnoses Incontinence Urinary Infection Urinary Tract Personal History Snow Malik APRN, C.N.P. [address] [place] [address] [facility] Region Referral ID Status Reason Start Date Expiration Date V isits Requested Visits Authorized [id number] Authorized 07/14/2023 01/12/2025 1 1 Reason for Visit * Reason Comments Urinary Incontinence Encounter Details Date Type Department Care Team (Latest Contact Info) Description 07/14/2023 11:30 AM CDT Comprehensive Visit Department of Obstetrics and Gynecology in [address] [phone] Snow Malik APRN, C.N.P. [address] [place] [address] Incontinence Urinary (Primary Dx); Infection Urinary Tract Personal History Discharge Disposition: Home or Self Care Social History Tobacco Use Types Packs/Day Years Used Date Smoking Tobacco: Former Cigarettes 1 - 02/09/1985 Smokeless Tobacco: Never Alcohol Use Standard Drinks/Week Comments Not Currently 0 (1 standard drink = 0.6 oz pur e alcohol) [facility] Utilities Answer Date Recorded In the past 12 months has th e electric, gas, oil, or water company [...] often do you attend chur ch or buddhist services? More than 4 times per year 05/17/2022 Do you belong to any clubs o r organizations such as yarsani groups, unions, fraternal or athletic groups, or [...] Answer Date Recorded PHQ-2 Score 0 06/09/2023 [facility] of Occupat ional [facility] - Occupational Stress Questionnaire Answer [...] Master's degree (e.g., MA, MS, Flavia, MEd, THREADING MACHINE TENDER, WILLIE) 05/17/2022 Sex and Gender Information Value Date Recorded Sex Assigned at Female 05/17/2022 2:17 PM EXHIBITS MANAGER Gender Identity Female 05/17/2022 2:17 PM EXHIBITS MANAGER Sexual Orientation Straight 05/17/2022 2: 17 PM EXHIBITS MANAGER documented as of this encounter Last Filed Vital Signs Vital Sign Reading Time Taken Comments Blood Pressure 138/85 07/14/2023 10:40 AM CDT Pulse 73 07/14/2023 10:40 AM CDT Temperature - - Respiratory Rate - - Oxygen Saturation - - Inhaled Oxygen Concentration - - Weight - - Height - - Body Mass Index - - documented in this encounter Progress Notes * Snow Malik, VIJAY, C.N.P. - 07/14/2023 11:30 AM CDT SUBJECTIVE CHIEF COMPLAINT/REASON FOR VISIT Chief Complaint Patient presents with Urinary Incontinence HISTORY OF PRESENT ILLNESS Jeaneth is a 77 y.o. female here for discussion of symptoms and next steps. Her concerns are: Urinary incontinence, sometimes fecal incontinence. She has had incontinence symptoms for 10 years.Has been through pelvic floor PT in [place]. Recurrent UTI. This has been ongoing since May. She says within a day or 2 after stopping the antibiotics her symptoms of burning and frequency return. E coli has persistently been found on culture. Prior to these last few months, she experienced occasional UTIs. She recently had a cystoscopy and a CT urogram. And, recently started vaginal estrogen. She stopped the estrogen after a week or sodue to breast pain. That CT imaging showed concern for endometrial thickening. A follow up pelvic US showed that the endometrium was not thickened. She has not had any bleeding. PROBLEM LIST: Patient Active Problem List Diagnosis Bipolar Disorder (HCC) Hypertension Essential Primary Hyperlipidemia Mixed Diverticulosis Hypothyroidism Polyp Colon Personal History Herpes Simplex Labialis Lung Interstitial Disease (HCC) Osteoporosis Fibrosis Idiopathic Pulmonary (HCC) Apnea Sleep Obstructive Incontinence Urinary Stress And Urge Murmur Systolic Herpes Simplex Genital Recurrent Allergies Allergen Reactions Amoxicillin GI intolerance Divalproex Sodium Other (see comments) increase WBC count Fluticasone Other (see comments) Pt reports high dose retirement caused damage to her nose (taste/smell) House Dust Other (see comments) Mold Extracts Other (see comments) Prednisone Other (see comments) Has significant Psychiatry side effects, feels out of it. May tolerate very low dose, ie 10 milligrams daily for 5 days. OBJECTIVE VITAL SIGNS BP 138/85 Pulse 73 PHYSICAL EXAMINATION General: No apparent distress. ASSESSMENT / PLAN #1 Incontinence Urinary #2 Infection Urinary Tract Personal History Other orders - Obstetrics and Gynecology - Urogynecology consult (clinic); Future; Expected date: 07/14/2023 This patient is here today to discuss her symptoms, establish with a state highway police officer provider, and discuss nextsteps. She has been having recurrent UTIs since May. Incontinence for the past 10 years. We reviewed the endometrial thickening was 3 mm on the pelvic exam. There was some debris noted or possible polyp. After discussion, she is interested in meeting with urogynecology in [place] for further evaluation of her symptoms. Consult placed. Scheduling will call her to assist. documented in this encounter Plan of Treatment Upcoming Encounters Date Type Department Care Team (Latest Contact Info) Description 08/26/2023 9:30 AM CDT Procedure visit Department of Obstetrics and Gynecology in [place], [place] [address] [place] [address] Milena Huffman APRN, C.N.P. [address] [place] [phone] Snow Cox APRN, C.N.P. [address] [place] [phone] Rajni Hooker M.D. [address] [place] [phone] Discharge Disposition: Home or Self Care 10/07/2023 7:30 AM CDT Clinical Communication Virtual Review in [place], [place] [address] [place] [phone] 10/11/2023 8:40 AM CDT Comprehensive Visit Division of Gastroenterology in [address] [phone] Iker Bruce M.D. [address] [place] [phone] 10/26/2023 8:30 AM CDT Clinical Communication Virtual Review in [place], [place] [address] [place] [address] 10/26/2023 10:30 AM CDT Appointment Department of Radiology, [facility], in [place], [place] [address] [place] [phone] Lisa Soni MPAS, P.A.-C. [address] [place] [phone] 10/27/2023 12:30 PM CDT Diagnostic Division of Pulmonary Medicine in [place], [place] [address] [place] [phone] Lisa Soni MPAS, P.A.-C. [address] [place] [phone] 10/27/2023 1:30 PM CDT Office Visit Division of Pulmonary Medicine in [address] [phone] Lisa Soni MPAS, P.A.-C. [address] [place] [phone] Scheduled Referrals Name Type Priority Associated Diagnoses Order Schedule Obstetrics and Gynecology - Urogynecology consult (clinic) Outpatient Referral Routine Incontinence Urinary Infection Urinary Tract Personal History Expected: 07/14/2023 (Approximate), Expires: 10/13/2024 documented as of this encounter Visit Diagnoses Diagnosis Incontinence Urinary- Primary Infection Urinary Tract Personal History documented in this encounter Care Teams Feather Separator Relationship Specialty Start Date End Date Alexa Álvarez M.D. [address] [place] [phone] PCP - General Family Medicine 06/02/23 documented as of this encounter
--- OUTSIDE RECORDS SUMMARY | 2023-08-19 07:03 | XMS_ITS | Encounter Summary ---
Author Name Unknown Organization [facility] Address [address] [place] [phone] Care Team Providers Care Math And Science Instructor Name Role Phone Alexa Álvarez M.D. Primary Care Provider +1- [phone] Reason for Visit * Reason Onset Date Comments Pre-visit Intake 07/27/2023 * Appointment Request (Routine) - Authorized Specialty Diagnoses / Procedures Referred By James agrawal Referred To Contact Sleep Medicine Mumtaz Tipton, VIJAY, C.N.P., M.S.N. [address] [place] [phone] Referral ID Status Reason Start Date Expiration Date V isits Requested Visits Authorized [id number] Authorized 12/02/2022 12/02/2023 1 1 Encounter Details Date Type Department Care Team (Latest Contact Info) Description 07/27/2023 1:00 PM CDT Clinical Communication Virtual Review in [address] [phone] Pre-visit Intake Social History Tobacco Use Types Packs/Day Years Used Date Smoking Tobacco: Former Cigarettes 1 - 02/09/1985 Smokeless Tobacco: Never Tobacco Cessation:Counseling Given: Not Answered Alcohol Use Standard Drinks/Week Comments Not Currently 0 (1 standard drink = 0.6 oz pur e alcohol) [facility] Utilities Answer Date Recorded In the [...] week 05/17/2022 How often do you attend [facility] or yazdanism services? More than 4 times per year 05/17/2022 Do you belong to any clubs o r organizations such as hinduism groups, unions, fraternal or athletic groups, or [...] Answer Date Recorded PHQ-2 Score 0 06/09/2023 [facility] [place] of Occupat ional Health - Occupational Stress [...] your living situation today? I have a [facility] place to live 06/09/2023 Education Answer Date Recorded What is the highest level of school you have completed or the highest degree you have received? Master's degree (e.g., MA, MS, Flavia, MEd, RESEARCH AND DEVELOPMENT MANAGER, WILLIE) 05/17/2022 Sex and Gender Information Value Date Recorded Sex Assigned at Female 05/17/2022 2:17 PM FINANCIAL SYSTEMS DIRECTOR Gender Identity Female 05/17/2022 2:17 PM FINANCIAL SYSTEMS DIRECTOR Sexual Orientation Straight 05/17/2022 2: 17 PM FINANCIAL SYSTEMS DIRECTOR documented as of this encounter Plan of Treatment Upcoming Encounters Date Type Department Care Team (Latest Contact Info) Description 08/26/2023 9:30 AM CDT Procedure visit Department of Obstetrics and Gynecology in [place], [place] [address] [place] [phone] Milena Huffman APRN, C.N.P. [address] [place] [phone] Snow Cox APRN, C.N.P. [address] [place] [phone] Rajni Hooker M.D. [address] [place] [phone] Discharge Disposition: Home or Self Care 10/07/2023 7:30 AM CDT Clinical Communication Virtual Review in [place], [place] [address] [place] [phone] 10/11/2023 8:40 AM CDT Comprehensive Visit Division of Gastroenterology in [place], [place] [address] [place] [phone] Iker Bruce M.D. [address] [place] [phone] 10/26/2023 8:30 AM CDT Clinical Communication Virtual Review in [address] [phone] 10/26/2023 10:30 AM CDT Appointment Department of Radiology, [facility], in [place], [place] [address] [place] [phone] Lisa Soni MPAS, P.A.-C. [address] [place] [phone] 10/27/2023 12:30 PM CDT Diagnostic Division of Pulmonary Medicine in [place], [place] [address] [place] [phone] Lisa Soni MPAS, P.A.-C. [address] [place] [phone] 10/27/2023 1:30 PM CDT Office Visit Division of Pulmonary Medicine in [place], [place] [address] [place] [phone] Lisa Soni MPAS, PKarolAKarol-C. [address] [place] [address] documented as of this encounter Visit Diagnoses Not on filedocumented in this encounter Care Teams Math And Science Instructor Relationship Specialty Start Date End Date Alexa Álvarez M.D. [address] [place] [phone] PCP - General Family Medicine 06/02/23 documented as of this encounter
--- OUTSIDE RECORDS SUMMARY | 2023-08-19 07:03 | XMS_ITS | Encounter Summary ---
Author Name Unknown Organization [facility] Address [address] [place] [address] Care Team Providers Care Heavy Duty Press Operator Name Role Phone Alexa Álvarez M.D. Primary Care Provider +1- [phone] Encounter Details Date Type Department Care Team ([facility] st Contact Info) Description 07/04/2023 11:30 AM WASH RACK OPERATOR Clinical Support - [facility] Division of Gastroenterology in [place], [place] [address] [place] [address] Kelly Baker Social History Tobacco Use Types Packs/Day Years Used Date Smoking Tobacco: Former Cigarettes S tarted: 10/11/1984 [facility] Utilities Answer Date Recorded In the past 12 months has [facility] electric, gas, oil, or water [employer] threatened to shut off services in your [...] often do you attend chur ch or bahai services? More than 4 times per year 05/17/2022 Do you belong to any clubs o r organizations such as baptist groups, unions, fraternal or athletic groups, or [...] Answer Date Recorded PHQ-2 Score 0 06/09/2023 [facility] - Occupational Stress Questionnaire Answer [...] your living situation today? I have a [facility] place to live 06/09/2023 Education Answer Date Recorded What is the highest level of school you have completed or the highest degree you have received? Master's degree (e.g., MA, MS, Flavia, MEd, SOFTWARE REVERSE ENGINEER, WILLIE) 05/17/2022 Sex and Gender Information Value Date Recorded Sex Assigned at Female 05/17/2022 2:17 PM WASH RACK OPERATOR Gender Identity Female 05/17/2022 2:17 PM WASH RACK OPERATOR Sexual Orientation Straight 05/17/2022 2: 17 PM WASH RACK OPERATOR documented as of this encounter Plan of Treatment Upcoming Encounters Date Type Department Care Team (Latest Contact Info) Description 08/26/2023 9:30 AM CDT Procedure visit Department of Obstetrics and Gynecology in [place], [place] [address] [place] [address] Milena Huffman APRN, C.N.P. [address] [place] [phone] Snow Cox APRN, C.N.P. [address] [place] [phone] Rajni Hooker M.D. [address] [place] [phone] Discharge Disposition: Home or Self Care 10/07/2023 7:30 AM CDT Clinical Communication Virtual Review in [place], [place] [address] [place] [address] 10/11/2023 8:40 AM CDT Comprehensive Visit Division of Gastroenterology in [place], [place] [address] [place] [phone] Iker Bruce M.D. [address] [place] [phone] 10/26/2023 8:30 AM CDT Clinical Communication Virtual Review in [address] [phone] 10/26/2023 10:30 AM CDT Appointment Department of Radiology, [facility], in [place], [place] [address] [place] [phone] Lisa Soni MPAS, P.A.-C. [address] [place] [phone] 10/27/2023 12:30 PM CDT Diagnostic Division of Pulmonary Medicine in [address] [phone] Lisa Soni MPAS, P.A.-CKarol [address] [place] [phone] 10/27/2023 1:30 PM CDT Office Visit Division of Pulmonary Medicine in [address] [phone] Lisa Soni MPAS, P.A.-C. [address] [place] [phone] documented as of this encounter Visit Diagnoses Not on filedocumented in this encounter Care Teams Heavy Duty Press Operator Relationship Specialty Start Date End Date Alexa Álvarez M.D. [address] [phone] PCP - General Family Medicine 06/02/23 documented as of this encounter
--- OUTSIDE RECORDS SUMMARY | 2023-08-19 07:03 | XMS_ITS | Encounter Summary ---
Author Name Unknown Organization [facility] Address [address] [place] [id number] Care Team Providers Care Hims Coder Name Role Phone Alexa Álvarez M.D. Primary Care Provider [phone] Reason for Visit * Outpatient (Routine) - Closed Specialty Diagnoses / Procedures Referred By James agrawal Referred To Contact Diagnoses Hematuria Procedures URO Cystoscopy (general) Milena Huffman APRN, C.N.P. [address] [place] [phone] [facility] Referral ID Status Reason Start Date Expiration Date Visits Re quested Visits Authorized [id number] Closed 06/20/2023 06/19/2024 1 1 Encounter Details Date Type Department Care Team ([facility] st Contact Info) Description 07/04/2023 1:00 PM ART PREPARATOR Procedure visit Department of Urology in [place], [place] [address] [place] [phone] Milena Huffman APRN, C.N.P. [address] [place] [phone] Ben Barbour M.B., B.Ch. [address] [place] [phone] Hematuria Social History Tobacco Use Types Packs/Day Years Used Date Smoking Tobacco: Former Cigarettes S tarted: 10/11/1984 [facility] Utilities Answer Date Recorded In [...] Answer Date Recorded PHQ-2 Score 0 06/09/2023 [facility] [place] of Occupat ional Health - Occupational Stress [...] your living situation today? I have a [facility] place to live 06/09/2023 Education Answer Date Recorded What is the highest level of school you have completed or the highest degree you have received? Master's degree (e.g., MA, MS, Flavia, MEd, [employer], WILLIE) 05/17/2022 Sex and Gender Information Value Date Recorded Sex Assigned at Female 05/17/2022 2:17 PM ART PREPARATOR Gender Identity Female 05/17/2022 2:17 PM ART PREPARATOR Sexual Orientation Straight 05/17/2022 2: 17 PM ART PREPARATOR documented as of this encounter Patient Instructions * Patient Instructions* Minnie Viveros L.P.N. - 07/04/2023 1:00 PM ART PREPARATOR Care after your cystoscopy Possible blood in your urine You may see some blood the first few times you urinate after the cystoscopy. There could be some small clots of blood in your urine. Or your urine could be pink or light red. These effects are commonafter a cystoscopy. Discomfort For the first day or two after your cystoscopy, you may need to urinate often, and you may have a mild burning feeling while urinating. You also may have mild low abdominal pain for a day. To relievediscomfort, drink two 8-ounce glasses of water each hour for two hours after the test (a total of four glasses in two hours). This will help flush your bladder. To relieve discomfort, if your provider says it???s OK, you may take a warm tub bath for 20 minutes. Or you may hold a clean, warm, moist washcloth over the urethral opening for 20 minutes. Some common pain relievers can affect blood thinning. Examples include aspirin, aspirin-containing products, ibuprofen (Advil, Motrin), and naproxen(Aleve, Naprosyn). Talk with your health care providers about what you can take for pain. Activity Rest for the remainder of the day after your cystoscopy. Gradually return to your usual activity level when you feel able. Diet For the first two days after your cystoscopy, while you are awake, you may find it more comfortableif you drink at least one glass of fluid every one to two hours. This will help flush your bladder.Drink fluids such as water, juice, caffeine-free carbonated beverages and tea. Resume your usual diet after the procedure, unless you are scheduled for more tests or procedures that require a specialdiet. When to get medical help Contact your health care provider right away if you: Are not able to urinate for 6 to 8 hours. Have blood clots or bright red blood in your urine (not pink or rust colored) that lasts for 4 to 5hours despite increased intake of fluids. Have frequent urination with any of the following: - Pain not relieved by increasing fluids. - Chills. - Temperature of 100.4 degrees Fahrenheit (38 degrees Celsius) or higher. Have a burning feeling while urinating on day three or after. PREPARATOR documented in this encounter Progress Notes * Minnie Viveros L.P.N. - 07/04/2023 1:00 PM CST Patient here for a cystoscopy performed by Dr. Barbour Cystoscope CYF- #[id number] was used during today's cystoscopy procedure. Accessories used: disposable stop cock. Load number from processing via [employer]: [id number] Urines sent: No 4. Was dye used? No documented in this encounter Procedure Notes * Ben Barbour M.B., B.Ch. - 07/04/2023 1:00 PM CSTAssociated Order(s): URO Cystoscopy (general) Pre-Procedure Diagnose(s): Hematuria Post-Procedure Diagnose(s): Hematuria URO Cystoscopy (general) Performed by: Ben Barbour M.B., B.Ch. Authorized by: Milena Huffman APRN, C.N.P. IMPRESSION negative cystoscopy and chronic cystitis Additional procedures performed: cystoscopy PROCEDURE DETAILS: Urethra (female): Normal: yes Diverticulum present: no Sphincter: Characteristic: coapting Trigone: Normal: yes Ureters: Characteristics: Effluxing clear urine Effluxing clear urine - side: Bilateral Bladder: Normal: yes Capacity: Moderate Quality of urine: Clear Residual upon entry: Moderate Retroflex view: Normal: yes A flexible cystoscope was inserted through the [...] to complete the procedure successfully, and possible needfor further therapy. After verification of patient identity and antibiotic administration, the flexible cystoscope was introduced. Normal meatus. Normal urethra. Bilateral ureteral orificies were visualized and in their orthotopic location. There were no trabeculations, cellules, or diverticula. The bladder mucosa demonstrated generalized erythema consistent with patient's history of recurrent UTI suggesting chronic cystitis. Bladder tumors were not present. On retroflexion, there was a normal bladder neck. The cystoscope was withdrawn. Patient tolerated the procedure well. Impression: Negative cystoscopy Plan: Follow up with Milena Huffman [...] a procedural pause. PRE-PROCEDURE DETAILS Procedure purpose: Diagnostic Appropriate hand hygiene, gown, cap, mask, protective eyewear, sterile gloves, skin preparation, sterile drape, and strict aseptic technique were utilized as applicable for the procedure.: yes Site preparation: Chlorhexidine SEDATION / ANESTHESIA Anesthesia method: none POST-PROCEDURE DETAILS Procedure completed successfully: yes Complications: no apparent complications PREPARATOR documented in this encounter Plan of Treatment Upcoming Encounters Date Type Department Care Team (Latest Contact Info) Description 08/26/2023 9:30 AM CDT Procedure visit Department of Obstetrics and Gynecology in [place], [place] [address] [place] [phone] Milena Huffman APRN, C.N.P. [address] [place] [phone] Snow Cox APRN, CKarolNKarolP. [address] [place] [phone] Rajni Hooker M.D. [address] [place] [phone] Discharge Disposition: Home or Self Care 10/07/2023 7:30 AM CDT Clinical Communication Virtual Review in [place], [place] [address] [place] [phone] 10/11/2023 8:40 AM CDT Comprehensive Visit Division of Gastroenterology in [address] [phone] Iker Bruce M.D. [address] [place] [phone] 10/26/2023 8:30 AM CDT Clinical Communication Virtual Review in [address] [phone] 10/26/2023 10:30 AM CDT Appointment Department of Radiology, [facility], in [address] [phone] Lisa Soni MPAS, P.A.-C. [address] [place] [phone] 10/27/2023 12:30 PM CDT Diagnostic Division of Pulmonary Medicine in [place], [place] [address] [place] [phone] Lisa Soni MPAS, P.A.-C. [address] [place] [phone] 10/27/2023 1:30 PM CDT Office Visit Division of Pulmonary Medicine in [place], [place] [address] [place] [phone] SoniLisa, [place], P.A.-C. [address] [place] [phone] documented as of this encounter Procedures Procedure Name Priority Date/Time Associated Diagnosis Comments SD CYSTOURETHROSCOPY Routine 07/04/2023 1:00 PM ART PREPARATOR Hematuria documented in this encounter Results * SD CYSTOURETHROSCOPY (07/04/2023 1:00 PM ART PREPARATOR) Narrative Ben Barbour M.B., B.Ch. - 07/04/2023 1:00 PM ART PREPARATOR Ben Barbour M.B., B.Ch. ? 07/04/2023 ??1:15 PM URO Cystoscopy (general) Performed by: Ben Barbour M.B., B.Ch. Authorized by: Milena Huffman APRN, C.N.P. ?? [...] Complications: no apparent complications ?? Milena Huffman VIJAY, C.N.P. UROLOGY OR DERABLES documented in this encounter Visit Diagnoses Diagnosis Hematuria documented in this encounter Care Teams Hims Coder Relationship Specialty Start Date End Date Alexa Álvarez M.D. [address] [phone] PCP - General Family Medicine 06/02/23 documented as of this encounter
--- OUTSIDE RECORDS SUMMARY | 2023-08-19 07:03 | XMS_ITS | Encounter Summary ---
Author Name Unknown Organization [facility] Address [address] [place] [id number] Care Team Providers Care Hand Tier Name Role Phone Alexa Álvarez M.D. Primary Care Provider [phone] Reason for Referral * MRI/CAT/PET Scan (Routine) - Authorized Specialty Diagnoses / Procedures Referred By Contac t Referred To Contact Radiology Diagnoses Lung Interstitial Disease (HCC) Procedures CT Chest without IV Contrast Lisa Soni MPAS, P.A.-CKarol [address] [place] [phone] [facility] Referral ID Status Reason Start Date Expiration Date V isits Requested Visits Authorized [id number] Authorized 07/28/2023 07/27/2024 1 1 * Outpatient (Routine) - Authorized Specialty Diagnoses / Procedures Referred By Contac t Referred To Contact Pulmonary Medicine Lisa Soni MPAS, P.A.-CKarol [address] [place] [phone] [facility] Referral ID Status Reason Start Date Expiration Date V isits Requested Visits Authorized [id number] Authorized 07/28/2023 01/26/2025 1 1 Reason for Visit * Outpatient (Routine) - Closed Specialty Diagnoses / Procedures Referred By James agrawal Referred To Contact Pulmonary Medicine Lisa Soni MPAS, P.A.-C. [address] [place] [address] [facility] Referral ID Status Reason Start Date Expiration Date Visits Re quested Visits Authorized [id number] Closed 02/28/2023 02/27/2026 1 1 Encounter Details Date Type Department Care Team (Late st Contact Info) Description 07/28/2023 10:30 AM CDT Office Visit Division of Pulmonary Medicine in [place], [place] [address] [place] [phone] Lisa Soni MPAS, P.A.-C. [address] [place] [phone] Lung Interstitial Disease (HCC) (Primary Dx) Social History Tobacco Use Types Packs/Day Years Used Date Smoking Tobacco: Former Cigarettes 1 - 02/09/1985 Smokeless Tobacco: Never Alcohol Use Standard Drinks/Week Comments Not Currently 0 (1 standard drink = 0.6 oz pur e alcohol) [facility] Utilities Answer Date Recorded In the past 12 months has [employer], gas, oil, or water [employer] threatened to shut off services in your [...] often do you attend chur ch or sikh services? More than 4 times per year 05/17/2022 Do you belong to any clubs o r organizations such as quaker groups, unions, fraternal or athletic groups, or [...] Answer Date Recorded PHQ-2 Score 0 06/09/2023 [facility] of Occupat ional Health - Occupational Stress [...] your living situation today? I have a [facility] place to live 06/09/2023 Education Answer Date Recorded What is the highest level of school you have completed or the highest degree you have received? 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 - 07/28/2023 10:30 AM CDT SUBJECTIVE REASON FOR VISIT Follow up evaluation of Interstitial Lung Disease HISTORY OF PRESENT ILLNESS Jeaneth Howard is a 77 y.o. female with a past medical history significant for asthma, allergies on Singulair, HTN, hypothyroidism, HLD, B12 deficiency, and bipolar disorder. Recall, Ms. Howard was initially evaluated in the Pulmonary-Interstitial Lung Disease clinic on 05/18/[address] Pierce. Prior to this, she had been evaluated locally and was advised to initiate pirfenidone antifibrotic therapy. In 09/2020, Ms. Howard sustained a fall which resulted in rib fractures. Follow up chest imaging indicated the presence of pulmonary fibrosis. She reported worsening dyspnea over the previous 6-12 months and an associated cough which was occasionally productive. Chest CT imaging showed peripheral reticular opacities bilaterally with a basilar predominance in a probable UIP pattern as well as a 6 mm indeterminate lower left lobe nodule. Pulmonary function tests showed normal spirometry and TLC with a mildly reduced DLCO. Hypersensitivity pneumonitis panels for moldand carla as well as autoimmune serology were negative. Overnight oximetry testing on room air was abnormal with episodes of oscillatory desaturation suggesting sleep disordered breathing. She was rec ommended for a sleep consultation. Oxygen titration at rest and with exertion on room air showed noneed for supplemental oxygen. 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 There was also widening of the pulmonary arteries suggesting Eisenmenger's physiology and pulmonary hypertension. An echocardiogram and nuclear medicine cardiac shunt study showed no evidence of pulmonary hypertension and a cardiac shunt thatwas within normal limits. She was started on ipratropium nasal spray for postnasal drip in additionto the [id number] Flonase she was already taking. She was also started on omeprazole for reflux. Antifibrotic therapy was discussed with Ms. Howard preferring to observe. 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 She was a previous smoker, having a 15 pack-year smoking history. At one time, she had two parakeets and a love bird. She continues to live in the same house, but has not had birds for over 15 years. --On 08/24/2022, she presented with some cough and postnasal drip, but had an improvement after adding the ipratropium nasal spray. She discontinued use of all inhalers for her asthma and reported feeling better since then. Since her last evaluation, she underwent a sleep study and was shown to havemoderate sleep apnea for which she was prescribed CPAP therapy which had not been started yet. Pulmonary function testing showed normal spirometry and DLCO, improved compared to last. Chest CT imaging was stable compared to last with interpretation suggesting indeterminate for UIP pattern. The 8 mmleft lower lobe nodule remained unchanged since 01/2022. A new 4 mm solid nodule was seen in the right upper lobe. Due to the stable pulmonary function tests and chest CT imaging, initiation of antifibrotic therapy was deferred with recommendation for follow up in 6 months instead. --On 02/28/2023, Ms. Howard reported no shortness of breath. She had COVID in 07/2022 and was able to acquire Paxlovid therapy, resulting in no significant respiratory symptoms. Pulmonary function testing demonstrated normal lung volumes, spirometry, and mildly reduced DLCO. Chest CT imaging demonstrated no change in lung nodules or fibrotic interstitial lung disease. Today, Ms. Howard reports having a mild case of COVID in 04/05/2023 which did not require treatment. She has had a mild persistent cough since. A majority of her health issues has been due to recurrent UTIs. The following portions of the patient's history were reviewed and updated as appropriate: allergies, current medications, family history, medical history, social history, surgical history and problemlist. REVIEW OF SYSTEMS A full review of systems was obtained. Pertinent positives and negatives are noted in the HPI; all other review of systems were negative. MEDICAL HISTORY Past Medical History: Diagnosis Date Asthma NOS Cataract Chronic Obstructive Pulmonary Disease (HCC) Depressive Disorder Gallbladder Disorder Hyperlipidemia Hypertension NOS Hypothyroidism Migraine Headache Osteoporosis Other Injury Of Unspecified Body Region Pneumonia Polyp Colon Skin Cancer (Primary) NOS Sleep Apnea Stone Kidney 06/13/2023 OBJECTIVE PHYSICAL EXAM Vitals: Blood Pressure: 132/87 (07/28/2023 10:27 AM) Temperature: (!) 35.6 ??C (07/28/2023 10:27 AM) Temp Source: Temporal (07/28/2023 10:27 AM) Pulse Rate: 82 (07/28/2023 10:27 AM) Resp Rate: 16 (07/01/2023 11:24 AM) BMI (Calculated): 28.4 kg/m?? (07/01/2023 11:24 AM) SpO2: 97 % (07/28/2023 10:27 AM) Height: 172 cm (07/01/2023 11:24 AM) Weight: 84 kg (07/01/2023 11:24 AM) General: Pleasant female in no acute respiratory distress and no conversational dyspnea. The patient appears well nourished and put together. Skin: No generalized rash. Lymph: No cervical, submandibular or supraclavicular lymphadenopathy. Peripheral vessels: JVP not elevated. Lungs: Essentially clear to auscultation with occasional inspiratory crackles scattered in the bilateral bases posteriorly Heart: Regular rate and rhythm, normal S1 and S2. No murmurs, rubs or gallops. Extremities: No clubbing or cyanosis. No asymmetry, nodules, or erythema in the upper or lower extremities. No pedal edema. Neuro: Alert and oriented to time, place and person. No obvious neurological deficits noted. Psych: Normal mood and affect. DIAGNOSTICS I have reviewed the patient's current laboratory, imaging, and other diagnostic studies. Clinicallysignificant findings are as follows: Pulmonary Functions Testing Results (pre-bronchodilator): Date FVC %pred DLCO %pred TLC %pred FEV1 %pred FEV1/FVC 07/28/2023 89% 61% uncorrected 76% 95% 80.4/105% 02/28/2023 92% 69% uncorrected 82% 103% 84.7 08/24/2022 90% 70% uncorrected 84% 97% 81.3 05/26/2022 97% 67% 83% 105% 82.2 ASSESSMENT / PLAN ASSESSMENT I have personally reviewed the patient's PFT from 07/28/2023 with the patient. Medical problems are as follows: 1) Fibrotic Interstitial Lung Disease, indeterminate. Query exposure versus idiopathic 2) Pulmonary function test demonstrating 3) History of Abnormal chest CT imaging indeterminate for UIP pattern, small lung nodules stable 4) COVID, 04/05/2023, no treatment required 5) Chronic cough 6) Postnasal drip It was a pleasure seeing Ms. Howard in the [facility]monary[facility] today. From a pulmonary standpoint,she has not had any significant breathing limitations or worsening in her respiratory status. Pulmonary function testing shows no significant change with mild restriction, normal spirometry, and moderately reduced DLCO. There is no evidence of progressive interstitial lung Disease. She had COVID in April and has had a mild persistent cough since. She has a Combivent inhaler touse as needed every 6 hours, but has not used it for her cough. She has been advised to try using the Combivent, 1 puff, every 6 hours for cough, wheezing, or shortness of breath. If she does not have any relief in her cough after doing this for 2 weeks, her cough may not be airway related. Ms. Howard also has postnasal drip for which she uses an ipratropium and fluticasone propionate nasal sprays. She was advised to try using a sinus cleanse with hypertonic solution mixed with distilled water twice daily for 2 weeks followed by the ipratropium and fluticasone as prescribed to see if she has any relief in her cough. If this does not provide relief, her cough is likely not related to postnasal drip. She denies symptoms of heartburn or reflux, making this an unlikely cause. However, she reports that her cough seems to develop after drinking 2 cups of coffee. It is possible the caffeine orthe coffee itself is contributing to some reflux issues. If she does not have any relief with use of the inhaler or the sinus cleanse, she may want to refrain from drinking coffee for a few days to see if her cough subsides. If the cough has not subsided on its own by the time she follows up in theInterstitial Lung Disease clinic 3 months, we will consider having her undergo evaluation in the Cough Clinic. Ms. Howard reportedly has not used the Aerobika device since receiving it. We briefly reviewed instructions of use. She was advised that if she has a loose, nonproductive cough, the Aerobika maybe helpful. But if she has a dry, hacky cough, it will likely not provide any therapeutic effect. PLAN 1. Follow up in the Pulmonary-Interstitial Lung Disease clinic in 3 months with pulmonary function testing and chest CT without IV contrast prior to the appointment. 2. Attempt cough alleviation techniques such as use of Combivent inhaler, sinus cleanse followed bynasal sprays, and cessation of drinking coffee. If there is no relief, consider evaluation in the cough Clinic. PATIENT EDUCATION Ready to learn, no apparent learning barriers were identified; learning preferences include listening. Reviewed pulmonary function test and CT imaging and interpretation. Explained diagnosis and treatment plan in detail to Ms. Howard with understanding verbalized. I did my best to answer all questions prior to the end of the visit today. BILLING Total time spent: 40 minutes, which included hoty-kw-[id number] time during the encounter as well as one or more of the following: medical record review, documenting and ordering services, phone calls, family meetings, and/or communication with other healthcare professionals. documented in this encounter Plan of Treatment Upcoming Encounters Date Type Department Care Team (Latest Contact Info) Description 08/26/2023 9:30 AM CDT Procedure visit Department of Obstetrics and Gynecology in [place], [place] [address] [place] [address] Milena Huffman APRN, C.N.P. [address] [place] [phone] Snow Cox APRN, C.N.P. [address] [place] [phone] Rajni Hooker M.D. [address] [place] [phone] Discharge Disposition: Home or Self Care 10/07/2023 7:30 AM CDT Clinical Communication Virtual Review in [address] [phone] 10/11/2023 8:40 AM CDT Comprehensive Visit Division of Gastroenterology in [place], [place] [address] [place] [phone] Iker Bruce M.D. [address] [place] [phone] 10/26/2023 8:30 AM CDT Clinical Communication Virtual Review in [place], [place] [address] [place] [address] 10/26/2023 10:30 AM CDT Appointment Department of Radiology, [facility], in [place], [place] [address] [place] [phone] Lisa Soni MPAS, P.A.-CKarol [address] [place] [phone] 10/27/2023 12:30 PM CDT Diagnostic Division of Pulmonary Medicine in [place], [place] [address] [place] [phone] Lisa Soni MPAS, P.A.-CKarol [address] [place] [phone] 10/27/2023 1:30 PM CDT Office Visit Division of Pulmonary Medicine in [place], [place] [address] [place] [phone] Lisa Soni MPAS, P.A.-CKarol [address] [place] [phone] Scheduled Orders Name Type Priority Associated Diagnoses Orde r Schedule Pulmonary Function Tests PFT Routine Lung Interstitial Disease (HCC) Expected: 10/28/2023, Expires: 10/27/2024 CT Chest without IV Contrast Imaging RAD - Routine (most inpatients and all outpatients) Lung Interstitial Disease (HCC) Expected: 10/28/2023, Expires: 10/27/2024 Scheduled Referrals Name Type Priority Associated Diagnoses Orde r Schedule Pulmonary Medicine office visit (clinic) Outpatient Referral Routine Expected: 10/28/2023, Expires: 10/27/2024 documented as of this encounter Visit Diagnoses Diagnosis Lung Interstitial Disease (HCC)- Primary documented in this encounter Care Teams Hand Tier Relationship Specialty Start Date End Date Alexa Álvarez M.D. [address] [place] [phone] PCP - General Family Medicine 06/02/23 documented as of this encounter
--- OUTSIDE RECORDS SUMMARY | 2023-08-19 07:03 | XMS_ITS | Encounter Summary ---
Author Name Unknown Organization [facility] Address [address] [place] [address] Care Team Providers Care Speedboat Driver Name Role Phone Alexa Álvarez M.D. Primary Care Provider +1- [phone] Reason for Referral * Outpatient (Routine) - Authorized Specialty Diagnoses / Procedures Referred By Contact Referred To Contact Gastroenterology and Hepatology Diagnoses Lesion Appendix Milena Huffman APRN, C.N.P. 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 [address] [place] [phone] [facility] Referral ID Status Reason Start Date Expiration Date V isits Requested Visits Authorized [id number] Authorized 07/11/2023 01/09/2025 1 1 Reason for Visit * Outpatient (Routine) - Closed Specialty Diagnoses / Procedures Referred By James agrawal Referred To Contact Urology Milena Huffman APRN, C.N.P. [address] [place] [phone] [facility] Referral ID Status Reason Start Date Expiration Date Visits Re quested Visits Authorized [id number] Closed 06/20/2023 12/19/2024 1 1 Encounter Details Date Type Department Care Team (Late st Contact Info) Description 07/11/2023 11:00 AM CDT Office Visit Department of Urology in [place], [place] [address] [place] [phone] Milena Huffman APRN, C.N.P. 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 More than 4 times per year 05/17/2022 Do you belong to any clubs o r organizations such as methodist groups, unions, fraternal or athletic groups, or [...] Answer Date Recorded PHQ-2 Score 0 06/09/2023 [facility] [place] of Occupat ional Health - Occupational Stress [...] your living situation today? I have a [facility] place to live 06/09/2023 Education Answer Date Recorded What is the highest level of school you have completed or the highest degree you have received? Master's degree (e.g., MA, MS, Flavia, MEd, MANUFACTURING AREA MANAGER, WILLIE) 05/17/2022 Sex and Gender Information Value Date Recorded Sex Assigned at Female 05/17/2022 2:17 PM DIRECTOR FOOD AND BEVERAGE Gender Identity Female 05/17/2022 2:17 PM DIRECTOR FOOD AND BEVERAGE Sexual Orientation Straight 05/17/2022 2: 17 PM DIRECTOR FOOD AND BEVERAGE documented as of this encounter Progress Notes * Milena Huffman APRN, C.N.P. - 07/11/2023 11:00 AM CDT SUBJECTIVE REQUESTING PROVIDER Milena Huffman APRN, C.N.P. CHIEF COMPLAINT / REASON FOR VISIT Follow-up HISTORY OF PRESENT ILLNESS Ms. Howard is a 77 y.o. female presents today for follow-up. She was last seen by me on June 20, 2023 for recurrent urinary tract infections, urgency and urge incontinence. Urinalysis was notablefor 3-10 RBC. This prompted further evaluation with cystoscopy and CT urogram. She was provided with an Rx for trospium for urinary symptoms. She was also referred to Gastroenterology for fecal incontinence. CT urogram 2. Diffuse wall thickening of the urinary [...] but appendiceal neoplasm cannot be entirely excluded. Cystoscopy Negative cystoscopy The following portions of the patient's history were reviewed and updated as appropriate: allergies, current medications, family history, medical history, social history, surgical history and problemlist. REVIEW OF SYSTEMS REVIEW OF SYSTEMS Lower Urinary Symptoms: Urinary Symptoms Intake OBJECTIVE PHYSICAL EXAMINATION Constitutional: She is oriented to person, place, and time. She appears well- developed and well-nourished. HENT: Head: Normocephalic and atraumatic. Eyes: No scleral icterus. Neck: Neck supple. Pulmonary/Chest: Effort normal. Musculoskeletal: Normal range of motion. Neurological: She is alert and oriented to person, place, and time. Psychiatric: She has a normal mood and affect. Her behavior is normal. 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 We reviewed the results of the microscopic hematuria evaluation including cystoscopy and CT urogram. CT urogram is notable for abnormal uterine endometrial thickening. I will obtain a pelvic ultrasound and refer to gynecology. The appendixis mildly distended. This has progressed since 2019. I have already provided her with a referral toGastroenterology for fecal incontinence, we will also try to get her seen for appendiceal thickening. With regard to microscopic hematuria, the evaluation is negative for malignancy. I recommend annualurinalysis. If greater than 3 RBCs are identified on urine microscopy persistently for the next 3-5years, recommend repeat evaluation with cystoscopy and CT urogram. If she sees gross hematuria thathas not related to a urinary tract infection, repeat evaluation with cystoscopy, urine cytology andCT urogram are indicated at that time. With regard to recurrent urinary tract infections, she will not start vaginal estrogen until she has had a chance to discuss this with gynecology. She will continue with increased fluid intake, cranberry supplementation and probiotic use. If she continues to contract more than 3 urinary tract infections per year, we can consider prescription Hiprex with vitamin-C. We also discussed the possibility of bacterial colonization and waiting to take antibiotic therapy until symptoms have progressed toinclude fever, flank pain and/or progressing symptoms of simple cystitis including hematuria and progressive dysuria. Cloudy urine and foul-smelling urine only are not indications for antibiotic therapy. Urology follow-up can occur as needed. Milena Huffman APRN, C.N.P. 07/11/2023 11:24 AM DIRECTOR FOOD AND BEVERAGE documented in this encounter Plan of Treatment Upcoming Encounters Date Type Department Care Team (Latest Contact Info) Description 08/26/2023 9:30 AM CDT Procedure visit Department of Obstetrics and Gynecology in [place], [place] 201 [place] [phone] Milena Huffman APRN, C.N.P. [address] [place] [phone] Snow Cox APRN, C.N.P. [address] [place] [phone] Rajni Hooker M.D. [address] [place] [phone] Discharge Disposition: Home or Self Care 10/07/2023 7:30 AM CDT Clinical Communication Virtual Review in [place], [place] 200 [place] [phone] 10/11/2023 8:40 AM CDT Comprehensive Visit Division of Gastroenterology in [place], [place] [address] [place] [phone] Iker Bruce M.D. [address] [place] [phone] 10/26/2023 8:30 AM CDT Clinical Communication Virtual Review in [place], [place] 200 [place] [phone] 10/26/2023 10:30 AM CDT Appointment Department of Radiology, [facility], in [place], [place] [address] [place] [phone] Lisa Soni MPAS, P.A.-C. [address] [place] [phone] 10/27/2023 12:30 PM CDT Diagnostic Division of Pulmonary Medicine in [place], [place] [address] [place] [phone] Lisa Soni MPAS, P.A.-C. [address] [place] [phone] 10/27/2023 1:30 PM CDT Office Visit Division of Pulmonary Medicine in [address] [phone] Lisa Soni MPAS, P.A.-C. 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 Consider gynecologic referral. 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 [address] [place] [phone] PCP - General Family Medicine 06/02/23 documented as of this encounter
--- OUTSIDE RECORDS SUMMARY | 2023-08-19 07:04 | XMS_ITS | Encounter Summary ---
Author Name Unknown Organization [facility] Address [address] [place] [address] Care Team Providers Care Rd Manager Name Role Phone Jaida Lion M.D. Primary Care Provider +1- [phone] Reason for Visit * Reason Onset Date Comments Results 06/06/2023 Encounter Details Date Type Department Care Team ([facility] st Contact Info) Description 06/06/2023 Clinical Communication Department of Family Medicine, [facility], in [address] [phone] Jeaneth Sofia, PHONE MANAGER, C.N.P. [address] [place] [phone] Results Social History Tobacco Use Types Packs/Day Years Used Date Smoking Tobacco: Former Cigarettes S tarted: 10/11/1984 [facility] Utilities Answer Date Recorded In the past 12 months has e [employer], gas, oil, or water [employer] threatened to shut off services in your [...] often do you attend chur ch or taoism services? More than 4 times per year 05/17/2022 Do you belong to any clubs o r organizations such as episcopal groups, unions, fraternal or athletic groups, or [...] Answer Date Recorded PHQ-2 Score 0 06/09/2023 [facility] of Occupat ional Health - Occupational [...] your living situation today? I have a [facility] place to live 06/09/2023 Education Answer Date Recorded What is the highest level of school you have completed or the highest degree you have received? Master's degree (e.g., MA, MS, Flavia, MEd, QUALITY PROCESS ENGINEER, WILLIE) 05/17/2022 Sex and Gender Information Value Date Recorded Sex Assigned at Female 05/17/2022 2:17 PM DEPARTURE CLERK Gender Identity Female 05/17/2022 2:17 PM DEPARTURE CLERK Sexual Orientation Straight 05/17/2022 2: 17 PM DEPARTURE CLERK documented as of this encounter Miscellaneous Notes * Addendum Note - Jaida Lion M.D. - 06/15/2023 3:14 PM CSTAddended by: JAIDA LION on: 06/15/2023 03:14 PM Modules accepted: Orders RTURE CLERK documented in this encounter Plan of Treatment Upcoming Encounters Date Type Department Care Team (Latest Contact Info) Description 08/26/2023 9:30 AM CDT Procedure visit Department of Obstetrics and Gynecology in [place], [place] [address] [place] [phone] Milena Huffman APRN, C.N.P. [address] [place] [phone] Snow Cox APRN, C.N.P. [address] [place] [phone] Rajni Hooker M.D. [address] [place] [phone] Discharge Disposition: Home or Self Care 10/07/2023 7:30 AM CDT Clinical Communication Virtual Review in [address] [phone] 10/11/2023 8:40 AM CDT Comprehensive Visit Division of Gastroenterology in [address] [phone] Iker Bruce M.D. [address] [place] [phone] 10/26/2023 8:30 AM CDT Clinical Communication Virtual Review in [address] [phone] 10/26/2023 10:30 AM CDT Appointment Department of Radiology, [facility], in [address] [phone] Lisa Soni MPAS, P.A.-C. [address] [place] [phone] 10/27/2023 12:30 PM CDT Diagnostic Division of Pulmonary Medicine in [address] [phone] Lisa Soni MPAS, P.A.-C. [address] [place] [phone] 10/27/2023 1:30 PM CDT Office Visit Division of Pulmonary Medicine in [place], [place] [address] [place] [phone] Lisa Soni, MPAS, P.A.-C. [address] [place] [phone] documented as of this encounter Results * (ABNORMAL) Bacterial Culture, Aerobic + Susceptibility, Urine (06/13/2023 11:41 AM DEPARTURE CLERK) Urine Culture ESCHERICHIA COLI 10,000-100,000 cfu/mL (A) 06/15/2023 7:18 AM DEPARTURE CLERK ECLR Urine (Urine, Midstream) 06/13/2023 11:41 AM DEPARTURE CLERK 06/13/2023 2:32 PM DEPARTURE CLERK Comment:Specimen Source Site : Urine Narrative Organism [...] Sulfamethoxazole SUSCEPTIBILITY, SONAL (MCG/ML) <=20 mcg/mL: Susceptible Montez Yoder APRNNKarolPKarol LAB MICROBIOL OGY - GENERAL ORDERABLES [facility] [address] [place] [address], [facility] ECLR [facility] [place] [address] * (ABNORMAL) Urinalysis with Microscopic if Indicated (06/13/2023 11:37 AM DEPARTURE CLERK) Source Urine, Urine, Midstream 06/13/2023 11:37 AM DEPARTURE CLERK CNFL Clarity Clear Clear 06/13/2023 11:40 AM DEPARTURE CLERK CNFL Color Elizabeth 06/13/2023 11:40 AM DEPARTURE CLERK CNFL Comment: ----REFERENCE VALUE---- Colorless Yellow Elizabeth Blood Negative Negative 06/13/2023 11:40 AM DEPARTURE CLERK CNFL Nitrite Negative Negative 06/13/2023 11:40 AM DEPARTURE CLERK CNFL Leukocyte Esterase Trace(A) Negative 06/13/2023 11:40 AM DEPARTURE CLERK CNFL Protein Negative mg/dL 06/13/2023 11:40 AM DEPARTURE CLERK CNFL Comment: ----REFERENCE VALUE---- Negative Trace Glucose Negative Negative mg/dL 06/13/2023 11:40 AM DEPARTURE CLERK CNFL Ketones, QI(U) Trace(A) Negative mg/dL 06/13/2023 11:40 AM DEPARTURE CLERK CNFL Bilirubin Small(A) Negative 06/13/2023 11:40 AM DEPARTURE CLERK CNFL pH 5.5 5.0 - 8.0 06/13/2023 11:40 AM DEPARTURE CLERK CNFL Specific [place] 1.025 1.001 - 1.035 06/13/2023 11:40 AM DEPARTURE CLERK CNFL Urobilinogen 0.2 0.2 - 1.0 mg/dL 06/13/2023 11:40 AM DEPARTURE CLERK CNFL Urine (Urine, Midstream) 06/13/2023 11:37 AM DEPARTURE CLERK 06/13/2023 11:37 AM DEPARTURE CLERK Jeaneth Sofia APRN, C.N.P. LAB URINE ORD ERABLES [facility] [address] [place] [phone], [facility] CNFL [facility] in [address] [address] documented in this encounter Visit Diagnoses Diagnosis Infection Escherichia Coli- Primary Cystitis Unspecified With Hematuria documented in this encounter Care Teams Rd Manager Relationship Specialty Start Date End Date Jaida Lion M.D. [address] [place] [phone] PCP - General Family Medicine 06/02/23 documented as of this encounter
--- OUTSIDE RECORDS SUMMARY | 2023-08-19 07:04 | XMS_ITS | Encounter Summary ---
Author Name Unknown Organization [facility] Address [address] [place] [address] Care Team Providers Care Sort Line Worker Name Role Phone Alexa Álvarez M.D. Primary Care Provider +1- [phone] Encounter Details Date Type Department Care Team (Latest Contact Info) Description 06/13/2023 9:55 AM LICENSED NUCLEAR OPERATOR - 06/13/2023 11:59 PM [facility] Hospital Encounter Department of Laboratory Medicine in [address] [phone] Jeaneth Sofia, LEVEL VIAL GRINDER, C.N.P. [address] [place] [phone] Hematuria (Primary Dx); Infection Escherichia Coli; Cystitis Unspecified With Hematuria Discharge Disposition: Home or Self Care Social History Tobacco Use Types Packs/Day Years Used Date Smoking Tobacco: Former Cigarettes S tarted: 10/11/[address] [facility] Utilities Answer Date Recorded In the [...] Answer Date Recorded PHQ-2 Score 0 06/09/2023 [facility] of Occupat ional Health - Occupational Stress [...] living situation today? I have a [facility] place to live 06/09/2023 Education Answer Date Recorded What is the highest level of school you have completed or the highest degree you have received? Master's degree (e.g., MA, MS, Flavia, MEd, OPERATIONS MGR, WILLIE) 05/17/2022 Sex and Gender Information Value Date Recorded Sex Assigned at Female 05/17/2022 2:17 PM LICENSED NUCLEAR OPERATOR Gender Identity Female 05/17/2022 2:17 PM LICENSED NUCLEAR OPERATOR Sexual Orientation Straight 05/17/2022 2: 17 PM LICENSED NUCLEAR OPERATOR documented as of this encounter Medications at [...] Take 1 tablet by mouth daily. 05/10/2022 venlafaxine XR (EFFEXOR-XR) 75 mg 24 hr capsule Take 1 capsule by mouth daily. 07/02/2021 VITAMIN B COMPLEX ORAL Take 1 tablet by mouth daily as needed. 04/13/2010 cephalexin (KEFLEX) 500 mg capsule Take 1 capsule (500 mg total) by mouth every 12 (twelve) hours for 7 days. 14 capsule 06/15/2023 06/22/2023 acyclovir (ZOVIRAX) 400 mg tablet Take by mouth as needed. TAKE ONE TABLET BY MOUTH THREE TIMES DAILY FOR 5 DAYS. START AT SOONEST SIGN OF HERPES FLARE 12/11/2021 07/01/2023 documented as of this encounter Plan of Treatment Upcoming Encounters Date Type Department Care Team (Latest Contact Info) Description 08/26/2023 9:30 AM CDT Procedure visit Department of Obstetrics and Gynecology in [place], [place] [address] [place] [address] Milena Huffman APRN, C.N.P. [address] [place] [phone] Snow Cox APRN, C.N.P. [address] [place] [phone] Rajni Hooker M.D. [address] [place] [phone] Discharge Disposition: Home or Self Care 10/07/2023 7:30 AM CDT Clinical Communication Virtual Review in [address] [phone] 10/11/2023 8:40 AM CDT Comprehensive Visit Division of Gastroenterology in [address] [phone] Iker Bruce M.D. [address] [place] [phone] 10/26/2023 8:30 AM CDT Clinical Communication Virtual Review in [address] [phone] 10/26/2023 10:30 AM CDT Appointment Department of Radiology, [facility], in [address] [phone] Lisa Soni MPAS, P.A.-C. [address] [place] [phone] 10/27/2023 12:30 PM CDT Diagnostic Division of Pulmonary Medicine in [address] [phone] Lisa Soni MPAS, P.A.-C. [address] [place] [phone] 10/27/2023 1:30 PM CDT Office Visit Division of Pulmonary Medicine in [place], [place] [address] [place] [address] Lisa Soni [facility], P.A.-C. [address] [place] [phone] Scheduled Orders Name Type Priority Associated Diagnoses Orde r Schedule Urinalysis with Microscopic if Indicated Lab Routine Hematuria Expected: 07/01/2023 (Approximate), Expires: 09/10/2024 documented as of this encounter Procedures Procedure Name Priority Date/Time Associated Diagnosis Comments BACTERIAL CULTURE, AEROBIC + SUSC, URINE Routine 06/13/2023 11:41 AM LICENSED NUCLEAR OPERATOR Infection Escherichia Coli Cystitis Unspecified With Hematuria URINALYSIS WITH MICROSCOPIC IF INDICATED, U Routine 06/13/2023 11:37 AM LICENSED NUCLEAR OPERATOR Infection Escherichia Coli HC URINALYSIS AUTO W MICRO Routine 06/13/2023 11:37 AM LICENSED NUCLEAR OPERATOR documented in this encounter Results * (ABNORMAL) Bacterial Culture, Aerobic + Susceptibility, Urine (06/13/2023 11:41 AM LICENSED NUCLEAR OPERATOR) Urine Culture ESCHERICHIA COLI 10,000-100,000 cfu/mL (A) 06/15/2023 7:18 AM LICENSED NUCLEAR OPERATOR ECLR Urine (Urine, Midstream) 06/13/2023 11:41 AM LICENSED NUCLEAR OPERATOR 06/13/2023 2:32 PM LICENSED NUCLEAR OPERATOR Comment:Specimen Source Site : Urine Narrative [...] Sulfamethoxazole SUSCEPTIBILITY, SONAL (MCG/ML) <=20 mcg/mL: Susceptible Jeaneth Sofia APRN C.N.P. LAB MICROBIOL OGY - GENERAL ORDERABLES [facility] [address] [place] [address], [facility] ECLR [facility] [place] [address] * (ABNORMAL) Microscopic Manual (06/13/2023 11:37 AM LICENSED NUCLEAR OPERATOR) White Blood Cells Occ-3 /hpf 06/13/2023 12:16 PM LICENSED NUCLEAR OPERATOR CNFL Comment: ----REFERENCE VALUE---- Males: 0-3 Females: 0-10 Unknown: 0-10 Red Blood Cells 3-10(A) 0 - 2 /hpf 06/13/2023 12:16 PM LICENSED NUCLEAR OPERATOR CNFL Mucus Present /hpf 06/13/2023 12:16 PM LICENSED NUCLEAR OPERATOR CNFL Squamous Cells 4-10 /hpf 06/13/2023 12:16 PM LICENSED NUCLEAR OPERATOR CNFL Urine 06/13/2023 11:3 7 AM LICENSED NUCLEAR OPERATOR 06/13/2023 11:37 AM LICENSED NUCLEAR OPERATOR Montez Yoder APRNN.PKarol LAB URINE ORD ERABLES Performing Organization Address City/[facility]/ZIP Co de Phone Number [address] [address], [facility] CNFL [facility] in [address] [address] * (ABNORMAL) Urinalysis with Microscopic if Indicated (06/13/2023 11:37 AM LICENSED NUCLEAR OPERATOR) Source Urine, Urine, Midstream 06/13/2023 11:37 AM LICENSED NUCLEAR OPERATOR CNFL Clarity Clear Clear 06/13/2023 11:40 AM LICENSED NUCLEAR OPERATOR CNFL Color Elizabeth 06/13/2023 11:40 AM LICENSED NUCLEAR OPERATOR CNFL Comment: ----REFERENCE VALUE---- Colorless Yellow Elizabeth Blood Negative Negative 06/13/2023 11:40 AM LICENSED NUCLEAR OPERATOR CNFL Nitrite Negative Negative 06/13/2023 11:40 AM LICENSED NUCLEAR OPERATOR CNFL Leukocyte Esterase Trace(A) Negative 06/13/2023 11:40 AM LICENSED NUCLEAR OPERATOR CNFL Protein Negative mg/dL 06/13/2023 11:40 AM LICENSED NUCLEAR OPERATOR CNFL Comment: ----REFERENCE VALUE---- Negative Trace Glucose Negative Negative mg/dL 06/13/2023 11:40 AM LICENSED NUCLEAR OPERATOR CNFL Ketones, QI(U) Trace(A) Negative mg/dL 06/13/2023 11:40 AM LICENSED NUCLEAR OPERATOR CNFL Bilirubin Small(A) Negative 06/13/2023 11:40 AM LICENSED NUCLEAR OPERATOR CNFL pH 5.5 5.0 - 8.0 06/13/2023 11:40 AM LICENSED NUCLEAR OPERATOR CNFL Specific [place] 1.025 1.001 - 1.035 06/13/2023 11:40 AM LICENSED NUCLEAR OPERATOR CNFL Urobilinogen 0.2 0.2 - 1.0 mg/dL 06/13/2023 11:40 AM LICENSED NUCLEAR OPERATOR CNFL Urine (Urine, Midstream) 06/13/2023 11:37 AM LICENSED NUCLEAR OPERATOR 06/13/2023 11:37 AM LICENSED NUCLEAR OPERATOR Montez Yoder APRNN.PKarol LAB URINE ORD ERAAGUSTIN [address] [place] [address], [facility] CNFL [facility] in [address] [address] documented in this encounter Visit Diagnoses Diagnosis Hematuria- Primary Infection Escherichia Coli Cystitis Unspecified With Hematuria documented in this encounter Care Teams Sort Line Worker Relationship Specialty Start Date End Date Alexa Álvarez M.D. [address] [place] [phone] PCP - General Family Medicine 06/02/23 documented as of this encounter
--- OUTSIDE RECORDS SUMMARY | 2023-08-19 07:04 | XMS_ITS | Encounter Summary ---
Author Name Unknown Organization [facility] Address [address] [place] [address] Care Team Providers Care Filler Shredder Helper Name Role Phone Alexa Álvarez M.D. Primary Care Provider +1- [phone] Reason for Visit * Outpatient (Routine) - Closed Specialty Diagnoses / Procedures Referred By James agrawal Referred To Contact Diagnoses Incontinence Urinary Stress And Urge Procedures URO Uroflow Alexa Álvarez M.D. [address] [place] [phone] [facility] Referral ID Status Reason Start Date Expiration Date Visits Re quested Visits Authorized [id number] Closed 06/13/2023 06/12/2024 1 1 Encounter Details Date Type Department Care Team (Latest Contact Info) Description 06/17/2023 3:30 PM MEDIA ASSISTANT Procedure visit Department of Urology in [place], [place] [address] [place] [phone] Alexa Álvarez M.D. [address] [place] [phone] Nancy Muñoz [address] [place] [phone] Incontinence Urinary Stress And Urge Social History Tobacco Use Types Packs/Day Years Used Date Smoking Tobacco: Former Cigarettes S tarted: 10/11/1984 [facility] Utilities Answer Date Recorded In the past 12 months has th [employer], oil, or Training Ad[employer] threatened to shut off services in your [...] How often do you attend chur or moravian services? More than 4 times per year [...] Answer Date Recorded PHQ-2 Score 0 06/09/2023 [facility] [place] of Occupat ional Health - Occupational [...] your living situation today? I have a [facility] place to live 06/09/2023 Education Answer Date Recorded What is the highest level of school you have completed or the highest degree you have received? Master's degree (e.g., MA, MS, Flavia, MEd, CODING VALIDATOR, WILLIE) 05/17/2022 Sex and Gender Information Value Date Recorded Sex Assigned at Female 05/17/2022 2:17 PM MEDIA ASSISTANT Gender Identity Female 05/17/2022 2:17 PM MEDIA ASSISTANT Sexual Orientation Straight 05/17/2022 2: 17 PM MEDIA ASSISTANT documented as of this encounter Progress Notes * Nancy Muñoz - 06/17/2023 3:30 PM CST CHIEF COMPLAINT Patient here for a complex uroflow via calibrated electronic equipment and a residual urine check by ultrasound. IMPRESSION/REPORT/PLAN Alexa Álvarez M.D. ordered the patient to have a complex uroflow with residual urine check viaultrasound. Patient had a mild urge to void. Uroflow was not completed at this time. Patient voided0 mL's and had a ultrasound residual of 58 mL's. Patient rates pain at 0 on the 0 to 10 pain scale post procedure. A ASSISTANT documented in this encounter Plan of Treatment Upcoming Encounters Date Type Department Care Team (Latest Contact Info) Description 08/26/2023 9:30 AM CDT Procedure visit Department of Obstetrics and Gynecology in [place], [place] [address] [place] [address] Milena Huffman APRN, C.N.P. [address] [place] [phone] Snow Cox APRN, C.N.P. [address] [place] [phone] Rajni Hooker M.D. [address] [place] [phone] Discharge Disposition: Home or Self Care 10/07/2023 7:30 AM CDT Clinical Communication Virtual Review in [place], [place] 200 [place] [phone] 10/11/2023 8:40 AM CDT Comprehensive Visit Division of Gastroenterology in [address] [phone] Iker Bruce M.D. [address] [place] [phone] 10/26/2023 8:30 AM CDT Clinical Communication Virtual Review in [place], [place] 200 [place] [phone] 10/26/2023 10:30 AM CDT Appointment Department of Radiology, [facility], in [place], [place] [address] [place] [phone] Lisa Soni MPAS P.A.-CKarol [address] [place] [phone] 10/27/2023 12:30 PM CDT Diagnostic Division of Pulmonary Medicine in [place], [place] [address] [place] [phone] Lisa Soni MPAS, P.A.-CKarol [address] [place] [phone] 10/27/2023 1:30 PM CDT Office Visit Division of Pulmonary Medicine in [place], [place] [address] [place] [phone] Lisa Soni MPAS, P.A.-C. [address] [place] [phone] documented as of this encounter Visit Diagnoses Diagnosis Incontinence Urinary Stress And Urge documented in this encounter Care Teams Filler Shredder Helper Relationship Specialty Start Date End Date Alexa Álvarez M.D. [address] [place] [phone] PCP - General Family Medicine 06/02/23 documented as of this encounter
--- OUTSIDE RECORDS SUMMARY | 2023-08-19 07:04 | XMS_ITS | Encounter Summary ---
Author Name Unknown Organization [facility] Address [address] [place] [address] Care Team Providers Care Him Specialists Name Role Phone Alexa Álvarez M.D. Primary Care Provider +1- [phone] Reason for Referral * MRI/CAT/PET Scan (Routine) - Closed Specialty Diagnoses / Procedures Referred By Contac t Referred To Contact Radiology Diagnoses Hematuria Procedures CT Urogram without and with IV Contrast Milena Huffman APRN, C.N.P. [address] [place] [phone] [facility] Referral ID Status Reason Start Date Expiration Date Visits Re quested Visits Authorized [id number] Closed 06/20/2023 06/19/2024 1 1 DIATION BIOANALYTICS CONSULTANT Reason for Visit * MRI/CAT/PET Scan (Routine) - Closed Specialty Diagnoses / Procedures Referred By Contac t Referred To Contact Radiology Diagnoses Hematuria Procedures CT Urogram without and with IV Contrast Milena Huffman APRN, C.N.P. [address] [place] [phone] [facility] Referral ID Status Reason Start Date Expiration Date Visits Re quested Visits Authorized [id number] Closed 06/20/2023 06/19/2024 1 1 Encounter Details Date Type Department Care Team (Latest Contact Info) Description 07/04/2023 7:10 AM REMEDIATION BIOANALYTICS CONSULTANT - 07/04/2023 11:29 AM REMEDIATION BIOANALYTICS CONSULTANT Hospital Encounter Department of Radiology, [facility], in [place], [place] [address] [place] [address] Milena Huffman APRN, C.N.P. [address] [place] [phone] Hematuria Discharge Disposition: Home or Self Care Social History Tobacco Use Types Packs/Day Years Used Date Smoking Tobacco: Former Cigarettes S tarted: 10/11/1984 [facility] Utilities Answer Date Recorded In [...] often do you attend chur ch or latter day services? More than 4 times per year 05/17/2022 Do you belong to any clubs o r organizations such as tenriism groups, unions, fraternal or athletic groups, or [...] Answer Date Recorded PHQ-2 Score 0 06/09/2023 [facility] [place] of Occupat ional Health - Occupational Stress [...] Master's degree (e.g., MA, MS, Flavia, MEd, CYBER SYSTEMS ENGINEER, WILLIE) 05/17/2022 Sex and Gender Information Value Date Recorded Sex Assigned at Female 05/17/2022 2:17 PM REMEDIATION BIOANALYTICS CONSULTANT Gender Identity Female 05/17/2022 2:17 PM REMEDIATION BIOANALYTICS CONSULTANT Sexual Orientation Straight 05/17/2022 2: 17 PM REMEDIATION BIOANALYTICS CONSULTANT documented as of this encounter Medications at [...] visit Department of Obstetrics and Gynecology in [place], [place] [address] [place] [phone] Milena Huffman APRN, C.N.P. [address] [place] [phone] Snow Cox APRN, C.N.P. [address] [place] [phone] Rajni Hooker M.D. [address] [place] [phone] Discharge Disposition: Home or Self Care 10/07/2023 7:30 AM CDT Clinical Communication Virtual Review in [place], [place] 200 [place] [phone] 10/11/2023 8:40 AM CDT Comprehensive Visit Division of Gastroenterology in [place], [place] [address] [place] [phone] Iker Bruce M.D. [address] [place] [phone] 10/26/2023 8:30 AM CDT Clinical Communication Virtual Review in [place], [place] 200 [place] [address] 10/26/2023 10:30 AM CDT Appointment Department of Radiology, [facility], in [place], [place] [address] [place] [phone] Lisa Soni MPAS, P.A.-C. [address] [place] [phone] 10/27/2023 12:30 PM CDT Diagnostic Division of Pulmonary Medicine in [place], [place] [address] [place] [phone] Lisa Soni MPAS, P.A.-C. [address] [place] [phone] 10/27/2023 1:30 PM CDT Office Visit Division of Pulmonary Medicine in [address] [phone] Lisa Soni MPAS, P.A.-C. [address] [place] [phone] documented as of this encounter Procedures Procedure Name Priority Date/Time Associated Diagnosis Comments CT UROGRAM WITHOUT AND WITH IV CONTRAST RAD - Routine (most inpatients and all outpatients) 07/04/2023 8:21 AM REMEDIATION BIOANALYTICS CONSULTANT Hematuria documented in this encounter Results * CT Urogram without and with IV Contrast (07/04/2023 8:21 AM REMEDIATION BIOANALYTICS CONSULTANT) Anatomical Region Laterality Modality Abdomen, Pelvis, Abdominal R ST LOS, Abdominal ARZ LOS, Abdominal FLA LOS N/A Computed Tomograp hy, Computed Tomography 07/04/2023 8:07 AM REMEDIATION BIOANALYTICS CONSULTANT Impressions 07/04/2023 8:51 AM REMEDIATION BIOANALYTICS CONSULTANT 1. Negative upper urinary tracts. 2. Diffuse [...] Screen captures provided. Narrative 07/04/2023 8:51 AM REMEDIATION BIOANALYTICS CONSULTANT EXAM: ??CT UROGRAM WITHOUT AND WITH IV [...] entirely excluded. * Screen captures provided. Milena Huffmna APRN, C.N.P. IMG CT PRO CEDURES documented in this encounter Visit Diagnoses Diagnosis Hematuria documented in this encounter Administered Medications Inactive Administered Medications - up to 3 most recent administrations Medication Order MAR Action Action Date Dose Rate Site iohexoL 300 mg iodine/mL solution 1-200 mL (OMNIPAQUE) 1-200 mL, intravenous, Once in imaging, contrast, Starting on Tue07/04/23 at 0716, For 1 dose, Imaging Protocol Orders, Dose per Radiant Medication Guidelines Given 07/04/2023 7:56 AM REMEDIATION BIOANALYTICS CONSULTANT 140 mL sodium chloride 0.9 % flush 1-250 mL 1-250 mL, intravenous, Once, On 07/04/23 at 0745, For 1 dose, Imaging Protocol Orders, Dose per Radiant Medication Guidelines Given 07/04/2023 7:57 AM REMEDIATION BIOANALYTICS CONSULTANT 190 mL documented in this encounter Care Teams Him Specialists Relationship Specialty Start Date End Date Alexa Álvarez M.D. [address] [place] [phone] PCP - General Family Medicine 06/02/23 documented as of this encounter
--- OUTSIDE RECORDS SUMMARY | 2023-08-19 07:04 | XMS_ITS | Encounter Summary ---
Author Name Unknown Organization [facility] Address [address] [place] [address] Care Team Providers Care Chipper Name Role Phone Alexa Álvarez M.D. Primary Care Provider +1- [phone] Encounter Details Date Type Department Care Team (Latest Contact Info) Description 06/03/2023 3:59 PM POWER PLANT MANAGER - 06/03/2023 11:59 PM [facility] Hospital Encounter Department of Laboratory Medicine in [address] [phone] Jeaneth Sofia, STUBBER, C.N.P. [address] [place] [phone] Dysuria Discharge Disposition: Home or Self Care Social [...] often do you attend chur ch or anabaptist services? More than 4 times per year [...] and heating? Not hard at all 05/17/2022 [facility] of Occupat ional Health - [...] place to sleep or slept in a snf (including now)? No 05/17/2022 Nutrition Answer Date [...] Master's degree (e.g., MA, MS, Flavia, MEd, BUTADIENE CONVERTER UTILITY OPERATOR, WILLIE) 05/17/2022 Sex and Gender Information Value Date Recorded Sex Assigned at Female 05/17/2022 2:17 PM POWER PLANT MANAGER Gender Identity Female 05/17/2022 2:17 PM POWER PLANT MANAGER Sexual Orientation Straight 05/17/2022 2: 17 PM POWER PLANT MANAGER documented as of this encounter Medications [...] tablet by mouth daily as needed. 04/13/2010 acyclovir (ZOVIRAX) 400 mg tablet Take by mouth as needed. TAKE ONE TABLET BY MOUTH THREE TIMES DAILY FOR 5 DAYS. START AT SOONEST SIGN OF HERPES FLARE 12/11/2021 07/01/2023 nitrofurantoin monohydrate (MACROBID) 100 mg capsule Take 1 capsule (100 mg total) by mouth 2 (two) times a day for 7 days. 14 capsule 06/06/2023 06/13/2023 documented as of this encounter Plan of Treatment Upcoming Encounters Date Type Department Care Team (Latest Contact Info) Description 08/26/2023 9:30 AM CDT Procedure visit Department of Obstetrics and Gynecology in [place], [place] [address] [place] [address] Milena Huffman APRN, C.N.P. [address] [place] [phone] Snow Cox APRN, C.N.P. [address] [place] [phone] Rajni Hooker M.D. [address] [place] [phone] Discharge Disposition: Home or Self Care 10/07/2023 7:30 AM CDT Clinical Communication Virtual Review in [place], [place] 200 [place] [address] 10/11/2023 8:40 AM CDT Comprehensive Visit Division of Gastroenterology in [address] [phone] Iker Bruce M.D. [address] [place] [phone] 10/26/2023 8:30 AM CDT Clinical Communication Virtual Review in [address] [phone] 10/26/2023 10:30 AM CDT Appointment Department of Radiology, [facility], in [place], [place] [address] [place] [phone] Lisa Soni MPAS, P.A.-C. [address] [place] [phone] 10/27/2023 12:30 PM CDT Diagnostic Division of Pulmonary Medicine in [place], [place] [address] [place] [phone] Lisa Soni MPAS, P.A.-C. [address] [place] [phone] 10/27/2023 1:30 PM CDT Office Visit Division of Pulmonary Medicine in [place], [place] [address] [place] [phone] Lisa Soni [facility], P.A.-C. [address] [place] [phone] documented as of this encounter Procedures Procedure Name Priority Date/Time Associated Diagnosis Comments BACTERIAL CULTURE, AEROBIC + SUSC, URINE Routine 06/03/2023 4:03 PM POWER PLANT MANAGER Dysuria documented in this encounter Results * (ABNORMAL) Bacterial Culture, Aerobic + Susceptibility, Urine (06/03/2023 4:03 PM POWER PLANT MANAGER) Urine Culture ESCHERICHIA COLI 10,000-100,000 cfu/mL (A) 06/05/2023 9:05 AM POWER PLANT MANAGER MKTO Urine (Urine, Midstream) 06/03/2023 4:03 PM POWER PLANT MANAGER 06/03/2023 7:21 PM POWER PLANT MANAGER Comment:Specimen Source Site : Urine Narrative Organism Antibiotic Method Susceptibility Escherichia coli Ampicillin SUSCEPTIBILITY, SONAL (MCG/ML) <=2 mcg/mL: Susceptible Escherichia coli Ampicillin + Sulbactam SUSCEPTI BILITY, SONAL (MCG/ML) <=2 mcg/mL: Susceptible Escherichia coli Piperacillin + Tazobactam SUSCE PTIBILITY, SONAL (MCG/ML) <=4 mcg/mL: Susceptible Escherichia coli Cefazolin SUSCEPTIBILITY, SONLA (MCG/ML) <=4 mcg/mL: Susceptible Comment: The interpretation [...] SONAL (MCG/ML) <=20 mcg/mL: Susceptible Montez Yoder APRNNHaritha LAB MICROBIOL OGY [place] [address], [facility] MKTO [place] [address] documented in this encounter Visit Diagnoses Diagnosis Dysuria documented in this encounter Care Teams Chipper Relationship Specialty Start Date End Date Alexa Álvarez M.D. [address] [place] [phone] PCP - General Family Medicine 06/02/23 documented as of this encounter
--- OUTSIDE RECORDS SUMMARY | 2023-08-19 07:04 | XMS_ITS | Encounter Summary ---
Author Name Unknown Organization [facility] Address [address] [place] [address] Care Team Providers Care Fisher Trawl Line Name Role Phone Alexa Álvarez M.D. Primary Care Provider +1- [phone] Encounter Details Date Type Department Care Team (Latest Contact Info) Description 07/01/2023 9:50 AM STRUCTURAL DESIGN ENGINEER - 07/01/2023 11:59 PM [facility] Hospital Encounter Department of Laboratory Medicine in [address] [phone] Alexa Álvarez M.D. [address] [place] [phone] Dysuria Discharge Disposition: Home or Self Care Social History Tobacco Use Types Packs/Day Years Used Date Smoking Tobacco: Former Cigarettes S tarted: 10/11/1984 [facility] Utilities Answer Date Recorded In the past 12 months has [facility] [employer] gas, oil, or water [employer] threatened to shut off services in your [...] often do you attend chur ch or yazidism services? More than 4 times per year [...] Answer Date Recorded PHQ-2 Score 0 06/09/2023 [facility] of Occupat ional Health - Occupational [...] living situation today? I have a [facility] place to live 06/09/2023 Education Answer Date Recorded What is the highest level of school you have completed or the highest degree you have received? Master's degree (e.g., MA, MS, Flavia, MEd, VETERINARY LABORATORY TECHNICIAN, WILLIE) 05/17/2022 Sex and Gender Information Value Date Recorded Sex Assigned at Female 05/17/2022 2:17 PM STRUCTURAL DESIGN ENGINEER Gender Identity Female 05/17/2022 2:17 PM STRUCTURAL DESIGN ENGINEER Sexual Orientation Straight 05/17/2022 2: 17 PM STRUCTURAL DESIGN ENGINEER documented as of this encounter Medications at [...] visit Department of Obstetrics and Gynecology in [place] [address] [place] [phone] Milena Huffman APRN, C.N.P. [address] [place] [phone] Snow Cox APRN, C.N.P. [address] [place] [phone] Rajni Hooker M.D. [address] [place] [phone] Discharge Disposition: Home or Self Care 10/07/2023 7:30 AM CDT Clinical Communication Virtual Review in [address] [phone] 10/11/2023 8:40 AM CDT Comprehensive Visit Division of Gastroenterology in [address] [phone] Iker Bruce M.D. [address] [place] [phone] 10/26/2023 8:30 AM CDT Clinical Communication Virtual Review in [address] [phone] 10/26/2023 10:30 AM CDT Appointment Department of Radiology, [facility], in [address] [phone] Lisa Soni MPAS, P.A.-C. [address] [place] [phone] 10/27/2023 12:30 PM CDT Diagnostic Division of Pulmonary Medicine in [address] [phone] Lisa Soni MPAS, P.A.-C. [address] [place] [phone] 10/27/2023 1:30 PM CDT Office Visit Division of Pulmonary Medicine in [place], [place] [address] [place] [phone] Lisa Soni, MILOS, P.A.-C. [address] [place] [phone] documented as of this encounter Procedures Procedure Name Priority Date/Time Associated Diagnosis Comments URINALYSIS WITH MICROSCOPIC IF INDICATED, U Routine 07/01/2023 10:28 AM STRUCTURAL DESIGN ENGINEER Dysuria HC URINALYSIS AUTO W MICRO Routine 07/01/2023 10:28 AM STRUCTURAL DESIGN ENGINEER BACTERIAL CULTURE, AEROBIC + SUSC, URINE Routine 07/01/2023 10:28 AM STRUCTURAL DESIGN ENGINEER Dysuria documented in this encounter Results * (ABNORMAL) Microscopic Manual (07/01/2023 10:28 AM STRUCTURAL DESIGN ENGINEER) White Blood Cells 51-100(A) /hpf 07/01/2023 11:00 AM STRUCTURAL DESIGN ENGINEER CNFL Comment: ----REFERENCE VALUE---- Males: 0-3 Females: 0-10 Unknown: 0-10 Red Blood Cells None Seen 0 - 2 /hpf 07/01/2023 11:00 AM STRUCTURAL DESIGN ENGINEER CNFL Squamous Cells 4-10 /hpf 07/01/2023 11:00 AM STRUCTURAL DESIGN ENGINEER CNFL Bacteria Present(A) None Seen 07/01/2023 11:00 AM STRUCTURAL DESIGN ENGINEER CNFL Urine 07/01/2023 10:2 8 AM STRUCTURAL DESIGN ENGINEER 07/01/2023 10:28 AM STRUCTURAL DESIGN ENGINEER Alexa Álvarez M.D. LAB URINE ORDERABL ES [facility] [address] [place] [address], [facility] CNFL [facility] in [address] [address] * (ABNORMAL) Bacterial Culture, Aerobic + Susceptibility, Urine (07/01/2023 10:28 AM STRUCTURAL DESIGN ENGINEER) Urine Culture ESCHERICHIA COLI >100,000 cfu/mL (A) 07/03/2023 8:50 AM STRUCTURAL DESIGN ENGINEER ECLR Urine (Urine, Midstream) 07/01/2023 10:28 AM STRUCTURAL DESIGN ENGINEER 07/01/2023 3:01 PM STRUCTURAL DESIGN ENGINEER Comment:Specimen Source Site : Urine Narrative Organism [...] Álvarez M.D. LAB MICROBIOLOGY - GENERAL ORDERABLES [facility] [address] [place] [id number] ECLR [facility] in [place] [address] [place] [address] * (ABNORMAL) Urinalysis with Microscopic if Indicated (07/01/2023 10:28 AM STRUCTURAL DESIGN ENGINEER) Source Urine, Urine, Midstream 07/01/2023 10:28 AM STRUCTURAL DESIGN ENGINEER CNFL Clarity Clear Clear 07/01/2023 10:33 AM STRUCTURAL DESIGN ENGINEER CNFL Color Yellow 07/01/2023 10:33 AM STRUCTURAL DESIGN ENGINEER CNFL Comment: ----REFERENCE VALUE---- Colorless Yellow Elizabeth Blood Negative Negative 07/01/2023 10:33 AM STRUCTURAL DESIGN ENGINEER CNFL Nitrite Positive(A) Negative 07/01/2023 10:33 AM STRUCTURAL DESIGN ENGINEER CNFL Leukocyte Esterase Large(A) Negative 07/01/2023 10:33 AM STRUCTURAL DESIGN ENGINEER CNFL Protein Negative mg/dL 07/01/2023 10:33 AM STRUCTURAL DESIGN ENGINEER CNFL Comment: ----REFERENCE VALUE---- Negative Trace Glucose Negative Negative mg/dL 07/01/2023 10:33 AM STRUCTURAL DESIGN ENGINEER CNFL Ketones, QI(U) Negative Negative mg/dL 07/01/2023 10:33 AM STRUCTURAL DESIGN ENGINEER CNFL Bilirubin Negative Negative 07/01/2023 10:33 AM STRUCTURAL DESIGN ENGINEER CNFL pH 6.0 5.0 - 8.0 07/01/2023 10:33 AM STRUCTURAL DESIGN ENGINEER CNFL Specific Moore 1.015 1.001 - 1.035 07/01/2023 10:33 AM STRUCTURAL DESIGN ENGINEER CNFL Urobilinogen 0.2 0.2 - 1.0 mg/dL 07/01/2023 10:33 AM STRUCTURAL DESIGN ENGINEER CNFL Urine (Urine, Midstream) 07/01/2023 10:28 AM STRUCTURAL DESIGN ENGINEER 07/01/2023 10:28 AM STRUCTURAL DESIGN ENGINEER Alexa Álvarez M.D. LAB URINE ORDERABL ES [facility] [address] [place] [address], [facility] CNFL [facility] in [address] [address] documented in this encounter Visit Diagnoses Diagnosis Dysuria documented in this encounter Care Teams Fisher Trawl Line Relationship Specialty Start Date End Date Alexa Álvarez M.D. [address] [place] [phone] PCP - General Family Medicine 06/02/23 documented as of this encounter
--- OUTSIDE RECORDS SUMMARY | 2023-08-19 07:04 | XMS_ITS | Encounter Summary ---
Author Name Unknown Organization [facility] Address [address] [place] [address] Care Team Providers Care Playground Aide Name Role Phone lAexa Álvarez M.D. Primary Care Provider [phone]- [phone] Reason for Visit * Reason Comments F/u; bladder inf since May. Persista nt cough since * Outpatient (Routine) - Closed Specialty Diagnoses / Procedures Referred By James agrawal Referred To Contact Family Medicine Jeaneth Sofia, VIJAY, C.N.P. [address] [place] [phone] [facility] Referral ID Status Reason Start Date Expiration Date Visits Re quested Visits Authorized [id number] Closed 06/02/2023 12/01/2024 1 1 Encounter Details Date Type Department Care Team (Latest Contact Info) Description 07/01/2023 11:30 AM CONSTRUCTION FRAMER Comprehensive Visit Department of Family Medicine, [facility], in [address] [phone] Alexa Álvarez M.D. [address] [place] [phone] Annual Medicare Examination Return (Primary Dx); Acute Cystitis Without Hematuria; Chronic Cough; Bipolar Disorder (HCC); Herpes Simplex Genital Recurrent Discharge Disposition: Home or Self Care Social History Tobacco Use Types Packs/Day Years Used Date Smoking Tobacco: Former Cigarettes S tarted: 10/11/1984 Tobacco Cessation:Counseling Given: Not Answered [facility] Utilities Answer Date Recorded In the [...] often do you attend chur ch or scientologist services? More than 4 times per year 05/17/2022 Do you belong to any clubs o r organizations such as mu-ism groups, unions, fraternal or athletic groups, or [...] Answer Date Recorded PHQ-2 Score 0 06/09/2023 [facility] - Occupational Stress Questionnaire Answer Date Recorded [...] your living situation today? I have a [facility] place to live 06/09/2023 Education Answer Date Recorded What is the highest level of school you have completed or the highest degree you have received? Master's degree (e.g., MA, MS, Flavia, MEd, CAR FERRIER, WILLIE) 05/17/2022 Sex and Gender Information Value Date Recorded Sex Assigned at Female 05/17/2022 2:17 PM CONSTRUCTION FRAMER Gender Identity Female 05/17/2022 2:17 PM CONSTRUCTION FRAMER Sexual Orientation Straight 05/17/2022 2: 17 PM CONSTRUCTION FRAMER documented as of this encounter Last Filed Vital Signs Vital Sign Reading Time Taken Comments Blood Pressure 128/79 07/01/2023 11:24 AM CONSTRUCTION FRAMER Pulse 76 07/01/2023 11:24 AM CONSTRUCTION FRAMER Temperature 36.9 ??C (98.4 ??F) 07/01/2023 11:[address] Respiratory Rate 16 07/01/2023 11:24 AM CONSTRUCTION FRAMER Oxygen Saturation - - Inhaled Oxygen Concentration - - Weight 84 kg (185 lb 3 oz) 07/01/2023 11:[address] Height 172 cm (5' 7.72) 07/01/2023 11:24 AM CONSTRUCTION FRAMER Body Mass Index 28.39 07/01/2023 11:24 AM CONSTRUCTION FRAMER documented in this encounter H&P Notes * Alexa Álvarez M.D. - 07/01/2023 11:30 AM CST SUBJECTIVE REASON FOR VISIT Medicare annual wellness exam F/u; bladder inf since May. Persistant cough since PRIMARY CARE PHYSICIAN Primary Care Providers: Alexa Álvarez M.D. (General) [address] [place] [phone] HISTORY OF PRESENT ILLNESS Jeaneth Howard is a 77 y.o. female who presents to the clinic today for a Medicare annual wellness exam. Continuing to get symptoms of urinary tract infection. Symptoms resolved completely with antibiotics, but now returned. She used estradiol cream for about a week, but experienced breast tenderness and nipple irritation. She continues to have a chronic dry cough. She wonders if she is taking too many medications. HISTORY REVIEW Allergies Allergen Reactions Amoxicillin GI intolerance Divalproex [...] ie 10 milligrams daily for 5 days. Patient Active Problem List Diagnosis Bipolar Disorder (HCC) Hypertension Essential Primary Hyperlipidemia Mixed Diverticulosis Hypothyroidism Polyp Colon Personal History Herpes Simplex Labialis Lung Interstitial Disease (HCC) Osteoporosis Fibrosis Idiopathic Pulmonary (HCC) Apnea Sleep Obstructive Incontinence Urinary Stress And Urge Murmur Systolic Herpes Simplex Genital Recurrent Past Medical History: Diagnosis Date Stone Kidney 06/13/2023 Past Surgical History: Procedure Laterality Date CATARACT EXTRACTION Bilateral 2020 OTHER CONVERTED SHX (SEE COMMENT) N/A 04/03/2007 >C3 through superior C7 cervical laminectomy. Family History Problem Relation Age of Onset Macular degeneration Mother Glaucoma Paternal Grandmother Social History Social History Narrative She is single (). She has 3 children, 2 sons and one daughter. 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 Smoked cigarettes in the distant past. MEDICATION MANAGEMENT Current Outpatient Medications Medication Sig Dispense Refill alendronate (FOSAMAX) 70 mg tablet Take 70 mg by mouth once a week. atorvastatin (LIPITOR) 10 mg tablet Take 10 mg by mouth at bedtime. cyanocobalamin (VITAMIN B12) 1,000 mcg/mL injection Inject 1,000 mcg intramuscularly every 28 (twenty-eight) days. DME CPAP DME Order 1 each 0 fluticasone propionate (FLONASE) 50 mcg/actuation nasal spray Administer 1 spray into each nostril daily as needed. gabapentin (NEURONTIN) 400 mg capsule Take 3 capsules by mouth at bedtime. ipratropium (ATROVENT) 21 mcg (0.03 %) nasal spray Administer 2 sprays into each nostril 2 (two) times a day. 30 mL 12 ipratropium-albuteroL (Combivent Respimat) 20-100 mcg/actuation inhaler Inhale 1 puff every 6 (six)hours as needed. loratadine (CLARITIN) 10 mg tablet Take 1 tablet by mouth daily. losartan (COZAAR) 100 mg tablet Take 1 tablet by mouth daily. lysine 1,000 mg tablet Take 1 tablet by mouth daily as needed. montelukast (SINGULAIR) 10 mg tablet Take 1 tablet by mouth at bedtime. omeprazole (PriLOSEC) [address] capsule Take 1 capsule by mouth once a week. Synthroid 100 mcg tablet Take 1 tablet by mouth daily. trospium (SANCTURA) 20 mg tablet Take 1 tablet (20 mg total) by mouth 2 (two) times a day before breakfast and dinner. 60 tablet 11 venlafaxine XR (EFFEXOR-XR) 75 mg 24 hr capsule Take 1 capsule by mouth daily. VITAMIN B COMPLEX ORAL Take 1 tablet by mouth daily as needed. cephalexin (KEFLEX) 500 mg capsule Take 1 capsule (500 mg total) by mouth 2 (two) times a day. 14 capsule 0 valACYclovir (VALTREX) 500 mg tablet Take 1 tab (500 mg) by mouth 2 times a day for 3 days. 6 tablet 5 No current facility-administered medications for this visit. ADVANCE CARE PLANNING Advance directive currently on file: Yes VITALS BP 128/79 (BP Location: Left arm, Patient Position: Sitting, Cuff Size: Regular) Pulse 76 Temp 36.9 ??C Resp 16 Ht 172 cm Wt 84 kg BMI 28.39 kg/m?? PHYSICAL EXAMINATION Vitals reviewed. Constitutional General: She is not in acute distress. HENT Right Ear: Tympanic membrane normal. Left Ear: Tympanic membrane normal. Mouth/Throat: Mouth: Mucous membranes are moist. Pharynx: No posterior oropharyngeal erythema. Eyes Conjunctiva/sclera: Conjunctivae normal. Neck Thyroid: No thyromegaly. Cardiovascular Rate and Rhythm: Normal rate and regular rhythm. Pulmonary Effort: Pulmonary effort is normal. Breath sounds: Normal breath sounds. No wheezing, rhonchi or rales. Abdominal General: Bowel sounds are normal. There is no distension. Palpations: Abdomen is soft. Tenderness: There is no abdominal tenderness. Musculoskeletal Right lower leg: No edema. Left lower leg: No edema. Lymphadenopathy Cervical: No cervical adenopathy. Skin General: Skin is warm and dry. Neurological Mental Status: She is alert. Mental status is at baseline. Psychiatric Mood and Affect: Mood normal. Behavior: Behavior normal. ASSESSMENT / PLAN Jeaneth Howard is a 77 y.o. female presenting to clinic for Medicare annual wellness exam. #1 Annual Medicare Examination Return See maint mechanic. #2 Acute Cystitis Without Hematuria She unfortunately experienced a return of her symptoms and UA is suggestive of UTI. Will treat witha course of cephalexin. She had breast tenderness with estrace cream. Advised she can restart at twice per week rather than daily. She will be following up with Urology in a couple of weeks. #3 Chronic Cough Lungs are clear to auscultation today. She will be seeing Pulmonology later this month. #4 Bipolar Disorder (HCC) Mood stable with no acute concerns. #5 Herpes Simplex Genital Recurrent Will switch from acyclovir to valacyclovir for better ease of use. Alexa Álvarez M.D. TRUCTION FRAMER documented in this encounter Plan of Treatment Upcoming Encounters Date Type Department Care Team (Latest Contact Info) Description 08/26/2023 9:30 AM CDT Procedure visit Department of Obstetrics and Gynecology in [place], [place] [address] [place] [phone] Milena Huffman APRN, C.N.P. [address] [place] [phone] Snow Cox APRN, C.N.P. [address] [place] [phone] Rajni Hooker M.D. [address] [place] [phone] Discharge Disposition: Home or Self Care 10/07/2023 7:30 AM CDT Clinical Communication Virtual Review in [place], [place] [address] [place] [phone] 10/11/2023 8:40 AM CDT Comprehensive Visit Division of Gastroenterology in [place], [place] [address] [place] [phone] Iker Bruce M.D. [address] [place] [phone] 10/26/2023 8:30 AM CDT Clinical Communication Virtual Review in [place], [place] [address] [place] [address] 10/26/2023 10:30 AM CDT Appointment Department of Radiology, [facility], in [place], [place] [address] [place] [phone] Lisa Soni, MPAS, P.A.-C. [address] [place] [phone] 10/27/2023 12:30 PM CDT Diagnostic Division of Pulmonary Medicine in [place], [place] [address] [place] [address] Lisa Soni MPAS, P.A.-C. [address] [place] [address] 10/27/2023 1:30 PM CDT Office Visit Division of Pulmonary Medicine in [place], [place] [address] [place] [phone] Lisa Soni MPAS, P.A.-[place] [address] [place] [phone] documented as of this encounter Visit Diagnoses Diagnosis Annual Medicare Examination Return- Primary Acute Cystitis Without Hematuria Chronic Cough Bipolar Disorder (HCC) Herpes Simplex Genital Recurrent documented in this encounter Care Teams Playground Aide Relationship Specialty Start Date End Date Aelxa Álvarez M.D. [address] [place] [phone] PCP - General Family Medicine 06/02/23 documented as of this encounter
--- OUTSIDE RECORDS SUMMARY | 2023-08-19 07:04 | XMS_ITS | Encounter Summary ---
Author Name Unknown Organization [facility] Address [address] [place] [id number] Care Team Providers Care Customer Field Representative Name Role Phone Alexa Álvarez M.D. Primary Care Provider [phone]- [phone] Reason for Referral * Outpatient (Routine) - Closed Specialty Diagnoses / Procedures Referred By James agrawal Referred To Contact Diagnoses Incontinence Urinary Stress And Urge Procedures URO Uroflow Alexa Álvarez M.D. [address] [place] [phone] [facility] Referral ID Status Reason Start Date Expiration Date Visits Re quested Visits Authorized [id number] Closed 06/13/2023 06/12/2024 1 1 R SERVICES SPECIALIST * Outpatient (Routine) - Closed Specialty Diagnoses / Procedures Referred By James agrawal Referred To Contact Urology Diagnoses Incontinence Urinary Stress And Urge Alexa Álvarez M.D. [address] [place] [phone] [facility] Referral ID Status Reason Start Date Expiration Date Visits Re quested Visits Authorized [id number] Closed 06/13/2023 12/12/2024 1 1 R SERVICES SPECIALIST Reason for Visit * Reason Comments Establish Care Ongoing cough since having covid in April. Concern of frequent UTI's since May. Encounter Details Date Type Department Care Team (Late st Contact Info) Description 06/13/2023 10:30 AM DONOR SERVICES SPECIALIST Office Visit Department of Family Medicine, [facility] [place], in [address] [phone] Alexa Álvarez M.D. [address] [place] [phone] Infection Urinary Tract Personal History (Primary Dx); Incontinence Urinary Stress And Urge; Personal History Of Infectious And Parasitic Disease (COVID-19); Lung Interstitial Disease (HCC); Fibrosis Idiopathic Pulmonary (HCC); Murmur Systolic Discharge Disposition: Home or Self Care Social History Tobacco Use Types Packs/Day Years Used Date Smoking Tobacco: Former Cigarettes S tarted: 10/11/1984 Tobacco Cessation:Counseling Given: Not Answered [facility] Utilities Answer Date Recorded In the past [address] [facility] [employer], oil, or water [employer] threatened to shut off services in your [...] week 05/17/2022 How often do you attend [facility] or jehovah's witness services? More than 4 times per year [...] Answer Date Recorded PHQ-2 Score 0 06/09/2023 [facility] Occupat ional [facility] - Occupational Stress Questionnaire Answer [...] your living situation today? I have a [facility] place to live 06/09/2023 Education Answer Date Recorded What is the highest level of school you have completed or the highest degree you have received? 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, WILLIE) 05/17/2022 Sex and Gender Information Value Date Recorded Sex Assigned at Female 05/17/2022 2:17 PM DONOR SERVICES SPECIALIST Gender Identity Female 05/17/2022 2:17 PM DONOR SERVICES SPECIALIST Sexual Orientation Straight 05/17/2022 2: 17 PM DONOR SERVICES SPECIALIST documented as of this encounter Last Filed Vital Signs Vital Sign Reading Time Taken Comments Blood Pressure 117/72 06/13/2023 10:25 AM DONOR SERVICES SPECIALIST Pulse 80 06/13/2023 10:25 AM DONOR SERVICES SPECIALIST Temperature 36.4 ??C (97.5 ??F) 06/13/2023 10:[address] Respiratory Rate - - Oxygen Saturation 95% 06/13/2023 10:25 AM DONOR SERVICES SPECIALIST Inhaled Oxygen Concentration - - Weight 83.2 kg (183 lb 6.8 oz) 06/13/2023 10:25 AM DONOR SERVICES SPECIALIST Height - - Body Mass Index 27.96 02/28/2023 10:23 AM CDT documented in this encounter Patient Instructions * Patient Instructions* Alexa Álvarez M.D. - 06/13/2023 10:30 AM DONOR SERVICES SPECIALIST A specialty referral has been placed for you. Please call to schedule your appointment. For [facility] referrals: Call [phone] or stop at the front scheduling desk For [facility] referrals: Call [phone] For [facility] referrals: - For medical specialties (Allergy, Cardiology, Gastroenterology/GI, Nutrition, Oncology, Nephrology, or Neurology): Call [phone] - For surgical specialties (ENT/Audiology, General Surgery, Ophthalmology, Orthopedics, Pain Medicine, Podiatry, or Urology): Call [phone] R SERVICES SPECIALIST documented in this encounter H&P Notes * Alexa Álvarez M.D. - 06/13/2023 10:30 AM CST SUBJECTIVE REASON FOR VISIT Establish Care (Ongoing cough since having covid in April. Concern of frequent UTI's since May. ) HISTORY OF PRESENT ILLNESS: Jeaneth Howard is a 77 y.o. female presenting to clinic to establish care. COVID-19 infection in early April. A lot of sinus drainage. Some sneezing and sore throat. Symptoms otherwise mild. Has a chronic productive cough. Using flonase, ipratropium, singulair. Using albuterol for 3-4 weeks. Uses tylenol PM for sleep. Recurrent UTI x3 over the past few months. This week she started using Estrace cream, which was previously prescribed. Chronic urinary incontinence. Worse with coughing. Has urgency. Saw Urology in the past and was told her bladder was emptying incompletely. ALLERGIES Allergies Allergen Reactions Amoxicillin GI intolerance Divalproex Sodium Other (see comments) increase WBC count Fluticasone Other (see comments) Pt reports high dose intermodal customer service caused damage to her nose (taste/smell) House Dust Other (see comments) Mold Extracts Other (see comments) Prednisone Other (see comments) Has significant Psychiatry side effects, feels out of it. May tolerate very low dose, ie 10 milligrams daily for 5 days. MEDICATIONS Current Outpatient Medications Medication Sig acyclovir (ZOVIRAX) 400 mg tablet Take by mouth as needed. TAKE ONE TABLET BY MOUTH THREE TIMES DAILY FOR 5 DAYS. START AT SOONEST SIGN OF HERPES FLARE alendronate (FOSAMAX) 70 mg tablet Take 70 mg by mouth once a week. atorvastatin (LIPITOR) 10 mg tablet Take 10 mg by mouth at bedtime. cyanocobalamin (VITAMIN B12) 1,000 mcg/mL injection Inject 1,000 mcg intramuscularly every 28 (twenty-eight) days. DME CPAP DME Order fluticasone propionate (FLONASE) 50 mcg/actuation nasal spray Administer 1 spray into each nostril daily as needed. gabapentin (NEURONTIN) 400 mg capsule Take 3 capsules by mouth at bedtime. ipratropium (ATROVENT) 21 mcg (0.03 %) nasal spray Administer 2 sprays into each nostril 2 (two) times a day. ipratropium-albuteroL (Combivent Respimat) 20-100 mcg/actuation inhaler Inhale [...] tablet Take 1 tablet by mouth daily. venlafaxine XR (EFFEXOR-XR) 75 mg 24 hr capsule Take 1 capsule by mouth daily. VITAMIN B COMPLEX ORAL Take 1 tablet by mouth daily as needed. 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 SOCIAL HISTORY Social History Social History Narrative She is single. She has 3 children. 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 Smoked cigarettes in the distant past. FAMILY HISTORY Family History Problem Relation Age of Onset Macular degeneration Mother Glaucoma Paternal Grandmother VITAL SIGNS BP 117/72 (BP Location: Left arm, Patient Position: Sitting) Pulse 80 Temp 36.4 ??C (Temporal) Wt 83.2 kg SpO2 95% No BMI 27.96 kg/m?? PHYSICAL EXAMINATION Vitals reviewed. Constitutional General: She is not in acute distress. Cardiovascular Rate and Rhythm: Normal rate and regular rhythm. Comments: Grade II/ systolic murmur, loudest over R sternal border. Pulmonary Effort: Pulmonary effort is normal. Breath sounds: Normal breath sounds. No wheezing, rhonchi or rales. Musculoskeletal Right lower leg: No edema. Left lower leg: No edema. Skin General: Skin is warm and dry. Neurological Mental Status: She is alert. Mental status is at baseline. ASSESSMENT / PLAN Jeaneth Howard is a 77 y.o. female presenting to clinic to establish care. #1 Infection Urinary Tract Personal History She was recently treated for a UTI and is currently asymptomatic. She has had 3 infections over thepast couple months. - Continue estrace, which she started 1 week ago. - Encouraged fluid intake. - Can try cranberry supplements. - Follow-up as needed. #2 Incontinence Urinary Stress And Urge Urology referral placed. #3 Personal History Of Infectious And Parasitic Disease (COVID-19) #4 Lung Interstitial Disease (HCC) #5 Fibrosis Idiopathic Pulmonary (HCC) Patient reports a chronic cough following her COVID-19 infection in early April. She is using her inhalers as prescribed. Encouraged use of her Aerobika. She moved up her Pulmonology follow-up Alexa Álvarez M.D. R SERVICES SPECIALIST documented in this encounter Plan of Treatment Upcoming Encounters Date Type Department Care Team (Latest Contact Info) Description 08/26/2023 9:30 AM CDT Procedure visit Department of Obstetrics and Gynecology in [place], [place] [address] [place] [phone] Milena Huffman APRN, C.N.P. [address] [place] [phone] Snow Cox APRN, C.N.P. [address] [place] [phone] Rajni Hooker M.D. [address] [place] [phone] Discharge Disposition: Home or Self Care 10/07/2023 7:30 AM CDT Clinical Communication Virtual Review in [place], [place] [address] [place] [phone] 10/11/2023 8:40 AM CDT Comprehensive Visit Division of Gastroenterology in [place], [place] [address] [place] [phone] Iker Bruce M.D. [address] [place] [phone] 10/26/2023 8:30 AM CDT Clinical Communication Virtual Review in [place], [place] [address] [place] [phone] 10/26/2023 10:30 AM CDT Appointment Department of Radiology, [facility], in [place], [place] [address] [place] [phone] Lisa Soni, [place], P.A.-C. [address] [place] [phone] 10/27/2023 12:30 PM CDT Diagnostic Division of Pulmonary Medicine in [place], [place] [address] [place] [phone] Lisa Soni MPAS, P.A.-C. [address] [place] [phone] 10/27/2023 1:30 PM CDT Office Visit Division of Pulmonary Medicine in [place], [place] [address] [place] [phone] Lisa Soni MPAS, P.A.-C. [address] [place] [phone] Scheduled Orders Name Type Priority Associated Diagnoses Orde r Schedule URO Uroflow Procedure Routine Incontinence Urinary Stress And Urge Expected: 06/13/2023 (Approximate), Expires: 09/10/2024 Scheduled Referrals Name Type Priority Associated Diagnoses Order Schedule Urology - Female - incontinence consult (clinic) Outpatient Referral Routine Incontinence Urinary Stress And Urge Expected: 06/13/2023 (Approximate), Expires: 09/10/2024 documented as of this encounter Visit Diagnoses Diagnosis Infection Urinary Tract Personal History- Primary Incontinence Urinary Stress And Urge Personal History Of Infectious And Parasitic Disease (COVID-19) Lung Interstitial Disease (HCC) Fibrosis Idiopathic Pulmonary (HCC) Murmur Systolic documented in this encounter Care Teams Customer Field Representative Relationship Specialty Start Date End Date Alexa Álvarez M.D. [address] [place] [phone] PCP - General Family Medicine 06/02/23 documented as of this encounter
--- OUTSIDE RECORDS SUMMARY | 2023-08-19 07:04 | XMS_ITS | Encounter Summary ---
Author Name Unknown Organization [facility] Address [address] [place] [address] Care Team Providers Care Hand Coper Name Role Phone Alexa Álvarez M.D. Primary Care Provider +1- [phone] Reason for Visit * Reason Comments Medicare Annual Wellness Visit Subsequen t * Outpatient (Routine) - Closed Specialty Diagnoses / Procedures Referred By James agrawal Referred To Contact Alexa Álvarez M.D. [address] [place] [phone] [facility] Region Referral ID Status Reason Start Date Expiration Date Visits Re quested Visits Authorized [id number] Closed 06/30/2023 12/29/2024 1 1 Encounter Details Date Type Department Care Team (Late st Contact Info) Description 07/01/2023 12:00 PM NUCLEAR MEDICAL TECHNOLOGIST Office Visit Department of Family Medicine, [facility], in [address] [phone] Alexa Álvarez M.D. [address] [place] [phone] Jerilyn Britton ReRnae [address] [place] [phone] Annual Medicare Examination Return (Primary Dx) Discharge Disposition: Home or Self Care Social [...] often do you attend chur ch or catholic services? More than 4 times per year [...] Answer Date Recorded PHQ-2 Score 0 06/09/2023 [facility] - Occupational Stress Questionnaire Answer Date [...] [facility] today? [facility] 06/09/2023 Education Answer Date Recorded What is the highest level of school you have completed or the highest degree you have received? Master's degree (e.g., HELLEN, MS, Flavia, MEd, CYBER LEGAL ADVISOR, WILLIE) 05/17/2022 Sex and Gender Information Value Date Recorded Sex Assigned at Female 05/17/2022 2:17 PM NUCLEAR MEDICAL TECHNOLOGIST Gender Identity Female 05/17/2022 2:17 PM NUCLEAR MEDICAL TECHNOLOGIST Sexual Orientation Straight 05/17/2022 2: 17 PM NUCLEAR MEDICAL TECHNOLOGIST documented as of this encounter Progress Notes * Jerilyn Birtton R.N. - 07/01/2023 12:00 PM CST HEALTH ASSESSMENT Reason For Visit Patient presents with Medicare Annual Wellness Visit Subsequent The following portions of the patient's history were reviewed and updated as appropriate: allergies, medications, family history, social history, surgical history and care team/suppliers. VITALS Blood Pressure: 128/79 (07/01/2023 11:24 AM) Temperature: 36.9 ??C (07/01/2023 11:24 AM) Temp Source: Temporal (06/13/2023 10:25 AM) Pulse Rate: 76 (07/01/2023 11:24 AM) Resp Rate: 16 (07/01/2023 11:24 AM) BMI (Calculated): 28.4 kg/m?? 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 She has a CPAP and usually wears it but has not since May d/ her recent medical issues. Depression Screening PHQ-2 Score: 0 Cognitive Assessment Cognitive function assessed by direct observation without concerns. Current Opioid Use None FUNCTIONAL/HOME ENVIRONMENT History of falls: Have you fallen within the last year or do you fear you might fall?: No (06/13/2023 10:00 AM) Do you use an assisted device to walk? (Walker, cane, wheelchair, crutch): No (06/13/2023 10:00 AM) Today, do you feel any of the following? Weak, dizzy, shaky, or unsteady?: No (06/13/2023 10:00 AM) Have you taken any medication within the last 6 hours which may make you feel drowsy? Such as sleep, pain, or anxiety medication: No (06/13/2023 10:00 AM) Home Safety Does your home have throw rugs, poor lighting or slippery bathtub/shower? No Does your home have grab bars in the bathroom, handrails on the stairs and steps? Yes Does your home have functional smoke and carbon monoxide alarms? Yes Advance Directive Advance Directives: Received 04/07/2007 Patient has advance directive on file and indicates it is current and in effect. Preventive Services Schedule Health Maintenance Topic Date Due Visit: Chronic Disease, age 18+ Never done Hepatitis C Screening Never done Sodium Level 05/26/2023 Thyroid Stimulating Hormone (TSH) test for thyroid function 12/29/2023 DTaP,Tdap,and Td Vaccines (4 - Td or Tdap) 01/23/2024 Potassium Level 05/06/2024 Office Visit for Blood Pressure Check / Re-check 06/13/2024 Creatinine Level (Kidney Function Test) 06/30/2024 Visit: Medicare Annual Wellness 07/01/2024 Depression Screening (Annual PHQ-2) Completed Fall Risk Screen (Annual) Completed COVID-19 Vaccine Completed RSV vaccine - (32-36 weeks) or 60+ years Completed Pneumococcal vaccine (65+ years) Completed Influenza Vaccine Completed Zoster Vaccines Completed HPV Vaccines Aged Out After Visit Summary (AVS) reviewed and patient will access via patient online services EAR MEDICAL TECHNOLOGIST documented in this encounter Plan of Treatment Upcoming Encounters Date Type Department Care Team (Latest Contact Info) Description 08/26/2023 9:30 AM CDT Procedure visit Department of Obstetrics and Gynecology in [place], [place] [address] [place] [phone] Milena Huffman APRN, C.N.P. [address] [place] [phone] Snow Cox APRN, C.N.P. [address] [place] [phone] Rajni Hooker M.D. [address] [place] [phone] Discharge Disposition: Home or Self Care 10/07/2023 7:30 AM CDT Clinical Communication Virtual Review in [place], [place] [address] [place] [phone] 10/11/2023 8:40 AM CDT Comprehensive Visit Division of Gastroenterology in [place], [place] [address] [place] [phone] Iker Bruce M.D. [address] [place] [phone] 10/26/2023 8:30 AM CDT Clinical Communication Virtual Review in [place], [place] [address] [place] [phone] 10/26/2023 10:30 AM CDT Appointment Department of Radiology, [facility], in [place], [place] [address] [place] [phone] Lisa Soni MPAS, P.A.-C. [address] [place] [phone] 10/27/2023 12:30 PM CDT Diagnostic Division of Pulmonary Medicine in [place], [place] [address] [place] [phone] Lisa Soni MPAS, P.A.-C. [address] [place] [phone] 10/27/2023 1:30 PM CDT Office Visit Division of Pulmonary Medicine in [address] [phone] Lisa Soni MPAS, P.A.-C. [address] [place] [phone] documented as of this encounter Visit Diagnoses Diagnosis Annual Medicare Examination Return- Primary documented in this encounter Care Teams Hand Coper Relationship Specialty Start Date End Date Alexa Álvarez M.D. [address] [place] [phone] PCP - General Family Medicine 06/02/23 documented as of this encounter
--- OUTSIDE RECORDS SUMMARY | 2023-08-19 07:04 | XMS_ITS | Encounter Summary ---
Author Name Unknown Organization [facility] Address [address] [place] [address] Care Team Providers Care Chairman And Chief Executive Officer Name Role Phone Alexa Álvarez M.D. Primary Care Provider +1- [phone] Reason for Referral * Outpatient (Routine) - Closed Specialty Diagnoses / Procedures Referred By James agrawal Referred To Contact Alexa Álvarez M.D. [address] [place] [phone] [facility] Region Referral ID Status Reason Start Date Expiration Date Visits Re quested Visits Authorized [id number] Closed 06/30/2023 12/29/2024 1 1 CTOR OF RADIOLOGY Encounter Details Date Type Department Care Team ([facility] Contact Info) Description 06/30/2023 Orders Only Department of Family Medicine, [facility], in [address] [phone] Jerilyn Britton, RKarolNKarol [address] [place] [phone] Social History Tobacco Use Types Packs/Day Years Used Date Smoking Tobacco: Former Cigarettes S tarted: 10/11/1984 [facility] Utilities Answer Date Recorded In the past 12 months has [employer] electric, gas, oil, or water company threatened [...] How often do you attend [facility] or protestant services? More than 4 times per year 05/17/2022 Do you belong to any clubs o r organizations such as religion groups, unions, fraternal or athletic groups, or [...] Answer Date Recorded PHQ-2 Score 0 06/09/2023 [facility] - Occupational [...] your living situation today? I have a [facility] place to live 06/09/2023 Education Answer Date Recorded What is the highest level of school you have completed or the highest degree you have received? Master's degree (e.g., MA, MS, Flavia, MEd, MANAGER PLUMBING, WILLIE) 05/17/2022 Sex and Gender Information Value Date Recorded Sex Assigned at Female 05/17/2022 2:17 PM DIRECTOR OF RADIOLOGY Gender Identity Female 05/17/2022 2:17 PM DIRECTOR OF RADIOLOGY Sexual Orientation Straight 05/17/2022 2: 17 PM DIRECTOR OF RADIOLOGY documented as of this encounter Plan of Treatment Upcoming Encounters Date Type Department Care Team (Latest Contact Info) Description 08/26/2023 9:30 AM CDT Procedure visit Department of Obstetrics and Gynecology in [place], [place] [address] [place] [phone] Milena Huffman APRN, C.N.P. [address] [place] [phone] Snow Cox APRN, C.N.P. [address] [place] [phone] Rajni Hooker M.D. [address] [place] [phone] Discharge Disposition: Home or Self Care 10/07/2023 7:30 AM CDT Clinical Communication Virtual Review in [place], [place] [address] [place] [phone] 10/11/2023 8:40 AM CDT Comprehensive Visit Division of Gastroenterology in [place], [place] [address] [place] [phone] Iker Bruce M.D. [address] [place] [phone] 10/26/2023 8:30 AM CDT Clinical Communication Virtual Review in [place], [place] [address] [place] [phone] 10/26/2023 10:30 AM CDT Appointment Department of Radiology, [facility], in [place], [place] [address] [place] [phone] Lisa Soni MPAS, P.A.-C. [address] [place] [phone] 10/27/2023 12:30 PM CDT Diagnostic Division of Pulmonary Medicine in [place], [place] [address] [place] [phone] Lisa Soni MPAS, P.A.-C. [address] [place] [phone] 10/27/2023 1:30 PM CDT Office Visit Division of Pulmonary Medicine in [place], [place] [address] [place] [phone] Lisa Soni, [place], P.A.-C. [address] [place] [phone] Scheduled Referrals Name Type Priority Associated Diagnoses Orde r Schedule Primary Care nurse visit (clinic) - [facility] Region; Medicare Annual Wellness Outpatient Referral Routine Expected: 07/01/2023 (Approximate), Expires: 2024 documented as of this encounter Visit Diagnoses Not on filedocumented in this encounter Care Teams Chairman And Chief Executive Officer Relationship Specialty Start Date End Date Alexa Álvarez M.D. [address] [place] [phone] PCP - General Family Medicine 06/02/23 documented as of this encounter
--- OUTSIDE RECORDS SUMMARY | 2023-08-19 07:04 | XMS_ITS | Encounter Summary ---
Author Name Unknown Organization [facility] Address [address] [place] [phone] Care Team Providers Care Inspector Filters Name Role Phone Alexa Álvarez M.D. Primary Care Provider [phone]- [phone] Reason for Referral * Outpatient (Routine) - Authorized Specialty Diagnoses / Procedures Referred By Contac t Referred To Contact Diagnoses Incontinence Fecal Procedures DX Abdomen 1 View Milena Huffman APRN, C.N.P. [address] [place] [phone] [facility] Referral ID Status Reason Start Date Expiration Date V isits Requested Visits Authorized [id number] Authorized 06/20/2023 06/19/2024 1 1 ULAR SAW FILER * Outpatient (Routine) - Authorized Specialty Diagnoses / Procedures Referred By Contac t Referred To Contact Diagnoses Incontinence Fecal Procedures Anorectal Manometry Milena Huffman APRN, C.N.P. [address] [place] [phone] [facility] Referral ID Status Reason Start Date Expiration Date V isits Requested Visits Authorized [id number] Authorized 06/20/2023 06/19/2024 1 1 ULAR SAW FILER * Outpatient (Routine) - Closed Specialty Diagnoses / Procedures Referred By Contact Referred To Contact Gastroenterology and Hepatology Diagnoses Incontinence Fecal Milena Huffman APRN, C.N.P. [address] [place] [phone] [facility] Referral ID Status Reason Start Date Expiration Date Visits Re quested Visits Authorized [id number] Closed 06/20/2023 12/19/2024 1 1 Scheduling Instructions GIH consult should be scheduled after all testing ULAR SAW FILER * Outpatient (Routine) - Closed Specialty Diagnoses / Procedures Referred By James t Referred To Contact Urology Milena Huffman APRN, C.N.P. [address] [place] [phone] [facility] Referral ID Status Reason Start Date Expiration Date Visits Re quested Visits Authorized [id number] Closed 06/20/2023 12/19/2024 1 1 ULAR SAW FILER * MRI/CAT/PET Scan (Routine) - Closed Specialty Diagnoses / Procedures Referred By Contac t Referred To Contact Radiology Diagnoses Hematuria Procedures CT Urogram without and with IV Contrast Milena Huffman APRN, C.N.P. [address] [place] [phone] [facility] Referral ID Status Reason Start Date Expiration Date Visits Re quested Visits Authorized [id number] Closed 06/20/2023 06/19/2024 1 1 ULAR SAW FILER * Outpatient (Routine) - Closed Specialty Diagnoses / Procedures Referred By Contac t Referred To Contact Diagnoses Hematuria Procedures URO Cystoscopy (general) Milena Huffman APRN, C.N.P. [address] [place] [phone] [facility] Referral ID Status Reason Start Date Expiration Date Visits Re quested Visits Authorized [id number] Closed 06/20/2023 06/19/2024 1 1 ULAR SAW FILER Reason for Visit * Outpatient (Routine) - Closed Specialty Diagnoses / Procedures Referred By Contac t Referred To Contact Urology Diagnoses Incontinence Urinary Stress And Urge Alexa Álvarez M.D. [address] [place] [phone] [facility] Referral ID Status Reason Start Date Expiration Date Visits Re quested Visits Authorized [id number] Closed 06/13/2023 12/12/2024 1 1 Encounter Details Date Type Department Care Team (Latest Contact Info) Description 06/20/2023 8:45 AM CIRCULAR SAW FILER Comprehensive Visit Department of Urology in [place], [place] [address] [place] [address] Milena Huffman APRN, C.N.P. [address] [place] [phone] Hematuria (Primary Dx); Cystitis Recurrent; Incontinence Urinary; Incontinence Fecal Social History Tobacco Use Types Packs/Day Years Used Date Smoking Tobacco: Former Cigarettes S tarted: 10/11/1984 [facility] Utilities Answer Date Recorded In the past [address] [facility] [employer], [employer], oil, or water [employer] threatened to shut off services in your [...] How often do you attend chur or yazdanism services? More than 4 times per year 05/17/2022 Do you belong to any clubs o r organizations such as restorationism groups, unions, fraternal or athletic groups, or [...] Answer Date Recorded PHQ-2 Score 0 06/09/2023 [facility] - [...] your living situation today? I have a [facility] place to live 06/09/2023 Education Answer Date Recorded What is the highest level of school you have completed or the highest degree you have received? 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 - 06/20/2023 8:45 AM CST SUBJECTIVE REQUESTING PROVIDER Alexa Álvarez M.D. REASON FOR CONSULT Urinary symptoms HISTORY OF PRESENT ILLNESS Jeaneth Howard is a 77-year-old female whose comorbidities include interstitial lung disease, pulmonary fibrosis, hypertension and sleep apnea. Referred to Urology for evaluation of urinary incontinence and recurrent urinary tract infection. URINARY INCONTINENCE Describes urgency and urgency incontinence. She wears a pad day and night. Most bothersome time is when getting out of the car after a long drive, she will have stress incontinence and be unable to stop the flow of urine. She was previously evaluated by a urologist and provided with an Rx for a medication. She states that the medication caused dry mouth and constipation and it was discontinued. Uroflow Total voided volume 0 mL; ultrasound residual 58 mL. UA Results from last 7 days Lab Units 06/13/23 1137 URINE SOURCE Urine, Urine, Midstream CLARITY U Clear COLOR U Elizabeth PH URINE 5.5 GLUCOSE U mg/dL Negative PROTEIN UR mg/dL Negative RED BLOOD CELL U Negative RBC UA TANA /hpf 3-10* WBC UA /hpf Occ-3 NITRITE U Negative LEUKOCYTES U Trace* KETONES U MG DL mg/dL Trace* BILIRUBIN U Small* UROBILINOGEN U MG/DL mg/dL 0.2 SPEC GRAV 1.025 RECURRENT URINARY TRACT INFECTION Previous cultures 06/13/2023: 10-100 E coli, pansensitive-; UA no WBCs 06/03/2023: 10-100 E coli, pansensitive; UA 51-100 WBCs, 11-20 RBC 05/15/2023: > 100 E coli, pansensitive; UA 6-10 RBC, 26-50 WBCs 05/06/2023: 50-100 E coli, pansensitive; UA 51-100 RBC, greater than 100 WBCs Symptoms associated with urinary tract infection include dysuria and hematuria. She has had problems with fecal incontinence for the last 8-10 years. She was provided with an Rx for vaginal estrogen replacement. She was using 2 g every day and after10 days she developed significant breast tenderness. This caused her to discontinue the medication. Lower Urinary Symptoms Lower Urinary Sx: hematuria (+) able to sense full bladder (+) frequency (+) 8 x per day 1 x nightly difficulty urinating (+) Presence of pelvic pain: suprapubic pain (+) Obstructive Sx: weak stream (+) kidney infections or required hospitalization for kidney failure (-) # of UTI's in past year: 3 or more Required catheter: no Incontinence: dribbling (+) urge incontinence (+) unintentionally leaks urine (+) leaking occurs during coughing,sneezing or lifting heavy objects (+) experiences a feeling of urgency before leaking (+) Treatments: Treatments taken for urinary symptoms: medications treatments helped (+) had surgical or office procedures to improve urinary symptoms (-) The following portions of the patient's history were reviewed and updated as appropriate: allergies, current medications, family history, medical history, social history, surgical history, and problem list. REVIEW OF SYSTEMS Genitourinary: Positive for difficulty urinating and blood in urine. OBJECTIVE PAST MEDICAL HISTORY Past Medical History: Diagnosis Date Hypertension NOS Stone Kidney 06/13/2023 PAST SURGICAL HISTORY Past Surgical History: Procedure Laterality Date CATARACT EXTRACTION Bilateral 2020 OTHER CONVERTED SHX (SEE COMMENT) N/A 04/03/2007 >C3 through superior C7 cervical laminectomy. FAMILY HISTORY Family History Problem Relation Age of Onset Macular degeneration Mother Glaucoma Paternal Grandmother PHYSICAL EXAM Constitutional: She is oriented to person, place, and time. She appears well- developed and well-nourished. HENT: Head: Normocephalic and atraumatic. Eyes: No scleral icterus. Neck: Neck supple. Pulmonary/Chest: Effort normal. Musculoskeletal: Normal range of motion. Neurological: She is alert and oriented to person, place, and time. Psychiatric: She has a normal mood and affect. Her behavior is normal. LABORATORY No results found for this or any previous visit (from the past 72 hour(s)). IMAGING No results found. ASSESSMENT / PLAN 1. Cystitis Recurrent I had the pleasure of meeting Jeaneth Howard in clinic today. We had a detailed discussion regarding recurrent urinary tract infections and their incurable nature. Discussed possible risk factors for recurrent urinary tract infections. Recurrent urinary tract infections tend to occur in clusters and goal of treatment is to break a cluster and reduce the total number of urinary tract infections contracted per year. Chronic suppressive antibiotic therapy is not recommended due to the risk of microbial resistance. Lifestyle changes are extremely important in preventing urinary tract infections. I discussed the importance of a high fluid intake. I recommended 80 oz of fluid per day to keep the urinary tract flushed. We also discussed adding an rsfy-aks-skqoszb probiotic or supplementing her diet with yogurt, [place], sour kraut or luz elena chi daily. She can consider adding an paad-xez-vwwmlta cranberry supplement. We discussed the variable data supporting cranberry supplement use. I described Thera Cran and Ellura cranberry supplements that have been consistent in reducing the risk of recurrent urinary tractinfections If vitamin-C and cranberry supplementation is not effective in managing recurrent urinary tract infections. Consideration for Hiprex and vitamin-C should be made. I explained how vaginal estrogen replacement has been proven to reduce the risk of recurrent urinary tract infections in postmenopausal females. She has an Rx for vaginal estrogen but discontinued itsecondary to tender breast after using it every day for 10 days. I have recommended that she wait until the breast tenderness has resolved and then resume the medication. I have encouraged her to utilize the index finger for medication administration. She should only use the medication twice a week. 2. Incontinence Urinary I had the pleasure meeting with in clinic today. We had a detailed discussion regarding her symptoms. First-line treatment is generally aimed at lifestyle modifications. We discussed appropriate fluid intake, timed voiding, ideal body weight and avoidance of constipation. We discussed dietary bladder irritants. I provided the patient with a complete list of dietary bladder irritants andencouraged her to experiment with her diet to identify what bladder irritants exacerbates her symptoms. We also discussed second-line treatment with medication therapy. I described anticholinergics and beta 3 agonists, their mechanism of action and potential side effects. She is interested in a medication. Unfortunately, beta 3 agonists are not well covered by her insurance plan. I sent an Rx for trospium 20 mg b.i.d.. She can reduce the dosing to once a day if she develops significant side effects. 3. Hematuria Urinalysis is notable for 3-10 red blood cells We discussed possible etiologies of hematuria. We discussed the [place] [employer]'s recommendation for workup of microscopic hematuria when 3 or more red blood cells are present. I described CT urogram and cystoscopy to the patient. I discussed the relative risks and benefits of each of these procedures. The patient would like to proceed. She will have a follow-up visit to discuss results. - URO Cystoscopy (general); Future - CT Urogram without and with IV Contrast; Future - Creatinine with Estimated GFR; Future 4. Incontinence Fecal This can increase the risk of urinary tract infections. Referral to Gastroenterology. - Gastroenterology and Hepatology - Motility consult (clinic); Future - Anorectal Manometry; Future - DX Abdomen 1 View; Future Signed by: Milena Huffman APRN, C.N.P. 06/20/2023 12:27 PM CIRCULAR SAW FILER ULAR SAW FILER documented in this encounter Plan of Treatment Upcoming Encounters Date Type Department Care Team (Latest Contact Info) Description 08/26/2023 9:30 AM CDT Procedure visit Department of Obstetrics and Gynecology in [place], [place] [address] [place] [phone] Milena Huffman APRN, C.N.P. [address] [place] [phone] Snow Cox APRN, C.N.P. [address] [place] [phone] Rajni Hooker M.D. [address] [place] [phone] Discharge Disposition: Home or Self Care 10/07/2023 7:30 AM CDT Clinical Communication Virtual Review in [address] [phone] 10/11/2023 8:40 AM CDT Comprehensive Visit Division of Gastroenterology in [place], [place] [address] [place] [phone] Iker Bruce M.D. [address] [place] [phone] 10/26/2023 8:30 AM CDT Clinical Communication Virtual Review in [address] [phone] 10/26/2023 10:30 AM CDT Appointment Department of Radiology, [facility], in [place], [place] [address] [place] [phone] Lisa Soni, MPAS, P.A.-C. [address] [place] [phone] 10/27/2023 12:30 PM CDT Diagnostic Division of Pulmonary Medicine in [place], [place] [address] [place] [phone] Lisa Soni MPAS, P.A.-CKarol [address] [place] [phone] 10/27/2023 1:30 PM CDT Office Visit Division of Pulmonary Medicine in [place], [place] [address] [place] [phone] Lisa Soni MPAS, P.AKarol-CKarol [address] [place] [phone] Scheduled Orders Name Type Priority Associated Diagnoses Orde r Schedule Anorectal Manometry GI Routine Incontinence Fecal Expected: 06/20/2023 (Approximate), Expires: 09/17/2024 DX Abdomen 1 View Imaging RAD - Routine (most inpatients and all outpatients) Incontinence Fecal Expected: 06/20/2023 (Approximate), Expires: 09/17/2024 Scheduled Referrals Name Type Priority Associated Diagnoses Order Schedule Urology office visit (clinic) Outpatient Referral Routine 1 Occurrences starting 06/20/2023 until 09/17/2024 Gastroenterology and Hepatology - Motility consult (clinic) Outpatient Referral Routine Incontinence Fecal Expected: 06/20/2023 (Approximate), Expires: 09/17/2024 documented as of this encounter Results * MS CYSTOURETHROSCOPY (07/04/2023 1:00 PM CIRCULAR SAW FILER) Narrative Ben Barbour M.B., B.Ch. - 07/04/2023 1:00 PM CIRCULAR SAW FILER Ben Barbour M.B., B.Ch. ? 07/04/2023 ??1:15 [...] ?? Complications: no apparent complications ?? Milena M Nathanael LINARES C.N.P. UROLOGY OR DERABLES * CT Urogram without and with IV Contrast (07/04/2023 8:21 AM CIRCULAR SAW FILER) Anatomical Region Laterality Modality Abdomen, Pelvis, Abdominal R ST LOS, Abdominal ARZ LOS, Abdominal FLA LOS N/A Computed Tomograp hy, Computed Tomography 07/04/2023 8:07 AM CIRCULAR SAW FILER Impressions 07/04/2023 8:51 AM CIRCULAR SAW FILER 1. Negative upper urinary tracts. 2. Diffuse [...] Screen captures provided. Narrative 07/04/2023 8:51 AM CIRCULAR SAW FILER EXAM: ??CT UROGRAM WITHOUT AND WITH IV [...] be entirely excluded. * Screen captures provided. Samm Ledezma APRN.N.P. IMG CT PRO CEDURES * Creatinine with Estimated GFR (07/01/2023 10:20 AM CIRCULAR SAW FILER) Creatinine 0.67 0.59 - 1.04 mg/dL 07/01/2023 10:50 AM CIRCULAR SAW FILER CNFL Estimated GFR (eGFR) 89 >=60 mL/min/BSA 07/01/2023 10:50 AM CIRCULAR SAW FILER CNFL Comment: Estimated GFR calculated using the 2020 CKD_EPI creatinine equation. Blood (Blood, Venous) 07/01/2023 10:20 AM CIRCULAR SAW FILER 07/01/2023 10:22 AM CIRCULAR SAW FILER Milena Huffman APRN, C.N.P. LAB BLOOD ADD-ON [facility] [address] [place] [phone], [facility] in [address] [phone] documented in this encounter Visit Diagnoses Diagnosis Hematuria- Primary Cystitis Recurrent Incontinence Urinary Incontinence Fecal Hematuria Hematuria documented in this encounter Care Teams Inspector Filters Relationship Specialty Start Date End Date Alexa Álvarez M.D. [address] [place] [phone] PCP - General Family Medicine 06/02/23 documented as of this encounter
--- OUTSIDE RECORDS SUMMARY | 2023-08-19 07:04 | XMS_ITS | Encounter Summary ---
Author Name Unknown Organization [facility] Address [address] [place] [address] Care Team Providers Care Water [employer] Sewer Systems Superintendent Name Role Phone Alexa Álvarez M.D. Primary Care Provider [phone]- [phone] Encounter Details Date Type Department Care Team (Latest Contact Info) Description 07/01/2023 9:45 AM BEATER ROOM SUPERVISOR - 07/01/2023 9:49 AM [facility] Hospital Encounter Department of Laboratory Medicine in [address] [phone] Milena Huffman APRN, C.N.P. [address] [place] [phone] Hematuria Discharge Disposition: Home or Self Care Social History Tobacco Use Types Packs/Day Years Used Date Smoking Tobacco: Former Cigarettes S tarted: 10/11/1984 [facility] Utilities Answer Date Recorded In the past 12 months has e [employer], gas, oil, or water [employer] threatened to shut off services in your [...] often do you attend chur ch or yazidi services? More than 4 times [...] 06/09/2023 [facility]at ional Health - [...] your living situation today? I have a [facility] place to live 06/09/2023 Education Answer Date Recorded What is the highest level of school you have completed or the highest degree you have received? 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 60 tablet 11 06/20/2023 06/19/2024 venlafaxine XR (EFFEXOR-XR) 75 mg 24 hr capsule Take 1 capsule by mouth daily. 07/02/2021 VITAMIN B COMPLEX ORAL Take 1 tablet by mouth daily as needed. 04/13/2010 documented as of this encounter Plan of Treatment Upcoming Encounters Date Type Department Care Team (Latest Contact Info) Description 08/26/2023 9:30 AM CDT Procedure visit Department of Obstetrics and Gynecology in [place], [place] [address] [place] [phone] Milena Huffman APRN, C.N.P. [address] [place] [phone] Snow Cox APRN, C.N.P. [address] [place] [phone] Rajni Hooker M.D. [address] [place] [phone] Discharge Disposition: Home or Self Care 10/07/2023 7:30 AM CDT Clinical Communication Virtual Review in [place], [place] 200 [place] [phone] 10/11/2023 8:40 AM CDT Comprehensive Visit Division of Gastroenterology in [place], [place] [address] [place] [phone] Iker Bruce M.D. [address] [place] [phone] 10/26/2023 8:30 AM CDT Clinical Communication Virtual Review in [address] [phone] 10/26/2023 10:30 AM CDT Appointment Department of Radiology, [facility], in [place], [place] [address] [place] [phone] Lisa Soni MPAS, P.A.-C. [address] [place] [phone] 10/27/2023 12:30 PM CDT Diagnostic Division of Pulmonary Medicine in [place], [place] [address] [place] [phone] Lisa Soni MPAS, P.A.-C. [address] [place] [phone] 10/27/2023 1:30 PM CDT Office Visit Division of Pulmonary Medicine in [place], [place] [address] [place] [phone] Lisa Soni MPAS, P.A.-C. [address] [place] [phone] documented as of this encounter Procedures Procedure Name Priority Date/Time Associated Diagnosis Comments CREATININE WITH EGFR, S/P Routine 07/01/2023 10:20 AM BEATER ROOM SUPERVISOR Hematuria documented in this encounter Results * Creatinine with Estimated GFR (07/01/2023 10:20 AM BEATER ROOM SUPERVISOR) Creatinine 0.67 0.59 - 1.04 mg/dL 07/01/2023 10:50 AM BEATER ROOM SUPERVISOR CNFL Estimated GFR (eGFR) 89 >=60 mL/min/BSA 07/01/2023 10:50 AM BEATER ROOM SUPERVISOR CNFL Comment: Estimated GFR calculated using the 2020 CKD_EPI creatinine equation. Blood (Blood, Venous) 07/01/2023 10:20 AM BEATER ROOM SUPERVISOR 07/01/2023 10:22 AM BEATER ROOM SUPERVISOR Milena Huffman APRN, C.N.P. LAB BLOOD ADD-ON [facility] [address] [place] [phone], [facility] CNFL [facility] in [address] [address] documented in this encounter Visit Diagnoses Diagnosis Hematuria documented in this encounter Care Teams Water And Sewer Systems Superintendent Relationship Specialty Start Date End Date Alexa Álvarez M.D. [address] [place] [phone] PCP - General Family Medicine 06/02/23 documented as of this encounter
--- OUTSIDE RECORDS SUMMARY | 2023-08-19 07:05 | XMS_ITS | Clinical Summary ---
Author Name Unknown Organization [facility] Address [place], [place] [address] Care Team Providers Care Annual Campaign Manager Name Role Phone Jacklyn Campbell DO Primary Care Provider Allergies Active Allergy Reactions Criticality Noted Date [...] pressure several times a week 1 Device 8 Active ciclopirox solution (Penlac) 8 % solutionIndication s:Dermatophytosis of nail Apply topically to affected area(s) at bedtime. Remove build up once weekly. 6.6 mL 2 2 Active clotrimazole (LOTRIMIN) 1 % creamIndications:T inea pedis of both feet Apply topically to affected area(s) two times daily. 45 g 2 Active ammonium lactate 12% topical (LACHYDRIN) [...] after taking 13 Tablet 3 3 Active loratadine (CLARITIN) 10 mg tabletIndications: Environmental allergies Take 1 Tablet (10 mg) by mouth once daily. 90 Tablet 3 3 Active CPAP DME Order 3 Active acyclovir (ZOVIRAX) 400 mg tabletIndications: [...] due to pollen, unspecified seasonality Inhale 1 Orient into affected nostril(s) once daily. 16 g 6 4 Active ipratropium (ATROVENT NASAL) 21 mcg (0.03 %) nasal sprayIndications:A llergic rhinitis due to pollen, unspecified seasonality Inhale 2 Sprays into affected nostril(s) two times daily. 30 mL 3 4 Active gabapentin (NEURONTIN) 400 mg capsuleIndications :Bipolar 1 disorder (HC) TAKE 4 CAPSULES (1,600 MG) BY MOUTH AT BEDTIME. 360 Capsule 4 Active atorvastatin (LIPITOR) 10 mg tabletIndications: Mixed hyperlipidemia Take 1 Tablet (10 mg) by mouth at bedtime. 90 Tablet 1 4 Active venlafaxine (EFFEXOR XR) 75 mg cp24 Extended-Release capsuleIndications :Bipolar 1 disorder (HC) Take 1 Capsule (75 mg) by mouth once daily with a meal. 90 Capsule 4 Active losartan (COZAAR) 100 mg tabletIndications: HTN (hypertension) Take 1 Tablet (100 mg) by mouth once daily. 90 Tablet 4 Active atorvastatin (LIPITOR) 10 mg tabletIndications: Mixed hyperlipidemia Take 1 Tablet (10 mg) by mouth at bedtime. 90 Tablet 3 3 08/11/19 24 Discontinued(Reo rder (E-cancel not sent)) losartan (COZAAR) 100 mg tabletIndications: HTN (hypertension) Take 1 Tablet (100 mg) by mouth once daily. 90 Tablet 3 3 08/11/19 24 Discontinued(Reo rder (E-cancel not sent)) venlafaxine (EFFEXOR XR) 75 mg cp24 Extended-Release capsuleIndications :Bipolar 1 disorder (HC) Take 1 Capsule (75 mg) by mouth once daily with a meal. 90 Capsule 3 3 08/11/19 24 Discontinued(Reo rder (E-cancel not sent)) gabapentin (NEURONTIN) 400 mg capsuleIndications :Bipolar 1 disorder (HC) Take 4 Capsules (1,600 mg) by mouth at bedtime. 360 Capsule 3 3 07/31/19 24 Discontinued Hospital, Clinic, or Other Facility Administered Medication [...] Encounters Date Type Department Care Team Description 08/11/2023 Refill [facility] [address] [place] [address] Jacklyn Campbell, DO Refill Request (venlafaxine (EFFEXOR XR) 75 mg cp24 Extended-Release capsule) 08/11/2023 Refill [facility] [address] [place] [address] Sir Campbelli Shamika, DO Refill Request 07/30/2023 Refill [facility] [address] [place] [address] [place] [phone] Shannan Jacklyn Shamika, DO Refill Request (Gabapentin) 07/25/2023 1:00 PM CDT Nurse/Clinic Staff Only [facility] [address] [facility] [address] Immunization/Injectio n (VITAMIN B-12 INJECTION ) 07/25/2023 Travel 06/27/2023 11:30 AM CAR HIKER Nurse/Clinic Staff Only [facility] [address] [facility] [address] Immunization/Injectio n (B12 INJECTION) 06/27/2023 Travel 05/30/2023 1:30 PM CAR HIKER Nurse/Clinic Staff Only [facility] [address] [facility] [address] Immunization/Injectio n (VITAMIN B-12 INJECTION ) 05/30/2023 Travel from Last 3 Months Immunizations Name Administration Dates Next Due COVID-19 vaccine (Pfizer-Bio NTech 30mcg/0.3mL) 12YO+ YUDI-SUCROSE PF, MDV 09/02/2021 COVID-19 vaccine (Pfizer-Bio NTech 30mcg/0.3mL) PF, MDV 01/27/2021,07/08/2020,06/17/2020 DT (Age [...] of Communication with Friends and Fami ly Not on file 07/30/2023 Financial Resource Strain Answer Date R ecorded [...] 3 3 Date Outcome GA Total Labor Labor//3rd Weight Sex Delivery Anes PTL Shamika A1 A5 Name Cl in 01/30 Term 4h 00m 3.01 kg (6 lb 10 oz) F VAGINAL FORC Jeaneth 03/01 Term 4h 00m 3.46 kg (7 lb 10 oz) M Vag Livan 01/17 Term 2h 00m 3.63 kg (8 lb) M Vag Huye Last Filed Vital Signs Vital Sign Reading Time Taken Comments Blood Pressure 133/81 05/06/2023 7:04 AM CAR HIKER Pulse 75 05/06/2023 7:04 AM CAR HIKER Temperature 36.6 ??C (97.9 ??F) 05/06/2023 7:04 AM CS T Respiratory Rate 18 05/06/2023 7:04 AM CAR HIKER Oxygen Saturation 98% 05/06/2023 7:04 AM CAR HIKER Inhaled Oxygen Concentration - - Weight 83.5 kg (184 lb) 05/06/2023 7:04 AM CAR HIKER Height 170.1 cm (5' 6.97) 05/06/2023 7:04 AM CS T Body Mass Index 28.85 05/06/2023 7:04 AM CAR HIKER Plan of Treatment Upcoming Encounters Date Type Department Care Team (Late st Contact Info) Description 08/22/2023 10:45 AM CDT Nurse/Clinic Staff Only [facility] [address] [place] [address] Health Maintenance Due Date Last Done Comments Hepatitis C screening for ag e 18-79 1963 Depression screening for age 12+ 12/29/2023 12/28/2022, 11/30/2022, 11/26/2022, Additional history exists Medicare Wellness for age 65+ 12/29/2023, 07/02/2021, 10/17/2019, Additional history exists Influenza for age 65+ 01/01/2024 01/13/2023 , 01/21/2022, 01/27/2021, Additional history exists Tetanus booster 01/23/2024 01/22/2014, 01/30, 05/02/1998 BMI (ht and wt on same day) for age 18+ 05/06/2024 05/06/2023, 12/28/2022, 11/26/2022, Additional history exists Tdap Completed 01/22/2014, 02/10/2009 Pneumococcal series for age 65+ Completed 12/24/2014, 09/06/2012, 02/08/2012, Additional history exists Zoster (shingles) series for age 50+ Completed 11/30/2018, 07/21/2018, 11/16/2011 DEXA/DXA scan for age 65+ Completed 2022, 01/23/2020, 04/16/2010 COVID-19 vaccine series Completed 02/01/20, 01/21/2022, 09/02/2021, Additional history exists Procedures Procedure Name Priority Date/Time Associated Diagnosis Comments XR DXA BONE DENSITY 2 SITES AXIAL Routine 06/09/2022 10:58 AM CAR HIKER Osteoporosis, unspecified osteoporosis type, unspecified pathological fracture presence from Last 3 Months or Most Recently Relevant to Health Maintenance Results * (ABNORMAL) XR DXA BONE DENSITY 2 SITES AXIAL (06/09/2022 10:58 AM CAR HIKER) Anatomical Region Laterality Modality Spine, HIPS, HIPL, HIPR Other Impressions 06/11/2022 1:08 PM CAR HIKER Osteopenia. RECOMMENDATIONS: The National Osteoporosis Foundation recommends pharmacologic treatment for patients with T-scores of -2.5 or less, patients with prior history of fragility fractures, or patients with 10-year probability of greater than 3% at hips or greater than 20% of suffering major osteoporotic fractures. Recommend continued optimization of calcium and vitamin D intake through dietary means and/or supplementation and regular exercise. Continue current Alendronate (Fosamax) medication treatment. ??Recheck in 2 years. ?? Lola Stubbs PA-C [facility] 06/11/2022 Narrative 06/11/2022 1:08 PM CAR HIKER For Patients: Results are automatically released to your [facility] ([employer]) account once available, in compliance with federal regulations. This means that you may see your results before your provider has had a chance to review them. Please allow 2-3 business days for your provider to comment on the results. XR DXA Bone Mineral Density (BMD) EXAM LOCATION: [address] [address] PATIENT NAME: Jeaneth Howard DATE OF : 1945 EXAM DATE: 06/09/2022 REQUESTING PROVIDER: Jeaneth Kincaid MD GENDER AT : female HEIGHT: 5' 7.13 (02/17/2022) WEIGHT: ??177 lb 9.6 oz (05/26/2022) MENOPAUSAL STATUS: Postmenopausal RACE/ETHNICITY: White RISK FACTORS: Alcohol > 3 drinks/day (prior), Family History of Hip Fracture (parental), History of Fragility Fracture (at a major site), Smoking (prior) and White Race CURRENT MEDICATION FOR BONE LOSS: Alendronate (Fosamax) INDICATION: Follow-up of existing osteoporosis COMPARISON DATE(S): 2019 DXA scans are compared to prior studies for a patient only when the two (or more) studies were performed on the same scanner. It is not possible to compare data generated on one scanner to data from another because there are not standards in DXA equipment. This applies even if the two scanners are made by the same aix system administrator. PROCEDURE: Dual-energy x-ray absorptiometry performed with routine technique. Reporting is completed in the form of a T-score. The T-score represents the standard deviation from peak bone mass based on young healthy adult. A Z-score is used for diagnosis in premenopausal women, and for men under the age of 50. FINDINGS: RESULT LUMBAR SPINE L1 - L3 ??BMD: 1.281 g/cm2 T-Score: + 0.8 Z-Score: + 2.1 Change from prior in 2020: ??Increase 5.4%. RESULTS FEMUR Left femoral neck BMD: 0.902 g/cm2 T-Score: - 1.0 Z-Score: + 0.7 Change from prior in 2020: ??Increase 4.6%. Right femoral neck BMD: 0.855 g/cm2 T-Score: - 1.3 Z-Score: + 0.4 Change from prior in 2020: ??Increase 4.3%. Left hip BMD: 0.958 g/cm2 T-Score: - 0.4 Z-Score: + 1.1 Change from prior in 2020: ??Increase 2.9%. Right hip BMD: 0.873 g/cm2 T-Score: - 1.1 Z-Score: + 0.4 Change from prior in 2020: ??Decrease 5.4%. WHO criteria: Normal: T-score at or above -1 SD Osteopenia: T-score between -1.1 and -2.4 SD Osteoporosis: T-score at or below -2.5 SD Jeaneth Kincaid MD DEXA from Last 3 Months or Most Recently Relevant to Health Maintenance Additional Health Concerns Infection Onset Date Last Indicated Rule-Out C.diff 01/16/2019 01/16/2019 Advance Directives Documents on File Type Date Recorded Patient Normalizer Expl anation Healthcare Directive 08/18/2020 021 Care Teams Annual Campaign Manager Relationship Specialty Start Date End Date Jacklyn Campbell DO [address] [place] [address] PCP - General Family Practice 05/06/23
--- OUTSIDE RECORDS SUMMARY | 2023-08-19 07:05 | XMS_ITS | Encounter Summary ---
Author Name Unknown Organization [facility] Address [address] [place] [address] Care Team Providers Care Coal Tower Operator Name Role Phone Alexa Álvarez M.D. Primary Care Provider [phone] Reason for Visit * Reason Onset Date Comments Urinary Problem 06/02/2023 Encounter Details Date Type Department Care Team ([facility] st Contact Info) Description 06/02/2023 Nurse Triage Department of Family Medicine, [facility], in [address] [phone] Alix Plascencia, RRenae Urinary Problem Social History Tobacco Use Types Packs/Day Years [...] any clubs o r organizations such as mandaen groups, unions, fraternal or athletic groups, or [...] and heating? Not hard at all 05/17/2022 [facility] Occupat ional Health - Occupational Stress [...] place to sleep or slept in a half-way (including now)? No 05/17/2022 Nutrition Answer Date [...] Master's degree (e.g., MA, MS, Flavia, MEd, PRE ASSEMBLY WIRER, WILLIE) 05/17/2022 Sex and Gender Information Value Date Recorded Sex Assigned at Female 05/17/2022 2:17 PM TRACER CLERK Gender Identity Female 05/17/2022 2:17 PM TRACER CLERK Sexual Orientation Straight 05/17/2022 2: 17 PM TRACER CLERK documented as of this encounter Miscellaneous Notes * Telephone Encounter - Alix Plascencia RRenae - 06/02/2023 11:19 AM TRACER CLERK Chief Complaint / Reason for Call Patient is a 77 y.o. female calling regarding Urinary Problem. Assessment Concern: UTI. Jeaneth has had multiple UTI's recently. She has finished her last round of antibioticswithin the last 2 weeks. Jeaneth has noticed that she has some slight burning with urination again. Calling to request: appt The recommended disposition is See a health care provider within 4 hours. Patient was warm transferred toRachel Patient Appointment Clean In Places Operator at the clinic for further assistance. and If clinic appointment is not available in the next 4 hours, caller is advisedto be seen in urgent care or same day clinic. Reason for Disposition Artificial heart valve or artificial joint Protocols used: Urination Pain - [id number] Care Advice Patient/Caregiver understands and will follow care advice?: Yes, able to teach back SEE HCP (OR PCP TRIAGE) WITHIN 4 HOURS: * IF OFFICE WILL BE OPEN: You need to be seen within the next 3 or 4 hours. Call your doctor (or TURN MACHINE OPERATOR/PA) now or as soon as the office opens. * IF OFFICE WILL BE CLOSED AND NO PCP (PRIMARY CARE PROVIDER) SECOND-LEVEL TRIAGE: You need to be seen within the next 3 or 4 hours. A nearby Urgent Care Center (UCC) is often a good source of care. Another choice is to go to the ED. Go sooner if you become worse. * IF OFFICE WILL BE CLOSED AND PCP SECOND-LEVEL TRIAGE REQUIRED: You may need to be seen. Your doctor (or TURN MACHINE OPERATOR/PA) will want to talk with you to decide what's best. I'll page the on-call provider now. If you haven't heard from the provider (or me) within 30 minutes, call again. NOTE: If on-call provider can't be reached, send to UCC or ED. NOTE TO TRIAGER: * Use nurse judgment to select the most appropriate source of care. * Consider both the urgency of the patient's symptoms AND what resources may be needed to evaluate and manage the patient. SOURCES OF CARE: * ED: Patients who may need surgery or hospital admission need to be sent to an ED. So do most patients with serious symptoms or complex medical problems. * UCC: Some UCCs can manage patients who are stable and have less serious symptoms (e.g., minor illnesses and injuries). The triager must know the UCC capabilities before sending a patient there. If unsure, call ahead. * OFFICE: If patient sounds stable and not seriously ill, consult PCP (or follow your office policy) to see if patient can be seen NOW in office. CALL BACK IF: * You become worse ER CLERK documented in this encounter Plan of Treatment Upcoming Encounters Date Type Department Care Team (Latest Contact Info) Description 08/26/2023 9:30 AM CDT Procedure visit Department of Obstetrics and Gynecology in [place], [place] [address] [place] [phone] Milena Huffman APRN, C.N.P. [address] [place] [phone] Snow Cox APRN, C.N.P. [address] [place] [phone] Rajni Hooker M.D. [address] [place] [phone] Discharge Disposition: Home or Self Care 10/07/2023 7:30 AM CDT Clinical Communication Virtual Review in [place], [place] [address] [place] [phone] 10/11/2023 8:40 AM CDT Comprehensive Visit Division of Gastroenterology in [place], [place] [address] [place] [phone] Iker Bruce M.D. [address] [place] [phone] 10/26/2023 8:30 AM CDT Clinical Communication Virtual Review in [place], [place] [address] [place] [phone] 10/26/2023 10:30 AM CDT Appointment Department of Radiology, [facility], in [place], [place] [address] [place] [phone] Lisa Soni, MO, P.A.-C. [address] [place] [phone] 10/27/2023 12:30 PM CDT Diagnostic Division of Pulmonary Medicine in [place], [place] [address] [place] [phone] SoniLisa MPAS, P.A.-C. [address] [place] [phone] 10/27/2023 1:30 PM CDT Office Visit Division of Pulmonary Medicine in [place], [place] [address] [place] [phone] Lisa Soni MPAS, P.A.-C. [address] [place] [phone] documented as of this encounter Visit Diagnoses Not on filedocumented in this encounter Care Teams Coal Tower Operator Relationship Specialty Start Date End Date Alexa Álvarez M.D. [address] [place] [phone] PCP - General Family Medicine 06/02/23 documented as of this encounter
--- OUTSIDE RECORDS SUMMARY | 2023-08-19 07:05 | XMS_ITS | Encounter Summary ---
Author Name Unknown Organization [facility] Address [address] [place] [address] Care Team Providers Care Video Poker Floorman Name Role Phone Alexa Álvarez M.D. Primary Care Provider [phone] Reason for Referral * Outpatient (Routine) - Closed Specialty Diagnoses / Procedures Referred By James agrawal Referred To Contact Family Medicine Jeaneth Sofia APRN, C.N.P. [address] [place] [phone] [facility] Region Referral ID Status Reason Start Date Expiration Date Visits Re quested Visits Authorized [id number] Closed 06/02/2023 12/01/2024 1 1 DIRECTOR RN Reason for Visit * Reason Comments possible UTI per Nurse Triage See today' s note for specifics stating recurrent UTIs. I see one from 05/06/23, prior was 2021 which did not require abx and prior to that 2020 which was indicative of UTI.Took two abx for the most recent in May. (Cefadroxil, then Doxy) Took 2nd one just 2 days after first when symptoms came back. States that she did require abx from Urgent Care at [facility] in November of 2022. Haven't seen QUALITY ANALYST or URO. Burning began yesterday & frequency & urgency today. Afebrile. No bharath blood. * Appointment Request (Routine) - Closed Specialty Diagnoses / Procedures Referred By James agrawal Referred To Contact Family Medicine Referral ID Status Reason Start Date Expiration Date Visits Re quested Visits Authorized [id number] Closed 06/02/2023 06/01/2024 1 1 Encounter Details Date Type Department Care Team (Jackie st Contact Info) Description 06/02/2023 3:00 PM CARE DIRECTOR RN Office Visit Department of Family Medicine, [facility], in [address] [phone] Jeaneth Sofia APRN, C.N.P. [address] [place] [phone] Dysuria (Primary Dx) Discharge Disposition: Home or Self Care Social History Tobacco Use Types Packs/Day Years Used Date Smoking Tobacco: Former Cigarettes S tarted: 10/11/1984 Tobacco Cessation:Counseling Given: Not Answered [facility] Utilities Answer Date Recorded In the past 12 months has e [employer], gas, oil, or water [employer] threatened to shut off services in your [...] week 05/17/2022 How often do you attend [facility] or mormon services? More than 4 times [...] Answer Date Recorded PHQ-2 Score 0 06/09/2023 [facility] of Occupat ional [facility] - Occupational Stress Questionnaire Answer [...] your living situation today? I have a [facility] place to live 06/09/2023 Education Answer Date Recorded What is the highest level of school you have completed or the highest degree you have received? Master's degree (e.g., MA, MS, Flavia, MEd, COLLEGE ASSOCIATE, WILLIE) 05/17/2022 Sex and Gender Information Value Date Recorded Sex Assigned at Female 05/17/2022 2:17 PM CARE DIRECTOR RN Gender Identity Female 05/17/2022 2:17 PM CARE DIRECTOR RN Sexual Orientation Straight 05/17/2022 2: 17 PM CARE DIRECTOR RN documented as of this encounter Last Filed Vital Signs Vital Sign Reading Time Taken Comments Blood Pressure 129/75 06/02/2023 2:58 PM CARE DIRECTOR RN Pulse 76 06/02/2023 2:58 PM CARE DIRECTOR RN Temperature - - Respiratory Rate - - Oxygen Saturation - - Inhaled Oxygen Concentration - - Weight - - Height - - Body Mass Index - - documented in this encounter Progress Notes * Jeaneth Sofia, VIJAY, C.N.P. - 06/02/2023 3:00 PM CST SUBJECTIVE CHIEF COMPLAINT/REASON FOR VISIT possible UTI per Nurse Triage (See today's note for specifics stating recurrent UTIs. I see one from 05/06/23, prior was 2021 which did not require abx and prior to that 2020 which was indicative of UTI./Took two abx for the most recent in May. (Cefadroxil, then Doxy) Took 2nd one just 2 days after first when symptoms came back. States that she did require abx from Urgent Care at [facility] in November of 2022. Haven't seen QUALITY ANALYST or URO. Burning began yesterday & frequency & urgency today. Afebrile. No bharath blood. ). HISTORY OF PRESENT ILLNESS Jeaneth is a very pleasant 77 y.o. female who presents for evaluation of possible UTI per Nurse Triage (See today's note for specifics stating recurrent UTIs. I see one from 05/06/23, prior was 2021 which did not require abx and prior to that 2020 which was indicative of UTI./Took two abx for the most recent in May. (Cefadroxil, then Doxy) Took 2nd one just 2 days after first when symptoms came back. States that she did require abx from Urgent Care at [facility] in November of 2022. Haven't seen QUALITY ANALYST or URO. Burning began yesterday & frequency & urgency today. Afebrile. No bharath blood. ). Patient presents to clinic today for urinary tract infection symptoms. She reports symptoms startedlast evening. She states she has had some mild incontinence frequency, and urgency. She has been recently treated for urinary tract infection with cefadroxil and doxycycline in May and reports the symptoms have returned. Patient has most recently been treated by [facility] urgent care. Patient denies any fever or feeling unwell, reports no hematuria. ALLERGIES/CONTRAINDICATIONS Allergies Allergen Reactions Amoxicillin GI intolerance Divalproex Sodium Other (see comments) increase WBC count Fluticasone Other (see comments) Pt reports high dose manager long term care caused damage to her nose (taste/smell) House Dust Other (see comments) Mold Extracts Other (see comments) Prednisone Other (see comments) Has significant Psychiatry side effects, feels out of it. May tolerate very low dose, ie 10 milligrams daily for 5 days. REVIEW OF SYSTEMS REVIEW OF SYSTEMS Pertinent positives as per HPI. Otherwise, comprehensive review of systems performed and negative. OBJECTIVE VITAL SIGNS BP 129/75 Pulse 76 PHYSICAL EXAMINATION Vitals reviewed. Constitutional General: She is not in acute distress. Appearance: Normal appearance. She is not diaphoretic. Cardiovascular Rate and Rhythm: Normal rate. Heart sounds: Normal heart sounds. Pulmonary Effort: Pulmonary effort is normal. Breath sounds: Normal breath sounds. Abdominal General: There is no distension. Palpations: Abdomen is soft. Tenderness: There is no abdominal tenderness. There is no right CVA tenderness, left CVA tendernessor guarding. Neurological General: No focal deficit present. Mental Status: She is alert. Psychiatric Mood and Affect: Mood normal. Behavior: Behavior normal. Thought Content: Thought content normal. Judgment: Judgment normal. ASSESSMENT / PLAN #1 Dysuria - Urinalysis with Microscopic if Indicated; Future; Expected date: 06/02/2023 - Urinalysis with Microscopic if Indicated - Bacterial Culture, Aerobic + Susceptibility, Urine; Future; Expected date: 06/02/2023 Other orders - Family Medicine office visit (clinic); Future; Expected date: 07/01/2023 - Microscopic Manual Plan: Patient was encouraged to increase fluids, may include cranberry juice. Urinalysis pending. Patient states she would like to establish care at the clinic here, patient was encouraged to return to clinic for an establish care visit. Recommended Jeaneth follow up to establish care. Follow up sooner for any new or worsening symptoms. Jeaneth verbalized understanding of the plan of care and was in agreement. All questions were answeredtoday. Jeaneth Sofia APRN, C.N.P. DIRECTOR RN documented in this encounter Plan of Treatment Upcoming Encounters Date Type Department Care Team (Latest Contact Info) Description 08/26/2023 9:30 AM CDT Procedure visit Department of Obstetrics and Gynecology in [place], [place] [address] [place] [phone] Milena Huffman APRN, C.N.P. [address] [place] [phone] Snow Cox APRN, C.N.P. [address] [place] [phone] Rajni Hooker M.D. [address] [place] [phone] Discharge Disposition: Home or Self Care 10/07/2023 7:30 AM CDT Clinical Communication Virtual Review in [place], [place] [address] [place] [phone] 10/11/2023 8:40 AM CDT Comprehensive Visit Division of Gastroenterology in [place], [place] [address] [place] [phone] Iker Bruce M.D. [address] [place] [phone] 10/26/2023 8:30 AM CDT Clinical Communication Virtual Review in [place], [place] [address] [place] [phone] 10/26/2023 10:30 AM CDT Appointment Department of Radiology, [facility], in [place], [place] [address] [place] [phone] Lisa Soni MPAS, P.A.-C. [address] [place] [phone] 10/27/2023 12:30 PM CDT Diagnostic Division of Pulmonary Medicine in [place], [place] [address] [place] [phone] Lisa Soni MPAS, P.A.-C. [address] [place] [phone] 10/27/2023 1:30 PM CDT Office Visit Division of Pulmonary Medicine in [place], [place] [address] [place] [phone] Lisa Soni MPAS, P.A.-C. [address] [place] [phone] Scheduled Referrals Name Type Priority Associated Diagnoses Orde r Schedule Family Medicine office visit (clinic) Outpatient Referral Routine Expected: 07/01/2023 (Approximate), Expires: 08/30/2024 documented as of this encounter Procedures Procedure Name Priority Date/Time Associated Diagnosis Comments URINALYSIS WITH MICROSCOPIC IF INDICATED, U Routine 06/02/2023 3:45 PM CARE DIRECTOR RN Dysuria HC URINALYSIS AUTO W MICRO Routine 06/02/2023 3:45 PM CARE DIRECTOR RN documented in this encounter Results * (ABNORMAL) Bacterial Culture, Aerobic + Susceptibility, Urine (06/03/2023 4:03 PM CARE DIRECTOR RN) [facility] Urine Culture ESCHERICHIA COLI 10,000-100,000 cfu/mL (A) 06/05/2023 9:05 AM CARE DIRECTOR RN MKTO Urine (Urine, Midstream) 06/03/2023 4:03 PM CARE DIRECTOR RN 06/03/2023 7:21 PM CARE DIRECTOR RN Comment:Specimen Source Site : Urine Narrative Organism [...] SONAL (MCG/ML) <=20 mcg/mL: Susceptible Jeaneth Sofia APRN, C.N.P. LAB MICROBIOL OGY - GENERAL ORDERABLES [facility] [address] [place] [address], [place] MKTO [facility] in [place] [address] [place] [address] * (ABNORMAL) Microscopic Manual (06/02/2023 3:45 PM CARE DIRECTOR RN) White Blood Cells 51-100(A) /hpf 06/02/2023 4:33 PM CARE DIRECTOR RN CNFL Comment: ----REFERENCE VALUE---- Males: 0-3 Females: 0-10 Unknown: 0-10 Red Blood Cells 11-20(A) 0 - 2 /hpf 4:33 PM CARE DIRECTOR RN CNFL Dysmorphic Red Blood Cells <=25 <=25 % 06/02/2023 4:33 PM CARE DIRECTOR RN CNFL Squamous Cells Occ-3 /hpf 06/02/2023 4:33 PM CARE DIRECTOR RN CNFL Bacteria Present(A) None Seen 06/02/2023 4:33 PM CARE DIRECTOR RN CNFL Urine 06/02/2023 3:45 PM CARE DIRECTOR RN 06/02/2023 3:53 PM CARE DIRECTOR RN Montez Yoder APRNN.PKarol LAB URINE ORD ERABLES [facility] [address] [place] [phone], [facility] CNFL [facility] in [address] [address] * (ABNORMAL) Urinalysis with Microscopic if Indicated (06/02/2023 3:45 PM CARE DIRECTOR RN) Source Urine, Urine, Midstream 06/02/2023 3:53 PM CARE DIRECTOR RN CNFL Clarity Slightly Cloudy(A) Clear 06/02/2023 3:56 PM CARE DIRECTOR RN CNFL Color Yellow 06/02/2023 3:56 PM CARE DIRECTOR RN CNFL Comment: ----REFERENCE VALUE---- Colorless Yellow Elizabeth Blood Trace(A) Negative 06/02/2023 3:56 PM CARE DIRECTOR RN CNFL Nitrite Negative Negative 06/02/2023 3:56 PM CARE DIRECTOR RN CNFL Leukocyte Esterase Moderate(A) Negative 06/02/2023 3:56 PM CARE DIRECTOR RN CNFL Protein Negative mg/dL 06/02/2023 3:56 PM CARE DIRECTOR RN CNFL Comment: ----REFERENCE VALUE---- Negative Trace Glucose Negative Negative mg/dL 06/02/2023 3:56 PM CARE DIRECTOR RN CNFL Ketones, QI(U) Negative Negative mg/dL 06/02/2023 3:56 PM CARE DIRECTOR RN CNFL Bilirubin Negative Negative 06/02/2023 3:56 PM CARE DIRECTOR RN CNFL pH 5.5 5.0 - 8.0 06/02/2023 3:56 PM CARE DIRECTOR RN CNFL Specific [place] 1.015 1.001 - 1.035 06/02/2023 3:56 PM CARE DIRECTOR RN CNFL Urobilinogen 0.2 0.2 - 1.0 mg/dL 06/02/2023 3:56 PM CARE DIRECTOR RN CNFL Urine (Urine, Midstream) 06/02/2023 3:45 PM CARE DIRECTOR RN 06/02/2023 3:53 PM CARE DIRECTOR RN Montez Yoder APRNN.PKarol LAB URINE ORD ERABLES [facility] [address] [place] [phone], [facility] CNFL [facility] in [address] [address] documented in this encounter Visit Diagnoses Diagnosis Dysuria- Primary documented in this encounter Care Teams Video Poker Floorman Relationship Specialty Start Date End Date Alexa Álvarez M.D. [address] [place] [phone] PCP - General Family Medicine 06/02/23 documented as of this encounter
== END 2023-08-18 16:25 | disposition home or self-care (01) ==
LOC: NFLDREF 08-19 06:59
PROVIDERS: PCP Family Medicine; Referring Provider Family Medicine; Visit Provider Physician Assistant
DX: N39.0 Urinary tract infection, site not specified (principal)
CPT/HCPCS: 87086

== ENCOUNTER 2024-07-11 09:20 | Outpatient (CLI) | payer MEDICARE, BC, SELFPAY | END 2024-07-11 09:21 | disposition home or self-care (01) | LOC: NFLDREF 07-13 20:14 | PROVIDERS: PCP Family Medicine; Referring Provider Family Medicine; Visit Provider Nurse Practitioner Family | DX: N30.90 Cystitis, unspecified without hematuria (principal); B96.20 Unspecified Escherichia coli [E. coli] as the cause of diseases classified elsewhere | CPT/HCPCS: 87086 ==

== ENCOUNTER 2024-07-23 10:37 | Outpatient (CLI) | payer MEDICARE, BC, SELFPAY | END 2024-07-23 10:38 | disposition home or self-care (01) | LOC: CT 10:38 | PROVIDERS: PCP Family Medicine; Visit Provider Orthopaedic Surgery Sports Medicine | DX: M19.011 Primary osteoarthritis, right shoulder (principal); Z01.818 Encounter for other preprocedural examination | CPT/HCPCS: 73200 ==

== ENCOUNTER 2024-08-09 09:15 | Outpatient (RCR) | payer MEDICARE, BC, SELFPAY ==
--- NOTE | 2024-05-21 16:36 | PT.OPEX ---
PT [place] Outpatient Eval PT [facility] Outpatient Eval Start: 05/21/24 11:45 Freq: Status: Active Protocol: Document 05/21/24 11:45 JOHN (Rec: 05/21/24 16:36 [facility] [id number]) E-signed By Sandie Jaime PT Physical Therapy Outpatient Evaluation Insurance Information Recert Due Date 08/18/24 Insurance Name Medicare B Medical Diagnosis LEFT ITB SYNDROME BALANCE Treating Diagnosis LEFT HIP PAIN UNSTEADY GAIT Referring MD DR. JEAN-CLAUDE PERKINS Subjective Preferred Name MARY Subjective PATIENT REPORTS FALLING OUT OF BED ~3MO AGO AND EXPERIENCED LATERAL KNEE PAIN WITH ANKLE SWELLING. 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 SHE IS ALSO CONCERNED ABOUT HER BALANCE THAT HER PAST RIGHT TIBIAL ORIF (2019) AND LEFT TKA )( 2020) ARE CONTRIBUTING FACTORS TO HER WADDLE WALK AND HEIGHTENED FEAR OF FALLING. SHE IS SCHEDULED TO TAKE A TRIP TO [facility] IN AUGUST AND WANTS TO NOT ONLY ADDRESS HER CURRENT PAIN BUT ALSO HER OVERALL BALANCE. 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 (06/11/2019) Therapy Limitations/Systems Review Not Limited Objective Other/Pertinent Objective GAIT/FUNCTIONAL MOBILITY : WIDE WILLY Single leg stance: UNABLE D/T BALANCE R/L Squat: LIMITED D/T PAIN KNEE ROM: WNL HIP ROM: WFL LE MMT: WFL SPECIAL TEST Anterior drawer: (-) Rashid test: (-) Posterior Drawer:(-) Valgus Test: (-) Varus Test: (-) Joint line tenderness: LATERAL JOINT LINE TENDERNESS AT DISTAL ITB Colt test: (-) [place] Compression: (-) AXEL test: (+) FADIR test: (-) Scour test: (-) JOINT MOBILITY/PALPATION: EXQUISITE PAIN PROXIMAL LATERAL GASTROC, TENDERNESS DISTAL ITB TX: SUPINE HOOKLYING TRUNK ROTATION 3 X 15 SEC SUPINE BRIDGE X 15 HOLD 3 SUPINE SLR NEXT VISIT SIDLEYING CLAM X 15 SEATED KNEE EXT X 15 HOLD 3 STS X 10 ARMS CROSSED STDG CALF RAISE X15 STDG CALF STRETCH 2 X 30 SEC SEATED HAMSTRING STRETCH 2 X 30 SEC SEATED FIGURE 4 STRETCH LEFT 2 X 30 SEC TANDEM STANCE NEXT VISIT TIGER ROLL TO LATERAL THIGH AND CALF Functional Test Performed & Score MCTSB: 22/2/0/0/ SLS: R 3SEC, L 0 Assessment Assessment/Impression PATIENT IS A [address] PERKINS TO EVAL AND TREAT LEFT ITB SYNDROME WITH BALANCE CHALLENGES. PATIENT DEMONSTRATES SIGNS AND SYMPTOMS CONSISTENT WITH ITB SYNDROME CONTRIBUTING TO THEIR FUNCTIONAL IMPAIRMENTS OF PAIN WITH PROLONGED STDG, STAIRS ALONG WITH DIFFICULTY AMB ON UNEVEN SURFACES. PATIENT HAS NOTABLE OBJECTIVE FINDINGS INCLUDING EXQUISITE PAIN WITH PALPATION AT PROXIMAL LATERAL GASTROC, TENDERNESS LATERAL KNEE, AND BALANCE SCORES INDICATING SIGNIFICANT RISK FOR FALLS WHICH ALL ARE CONTRIBUTING TO THE CLINICAL IMPRESSION. PATIENT IS A GOOD CANDIDATE FOR SKILLED PHYSICAL THERAPY TO ADDRESS AFOREMENTIONED DEFICITS ABOVE IN ORDER TO REDUCE HER FALL RISK, NAVIGATE HER MobittoIO STAIRS AND TOLERATE PROLONGED STDG IN ORDER TO PAINT WELL PREPARED FOR TRIP TO [facility]. . INTERVENTION IS NECESSARY BY WAY OF THERAPEUTIC EXERCISES, MANUAL THERAPY, NEUROMUSCULAR EDUCATION, AND BALANCE/ PROPRIOCEPTION. PLEASE REFER TO APPROPRIATE SECTION WITHIN THIS EVALUATION FOR COMPLETE LIST OF GOALS AND PLAN OF CARE . DISCHARGE PLAN AND CRITERIA IS FOR PATIENT TO ACHIEVE THE GOALS LISTED BELOW OR UNTIL MAX POTENTIAL MET. PATIENT VERBALIZED UNDERSTANDING AND AGREEABLE TO POC, FREQ, AND GOALS ESTABLISHED. Primary Functional Limitations PROLONGED STDG COMMUNITY AMB ON VARIETY OF SURFACES PAIN Plan of Care Rehabilitation Potential Good Physical Therapy Goals 1. DECREASE L KNEE PAIN TO </3 /10 WITH DAILY ACTIVITIES AND WITH THE PROGRESSION OF PHYSICAL THERAPY PROGRAM OVER THE NEXT 3-4 WEEKS 2. IMPROVE CORE/GLUT/LE STRENGTH AND TRUNK STABILITY OVER THE NEXT 6-8 WEEKS FOR IMPROVED FUNCTIONAL MOBILITY, BALANCE, AND GAIT TO DECREASE RISK FOR FALLS. 3. IMPROVE MCTSB SCORE FROM 22 /2/0/0 TO 30/30/15/5 AND SLS FROM R3SEC/L0 TO R/L 15SEC OVER THE NEXT 6-8 WEEKS FOR IMPROVED SAFETY WITH DAILY ACTIVITIES AND DECREASED RISK OF FALLS. 4. IMPROVE BALANCE, COORDINATION OVER THE NEXT 6-8 WEEKS FOR IMPROVED GAIT AND SAFETY FOR COMMUNITY NAVIGATION WELL PEER CENTERED ACTIVITIES. 5. PATIENT WILL BE INDEPENDENT WITH HER HEP WITHING 8-12 WEEKS FOR PROGRESSION TOWARD ABOVE GOALS, ONGOING IMPROVEMENT OF PAIN/SYMPTOMS, ROM, STRENGTH, AND MOBILITY TO RETURN TO DAILY ACTIVITIES AND FAMILY CENTERED ACTIVITIES W/O FLARE UP OF PAIN/SYMPTOMS Coordination/Communication With Referral Source Treatment Plan/Direct Interventions Gait Training,Joint Mobilization,Manual Therapy, Neuromuscular Re-ed,Self-Care/ Home Management,Therapeutic Activities,Therapeutic Exercises Frequency/Duration 1-2X/WK Patient Will Be Discharged From Therapy Completion of LTG(s), Independent w/HEP Evaluation Billing Untimed Code Treatment Minutes 20 PT Eval No Charge No Complexity Moderate Certification Information Initial Certification Date 05/21/24 Ending Certification Date 08/18/24 Provider Signature Required Yes Provider Signature Shows Agreement With POC & Medical Necessity Physician NPI Number Write NPI# Here Physician Comment/Change : Physician Signature & Date Requested Please Sign/Date Here
== END 2024-09-26 13:39 | disposition home or self-care (01) ==
PROVIDERS: PCP Family Medicine; Visit Provider Orthopaedic Surgery Sports Medicine
DX: M76.32 Iliotibial band syndrome, left leg (principal); R26.89 Other abnormalities of gait and mobility; Z51.89 Encounter for other specified aftercare
CPT/HCPCS: 97110; 97116; 97162

== ENCOUNTER 2024-08-15 06:53 | Day surgery (SDC) | payer MEDICARE, BC, SELFPAY ==
[2024-08-15] VITALS (25 sets, daily range): BP systolic 101–164; BP diastolic 56–102; PULSE 65–89; RESP 14–18; TEMP 36.3–37.7; O2SAT 86–100; BMI 27.9
[2024-08-15] MEDS: LACTATED RINGERS 1000 ML 1,000 ML 100 ML IV (07:05)
[2024-08-15] MEDS: ACETAMINOPHEN 500 MG TABLET 1000 MG PO ×3 (07:10→22:08)
[2024-08-15] MEDS: OXYCODONE (CR) 10 MG TAB.ER.12H PO (07:10)
[2024-08-15] MEDS: SODIUM CHLORIDE 0.9 % (FLUSH) 10 ML SYRINGE IVF (07:29)
[2024-08-15] MEDS: fentaNYL 100 MCG/2 ML inj IVP (08:25)
[2024-08-15] MEDS: MIDAZOLAM HCL 1 MG/ML inj IVP (08:25)
--- NOTE | 2024-08-15 08:57 | SUR.PREOP ---
TIME?OUT:?08 PT/sahil duran RN/shan oliva MDA?VERIFICATION?OF?SURGICAL?SITE,?PROCEDURE,?AND?CONSENT OBTAINED?PRIOR?TO?INVASIVE?PROCEDURE.
--- NOTE | 2024-08-15 09:48 | P.NB_ITS ---
Nerve Block Nerve Block Time Seen by Provider: 08:25 Date Seen: 08/15/24 Type of block requested by surgeon for post-operative analgesia: supraclavicular Side: right Time out performed: Yes Verification of patient name: Yes Verification of date of : Yes Site marking: site marked Name of person performing procedure: Jovanni Continuous monitoring Was continuous monitoring of O2 sat, B/P, surveillance system monitor, recorded every 15 minutes?: Yes Procedure Checklist: sterile prep, needles and gloves Ultrasound guided. Images saved: Yes Medications given in 5ml increments after negative aspiration: Marcaine %: 0.25 mL: 5 Needle gauge: 22 and Exparel mL: 10 Patient tolerated procedure well: Yes Block Charges Block Charge (with Pro Fee): Brachial Plexus Use of Ultrasound Machine for Block: Yes- US Guidance/pain block
--- NOTE | 2024-08-15 09:49 | P.ANES_ITS ---
Anesthesia Charges Start Date/Time Anesthesia Start Date: 08/15/24 Anesthesia Start Time: 09:52 Stop Date/Time Anesthesia Stop Date: 08/15/24 Anesthesia Stop Time: 12:08 Summary Extremes of Age - Over 70 or under 1: MDA Coding CPT Codes CPT Codes: ANESTH SHOULDER REPLACEMENT - 37540 ([id number]) P2 - PATIENT W/MILD SYST DISEASE, QK - SUBACUTE NURSE 2-4 CNCRNT ANES PROC, QX - LEGISLATIVE CORRESPONDENT SVC W/ MD MED DIRECTION Additional Codes: Summary - Extremes of Age - Over 70 or under 1: MDA ([id number]) Summary - Emergency: ([id number])
--- NOTE | 2024-08-15 09:49 | W.ANESCHARGE ---
Anesthesia Charges Start Date/Time Anesthesia Start Date: 08/15/24 Anesthesia Start Time: 09:52 Stop Date/Time Anesthesia Stop Date: 08/15/24 Anesthesia Stop Time: 12:08 Summary Extremes of Age - Over 70 or under 1: MDA Coding CPT Codes CPT Codes: ANESTH SHOULDER REPLACEMENT - 26302 ([id number]) P2 - PATIENT W/MILD SYST DISEASE, QK - HEAVY EQUIPMENT ENGINE MECHANIC 2-4 CNCRNT ANES PROC, QX - METER REPAIR SHOP SUPERVISOR SVC W/ MD MED DIRECTION Additional Codes: Summary - Extremes of Age - Over 70 or under 1: MDA ([id number]) Summary - Emergency: ([id number])
[2024-08-15] MEDS: CEFAZOLIN 2 GM in 0.9 % SODIUM CHLORIDE Mini-bag 100 ML IVPB ×2 (10:00→16:51)
[2024-08-15] MEDS: TRANEXAMIC ACID 100 MG/ML INJ 1000 MG IV (10:05)
--- NOTE | 2024-08-15 10:08 | W.PM.H&PU ---
History & Physical Update History & Physical Update H&P Reviewed and patient assessed: No changes noted
--- NOTE | 2024-08-15 10:10 | CRLHL7_ITS ---
For Patients: As a result of the Cures Act, medical imaging exams and procedure reports are released immediately into your electronic medical record. You may view this report before your referring provider. If you have questions, please contact your health care provider. HISTORY: Postoperative. Total shoulder replacement. TECHNIQUE: Two views of the right shoulder. COMPARISON: CT from 07/23/2024. FINDINGS: Intact reverse right total shoulder arthroplasty. Components are appropriately seated. No periprosthetic fracture or hardware loosening. No dislocation. Soft tissue gas is present. The apparent deformity of the posterior proximal humerus on the Y-view relates to osteophyte formation IMPRESSION: 1. Intact reverse right total shoulder arthroplasty. Dictated by Uvaldo Scruggs MD @ 08/17/2024 5:45:23 AM (Electronically Signed)
--- NOTE | 2024-08-15 11:56 | PM.ORPRC ---
Procedure Note Date of procedure: 08/15/24 Procedure: PREOPERATIVE DIAGNOSIS: 1. Right shoulder osteoarthrosis, primary, severe POSTOPERATIVE DIAGNOSIS: 1. Right shoulder osteoarthrosis, primary, severe with fair to poor cuff tissue quality 2. Right long head of the biceps tendinopathy and tenosynovitis PROCEDURE: 1. Right reverse shoulder arthroplasty. 2. Right long head of biceps open tenodesis SURGEON: Mario Garcia MD. SUPERVISOR MOLDING: Armando Copeland - Of note, a skilled pediatric physical therapy assistant was critical for this case to aid in patient positioning, tissue retraction, limb manipulation/positioning, retraction for glenoid exposure, which was challenging, awareness and protection of critical structures, and closure. ANESTHESIA: General plus supraclavicular block EBL: 100 ml IMPLANTS: DJ0 surgical Altivate humeral stem size 10 small shell, short with P2 porous coating vitamin E neutral poly small socket insert RSP glenoid base plate P2 porous coating with 3 perimeter locking screws 32 neutral glenosphere with retaining screw COMPLICATIONS: None evident INDICATIONS: The patient is a pleasant 78-year-old female who has experienced severe right shoulder pain and difficulty with use. Workup included imaging which revealed severe osteoarthrosis along with concern for rotator cuff quality. Physical exam was consistent with associated pain. Given the deformity, the dysfunction, and the pain, and failure of nonoperative management, recommendation was made for surgery. DESCRIPTION OF PROCEDURE: Following a thorough discussion of risks, benefits, and alternatives, consent was obtained and the left shoulder was marked. The patient was brought to the operating room and placed supine on the operating table. Induction of anesthesia was undertaken. 2 g IV Ancef and 1 g tranexamic acid was administered within 1 hr of incision preoperatively. Appropriate time-out was performed identifying proper patient, site, and procedure. The operative extremity was prepped and draped in the appropriate sterile fashion using ChloraPrep after the patient was positioned in the lazy beach chair position with head in neutral alignment and all bony prominences well padded. A longitudinal incision was made for deltopectoral approach. Deltoid was retracted laterally. Cephalic vein was identified and retracted laterally as well. Vein was spared/protected throughout the case. The clavipectoral fascia was identified and divided longitudinally staying lateral to the conjoined tendon / coracoid. The conjoined tendon was protected with a blunt Hohmann. The long head of the biceps tendon was identified and the bicipital sheath released. The upper 1/4 of the pectoralis major was also released from its insertion. The long head of the biceps was tenodesed to the pectoralis major tendon. The remaining proximal tendon tissue was excised. The rotator cuff was inspected and found to have good integrity with the subscapularis but fair integrity with a supraspinatus], and a decision for a reverse shoulder arthroplasty was confirmed. The long head of biceps, of note, was significant flattened, thickened, with abundant tenosynovitis. A subscapularis cuff of tissue was left via tenotomy for later repair with the remaining subscapularis released in a subperiosteal fashion with the Bovie. This was tagged for later repair. The 3 sisters were cauterized. The upper subscapularis was released from the capsule with a curved Arroyo scissors towards the glenoid. The inferior subscapularis was divided from the capsular tissue on its caudal surface with particular caution for the axillary nerve. This was palpated anterior to the subscapularis both prior to and near the finish of the case. Inferior humeral head osteophytes were excised with caution taken throughout the case with regards to the axillary nerve. The humerus was dislocated, and humeral head cut completed. Then a protector plate was applied. We turned our attention to the glenoid. The humerus was retracted posteriorly. The subscap was protected anteriorly and the labrum/long head biceps origin was excised circumferentially. The capsule was released along the anterior and inferior portions of the glenoid cautiously with a Hale elevator being careful not to penetrate deep. The glenoid had appropriate exposure, and was prepared with the cannulated system with a target of approximately 5-10? of inferior tilt and neutral anteversion (patient had 8? of retroversion initially). Utilizing the match Point 3D printed guide, the guide pin was placed. The 3D printed jig removed and after placing the guide pin, the tap was placed followed by the glenoid reaming. The real base plate was opened, and inserted, and excellent compression/purchase was achieved with the central screw. Peripheral screws were then drilled, measured, and placed. The glenosphere was then placed consistent with the preoperative plan utilizing the above noted glenosphere. After securing the glenosphere with the locking, torque limited screw, attention was turned back to the humerus. A canal finder was placed followed by various reamers by hand. The real humeral stem was then opened and inserted with excellent metaphyseal fit and stability. Trial poly was placed and the shoulder reduced. Excellent reduction and stability achieved with appropriate tension on the conjoined tendon. At this stage, trial implants were removed, and the real implants inserted and the shoulder reduced. A 3 minute Betadine soak was performed followed by a thorough irrigation with normal saline. Subscapularis was repaired with #1 PDS to the cuff of tissue on the lesser tuberosity. Excellent reapproximation of tissue achieved. Hemostasis was found to be appropriate. The deltopectoral interval was reapproximated with 0 Vicryl, subcutaneous and subcuticular closure was then performed with number 2-0 Vicryl and 4-0 Monocryl, respectively. A skilled pediatric physical therapy assistant was critical for this case to aid in patient positioning, tissue retraction, limb manipulation/positioning, retraction for glenoid exposure, which was challenging, awareness and protection of critical structures, and closure. PLAN: 1. Sling at all times for the operative upper extremity. 2. AROM of elbow, forearm, wrist, and digits as tolerated. 3. PT/OT consults for education and assistance. 4. Social consult for discharge planning. 5. 23 hr perioperative antibiotics. 6. Early ambulation, and SCDs for DVT prophylaxis. 7. Admit to the hospital for the above 8. Analgesics p.r.n.
--- NOTE | 2024-08-15 12:08 | P.ANES_ITS ---
Anesthesia Charges Start Date/Time Anesthesia Start Date: 08/15/24 Anesthesia Start Time: 09:52 Stop Date/Time Anesthesia Stop Date: 08/15/24 Anesthesia Stop Time: 12:08 Summary Emergency: LOSS PREVENTION LEAD Coding CPT Codes CPT Codes: ANESTH SHOULDER REPLACEMENT - 36067 ([id number]) P3 - PATIENT W/SEVERE SYS DISEASE, QK - SHOE REPAIRER 2-4 CNCRNT ANES PROC, P6 - BRAIN- PT ORGANS REMOVED Additional Codes: Summary - Emergency: LOSS PREVENTION LEAD ([id number])
--- NOTE | 2024-08-15 12:08 | W.ANESCHARGE ---
Anesthesia Charges Start Date/Time Anesthesia Start Date: 08/15/24 Anesthesia Start Time: 09:52 Stop Date/Time Anesthesia Stop Date: 08/15/24 Anesthesia Stop Time: 12:08 Summary Emergency: WAXER FLOOR Coding CPT Codes CPT Codes: ANESTH SHOULDER REPLACEMENT - 47361 ([id number]) P3 - PATIENT W/SEVERE SYS DISEASE, QK - PHYSICAL THER 2-4 CNCRNT ANES PROC, P6 - BRAIN- PT ORGANS REMOVED Additional Codes: Summary - Emergency: WAXER FLOOR ([id number])
--- NOTE | 2024-08-15 16:12 | P.IMCN_ITS ---
Date of Consult Patient: Kady Patient Consult date: 08/15/24 Requesting Physician: Orthopedics Primary Care Provider: Alexa Álvarez MD ([facility]) Jacklyn Campbell MD ([facility] Consult Narrative Reason for consult: Medical management of comorbidities Narrative: Jeaneth oHward is a 78 year old female who presented to the hospital today for an elective R total shoulder. There were no surgical or anesthetic complications noted during procedure. Patient's H&P reviewed, PCP is Dr Campbell. Past medical history significant for: interstitial lung disease/pulmonary fibrosis, HSV, essential HTN, hyperlipidemia, hypothyroidism History of blood clots: No Postoperative plan: Home (lives alone, children will be staying with her over the next two weeks). Review of Systems Narrative: - has noted a lesion on the lateral right side of her tongue, consistent with previous HSV infections - has had a cough over the last few weeks, no acute abnormalities on chest x- ray obtained at the [facility] preoperatively. No chest pain, hemoptysis, significant sputum production - stable on room air, no history oxygen supplementation [facility] Medical History (Updated 08/15/24 @ 16:50 by Justa Waldron MD) Health care directive on file (05/27/20) ?Z78.9 - Other specified health status (ICD-10) Cough ?R05.9 - Cough, unspecified (ICD-10) Balance problem ?R26.89 - Other abnormalities of gait and mobility (ICD-10) Iliotibial band syndrome, left leg ?M76.32 - Iliotibial band syndrome, left leg (ICD-10) Right rotator cuff tear arthropathy ?M75.101 - Unspecified rotator cuff tear or rupture of right shoulder, not specified as traumatic (ICD-10) ?M12.811 - Other specific arthropathies, not elsewhere classified, right shoulder (ICD-10) Osteoarthritis of carpometacarpal (CMC) joint of left thumb ?M18.12 - Unilateral primary osteoarthritis of first carpometacarpal joint, left hand (ICD-10) Calculus of kidney ?N20.0 - Calculus of kidney (ICD-10) Trigger thumb of left hand ?M65.312 - Trigger thumb, left thumb (ICD-10) Osteoarthritis of right shoulder ?M19.011 - Primary osteoarthritis, right shoulder (ICD-10) Osteoporosis ?M81.0 - Age-related osteoporosis without current pathological fracture (ICD- 10) Diverticulosis ?K57.90 - Diverticulosis of intestine, part unspecified, without perforation or abscess without bleeding (ICD-10) Hyperlipidemia, unspecified ?E78.5 - Hyperlipidemia, unspecified (ICD-10) Lip laceration ?S01.511A - Laceration without foreign body of lip, initial encounter (ICD- 10) Closed fracture of rib ?S22.39XA - Fracture of one rib, unspecified side, initial encounter for closed fracture (ICD-10) IPF (idiopathic pulmonary fibrosis) ?J84.112 - Idiopathic pulmonary fibrosis (ICD-10) JOY (obstructive sleep apnea) ?G47.33 - Obstructive sleep apnea (adult) (pediatric) (ICD-10) Pulmonary fibrosis ?J84.10 - Pulmonary fibrosis, unspecified (ICD-10) B12 deficiency ?E53.8 - Deficiency of other specified B group vitamins (ICD-10) Unspecified asthma ?J45.909 - Unspecified asthma, uncomplicated (ICD-10) Unspecified essential hypertension ?I10 - Essential (primary) hypertension (ICD-10) Surgical History (Updated 08/15/24 @ 16:42 by Justa Waldron MD) S/p reverse total shoulder arthroplasty ?Z96.619 - Presence of unspecified artificial shoulder joint (ICD-10) S/P ORIF (open reduction internal fixation) fracture (06/11/19) ?Z98.890 - Other specified postprocedural states (ICD-10) ?Z87.81 - Personal history of (healed) traumatic fracture (ICD-10) H/O laminectomy ?Z98.890 - Other specified postprocedural states (ICD-10) Hx of tonsillectomy ?Z90.89 - Acquired absence of other organs (ICD-10) H/O tubal ligation ?Z98.51 - Tubal ligation status (ICD-10) History of cholecystectomy ?Z90.49 - Acquired absence of other specified parts of digestive tract (ICD- 10) 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) ?Z96.652 - Presence of left artificial knee joint (ICD-10) Social History What is your current living situation?: I presently have a place to live Smoking Status: Former smoker How often do you have a drink containing alcohol: never AUDIT-C Alcohol total score: 0 Non-prescribed substance use: denies use Caffeine: Yes Meds Home Medications and Allergies Home Medications ?Medication ?Instructions ?Recorded ?Confirmed ?Type alendronate 70 mg tablet 70 mg PO .week 05/21/22 08/15/24 History fluticasone propionate 50 2 spray intranasal QDAY 05/21/22 08/15/24 History mcg/actuation nasal spray,suspension ipratropium 20 mcg-albuterol 100 g inhalation 05/21/22 07/11/24 History mcg/actuation mist for inhalation (Combivent Respimat) loratadine 10 mg tablet 10 mg PO Q24H 05/21/22 08/15/24 History losartan 100 mg tablet 100 mg PO QDAY 05/21/22 08/15/24 History venlafaxine 75 mg capsule,extended 75 mg PO DAILY 05/21/22 08/15/24 History release 24 hr gabapentin 400 mg capsule 1,600 mg PO QHS 12/25/22 08/15/24 History ipratropium bromide 21 mcg (0.03 2 spray intranasal BID 12/25/22 07/31/24 History %) nasal spray methenamine hippurate 1 gram tablet 1 g PO BID 08/18/23 08/15/24 History estradiol 0.01% (0.1 mg/gram) 2 g vaginal 2XW 10/21/23 08/15/24 History vaginal cream fluticasone 100 mcg-salmeterol 50 1 inh inhalation QDAY PRN 10/21/23 07/31/24 History mcg/dose blistr powdr for inhalation (Advair Diskus) levothyroxine 88 mcg tablet 88 mcg PO DAILY 10/21/23 08/15/24 History (Synthroid) vibegron 75 mg tablet (Gemtesa) 75 mg PO QDAY 07/12/24 08/15/24 History cholecalciferol (vitamin D3) 25 1,000 unit PO DAILY 07/31/24 08/15/24 History mcg (1,000 unit) tablet cyanocobalamin (vitamin B-12) 1,000 mcg .Route 07/31/24 07/31/24 History 1,000 mcg/mL injection syringe omeprazole 10 mg capsule,delayed 10 mg PO QDAY 07/31/24 08/15/24 History release Allergies Allergy/AdvReac Type Severity Reaction Status Date / Time amoxicillin Allergy upset Verified 08/15/24 07:09 stomach house dust Allergy Verified 08/15/24 07:09 mold Allergy Verified 08/15/24 07:09 prednisone AdvReac Intermediate feels Verified 08/15/24 07:09 crazy, low doses ok divalproex sodium (From AdvReac Verified 08/15/24 07:09 Depakote) Exam Narrative: Exam Narrative: GEN: Alert and oriented, sitting comfortably in bedside chair HEENT: Normal external ears, EOMIs bilaterally, no scleral icterus CV: RRR, soft systolic murmur without radiation or concerning features R: LCTA bilaterally without concerning wheezing, mild bibasilar rhonchi Ext: wwp, no concerning edema, right upper extremity in sling Skin: No concerning skin lesions or rashes on exposed skin Neuro: Nonfocal Psych: Appropriate Const: Vital Signs, click to edit/add: Vital Signs - 24 hr 08/15/24 07:26 08/15/24 08:25 08/15/24 08:30 Temperature 97.9 F Pulse Rate 76 67 65 Respiratory Rate 16 16 16 Blood Pressure 146/102 H 163/90 H 164/90 H Pulse Oximetry 98 100 100 Oxygen Delivery Me thod Room Air Nasal Cannula Nasal Cannula Oxygen Flow Rate 3 3 Fraction of Inspir ed Oxygen 08/15/24 08:35 08/15/24 12:05 08/15/24 12:10 Temperature 97.3 F L Pulse Rate 66 82 80 Respiratory Rate 16 16 16 Blood Pressure 133/81 161/67 H 138/76 Pulse Oximetry 100 97 95 Oxygen Delivery Me thod Nasal Cannula Nasal Cannula Nasal Cannula Oxygen Flow Rate 3 4 4 Fraction of Inspir ed Oxygen 100 100 08/15/24 12:15 08/15/24 12:20 08/15/24 12:25 Temperature Pulse Rate 81 80 80 Respiratory Rate 16 16 16 Blood Pressure 131/87 124/81 101/86 Pulse Oximetry 96 95 95 Oxygen Delivery Me thod Nasal Cannula Room Air Room Air Oxygen Flow Rate 4 Fraction of Inspir ed Oxygen 100 08/15/24 12:30 08/15/24 12:40 08/15/24 12:45 Temperature 98.1 F 98.2 F 97.6 F Pulse Rate 84 77 77 Respiratory Rate 16 16 16 Blood Pressure 121/66 126/68 135/68 Pulse Oximetry 94 88 90 Oxygen Delivery Me thod Room Air Room Air Room Air Oxygen Flow Rate Fraction of Inspir ed Oxygen 08/15/24 13:00 08/15/24 13:15 08/15/24 13:30 Temperature 98.4 F 98.5 F 98.5 F Pulse Rate 72 88 77 Respiratory Rate 16 16 18 Blood Pressure 119/69 128/93 H 118/81 Pulse Oximetry 92 90 91 Oxygen Delivery Me thod Room Air Room Air Room Air Oxygen Flow Rate Fraction of Inspir ed Oxygen 08/15/24 14:00 08/15/24 14:30 Temperature 99 F 98.7 F Pulse Rate 74 77 Respiratory Rate 18 14 Blood Pressure 121/67 128/65 Pulse Oximetry 91 92 Oxygen Delivery Me thod Room Air Room Air Oxygen Flow Rate Fraction of Inspir ed Oxygen Assessment and Plan Assessment and plan (1) S/p reverse total shoulder arthroplasty: Problem comment: - 08/15/24Jose Status: Acute (2) Pulmonary fibrosis: Problem comment: - Follows with [facility] annually - appears stable at this time Status: Acute (3) Cough: Problem comment: - reassuring chest x-ray preoperatively, reassuring vital signs and no hypoxia - encourage IS postoperatively, follow clinically Status: Acute (4) HSV (herpes simplex virus) infection: Problem comment: - h/o cold sores, has tongue lesion 08/15 - will treat with 2g Valacyclovir x2 doses Status: Acute Plan - pain management and prophylaxis per orthopedic surgery team - continue home medications for comorbidities - anticipate routine postoperative course
[2024-08-15] MEDS: LOSARTAN POTASSIUM 50 MG TABLET 100 MG PO (16:56)
--- NOTE | 2024-08-15 18:57 | PC.NURSE ---
End of Shift: Patient pleasant and cooperative. Patient vitally stable, lungs clear, BS WNL, IV SL and intact. Patient rates no pain, active ice used on right shoulder. Right shoulder dressing C/D/I, patient able to move fingers and arm slightly. Patient ambulating SBA. Patient has been up in the chair, tolerating regular diet, and urinating well.
[2024-08-15] MEDS: GABAPENTIN 300 MG CAPSULE 1500 MG PO (21:02)
[2024-08-15] MEDS: VALACYCLOVIR HCL 500 MG TABLET 2000 MG PO (21:03)
[2024-08-15] MEDS: SENNOSIDES 1 TAB TABLET 2 TAB PO (21:03)
[2024-08-15] MEDS: OXYCODONE 5 MG TABLET PO (22:09)
[2024-08-16] MEDS: CEFAZOLIN 2 GM in 0.9 % SODIUM CHLORIDE Mini-bag 100 ML IVPB ×2 (00:28→07:55)
[2024-08-16 02:01] VITALS: BP 151/76; PULSE 77; RESP 18; TEMP 36.6; O2SAT 93
[2024-08-16] MEDS: ACETAMINOPHEN 500 MG TABLET 1000 MG PO (04:07)
--- NOTE | 2024-08-16 06:12 | PC.NURSE ---
End of shift report [id number]: VS WNL. Afebrile. Denies nausea. O2 remains above 90% on 1 L NC overnight due to JOY. Rated pain from a 0-3, pain meds offered and given with relief. R shoulder CMS is intact. Dressing is C/D/I. Right arm is in a sling. Intermittent ice applied. Tolerating regular diet. Lesion on pts tongue, MD aware. Ambulates SBA with walker. SL in L forearm. Bed alarm on, call light within reach.?
[2024-08-16 06:21] LABS: Hematocrit 34.4 % (33.0-51.0); Hemoglobin* 11.1 gm/dL (12.0-16.0); Mean Corpuscular HGB Conc 32 gm/dL (32-36); Mean Corpuscular Hemoglobin 31 pg (26-34); Mean Corpuscular Volume 96 fL (80-100); Platelet Count* 215 K/uL (140-440); White Blood Count* 7.52 K/uL (4.50-11.00)
[2024-08-16 06:25] LABS: Slide Review Reflex No
[2024-08-16 06:31] LABS: Potassium* 4.8 mmol/L (3.6-5.1); Sodium* 134 mmol/L (135-149)
[2024-08-16 06:34] LABS: Blood Urea Nitrogen* 15 mg/dL (7-30); Creatinine* 0.6 mg/dL (0.5-1.5); Est. Creatinine Clearance* 44.36; Estimated Glomerular Filt Rate 91 ml/min
[2024-08-16 07:00] VITALS: BP 116/64; PULSE 75; RESP 16; O2SAT 95
[2024-08-16 07:50] VITALS: PULSE 77; RESP 18; O2SAT 93
[2024-08-16] MEDS: OXYCODONE 5 MG TABLET PO (08:01)
--- NOTE | 2024-08-16 08:53 | P.ORPN_ITS ---
Subjective Subjective Date Seen: 08/16/24 Principal diagnosis: Status postop day 1 right reverse total shoulder arthroplasty Interval history: Patient reports doing well. No acute events over night. Regarding the shoulder, she has no pain. She has some right-sided tongue discomfort without laceration. Pain managed with scheduled and PRN medications, ice. DVT prophylaxis: SCDs, walking. Denies fevers, chills, aches, N/V, CP, SOB/LI, or lightheadedness. She reports having some shortness of breath yesterday after surgery in notice some lower oxygen levels overnight. She is no longer having shortness of breath. Notes that she has pulmonary fibrosis. Ortho Exam Narrative Exam Narrative: -Patient appears comfortable in recliner; no apparent acute distress -Alert and oriented times 3 -Operative shoulder swollen; soft, supple tissues; no obvious erythema. Ecchymosis minimal. Warmth appropriate -Surgical dressing clean, dry, intact; no obvious drainage, no erythematous streaking peripheral to the bandage -Bilateral calves soft and supple; no significant swelling, edema, tenderness, erythema, discoloration, warmth, or palpable cords -2+ radial pulse, intact dermatomes and myotomes distally (5/5 strength) Const Vital Signs, click to edit/add: Vital Signs - 24 hr 08/15/24 12:05 08/15/24 12:10 08/15/24 12:15 Temperature 97.3 F L Pulse Rate 82 80 81 Pulse Rate [Pulse Oximeter] Respiratory Rate 16 16 16 Blood Pressure 161/67 H 138/76 131/87 Blood Pressure [Left Arm] Pulse Oximetry 97 95 96 Oxygen Delivery Method Nasal Cannula Nasal Cannula Nasal Cannula Oxygen Flow Rate 4 4 4 Fraction of Inspired Oxygen 100 100 100 08/15/24 12:20 08/15/24 12:25 08/15/24 12:30 Temperature 98.1 F Pulse Rate 80 80 84 Pulse Rate [Pulse Oximeter] Respiratory Rate 16 16 16 Blood Pressure 124/81 101/86 121/66 Blood Pressure [Left Arm] Pulse Oximetry 95 95 94 Oxygen Delivery Method Room Air Room Air Room Air Oxygen Flow Rate Fraction of Inspired Oxygen 08/15/24 12:40 08/15/24 12:45 08/15/24 13:00 Temperature 98.2 F 97.6 F 98.4 F Pulse Rate 77 77 72 Pulse Rate [Pulse Oximeter] Respiratory Rate 16 16 16 Blood Pressure 126/68 135/68 119/69 Blood Pressure [Left Arm] Pulse Oximetry 88 90 92 Oxygen Delivery Method Room Air Room Air Room Air Oxygen Flow Rate Fraction of Inspired Oxygen 08/15/24 13:15 08/15/24 13:30 08/15/24 14:00 Temperature 98.5 F 98.5 F 99 F Pulse Rate 88 77 74 Pulse Rate [Pulse Oximeter] Respiratory Rate 16 18 18 Blood Pressure 128/93 H 118/81 121/67 Blood Pressure [Left Arm] Pulse Oximetry 90 91 91 Oxygen Delivery Method Room Air Room Air Room Air Oxygen Flow Rate Fraction of Inspired Oxygen 08/15/24 14:30 08/15/24 15:30 08/15/24 15:30 Temperature 98.7 F 99 F Pulse Rate 77 77 Pulse Rate [Pulse Oximeter] Respiratory Rate 14 14 16 Blood Pressure 128/65 128/65 Blood Pressure [Left Arm] Pulse Oximetry 92 92 93 Oxygen Delivery Method Room Air Room Air Room Air Oxygen Flow Rate Fraction of Inspired Oxygen 08/15/24 16:34 08/15/24 17:34 08/15/24 18:34 Temperature 99.8 F H 98.9 F 99.4 F Pulse Rate 89 83 83 Pulse Rate [Pulse Oximeter] Respiratory Rate 16 16 16 Blood Pressure 127/56 L 128/58 L 113/77 Blood Pressure [Left Arm] Pulse Oximetry 91 95 93 Oxygen Delivery Method Room Air Room Air Room Air Oxygen Flow Rate Fraction of Inspired Oxygen 08/15/24 19:50 08/15/24 21:49 08/15/24 21:51 Temperature 98.1 F Pulse Rate Pulse Rate [Pulse Oximeter] 84 Respiratory Rate 16 Blood Pressure Blood Pressure [Left Arm] 105/58 L Pulse Oximetry 91 86 L 94 Oxygen Delivery Method Room Air Room Air Nasal Cannula Oxygen Flow Rate 1 Fraction of Inspired Oxygen 08/15/24 23:00 08/15/24 23:00 08/15/24 23:00 Temperature 97.3 F L Pulse Rate Pulse Rate [Pulse Oximeter] 71 71 Respiratory Rate 16 16 16 Blood Pressure Blood Pressure [Left Arm] 124/70 Pulse Oximetry 94 94 Oxygen Delivery Method Nasal Cannula Nasal Cannula Oxygen Flow Rate 1 1 Fraction of Inspired Oxygen 08/16/24 02:01 Temperature 97.9 F Pulse Rate Pulse Rate [Pulse Oximeter] 77 Respiratory Rate 18 Blood Pressure Blood Pressure [Left Arm] 151/76 H Pulse Oximetry 93 Oxygen Delivery Method Nasal Cannula Oxygen Flow Rate 1 Fraction of Inspired Oxygen Assessment and Plan Assessment and plan (1) S/p reverse total shoulder arthroplasty: Problem details: - 08/15/24Jose Status: Acute (2) Pulmonary fibrosis: Problem details: - Follows with [facility] annually - appears stable at this time Status: Acute (3) Cough: Problem details: - reassuring chest x-ray preoperatively, reassuring vital signs and no hypoxia - encourage IS postoperatively, follow clinically Status: Acute (4) HSV (herpes simplex virus) infection: Problem details: - h/o cold sores, has tongue lesion 08/15 - will treat with 2g Valacyclovir x2 doses Status: Acute Plan - Complete 23 hour perioperative antibiotics. - PT/OT consult for education and assistance. - Social work consult for discharge planning - Prescribed analgesics as needed - DVT prophylaxis: Walking, and SCDs - I have low concerns for hemidiaphragm from the operative block as patient is breathing well without shortness of breath or increased work of breathing. - Anticipation is for discharge to home with family today 08/16/2024 if the patient remains medically stable, pain is controlled, and they are safe with mobilization.
[2024-08-16] MEDS: LOSARTAN POTASSIUM 50 MG TABLET 100 MG PO (09:22)
[2024-08-16] MEDS: VENLAFAXINE ER 75 MG CAPSULE PO (09:22)
[2024-08-16] MEDS: OMEPRAZOLE 20 MG CAPSULE DR PO (09:22)
[2024-08-16] MEDS: LEVOTHYROXINE 88 MCG TABLET PO (09:22)
[2024-08-16] MEDS: SENNOSIDES 1 TAB TABLET 2 TAB PO (09:22)
[2024-08-16] MEDS: VALACYCLOVIR HCL 500 MG TABLET 2000 MG PO (09:59)
--- NOTE | 2024-08-16 12:12 | PC.NURSE ---
Nursing Care Hours: [id number] pt this shift calm and cooperative, alert and oriented. Half dose of oxy given prior to working with PT and OT. R arm weak, bilat hands warm and cap refill WNL. VSS. IV removed for discharge. Instructions went over with pt and 2 adult sons. All questions and concerns addressed. Wheeled out to vehicle in stable condition.
== END 2024-08-16 11:01 | disposition home or self-care (01) ==
LOC: OR 06:56 → MEDSURG 06:59
PROVIDERS: PCP Family Medicine; Referring Provider Family Medicine; Visit Provider Orthopaedic Surgery Sports Medicine
PROC: 0RRJ0JZ Replacement of Right Shoulder Joint with Synthetic Substitute, Open Approach (ICD-10-PCS; CPT 23472; principal; 2024-08-15 08:45)
DX: M19.011 Primary osteoarthritis, right shoulder (principal); M75.21 Bicipital tendinitis, right shoulder; G89.18 Other acute postprocedural pain; G47.33 Obstructive sleep apnea (adult) (pediatric); R05.9 Cough, unspecified; B00.2 Herpesviral gingivostomatitis and pharyngotonsillitis; J84.10 Pulmonary fibrosis, unspecified; I10 Essential (primary) hypertension; E03.9 Hypothyroidism, unspecified; J45.909 Unspecified asthma, uncomplicated; E78.5 Hyperlipidemia, unspecified
CPT/HCPCS: 23472; 23430; 01638; 36415; 64415; 73030; 76942; 82565; 84132; 84295; 84520; 85027; 97110; 97161; 97165; 97535; 99100; 99140; A9270; C1713; C1776; J0330; J0665; J0666; J0690; J1100; J2250; J2371; J2405; J2704; J3010; J7120; L3670

== ENCOUNTER 2024-08-23 13:10 | Outpatient (CLI) | payer MEDICARE, BC, SELFPAY | END 2024-08-23 13:11 | disposition home or self-care (01) | LOC: NFLDUCREF 13:10 | PROVIDERS: PCP Family Medicine; Visit Provider Family Medicine | DX: R30.0 Dysuria (principal) | CPT/HCPCS: 87086 ==

== ENCOUNTER 2024-11-22 09:45 | Outpatient (RCR) | payer MEDICARE, BC, SELFPAY ==
--- NOTE | 2024-08-30 17:23 | PT.OPEX ---
PT [place] Outpatient Eval PT [facility] Outpatient Eval Start: 08/30/24 13:56 Freq: Status: Active Protocol: Document 08/30/24 14:00 VIVIEN (Rec: 08/30/24 17:20 VIVIEN [id number]) E-signed By Gwendolyn Olmos DPT Physical Therapy Outpatient Evaluation Insurance Information Recert Due Date 11/28/24 Insurance Name Medicare B,Blue Cross/Blue Shield Medical Diagnosis s/p R RSA 08/15/24 Treating Diagnosis s/p R RSA 08/15/24 with R shoulder pain, impaired R shoulder ROM, impaired R shoulder mobility/strength, impaired functional mobility R shoulder/UE currently restricted in a sling, interrupted sleep Subjective Subjective Patient reports chronic R shoulder pain leading up to R reverse TSA 08/15/24. She has been using a sling since surgery but states she hasn't used it the last couple of days. She has been at home and MD/NISHANT instructed her she could have it off some at home . Patient has been doing hand /wrist/elbow ROM exercises and R shoulder codmans. She had follow up with NISHANT Marcus last week. Patient reports having a fall last week prior to her appt with NISHANT. She updated PA about her fall. Patient reports falling while going out to get the paper, caught her foot on a step coming back up to the house and fell onto her L side, L hand, and hit her head on the front glass door. Her daughter was staying with her and able to help her back up. Patient denies any increased R shoulder pain/soreness, states she barely touched her R elbow down on the ground when she fell. She reports pain range 2-5/10. She is using tylenol regularly. She was icing initially, but not the last couple of days. Date of Last Physician Visit 08/23/24 Date of Surgery (If applicable) 08/15/24 Current Work Status Retired Precautions Treatment Precautions/Contraindications s/p R RSA 08/15/24, use of sling x 6 weeks, ok to have off some at home, no ER beyond neutral x 6 weeks, AAROM starting at 5 weeks. Assessment Assessment/Impression Patient is a 78 year old female s/p R RSA 08/15/24 with R shoulder pain, impaired R shoulder ROM, impaired R shoulder mobility/strength, impaired functional mobility R shoulder/UE currently restricted in a sling, interrupted sleep. Pain range 2-5/10. Patient is using tylenol regularly. She was icing initially but not lately . Reviewed ongoing use of ice as needed with starting PT for PROM. Patient is sleeping ok in her adjustable bed, propping for support of R shoulder. She reports a fall on August 21. She denies any increased R shoulder pain after the fall. She had follow up with NISHANT Marcus on August 23 and updated him on her fall. She has been using her sling after surgery, off some while at home. States she hasn't been wearing it very much the last couple of days. Reviewed use of the sling x 6 weeks, off some at home at rest. Patient running late to PT session today, able to see for a shorter session. Focus on R shoulder PROM. R shoulder PROM: flex 110 degrees, scap 105 degrees, IR 55 degress, ER to neutral. Tolerated PROM well. Reviewed hand/wrist/elbow ROM and R shoulder codmans. Patient to continue with her HEP. Patient would benefit from skilled PT for pain/sx management, improved R shoulder ROM, improved R shoulder/UE mobility/strength, return to functional use of R shoulder/UE for daily/ household activities, and establishment of HEP. Plan of Care Rehabilitation Potential Good Physical Therapy Goals 1. Decrease R shoulder pain to less than/equal to 3/10 with daily activities and with the progression of PT activities over the next 6-8 weeks. 2. Improve R shoulder PROM over the next 6-8 weeks to prepare for return to functional use of R shoulder/UE. 3. Improve R shoulder AROM over the next 8-10 weeks for return to functional use of R shoulder/ UE with daily activities. 4. Improve R shoulder/UE strength over the next 10-12 weeks for return to full functional use of R shoulder/UE with daily activities. 5. Patient will be I with HEP within 12 weeks for progression toward above goals, ongoing self management of pain/sx, ongoing self improvements in ROM/strength/function, and for return to full functional use of R shoulder/UE with daily/ household activities. Coordination/Communication With Referral Source Treatment Plan/Direct Interventions Manual Therapy,Therapeutic Exercises Frequency/Duration 2x/week Patient Will Be Discharged From Therapy Completion of LTG(s),Skills Plateau,Independent w/HEP, Independently Progressing Evaluation Billing Untimed Code Treatment Minutes 14 Complexity Moderate Certification Information Initial Certification Date 08/30/24 Ending Certification Date 11/28/24 Provider Signature Required Yes Provider Signature Shows Agreement With POC & Medical Necessity Physician NPI Number Write NPI# Here Physician Comment/Change : Physician Signature & Date Requested Please Sign/Date Here
== END 2025-03-22 23:59 | disposition home or self-care (01) ==
PROVIDERS: PCP Family Medicine; Visit Provider Orthopaedic Surgery Sports Medicine
DX: Z51.89 Encounter for other specified aftercare (principal); Z47.1 Aftercare following joint replacement surgery; Z96.611 Presence of right artificial shoulder joint; M25.511 Pain in right shoulder
CPT/HCPCS: 97110; 97162

== ENCOUNTER 2025-04-03 12:35 | Outpatient (CLI) | payer MEDICARE, BC, SELFPAY | END 2025-04-03 12:36 | disposition home or self-care (01) | LOC: NFLDREF 04-04 14:14 | PROVIDERS: PCP Family Medicine; Referring Provider Family Medicine; Visit Provider Physician Assistant | DX: R05.1 Acute cough (principal) | CPT/HCPCS: 85379 ==

== ENCOUNTER 2025-04-19 16:08 | Emergency (ER) | payer MEDICARE, BC, SELFPAY ==
--- OUTSIDE RECORDS SUMMARY | 2025-03-12 08:30 | XMS_ITS | Encounter Summary ---
Author Organization [facility] Address [address] [place] [id number] Care Team Providers Care Sexual Abuse Counsellor Name Role Phone None Reported, Pcp Primary Care Provider Unavail able Reason for Visit * ReasonCommentsUrinary Incontinence * Outpatient (Routine) - ClosedSpecialtyDiagnoses / ProceduresReferred By ContactReferred To Contact Diagnoses Incontinence Urinary Stress And Urge Procedures URO Urodynamic study (with flow) Pooja Burr APRN C.N.P., D.N.P. [address] [place] [phone] Phone: tel: fax: [facility] Referral IDStatusReasonStart DateExpiration DateVisits RequestedVisits [id number] Encounter Details DateTypeDepartmentCare Team (Latest Contact Info)Mlhmftobywc71/11/2025 8:30 AM CSTProcedure visit Department of Urology in [place], [place] [address] [place] [phone] Pooja Burr APRN, C.N.P., D.N.P. [address] [place] [phone] Ladan Porter L.P.NKarol Incontinence Urinary Stress And Urge Social History Tobacco UseTypesPacks/DayYears UsedDateSmoking Tobacco: FormerCigarettes0.818 02/09/1967 - 02/09/1985Passive Smoke Exposure: PastSmokeless Tobacco: Never Alcohol UseStandard Drinks/WeekCommentsNot Currently0 (1 standard drink = 0.6 oz pure alcohol)I liked wine too much. Drank everyday. Stopped in 2018. Go [facility] UtilitiesAnswerDate RecordedIn the past 12 months has the electric, gas, oil, or water company threatened to shut off services in your home?No06/22/2024 Humiliation, Afraid, Rape, and Kick questionnaireAnswerDate RecordedWithin the last year, have you been afraid of your partner or ex-partner?No08/10/2024Within the last year, have you been humiliated or emotionally abused in other ways by your partner or ex-partner?No08/10/2024Within the last year, have you been kicked, hit, slapped, or otherwise physically hurt by your partner or ex-partner?No08/10/2024Within the last year, have you been raped or forced to have any kind of sexual activity by your partner or ex-partner?No08/10/2024 Hunger Vital SignAnswerDate RecordedWithin the past 12 months, you worried that your food would run out before you got the money to buymore.Never true06/22/2024 Within the past 12 months, the food you bought just didn't last and you didn't have money to get more.Never true06/22/2024PRAPARE - TransportationAnswerDate RecordedIn the past 12 months, has lack of transportation kept you from medical appointments or from getting medications?No06/22/2024In the past 12 months, has lack of transportation kept you from meetings, work, or from getting things needed for daily living?No06/22/2024Housing StabilityAnswerDate RecordedWhat is your living situation today?I have a steady place to live08/10/2024Education AnswerDate RecordedWhat is the highest level of school you have completed or the highest degree you have received?Master's degree (e.g., MA, MS, Flavia, MEd, STEELSCOPE OPERATOR, WILLIE)3CommentsNoSex and Gender InformationValueDate RecordedSex Assigned at XhzmaUmahrb33/16/2023 2:17 PM CSTLegal JauNuhwfc97/03/2017 10:38 AM CSTGender TyrnrphbUbhjqp44/16/2023 2:17 PM CSTSexual OrientationStraight 05/17/2022 2:17 PM CSTdocumented as of this encounter Patient Instructions * Patient Instructions* Ladan Porter L.P.N. - 03/12/2025 8:30 AM CERTIFIED CODING SPECIALIST After your urodynamic study After your study, you may go back to your regular routines and activities unless your health care provider tells you not to. It???s common to have these side effects in the first 24 hours after your test: Small amounts of blood in your urine. Feeling mild burning when you urinate. If these side effects last longer than 24 hours, contact your health care provider. To help with discomfort Drink more fluids than usual to help lessen side effects. Hold a warm, moist washcloth over your urethral opening. Soak in a warm bath for 20 minutes. Use plain water. Do not use soap or bath oils. Getting your study results Your health care provider follows up with you about the results of your study. You may have an appointment where you and your provider go over the results and talk about any treatment you may need. IFIED CODING SPECIALIST documented in this encounter Progress Notes * Ladan Porter L.P.N. - 03/12/2025 8:30 AM CST Patient here for Urodynamic Study. Flow study prior to procedure: No patient was able to void without having a bowel movement Amount of urine drained from bladder prior to study: 131 Catheter: 6 Citizen Of [place] Position: Sitting Fill rate: 25 ml/min EMG electrodes placed: Yes Abdominal catheter: Rectal Amount of urine drained from bladder post-study: 11 Patient tolerated procedure well. IFIED CODING SPECIALIST documented in this encounter Procedure Notes * Irineo Mauricio M.D. - 03/12/2025 8:30 AM CSTAssociated Order(s): URO URODYNAMIC STUDY (WITH FLOW) REASON FOR VISIT: Urodynamics: The patient here for a complex urodynamics via calibrated electronic equipment and a residual urine check by ultrasound. Prior to the study the patient was catheterized for 131 cc. The patient was filled with a standard fill rate of 50 cc/min. EMG pads were present and functioning appropriately. First sensation was recorded at 32 cc and capacity was reached at 471 cc Throughout the study the patient was asked to cough Valsalva. These maneuvers did not provoke any uninhibited detrusor contractions nor stress urine incontinence. There was no evidence of detrusor instability throughout the entire study. At 471 cc infused volume the patient reached capacity given permission to void. The patient generated detrusor contraction of 25 cm water pressure associated Q max of 29 cc/second with a total voidedvolume of 418 cc and a postvoid residual 11 cc INTERPRETATION & IMPRESSION: 1. Early first sensation. 2. Normal bladder capacity. 3. Normal bladder compliance to volumes filled 4. No evidence of detrusor instability 5. No evidence of stress incontinence. 6. EMG activity reduced appropriately during the voiding phase and there was no evidence for detrusor-sphincter dyssynergia. 7. During the voiding phase the patient voids with a mildly elevated detrusor voiding pressure for female associated with a good Q max and low postvoid residual. IFIED CODING SPECIALIST documented in this encounter Plan of Treatment Not on file documented as of this encounter Procedures Procedure NamePriorityDate/TimeAssociated DiagnosisCommentsURO URODYNAMIC STUDY (WITH FLOW)Ointvzn7203/12/2025 8:30 AM CERTIFIED CODING SPECIALIST Incontinence Urinary Stress And Urge documented in this encounter Results * URO Urodynamic study (with flow) (03/12/2025 8:30 AM CERTIFIED CODING SPECIALIST)Specimen (Source) Anatomical Location / LateralityCollection Method / VolumeCollection Time Received Time Narrative Irineo Mauricio M.D. - 03/12/2025 8:30 AM Irineo Gilbert M.D. 03/12/2025 1:00 PM REASON FOR VISIT: Urodynamics: The patient here for a complex urodynamics via calibrated electronic equipment and a residual urine check by ultrasound. Prior to the study the patient was catheterized for 131 cc. The patient was filled with a standard fill rate of 50 cc/min. ?? EMG pads were present and functioning appropriately. ??First sensation was recorded at 32 cc and capacity was reached at 471 cc Throughout the study the patient was asked to cough Valsalva. ?? These maneuvers did not provoke any uninhibited detrusor contractions nor stress urine incontinence. There was no evidence of detrusor instability throughout the entire study. ?? At 471 cc infused volume the patient reached capacity given permission to void. ??The patient generated detrusor contraction of 25 cm water pressure associated Q max of 29 cc/second with a total voided volume of 418 cc and a postvoid residual 11 cc INTERPRETATION & IMPRESSION: 1. ??Early first sensation. ?? 2. ??Normal bladder capacity. ?? 3. ??Normal bladder compliance to volumes filled ?? 4. ??No evidence of detrusor instability 5. ??No evidence of stress incontinence. ?? 6. EMG activity reduced appropriately during the voiding phase and there was no evidence for detrusor-sphincter dyssynergia. ?? 7. ??During the voiding phase the patient voids with a mildly elevated detrusor voiding pressure for female associated with a good Q max and low postvoid residual. ?? Authorizing ProviderResult TypeResult StatusAbbey Emanuel Burr APRN, C.N.P., D.N.P. UROLOGY ORDERABLESFinal Result documented in this encounter Visit Diagnoses Diagnosis Incontinence Urinary Stress And Urge documented in this encounter Care Teams Team MemberRelationshipSpecialtyStart DateEnd Date None Reported, Pcp PCP - GeneralFamily Medicine11/05/24documented as of this encounter
--- OUTSIDE RECORDS SUMMARY | 2025-04-19 16:11 | XMS_ITS | Encounter Summary ---
Author Organization [facility] Address [address] [place] [address] Care Team Providers Care Inspector Type Name Role Phone None Reported, Pcp Primary Care Provider Unavail able Reason for Visit * ReasonCommentsMed Refill Encounter Details DateTypeDepartmentCare Team (Latest Contact Info)Rcmjcyamqcw26/15/2025Refill Division of Pulmonary Medicine in [place], [place] [address] [place] [phone] Lisa Soni P.A.-C. [address] [place] [phone] Med Refill Social History Tobacco UseTypesPacks/DayYears UsedDateSmoking Tobacco: FormerCigarettes0.818 02/09/1967 - 02/09/1985Passive Smoke Exposure: PastSmokeless Tobacco: Never Alcohol UseStandard Drinks/WeekCommentsNot Currently0 (1 standard drink = 0.6 oz pure alcohol)I liked wine too much. Drank everyday. Stopped in 2018. Go [facility] UtilitiesAnswerDate RecordedIn the past 12 months has [...] received?Master's degree (e.g., MA, MS, Flavia, MEd, INTERNET PROGRAMMER, WILLIE)3CommentsNoSex and Gender InformationValueDate RecordedSex Assigned at CsukuFjwfly05/16/2023 2:17 PM CSTLegal KijEiixph17/03/2017 10:38 AM CSTGender SiwubotjRndakd41/16/2023 2:17 PM CSTSexual OrientationStraight 05/17/2022 2:17 PM CSTdocumented as of this encounter Plan of Treatment Not on file documented as of this encounter Visit Diagnoses Not on filedocumented in this encounter Care Teams Team MemberRelationshipSpecialtyStart DateEnd Date None Reported, Pcp PCP - GeneralFamily Medicine11/05/24documented as of this encounter
--- OUTSIDE RECORDS SUMMARY | 2025-04-19 16:11 | XMS_ITS | Clinical Summary ---
Author Organization [email or web address] [facility] Address [address] [place] [id number] Care Team Providers Care Home Sales Service Professional Name Role Phone Jacklyn Campbell DO Primary Care Provider Allergies Active AllergyReactionsCriticalityNoted DateCommentsAmoxicillinGI Upset 1Divalproex SodiumOther - Describe In Comment Field03/28/2007 increase WBC count House Dust04/19/2006FluticasoneTaste, Manvkud6707/14/2015Mold Zxywexhy89/19/2006 PrednisoneBehavioral Ospeadeegvxk97/14/2012 Has significant Psychiatry side effects, feels out of it. May tolerate very low dose, ie 10 milligrams daily for 5 days. Medications MedicationSigDispense QuantityRefillsLast FilledStart DateEnd DateStatus PHOTOTHERAPY LIGHT BOX Indications:Bipolar disorder, unspecified (HC)For home use 1 ctive cholecalciferol (VITAMIN D3) 1,000 unit capsule Take 1 capsule by mouth once daily.Active Blood Pressure Monitor Indications:HTN (hypertension)Check blood pressure several times a week 1 Device 11/03/2017Active CPAP DME Order06/14/2022ctive acyclovir (ZOVIRAX) 400 mg tablet Indications:HerpesTAKE ONE TABLET BY MOUTH THREE TIMES DAILY FOR 5 DAYS. START AT SOONEST SIGN OF HERPES FLARE 15 Tablet ctive ipratropium (ATROVENT NASAL) 21 mcg (0.03 %) nasal spray Indications:Allergic rhinitis due to pollen, unspecified seasonalityInhale 2 Sprays into affected nostril(s) two times daily. 30 mL ctive Additional Information Patient taking differently:2 Corea NasalDAILY PRN, Rhinitis, Reported on 11/20/2024 loratadine (CLARITIN) 10 mg tablet Indications:Environmental allergiesTAKE 1 TABLET (10 MG) BY MOUTH ONCE DAILY. 30 Tablet 4Active alendronate (FOSAMAX) 70 mg tablet Indications:Osteoporosis, unspecified osteoporosis type, unspecified pathological fracture presenceTAKE 1 TABLET (70 MG) BY MOUTH ONCE A WEEK IN THE MORNING. TAKE ON EMPTY STOMACH WITH FULL GLASS OFWATER, STAY UPRIGHT 30 MINUTES AFTER TAKING 13 Tablet 5Active losartan (COZAAR) 100 mg tablet Indications:HTN (hypertension)Take 1 Tablet (100 mg) by mouth once daily. 90 Tablet 5Active venlafaxine (EFFEXOR XR) 75 mg cp24 Extended-Release capsule Indications:Bipolar 1 disorder (HC)Take 1 Capsule (75 mg) by mouth once daily with a meal. 90 Capsule 5Active omeprazole (PRILOSEC) 10 mg capsule Indications:Chronic GERDTake 1 Capsule (10 mg) by mouth once daily before a meal. 90 Capsule 5Active estradioL (ESTRACE) 0.01% (0.1 mg/g) vaginal cream Indications:Recurrent UTI,Mixed stress and urge urinary incontinenceINSERT 2 GRAMS IN THE VAGINA TWICE WEEKLY 42.5 g 5Active fluticasone (50 mcg per actuation) nasal solution (FLONASE) Indications:Allergic rhinitis due to pollen, unspecified seasonalityINSTILL 1 SPRAY INTO AFFECTED NOSTRIL(S) ONCE DAILY. 16 g 5Active methenamine hippurate 1 gram tablet Indications:Recurrent UTITAKE 1 TABLET BY MOUTH TWICE A DAY, TAKE WITH 1000MG VITAMIN C. 180 Tablet 5Active Gemtesa 75 mg tablet Take 75 mg by mouth once daily.Active rosuvastatin 10 mg tablet Indications:Mixed hyperlipidemiaTake 1 Tablet (10 mg) by mouth at bedtime. 90 Tablet 5Active Synthroid 88 mcg tablet Indications:Hypothyroidism, unspecified typeTake 1 Tablet (88 mcg) by mouth before breakfast. 90 Tablet 5Active gabapentin (NEURONTIN) 400 mg capsule Indications:Bipolar 1 disorder (HC)Take 4 Capsules (1,600 mg) by mouth at bedtime. 360 Capsule 5ActiveHospital, Clinic, or Other Facility Administered Medication Ordered DoseRouteFrequencyStart DateEnd DateStatus cyanocobalamin (VITAMIN B12) 1,000 mcg/mL injection 1,000 mcg Indications:B12 vrpkkpudku4091 mcgIMQ 4 WEEKS (28 DAYS)5005/04/2025 Active cyanocobalamin (VITAMIN B12) 1,000 mcg/mL injection 1,000 mcg Indications:B12 gknfnkxidj5381 mcgIMQ 4 WEEKS (28 DAYS)4105/31/2024Ended Active Problems ProblemNoted DateDiagnosed DateIPF (idiopathic pulmonary fibrosis)03/08/2023 Obstructive sleep apnea12/28/2022rthritis of right glenohumeral joint08/07/2022 Overview (08/07/2022): July 2022: ultrasound guided right Shoulder cortisone injection. Kglowkzoufyy29/29/2023ulmonary /29/2023 Overview (10/29/2022): Arroyo: interstitial lung disease in an indeterminate pattern. The pattern looks indeterminate for UIP typeof pattern. She has been symptomatically very stable and overall is doing quite well without therapy. She had stopped all her inhalers which were being prescribed for what was thought to be asthma and actually feels better since she stopped the inhalers. Environmental qjvyqtbzr20/29/2023HTN (hypertension)3Primary osteoarthritis of left knee03/28/2019 Overview (01/16/2020): Mar 2019: Did cortisone injection left knee by Dr. Bravo . Significant pain relief down to 05/11. August [address] Mario Garcia did cortisone injection to left knee, worked great. Jan 2020: Repeat cortisone injection by Dr. Bravo for left knee. B12 esukpiorbq12/13/2019 Overview (03/14/2019): Elevated MMA see neuroconsult 03/2016 Ubvzlkedmexszs26/24/2013Colon polyp05/25/2010 Overview (10/18/2019): Colonoscopy 05/2010 polyp, Colonoscopy in 3 years. Colonoscopy 06/2013 polyp repeat in 5 years Colonoscopy 07/2018 - follow up in 5 years advised Herpes simplex without mention of qxunqpcpnklb18/13/2010Mixed hyperlipidemia 02/10/2009Disturbances of sensation of smell and taste04/19/2006Unspecified essential byperornxflo20/19/2006Unspecified tpozwjqoergmps31/19/2006Unspecified asthma(493.90)04/19/2006 Overview (05/21/2022): Normal PFT in 2006 - no change with bronchodilator Bipolar disorder, zvrijzdsona18/19/2006 Resolved Problems ProblemNoted DateDiagnosed DateResolved DateSkin vpuasj29 Vitamin D ibccvzfdey19 Encounters DateTypeDepartmentCare NxqiRcpiomejqae83/01/2025 11:30 AM CSTNurse/Clinic Staff Only [facility] [address] [place] [address] Immunization/Injection (VIT B-12 INJECTION)04/01/20256485Jxercp37/20/2025 11:30 AM CDTNurse/Clinic Staff Only [facility] [address] [place] [address] Immunization/Injection (Vit. B-12)02/18/20251434Uwzjfu95/22/2025 11:15 AM CDT Nurse/Clinic Staff Only [facility] [address] [place] [address] Immunization/Injection (Vitamin B12)01/21/2025Travelfrom Last 3 Months Immunizations ImmunizationAdministration DatesNext DueCOVID-19 VACCINE SPIKEVAX (MODERNA 50MCG/0.5ML) 12YO+ PFS5COVID-19 vaccine (Pfizer-BioNTech 30mcg/0.3mL) 12YO+ YUDI-SUCROSE PF, MDV2COVID-19 vaccine (College Snack Attack-BioNTech 30mcg/0.3mL) PF, MDV01/27/2021,07/08/2020,1DT (Age < 7 years)02/27/1990 Influenza A (H1N1), Inactivated (Age >=3 Years)05/19/2009Influenza, High-dose Eilmqgwftlq00/16/2024,01/27/2018,01/29/2016Influenza, High-dose Quadrivalent Dxgeoipzqss78/22/2022Influenza, IIV3 (Age >=3 years)04/08/2008,02/10/2007, 02/01/2006Influenza, XHK108/,01/27/2021,01/16/2019,02/13/2018,01/27/2018, 01/24/2017,01/29/2016,02/10/2015,01/23/2014,02/08/2012,01/25/2011,01/19/2010, 05/19/2009,04/08/2008,02/10/2007,02/17/2005,02/07/2004,02/27/2003Influenza, Inactivated AIIV4 (Age 65+ Years) Preserv Free01/13/2023,01/27/2021,12/24/2019 Influenza, Inactivated IIV3 (Age 65+ Years) Preserv Free01/16/2019,01/24/2017 Pneumococcal Poly,23-Valent (Pneumovax)09/06/2012,02/08/2012,02/07/2004 Pneumococcal conj 13-Valent (Prevnar 13)12/24/2014RSV, Recombinant ADJ Reconstituted (Arexvy 120MCG/0.5mL)01/31/2023Td (Age >=7 Years)05/02/1998Tdap 05/04/2024,01/22/2014,02/10/2009Zoster (Shingrix-RZV, recombinant)11/30/2018, 07/21/2018Zoster (Zostavax-ZVL, live)11/16/2011 Family History Medical HistoryRelationNameCommentsGood HealthBrotherHypertensionBrother HyperlipidemiaFatherHypertensionFatherOtherFathercataractsPsychiatric illness Fatherantidepressant, antianxiety medOtherMothermacular degeneration Cancer-breastNo Family HistoryCancer-colonNo Family HistoryCancer-ovarianNo Family HistoryRelationNameStatusCommentsBrotherAliveFatherAliveMotherDeceased Social History Tobacco UseTypesPacks/DayYears UsedDateSmoking Tobacco: FormerCigarettes0.825 05/02/1959 - 05/02/1984Smokeless Tobacco: Never Tobacco Cessation:Counseling Given: Yes Alcohol UseStandard Drinks/WeekCommentsNot Currently0 (1 standard drink = 0.6 oz pure alcohol)PHQ-2AnswerDate RecordedPHQ-2 TOTAL [id number] ConnectionsAnswerDate RecordedDo you often feel lonely or isolated from those around you?Financial Resource StrainAnswerDate RecordedDifficulty of Paying Living Jsplfjqi969/31/2025Difficulty of Paying Living ExpensesNot on file 06/01/2024Food InsecurityAnswerDate RecordedDo you worry your food will run out before you are able to buy more?Transportation NeedsAnswerDate RecordedDoes lack of transportation keep you from medical appointments?1 06/01/2024Does lack of transportation keep you from work, meetings or getting things that you need?Housing StabilityAnswerDate RecordedWhat is your housing situation today?UtilitiesAnswerDate RecordedDo you have trouble paying for utilities (for example, heat, electricity, water, phone)?1 06/01/2024CommentsNoSex and Gender InformationValueDate RecordedSex Assigned at BirthNot on fileLegal UkhZquetn26/14/2013 5:32 AM CSTGender Identity Not on fileSexual OrientationNot on fileOccupationIndustryJob Start DateJob 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 TeacherNot on fileNot on fileNot on file Obstetrics History GravidaParaTermPretermABIABSABEctopicMultipleLivingLive Mmvyna5039KvwzKzsccdpVL Total LaborLabor/2nd/3rxNbcyifEjoHiaoAwrjVFUBnvQ7P6UygeMxaw86/01/1444Hvwn5w 00m 3.01 kg (6 lb 10 oz)FVAGINAL MIIKUmv76/31/3779Cgbu1d 00m3.46 kg (7 lb 10 oz)MVag Jon01/17/1978Term2h 00m3.63 kg (8 lb)MVagNils Last Filed Vital Signs Vital SignReadingTime TakenCommentsBlood Avldmszi534/7707/ 10:19 AM CDT Qpfbx904511/20/2024 10:19 AM YRINbzsmifcohb02.4 ??C (97.5 ??F)09/19/2024 10:41 AM CDTRespiratory Vqgv382705/06/2023 7:04 AM CSTOxygen Eozmuyydpf599%11/20/2024 10:19 AM CDTInhaled Oxygen Concentration--Fanqaf92.1 kg (172 lb 3.2 oz)11/20/2024 10:19 AM GHGExcwkf473.8 cm (5' 6.46)11/20/2024 10:19 AM CDTBody Mass Index27.41 11/20/2024 10:19 AM CDT Plan of Treatment DateTypeDepartmentCare Team (Latest Contact Info)Umayjzgxkdw39/05/2026 11:30 AM CSTNurse/Clinic Staff Only [facility] [address] [place] [address] Health MaintenanceDue DateLast DoneCommentsInfluenza Vaccine (#1)12/31/2024 01/16/2024, 01/13/2023, 01/13/2023, Additional history existsCOVID-19 vaccine series ( season), 01/16/2024, 09/29/2023, Additional history existsMedicare Wellness for age 65+ (Verified in Care Everywhere or Patient Record), 12/28/2022, 07/02/2021, Additional history existsBMI (ht and wt on same day) for age 18+11/20/2025 11/20/2024, 05/06/2023, 12/28/2022, Additional history existsDepression screening for age 12+, 12/28/2022, 11/30/2022, Additional history existsTetanus , 01/22/2014, 02/10/2009, Additional history existsPneumococcal series for age 50+Akofijndw02/25/2015, 09/06/2012, 02/08/2012, Additional history existsZoster (shingles) series for age 50+Yljzwtxio59/01/2019, 07/21/2018, 11/16/2011DEXA/DXA scan for age 65+ Lrxrdwvme22/08/2023, 01/23/2020, 04/16/2010RSV vaccine for adults or Iquplelxm70/02/2023Hepatitis B series for 19+Aged OutNo longer eligible based on patient's age to complete this topic Procedures Procedure NamePriorityDate/TimeAssociated DiagnosisCommentsXR DXA BONE DENSITY 2 SITES FBDDCEsgshvy08/08/2023 10:58 AM WEBSITE PROGRAMMER Osteoporosis, unspecified osteoporosis type, unspecified pathological fracture presence from Last 3 Months or Most Recently Relevant to Health Maintenance Results * (ABNORMAL) XR DXA BONE DENSITY 2 SITES AXIAL (06/09/2022 10:58 AM WEBSITE PROGRAMMER) Anatomical RegionLateralityModalitySpine, HIPS, HIPL, HIPROtherSpecimen (Source)Anatomical Location / LateralityCollection Method / VolumeCollection TimeReceived Time Impressions 06/11/2022 1:08 PM WEBSITE PROGRAMMER Osteopenia. RECOMMENDATIONS: The National Osteoporosis Foundation recommends [...] in 2 years. ?? Lola Stubbs PA-C [facility] 06/11/2022 Narrative 06/11/2022 1:08 PM WEBSITE PROGRAMMER For Patients: Results are automatically released to your [facility] ([employer]) account once available, in compliance with federal regulations. This means that you may see your results before your provider has had a chance to review them. Please allow 2-3 business days for your provider to comment on the results. XR DXA Bone Mineral Density (BMD) EXAM LOCATION: [address] [id number] PATIENT NAME: Jeaneth Howard DATE OF : [...] two scanners are made by the same game warden. PROCEDURE: Dual-energy x-ray absorptiometry performed with routine [...] Osteoporosis: T-score at or below -2.5 SD Authorizing ProviderResult TypeResult StatusAmy Naomy Kincaid MDDEXAFinal Result from Last 3 Months or Most Recently Relevant to Health Maintenance Insurance Advance Directives TypeDate RecordedPatient RepresentativeExplanationHealthcare Directive08/18/2020 05/27/2020 Care Teams Team MemberRelationshipSpecialtyStart DateEnd Date Jacklyn Campbell, DO [address] [place] [address] [facility]
--- OUTSIDE RECORDS SUMMARY | 2025-04-19 16:11 | XMS_ITS | Encounter Summary ---
Author Organization [facility] Address [address] [place] [id number] Care Team Providers Care Pants Closer Name Role Phone None Reported, Pcp Primary Care Provider Unavail able Encounter Details DateTypeDepartmentCare Team (Latest Contact Info)Ybssywqqftm21/28/2025Results Follow-Up Department of Urology in [place], [place] [address] [place] [phone] Pooja Burr, VIJAY, C.N.P., D.N.P. [address] [place] [phone] Bacterial Culture, Aerobic + Susceptibility, Urine, URO Urodynamic study (with flow) Social History Tobacco UseTypesPacks/DayYears UsedDateSmoking Tobacco: FormerCigarettes0.818 02/09/1967 - 02/09/1985Passive Smoke Exposure: PastSmokeless Tobacco: Never Alcohol UseStandard Drinks/WeekCommentsNot Currently0 (1 standard drink = 0.6 oz pure alcohol)I liked wine too much. Drank everyday. Stopped in 2018. [facility] UtilitiesAnswerDate RecordedIn the past 12 months has the electric, gas, oil, or water [employer] threatened to shut off services in your [...] received?Master's degree (e.g., MA, MS, Flavia, MEd, INSURANCE CLAIMS ANALYST, WILLIE)3CommentsNoSex and Gender InformationValueDate RecordedSex Assigned at YmujqIcwpla97/16/2023 2:17 PM CSTLegal XbeLtonrn36/03/2017 10:38 AM CSTGender HaygdloaEfwyde65/16/2023 2:17 PM CSTSexual OrientationStraight 05/17/2022 2:17 PM CSTdocumented as of this encounter Plan of Treatment Not on file documented as of this encounter Visit Diagnoses Diagnosis Symptom Urinary- Primary documented in this encounter Care Teams Team MemberRelationshipSpecialtyStart DateEnd Date None Reported, Pcp PCP - [facility]11/05/24documented as of this encounter
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
--- OUTSIDE RECORDS SUMMARY | 2025-04-19 16:11 | XMS_ITS | Encounter Summary ---
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 [address] [place] [phone] Med Question Social History Tobacco UseTypesPacks/DayYears UsedDateSmoking Tobacco: FormerCigarettes0.818 02/09/1967 - 02/09/1985Passive Smoke Exposure: PastSmokeless Tobacco: Never Alcohol UseStandard Drinks/WeekCommentsNot Currently0 (1 standard drink = 0.6 oz pure alcohol)I liked wine too much. Drank everyday. Stopped in 2018. Go [facility] UtilitiesAnswerDate RecordedIn the past 12 months [...] received?Master's degree (e.g., MA, MS, Flavia, MEd, LAND CLASSIFIER, WILLIE)3CommentsNoSex and Gender InformationValueDate RecordedSex Assigned at OotviLsutei59/16/2023 2:17 PM CSTLegal UzgZjdjwr10/03/2017 10:38 AM CSTGender DtigxmswZiwhcy13/16/2023 2:17 PM CSTSexual OrientationStraight 05/17/2022 2:17 PM CSTdocumented as of this encounter Miscellaneous Notes * Telephone Encounter - Acacia Dodd - 03/21/2025 1:13 PM CST Karol Soni, Caller: [facility] Message: Pharmacy was following up on Atrovent Rx. Have you passed this on to a senior safety management consultant? Thank you, Acacia/[phone] TRIMMER * Telephone Encounter - Camila Shine - 03/20/2025 4:57 PM CST Pulmonary Note: Call Message Caller: Pharmacy: [facility] Preferred contact: Authorized: Yes Diagnosis: 1) Fibrotic Interstitial Lung Disease, indeterminate. Query exposure versus idiopathic, stable 2) Pulmonary nodules--most unchanged, one lingula nodule increased from 3 mm to 6 mm since 01/2023,slightly decreased in size, 05/2024 3) Chronic cough, acutely worsened over the past 3-4 days with decrease in sputum production 4) Postnasal drip Last Appointment: 10/16/24 Message: Pharmacy called because they can't accept prescriptions from a PA they need an MD to sign.It is for the Atrovent prescription. It sounds like patient may be visiting and needing a refill. TRIMMER documented in this encounter Plan of Treatment Not on file documented as of this encounter Visit Diagnoses Not on filedocumented in this encounter Care Teams Team MemberRelationshipSpecialtyStart DateEnd Date None Reported, Pcp PCP - GeneralFamily Medicine11/05/24documented as of this encounter
[2025-04-19 16:12] VITALS: BP 170/92; PULSE 91; RESP 18; TEMP 36.3; O2SAT 97; BMI 27.0
--- NOTE | 2025-04-19 16:34 | CRLHL7_ITS ---
For Patients: As a result of the Cures Act, medical imaging exams and procedure reports are released immediately into your electronic medical record. You may view this report before your referring provider. If you have questions, please contact your health care provider. INDICATION: Cough. History of pulmonary fibrosis. COMPARISON: 05/23/2023 chest radiograph TECHNIQUE: Frontal and lateral radiographic views of the chest. FINDINGS: No pneumothorax. No pleural effusion. No definite focal pulmonary consolidation. Similar slight subpleural pulmonary reticulation. Similar cardiomediastinal contours. There is calcified aortic atherosclerosis. No evident acute displaced rib fracture. Partially imaged right shoulder arthroplasty. There are osseous degenerative changes. IMPRESSION: No definite focal pulmonary consolidation. Similar slight subpleural pulmonary reticulation. Dictated by Lyndon Parra MD @ 04/19/2025 5:24:11 PM (Electronically Signed)
--- NOTE | 2025-04-19 16:36 | ED.GENADULT ---
HPI - General Adult General Date Seen: 04/19/25 Chief complaint: Cough Stated complaint: Cough 3wk .Last tested on 04/03 Time Seen by Provider: 04/19/25 16:11 History of Present Illness HPI narrative: patient is an 79-year-old woman with underlying pulmonary fibrosis who reports an ongoing cough for the past several weeks. She was in [place] visiting family so was on a couple of flights and also her son was sick. When she got home she developed cold symptoms including congestion, sore throat, cough. Has improved aside from the cough which persists. She was seen on April 03 in urgent care, she had a negative D-dimer, negative COVID influenza and RSV, was treated with azithromycin and a steroid, reports that she felt better for a little bit but cough seems to be back. She has not had any fevers, has not feel short of breath. Had some wheezing earlier but that does not seem as prominent now. She was out all day with a friend who is a nurse who recommended that she be seen again. Initially went to urgent care and then was referred here. Other medical history notable for kidney stones, arthritis. she does not smoke. Related Data Home Medications ?Medication ?Instructions ?Recorded ?Confirmed alendronate 70 mg tablet 70 mg PO .week 05/21/22 04/19/25 fluticasone propionate 50 2 spray intranasal QDAY 05/21/22 04/19/25 mcg/actuation nasal spray,suspension ipratropium 20 mcg-albuterol 100 g inhalation 05/21/22 04/19/25 mcg/actuation mist for inhalation (Combivent Respimat) loratadine 10 mg tablet 10 mg PO Q24H 05/21/22 04/19/25 losartan 100 mg tablet 100 mg PO QDAY 05/21/22 04/19/25 venlafaxine 75 mg capsule,extended 75 mg PO DAILY 05/21/22 04/19/25 release 24 hr gabapentin 400 mg capsule 1,600 mg PO QHS 12/25/22 04/19/25 ipratropium bromide 21 mcg (0.03 2 spray intranasal BID 12/25/22 04/19/25 %) nasal spray estradiol 0.01% (0.1 mg/gram) 2 g vaginal 2XW 10/21/23 04/19/25 vaginal cream fluticasone 100 mcg-salmeterol 50 1 inh inhalation QDAY PRN 10/21/23 04/19/25 mcg/dose blistr powdr for inhalation (Advair Diskus) levothyroxine 88 mcg tablet 88 mcg PO DAILY 10/21/23 04/19/25 (Synthroid) vibegron 75 mg tablet (Gemtesa) 75 mg PO QDAY 07/12/24 04/19/25 cholecalciferol (vitamin D3) 25 1,000 unit PO DAILY 07/31/24 04/19/25 mcg (1,000 unit) tablet cyanocobalamin (vitamin B-12) 1,000 mcg .Route 07/31/24 04/19/25 1,000 mcg/mL injection syringe omeprazole 10 mg capsule,delayed 10 mg PO QDAY 07/31/24 04/19/25 release Previous Rx's ?Medication ?Instructions ?Recorded acetaminophen 500 mg capsule 500 - 1,000 mg (1 - 2 x 500 mg) PO 08/15/24 Q6H PRN #100 caps benzonatate 200 mg capsule 200 mg PO BID-TID PRN cough #30 04/03/25 caps prednisone 20 mg tablet See Rx Instructions PO QDAY Cough 04/03/25 #5 tabs Allergies Allergy/AdvReac Type Severity Reaction Status Date / Time amoxicillin Allergy upset Verified 04/19/25 15:24 stomach house dust Allergy Verified 04/19/25 15:24 mold Allergy Verified 04/19/25 15:24 prednisone AdvReac Intermediate feels Verified 04/19/25 15:24 crazy, low doses ok divalproex sodium (From AdvReac Verified 04/19/25 15:24 Depakote) Review of Systems Status of ROS: Reports: 6 or more systems reviewed and unremarkable except as noted in History and below [facility] Medical History Health care directive on file (05/27/20) ?Z78.9 - Other specified health status (ICD-10) Cough ?R05.9 - Cough, unspecified (ICD-10) Balance problem ?R26.89 - Other abnormalities of gait and mobility (ICD-10) Iliotibial band syndrome, left leg ?M76.32 - Iliotibial band syndrome, left leg (ICD-10) Right rotator cuff tear arthropathy ?M75.101 - Unspecified rotator cuff tear or rupture of right shoulder, not specified as traumatic (ICD-10) ?M12.811 - Other specific arthropathies, not elsewhere classified, right shoulder (ICD-10) Osteoarthritis of carpometacarpal (CMC) joint of left thumb ?M18.12 - Unilateral primary osteoarthritis of first carpometacarpal joint, left hand (ICD-10) Calculus of kidney ?N20.0 - Calculus of kidney (ICD-10) Trigger thumb of left hand ?M65.312 - Trigger thumb, left thumb (ICD-10) Osteoarthritis of right shoulder ?M19.011 - Primary osteoarthritis, right shoulder (ICD-10) Osteoporosis ?M81.0 - Age-related osteoporosis without current pathological fracture (ICD-10) Diverticulosis ?K57.90 - Diverticulosis of intestine, part unspecified, without perforation or abscess without bleeding (ICD-10) Hyperlipidemia, unspecified ?E78.5 - Hyperlipidemia, unspecified (ICD-10) Lip laceration ?S01.511A - Laceration without foreign body of lip, initial encounter (ICD-10) Closed fracture of rib ?S22.39XA - Fracture of one rib, unspecified side, initial encounter for closed fracture (ICD-10) IPF (idiopathic pulmonary fibrosis) ?J84.112 - Idiopathic pulmonary fibrosis (ICD-10) JOY (obstructive sleep apnea) ?G47.33 - Obstructive sleep apnea (adult) (pediatric) (ICD-10) Pulmonary fibrosis ?J84.10 - Pulmonary fibrosis, unspecified (ICD-10) B12 deficiency ?E53.8 - Deficiency of other specified B group vitamins (ICD-10) Unspecified asthma ?J45.909 - Unspecified asthma, uncomplicated (ICD-10) Unspecified essential hypertension ?I10 - Essential (primary) hypertension (ICD-10) Surgical History S/p reverse total shoulder arthroplasty (08/15/24) ?Z96.619 - Presence of unspecified artificial shoulder joint (ICD-10) S/P ORIF (open reduction internal fixation) fracture (06/11/19) ?Z98.890 - Other specified postprocedural states (ICD-10) ?Z87.81 - Personal history of (healed) traumatic fracture (ICD-10) H/O laminectomy ?Z98.890 - Other specified postprocedural states (ICD-10) Hx of tonsillectomy ?Z90.89 - Acquired absence of other organs (ICD-10) H/O tubal ligation ?Z98.51 - Tubal ligation status (ICD-10) History of cholecystectomy ?Z90.49 - Acquired absence of other specified parts of digestive tract (ICD-10) 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 Eyes: Sclera clear. Pupils equal and reactive. ENT: Mucous membranes moist. Neck: Supple without adenopathy. Heart: Regular rate and rhythm without murmur. Lungs: Clear. No increased work of breathing, crackles or wheezes. Neurologic: Alert, conversant. Speech fluent, face symmetric. Moves all extremities equally. Skin: Warm, dry well perfused. Affect: Normal. Const: Vital Signs, click to edit/add: Vital Signs - 24 hr 04/19/25 16:12 04/19/25 18:00 Temperature 97.3 F L Pulse Rate 81 Pulse Rate [Pulse Oximeter] 91 Respiratory Rate 18 16 Blood Pressure [Ri ght Upper Arm] 170/92 H Pulse Oximetry 97 95 Oxygen Delivery Me thod Room Air Course Course ED Course: Patient presents with persistent cough after previous presumed viral infection. She did have a negative D-dimer, symptoms are not suggestive of likely pulmonary embolism. She is not tachycardic, tachypneic, nor hypoxic here today. She is breathing easily, lungs are clear. She would feel reassured by a chest x-ray so we will do that. Discussed that overwhelmingly in these situations cough is due to proceeding viral infection, and that there is no specific treatment that tends to clear it. She has found Robitussin helpful, she has Hilda Rogers as well and says those were helpful to although she stopped using them because she kept thinking that the cough would get better. I did a chest x-ray, by my review this is negative, radiology read is negative as well. Discussed with patient. Recommend continued supportive care, time. Discussed reasons to return. When I was in discussing the chest x-ray she asked me if I would run the urine sample she left. I told her I would not typically run a urine sample for cough, she says that she gets bladder infections all the time even when she does not have symptoms and she wanted her urine checked. Discussed with her that I would not recommend treatment for an abnormal UA in the absence of symptoms and then she said she does have a little bit of burning. So, will run the UA. Patient did not want to stay for the results, was discharged with instructions regarding her cough. I have looked at the UA, which is entirely negative. Vital Signs Vital signs: Initial Vital Signs Temperature 97.3 F L 04/19/25 16:12 Temperature Source Temporal Artery Scan 04/19/25 16:12 Pulse Rate 91 04/19/25 16:12 Respiratory Rate 18 04/19/25 16:12 Blood Pressure 170/92 H 04/19/25 16:12 Blood Pressure Mean 118 H 04/19/25 16:12 Blood Pressure Position Supine 04/19/25 16:12 Pulse Oximetry 97 04/19/25 16:12 Oxygen Delivery Method Room Air 04/19/25 16:12 Vital Signs Temperature 97.3 F L 04/19/25 16:12 Pulse Rate 91 04/19/25 16:12 Respiratory Rate 18 04/19/25 16:12 Blood Pressure 170/92 H 04/19/25 16:12 Pulse Oximetry 97 04/19/25 16:12 Oxygen Delivery Method Room Air 04/19/25 16:12 Temperature 97.3 F L 04/19/25 16:12 Pulse Rate 81 04/19/25 18:00 Respiratory Rate 16 04/19/25 18:00 Blood Pressure 170/92 H 04/19/25 16:12 Pulse Oximetry 95 04/19/25 18:00 Oxygen Delivery Method Room Air 04/19/25 16:12 Medical Decision Making Lab Data Labs: Lab Results 04/19/25 Range/Units 16:20 Urine Color Yellow (Yellow) Urine Appearance Clear (Clear) Urine pH 6.0 (5.0-8.5) Ur Specific [place] >= 1.030 (1.000-1.030) Urine Protein Negative (Negative) Urine Glucose (UA) Negative (Negative) Urine Ketones Negative (Negative) Urine Blood Negative (Negative) Urine Nitrite Negative (Negative) Urine Bilirubin Negative (Negative) Urine Urobilinogen 0.2 (0.2-1.0) Ur Leukocyte Esterase Negative (Negative) Urine RBC 0-2 (0-2) Urine WBC 0-2 (0-5) Ur Squamous Epith Cells Few (None-Few) Amorphous Sediment Few A (None) Urine Bacteria None (None) Imaging Data Chest x-ray: Attestation: I have reviewed the pertinent imaging results. Radiologist's impression: Patient: MARY HANSEN Facility: [facility] Site . Site : [id number] Study: XRay-Chest 2V-04/19/2025 4:45:18 PM Ordering Physician: Stew Abebe Final Report: INDICATION: Cough. History of pulmonary fibrosis. COMPARISON: 05/23/2023 chest radiograph TECHNIQUE: Frontal and lateral radiographic views of the chest. FINDINGS: No pneumothorax. No pleural effusion. No definite focal pulmonary consolidation. Similar slight subpleural pulmonary reticulation. Similar cardiomediastinal contours. There is calcified aortic atherosclerosis. No evident acute displaced rib fracture. Partially imaged right shoulder arthroplasty. There are osseous degenerative changes. IMPRESSION: No definite focal pulmonary consolidation. Similar slight subpleural pulmonary reticulation. Discharge Plan Discharge Clinical Impression: Cough Qualifiers: Cough type: acute Qualified Code(s): R05.1 - Acute cough Patient Disposition: Home, Self-Care Condition: Stable Instructions: Acute Cough (ED) Additional Instructions: Your x-ray today does not show any evidence of an infection such as pneumonia, heart failure, fluid collection, mass or other abnormalities. I strongly suspect that this cough is post viral, and will improve with time although it can take a number of weeks to fully go away. You can certainly use Robitussin and or Tessalon as needed for cough. If you have significant shortness of breath or high fevers, you should be seen again. It may be worth touching base with your oil well perforator operator as well to see if they have any other recommendations. Prescriptions: No Action loratadine 10 mg tablet 10 mg PO Q24H Patient Comments: TAKE ONE TABLET BY MOUTH ONCE DAILY venlafaxine 75 mg capsule,extended release 24hr 75 mg PO DAILY Patient Comments: TAKE ONE CAPSULE (75MG) BY MOUTH ONCE DAILY WITH A MEAL losartan 100 mg tablet 100 mg PO QDAY fluticasone propionate 50 mcg/actuation spray,suspension 2 spray intranasal QDAY Patient Comments: INHALE 1 SPRAY INTO AFFECTED NOSTRIL(S) ONCE DAILY. alendronate 70 mg tablet 70 mg PO .week Combivent Respimat 20-100 mcg/actuation mist inhalation Patient Comments: INHALE 1 PUFF BY MOUTH EVERY 6 HOURS IF NEEDED FOR SHORTNESS OF BREATH OR WHEEZING. fluticasone propion-salmeterol [Advair Diskus] 100-50 mcg/dose blister with device 1 inh inhalation QDAY PRN Gemtesa 75 mg tablet 75 mg PO QDAY prednisone 20 mg tablet See Rx Instructions PO QDAY Qty: 5 0RF Rx Instructions: One p.o. q.day x5 days, then discontinue. benzonatate 200 mg capsule 200 mg PO BID-TID PRN (Reason: cough) Qty: 30 0RF gabapentin 400 mg capsule 1,600 mg PO QHS ipratropium bromide 21 mcg (0.03 %) spray,non-aerosol 2 spray intranasal BID Patient Comments: [NO ORIGINAL SIG] estradiol 0.01 % (0.1 mg/gram) cream 2 g vaginal 2XW levothyroxine [Synthroid] 88 mcg tablet 88 mcg PO DAILY cholecalciferol (vitamin D3) 25 mcg (1,000 unit) tablet 1,000 unit PO DAILY cyanocobalamin (vitamin B-12) 1,000 mcg/mL syringe 1,000 mcg .Route Rx Instructions: 1000 mcg, intra-muscular, every 4 weeks omeprazole 10 mg capsule,delayed release(DR/EC) 10 mg PO QDAY acetaminophen 500 mg capsule 500 - 1,000 mg PO Q6H MDD 4000mg PRNQty: 100 0RF Follow Up/Referrals: Jacklyn Campbell DO [Primary Care Provider, Family Practice] Stand Alone Forms: [facility] Info Instructions
[2025-04-19 17:48] LABS: Appearance Urine Clear (Clear)
[2025-04-19 18:00] VITALS: PULSE 81; RESP 16; O2SAT 95
== END 2025-04-19 18:10 | disposition home or self-care (01) ==
PROVIDERS: Emergency Provider Emergency Medicine; PCP Family Medicine
DX: R05.1 Acute cough (principal)
CPT/HCPCS: 71046; 81001; 99283; 99284